=== PATIENT | female | born 1960 | race Two or more races ===

== ENCOUNTER 2020-05-01 11:14 | Outpatient (REF) | payer OTHER, SELFPAY ==
[2020-05-01 13:20] LABS: MANUAL DIFF FLAG NO
[2020-05-01 13:30] LABS: Basophils Percent Auto 0.3 % (0-2); Eosinophils Absolute Auto 0.2 X10*3/uL (0.0-0.4); Eosinophils Percent Auto 2.2 % (0-4); Hematocrit 40.2 % (37-47); Hemoglobin 12.7 g/dl (12.0-16.0); Imm Gran Abs Auto 0.02 X10*3/uL (0.00-0.03); Imm Gran Pct Auto 0.3 % (0.0-0.4); Lymphocytes Absolute Auto 1.5 X10*3/uL (1.2-4.9); Lymphocytes Percent Auto 20.5 % (20-40); Mean Corpuscular HGB Conc 31.6 g/dl (31.0-35.0); Mean Platelet Volume 10.7 fL (9.4-12.3); Monocytes Absolute Auto 0.8 X10*3/uL (0.1-1.2); Monocytes Percent Auto 11.4 % (2-11); Neutrophils Absolute Auto 4.8 X10*3/uL (2.0-8.3); Neutrophils Percent Auto 65.3 % (45-73); Platelet Count 320 X10*3/uL (160-400); Red Blood Count 4.23 X10*6/uL (4.20-5.50); Red Cell Distribution Width 12.1 % (11.0-16.0); White Blood Count 7.4 X10*3/uL (4.8-10.8)
== END 2020-05-01 11:15 | disposition home or self-care (01) ==
LOC: CF 11:14
PROVIDERS: PCP Pediatrics; Visit Provider Internal Medicine Pulmonary Disease
DX: J45.30 Mild persistent asthma, uncomplicated (principal); G47.33 Obstructive sleep apnea (adult) (pediatric); M32.9 Systemic lupus erythematosus, unspecified; Z91.09 Other allergy status, other than to drugs and biological substances; Z99.89 Dependence on other enabling machines and devices; Z79.899 Other long term (current) drug therapy
CPT/HCPCS: 36415; 82785; 85025; 86003; 99204

== ENCOUNTER → 2020-05-22 13:31 | Outpatient (BNVA) | payer OTHER, SELFPAY | PROVIDERS: PCP Pediatrics; Visit Provider Internal Medicine Pulmonary Disease | DX: Z76.89 Persons encountering health services in other specified circumstances (principal) ==

== ENCOUNTER → 2021-02-06 10:23 | Outpatient (BNVA) | payer OTHER, SELFPAY | PROVIDERS: PCP Pediatrics; Visit Provider Internal Medicine Pulmonary Disease | DX: J45.909 Unspecified asthma, uncomplicated (principal); G47.33 Obstructive sleep apnea (adult) (pediatric); Z99.89 Dependence on other enabling machines and devices | CPT/HCPCS: 99212 ==

== ENCOUNTER 2021-03-11 12:44 | Outpatient (REF) | payer OTHER, SELFPAY ==
--- NOTE | ~2021-03-11 | MM_ITS ---
EXAMINATION: MM DIAGNOSTIC DIGITAL BREAST TOMOSYNTHESIS, BILATERAL CLINICAL INFORMATION: Due for yearly. Also follow-up probable benign calcifications upper outer left breast and 12:00 right breast. Family history breast cancer, sister. The lifetime risk of breast cancer based on the Tyrer-Cuzick Model is 22%. COMPARISON: Mammography: 03/05/2020, 09/03/2019, 04/10/2019, 04/05/2019 (BI-RADS 0), 03/20/2018 TECHNIQUE: Digital breast tomosynthesis is performed in both the craniocaudal and mediolateral oblique views along with computer-aided detection (CAD). Synthesized 2D images are generated from the tomosynthesis. Additional magnification views are obtained: Left CC, left ML, right CC, right ML x2. FINDINGS: The breasts are heterogeneously dense, which may obscure small masses (ACR BI-RADS breast composition Category c). Parenchymal pattern is similar to prior studies. There is no interval mass or architectural abnormality or developing density. The axilla and skin contours are unremarkable. Left breast calcifications for follow-up mid upper outer quadrant are stable from prior diagnostic studies and now considered to be benign. The right breast calcifications for follow-up mid 12:00 position are stable to decreased from prior diagnostic studies and now considered to be benign. There are some other scattered round and coarse calcifications again noted anterior upper outer right breast as before. Results are provided to the patient at time of visit by the technologist. MM/MM tomosynthesis diagnostic BI IMPRESSION: 1. No significant changes from prior studies. 2. Bilateral calcifications for surveillance follow-up are stable and now considered to be benign. ASSESSMENT: BI-RADS 2: Benign RECOMMENDATION: 1. Routine annual mammography screening. 2. The lifetime risk of breast cancer based on the Tyrer-Cuzick Model is 22%. Additional annual adjunct screening with breast MRI may be of benefit in women with a risk score of 20% or greater. This patient's information was entered into a reminder system with a target due date for their next mammogram.
== END 2021-03-11 12:45 | disposition home or self-care (01) ==
LOC: HO.MAMMO 12:44
PROVIDERS: PCP Pediatrics; Visit Provider Pediatrics
DX: R92.1 Mammographic calcification found on diagnostic imaging of breast (principal)
CPT/HCPCS: 77062; 77066

== ENCOUNTER → 2021-03-24 14:49 | Outpatient (REF) | payer OTHER, SELFPAY | LOC: HO.SL 14:49 | PROVIDERS: PCP Pediatrics; Visit Provider Internal Medicine Pulmonary Disease | DX: G47.33 Obstructive sleep apnea (adult) (pediatric) (principal); Z99.89 Dependence on other enabling machines and devices | CPT/HCPCS: 95806 ==

== ENCOUNTER → 2021-05-08 13:47 | Outpatient (BNVA) | payer OTHER, SELFPAY | PROVIDERS: PCP Pediatrics; Visit Provider Internal Medicine Pulmonary Disease | DX: G47.33 Obstructive sleep apnea (adult) (pediatric) (principal); J45.909 Unspecified asthma, uncomplicated; R06.00 Dyspnea, unspecified; Z99.89 Dependence on other enabling machines and devices | CPT/HCPCS: 99212 ==

== ENCOUNTER 2021-05-14 05:15 | Outpatient (REF) | payer OTHER, SELFPAY ==
--- NOTE | ~2021-05-14 | XR_ITS ---
EXAMINATION: XR knee RT 2V, XR knee standing BI CLINICAL INFORMATION: Reason for Exam M25.569 - Pain in unspecified knee COMPARISON: None available at the time of this dictation. TECHNIQUE: Bilateral frontal standing, right lateral patella sunrise view. FINDINGS: BONES: No fracture or dislocation is present. JOINTS: Narrowing of joint spaces and developed osteophytes from the edges of articular surfaces suggest degenerative osteoarthritis. SOFT TISSUE: Normal XR/XR knee RT 2V IMPRESSION: Mild tricompartment DJD.
--- NOTE | ~2021-05-14 | XR_ITS ---
EXAMINATION: XR knee RT 2V, XR knee standing BI CLINICAL INFORMATION: Reason for Exam M25.569 - Pain in unspecified knee COMPARISON: None available at the time of this dictation. TECHNIQUE: Bilateral frontal standing, right lateral patella sunrise view. FINDINGS: BONES: No fracture or dislocation is present. JOINTS: Narrowing of joint spaces and developed osteophytes from the edges of articular surfaces suggest degenerative osteoarthritis. SOFT TISSUE: Normal XR/XR knee standing BI IMPRESSION: Mild tricompartment DJD.
== END 2021-05-14 05:16 | disposition home or self-care (01) ==
LOC: HO.HOSX 05:15
PROVIDERS: Visit Provider Physician Assistant
DX: M17.11 Unilateral primary osteoarthritis, right knee (principal)
CPT/HCPCS: 20610; 73560; 73565; 99202; J1020

== ENCOUNTER 2021-06-05 13:52 | Outpatient (REF) | payer OTHER, SELFPAY ==
--- NOTE | ~2021-06-05 | XR_ITS ---
EXAMINATION: XR CHEST CLINICAL INFORMATION: Dyspnea COMPARISON: Previous chest x-ray November 2015 TECHNIQUE: 2 views of the chest were obtained. FINDINGS: The cardiac and mediastinal contours are normal. The lungs are clear. There is no pleural effusion or pneumothorax. Bony structures are normal. XR/XR chest 2V IMPRESSION: Unremarkable examination.
== END 2021-06-05 13:53 | disposition home or self-care (01) ==
LOC: HO.XRAY 13:52
PROVIDERS: PCP Pediatrics; Visit Provider Internal Medicine Pulmonary Disease
DX: R06.00 Dyspnea, unspecified (principal); J45.909 Unspecified asthma, uncomplicated; G47.33 Obstructive sleep apnea (adult) (pediatric); Z91.09 Other allergy status, other than to drugs and biological substances; Z99.89 Dependence on other enabling machines and devices
CPT/HCPCS: 71046; 99212

== ENCOUNTER 2021-06-12 19:02 | Emergency (ER) | payer OTHER, SELFPAY ==
--- NOTE | ~2021-06-12 | XR_ITS ---
EXAMINATION: XR CHEST CLINICAL INFORMATION: Chest pain COMPARISON: None TECHNIQUE: PA view of the chest was obtained. FINDINGS: Normal appearance of the cardiomediastinal silhouette. Very mild interstitial prominence. No focal airspace opacities, pleural effusions or pneumothorax. No acute osseous findings. XR/XR chest 1V IMPRESSION: Very mild interstitial prominence of uncertain etiology. This could be seen in the setting of reactive airways disease, bronchitis or asthma. Correlate clinically. No focal airspace opacities.
[2021-06-12 19:11] VITALS: BP 142/85; PULSE 105; RESP 20; TEMP 36.8; O2SAT 96; BMI 33.6
--- NOTE | 2021-06-12 19:21 | ECG_ITS ---
Test Reason : CHEST PAIN Blood Pressure : / mmHG Vent. Rate : 104 BPM Atrial Rate : 104 BPM P-R Int : 140 ms QRS Dur : 086 ms QT Int : 364 ms P-R-T Axes : 038 041 039 degrees QTc Int : 478 ms Sinus tachycardia Otherwise normal ECG Heart rate has increased Referred By: Generic ED Physician Electronically Signed By:OTIS BARBOSA MD
[2021-06-12 19:42] LABS: Basophils Percent Auto 0.2 % (0-2); Hematocrit 41.9 % (37.0-47.0); Hemoglobin 13.4 g/dl (12.0-16.0); Imm Gran Abs Auto 0.11 X10*3/uL (0.00-0.03); Imm Gran Pct Auto 0.8 % (0.0-0.4); Lymphocytes Absolute Auto 0.5 X10*3/uL (1.2-4.9); Lymphocytes Percent Auto 3.8 % (20-40); MANUAL DIFF FLAG SCAN; Mean Corpuscular Volume 93.7 fL (80.0-98.0); Mean Platelet Volume 10.1 fL (9.4-12.3); Monocytes Absolute Auto 0.1 X10*3/uL (0.1-1.2); Neutrophils Absolute Auto 12.6 x10*3/uL (2.0-8.3); Neutrophils Percent Auto 94.2 % (45-73); Platelet Count 338 X10*3/uL (160-400); Red Blood Count 4.47 X10*6/uL (4.20-5.50); Red Cell Distribution Width 12.7 % (11.0-16.0); SCAN SMEAR FLAG 1; White Blood Count 13.3 X10*3/uL (4.8-10.8)
[2021-06-12 19:52] LABS: COVID-19 Test Negative (Negative); IDNOW Serial# 9DD0AD1C
[2021-06-12 20:12] LABS: SLIDE REVIEW VERIFIED
[2021-06-12 20:15] LABS: Anion Gap 18 (12-20); Blood Urea Nitrogen 16 mg/dL (9-16); Calcium 9.5 mg/dL (8.4-10.2); Carbon Dioxide 25 mmol/L (22-29); Chloride 99 mmol/L (96-108); Creatinine Clr Calc Pharmacy 74.9; Estimated Glomerular Filt Rate > 60; Glucose Random 283 mg/dL (60-115); Potassium 4.1 mmol/L (3.3-5.1); Sodium 138 mmol/L (135-145)
[2021-06-12 20:20] LABS: Troponin-I High Sensitivity < 3.5 ng/L (<3.5-17.0)
--- NOTE | 2021-06-12 22:09 | ED_ITS ---
HPI - Chest Pain General Chief Complaint: Chest Pain Stated Complaint: Anxiety Time Seen by Provider: 06/12/21 21:22 Source: patient Mode of arrival: ambulatory Limitations: no limitations History of Present Illness HPI narrative: 60 y/o female with history of fibromylagia, depression, MGUS, asthma, TREE on CPAP, seasonal allergies & anxiety who presents to the ER with intermittent left sided and central chest pain for the last 2-3 days. He reports initially started after she went up a case of stairs in her house and she was fatigued and short of breath at the top. She had some chest tightening at that time. She reports that has been coming and going since. She reports ongoing shortness of breath and fatigue with exertion that have been going on for the last 6 months. She follows with Dr. Deng for her asthma. She reports recently being started on prednisone for her asthma. She reports recent inability to tolerate her CPAP at night because the tubing is broken and insurance will not cover it. She also feels claustrophobic and anxious. She has been having increased panic attacks and has chest pain when she is having a panic attack. At that time she has pain and tingling that radiates down into her bilateral hands left worse than right. She also has intermittent headaches and generalized weakness. She feels over the last 6 months she has not been doing very well overall. She reports she may have clonazepam p.r.n. at home that was prescribed to her in 2019 but she has not taken it in a very long time. MD complaint: chest pain Pertinent past history: asthma Onset (ago): day(s) (2-3) Timing of current episode: episodic Prior episodes: Yes Onset: during rest and during exertion Pain location: left chest and parasternal Pain radiation: right arm and left arm Severity: moderate Quality: tightness Relieving factors: rest Exacerbating factors: exertion and stress Associated symptoms: dyspnea Treatment prior to arrival: none Risk Factors Coronary artery disease risk factors: hypertension Thoracic aortic dissection risk factors: none Related Data Home Medications Medication Instructions Recorded Confirmed atorvastatin 80 mg tablet 80 mg PO DAILY 05/01/20 05/08/21 betamethasone dipropionate 0.05 % applic TOPICAL BID 05/01/20 05/08/21 topical cream cetirizine 10 mg tablet 10 mg PO DAILY 05/01/20 05/08/21 cholecalciferol (vitamin D3) 50 0 mcg PO 05/01/20 05/08/21 mcg (2,000 unit) capsule clonazepam 0.5 mg tablet 0.5 mg PO DAILY 05/01/20 05/08/21 dexlansoprazole 60 mg 60 mg PO DAILY 05/01/20 05/08/21 capsule,biphase delayed release diclofenac sodium 1 % topical gel 2 g TOPICAL QID 05/01/20 05/08/21 (Voltaren) docusate sodium 100 mg capsule 100 mg PO BID 05/01/20 05/01/20 ketoconazole 2 % topical cream applic TOPICAL Q OTHER DAY PRN 05/01/20 05/08/21 linaclotide 145 mcg capsule 145 mcg PO DAILY 05/01/20 05/08/21 magnesium oxide 400 mg (241.3 mg 400 mg PO DAILY 05/01/20 05/08/21 magnesium) tablet meclizine 25 mg tablet mg PO 05/01/20 05/08/21 meloxicam 15 mg tablet 15 mg PO DAILY 05/01/20 05/01/20 metformin 500 mg tablet,extended 500 mg PO BID 05/01/20 05/08/21 release 24 hr methocarbamol 750 mg tablet 1,500 mg PO Q8H PRN 05/01/20 05/08/21 ehcneczgnsia-ledeasvm-khwybg tablet 1 tab PO DAILY 05/01/20 05/08/21 ondansetron 4 mg disintegrating 4 mg PO Q8H PRN 05/01/20 05/08/21 tablet paroxetine HCl 20 mg tablet 20 mg PO DAILY 05/01/20 05/08/21 peg [id number] 1 1 drp OPHTHALMIC (EYE) QID 05/01/20 05/08/21 %-0.2 %-0.2 % eye drops polyethylene glycol 3350 17 gram 17 g PO DAILY 05/01/20 05/08/21 oral powder packet pregabalin 150 mg capsule (Lyrica) 150 mg PO DAILY 05/01/20 05/08/21 sennosides 8.6 mg tablet 17.2 mg PO DAILY 05/01/20 05/08/21 sertraline 50 mg tablet 50 mg PO DAILY 05/01/20 05/01/20 tramadol 50 mg tablet 50 mg PO DAILY 05/01/20 05/01/20 verapamil 240 mg tablet,extended 240 mg PO DAILY 05/01/20 05/08/21 release diclofenac sodium 50 mg 50 mg PO BID 02/06/21 tablet,delayed release Previous Rx's Medication Instructions Recorded fluticasone furoate 200 1 inh INHALATION DAILY 30 Days #1 02/06/21 mcg-vilanterol 25 mcg/dose ea inhalation powder (Breo Ellipta) furosemide 40 mg tablet (Lasix) 40 mg PO DAILY 10 Days #10 tab 06/05/21 prednisone 10 mg tablet 40 mg PO DAILY 7 Days #28 tab 06/05/21 clonazepam 0.5 mg tablet 0.5 mg PO BID PRN #14 tab 06/12/21 Allergies Allergy/AdvReac Type Severity Reaction Status Date / Time aspirin [ASA] Allergy Intermediate Hives Verified 06/12/21 19:10 Penicillins [PENICILLINS] Allergy Intermediate RASH Verified 06/12/21 19:10 loratadine Allergy Unknown Unknown Verified 06/12/21 19:10 penicillin V Allergy Unknown rash Verified 06/12/21 19:10 trimethoprim Allergy Unknown Unknown Verified 06/12/21 19:10 venlafaxine Allergy Unknown Unknown Verified 06/05/21 13:59 Review of Systems Review of Systems: Constitutional: No Fever, No Chills ENT/Mouth: No sore throat, No Rhinorrhea, No Swallowing Difficulty Cardiovascular: + Chest Pain, + SOB, No Orthopnea, No Edema Respiratory: No Cough, No Sputum, + Wheezing, + dyspnea Gastrointestinal: No Nausea, No Vomiting, No Diarrhea, No abdominal Pain, No Hematochezia, No Melena Genitourinary: No Dysuria, No Urinary Frequency, No Hematuria Musculoskeletal: No joint pain, No Myalgias Skin: No Skin Lesions, No rash Neuro: + Weakness, No Numbness, No Dizziness, + Headache Psych: + Anxiety/Panic, + Depression Heme/Lymph: No Bruising, No Lymphadenopathy Endocrine: No Polyuria, No Polydipsia PMFSH Past Medical History Medical History (Updated 06/12/21 @ 23:44 by SUZAN Collins) Age related osteoporosis Anxiety Arthritis Carpal tunnel syndrome Chronic fatigue Constipation Depression Diabetes Fibromyalgia High cholesterol Hypertension Idiopathic hirsutism MGUS (monoclonal gammopathy of unknown significance) Mood disorder Myalgia Myositis Plantar fasciitis Positive MARCY (antinuclear antibody) Pulmonary nodule Restless legs SLE (systemic lupus erythematosus related syndrome) Spondylosis Xerosis of skin Family History Family History Father Diabetes Hypertension Mother Hypertension Diabetes Asthma Maternal Grandfather Throat cancer Maternal Grandmother Throat cancer Paternal Uncle Prostate cancer Maternal Uncle Throat cancer Stomach cancer Maternal Aunt Stomach cancer Diabetes Social History Social History (Updated 05/14/21 @ 16:00 by Jose D Angulo) Advance Directives: No Advance Directives Information Provided: No Patient : No Current occupational status: retired Current occupation: rt handed Physical Exam Vital Signs: Vital Signs: Last Vital Signs Temp 98.0 F 06/12/21 23:07 Pulse 76 06/12/21 23:07 Resp 19 06/12/21 23:07 BP 119/74 06/12/21 23:07 Pulse Ox 98 06/12/21 23:07 Body Mass Index 33.6 Appearance: Alert. Oriented X3. No acute distress. Eyes: Pupils equal, round and reactive to light. ENT: Pharynx normal. Neck: Normal inspection. Neck supple. CVS: Normal heart rate and rhythm. Pulses normal. Respiratory: No respiratory distress. Breath sounds normal. Abdomen: Soft and nontender. +BS x4 Skin: Skin warm and dry. Normal skin color. Normal skin turgor. No rashes. Extremities: No lower extremity edema. No calf tenderness. Neuro: Oriented X 3. No motor deficit. No sensory deficit. Course Course Course Narrative: 60-year-old female with history of TREE on CPAP asthma and anxiety presents to the ER with intermittent left-sided and substernal chest tightness for the last 2 or 3 days in addition to generalized fatigue, weakness, dyspnea on exertion that has been ongoing for the last 6 months. She currently has no chest pain. She admits to increased anxiety and panic attack frequency home. She has not been taking anything for anxiety. She also reports not using her CPAP machine because of increased anxiety and claustrophobia. Noncompliance with CPAP can lead to some of her symptoms. EKG without STEMI. Will plan on basic lab workup, rule out PE with a D-dimer and monitor closely in the ER. She appears well vital signs are stable. Reevaluation(s) Reevaluation #1: Troponin is negative. D-dimer is negative. Lab workup otherwise unremarkable. At this time it is thought that her shortness of breath, intermittent chest tightness are most likely anxiety related. We discussed need for follow-up and treatment. She will follow-up with her primary care doctor next week. She has leftover clonazepam from 2019 but is requesting a new short course until she can be seen by her doctor. Will give a 7 day supply. Treating her anxiety will hopefully help her tolerate her CPAP machine at home. She will follow-up with Dr. Ross unger for her ongoing shortness of breath. She is stable for discharge home with plan for outpatient follow-up. MDM - Chest Pain Medical Records Data Attestation: I reviewed the patient's medical records. Lab Data Attestation: I reviewed the patient's lab results. Result diagrams: 06/12/21 19:36 06/12/21 19:36 Labs: Lab Results 06/12/21 06/12/21 06/12/21 Range/Units 19:23 19:36 19:36 WBC 13.3 H (4.8-10.8) X10*3/uL RBC 4.47 (4.20-5.50) X10*6/uL Hgb 13.4 (12.0-16.0) g/dl Hct 41.9 (37.0-47.0) % MCV 93.7 (80.0-98.0) fL MCH 30.0 (27.0-33.0) pg MCHC 32.0 (31.0-35.0) g/dl RDW 12.7 (11.0-16.0) % Plt Count 338 (160-400) X10*3/uL MPV 10.1 (9.4-12.3) fL Immature Gran % (Auto) 0.8 H (0.0-0.4) % Neut % (Auto) 94.2 H (45-73) % Lymph % (Auto) 3.8 L (20-40) % [place] % (Auto) 1.0 L (2-11) % Eos % (Auto) 0.0 (0-4) % Baso % (Auto) 0.2 (0-2) % Lymph # (Auto) 0.5 L (1.2-4.9) X10*3/uL [place] # (Auto) 0.1 (0.1-1.2) X10*3/uL Eos # (Auto) 0.0 (0.0-0.4) X10*3/uL Baso # (Auto) 0.0 (0.0-0.2) X10*3/uL Abs Immat Gran (auto) 0.11 H (0.00-0.03) X10*3/uL Absolute Neuts (auto) 12.6 H (2.0-8.3) x10*3/uL Absolute Nucleated RBC 0.000 (0.0-0.012) X10*3/uL Nucleated RBC % (auto) 0.0 (0.0-0.2) /100WBC Smear Tech's Comments VERIFIED D-Dimer NG/ML Sodium 138 (135-145) mmol/L Potassium 4.1 (3.3-5.1) mmol/L Chloride 99 (96-108) mmol/L Carbon Dioxide 25 (22-29) mmol/L Anion Gap 18 (12-20) BUN 16 (9-16) mg/dL Creatinine 0.80 (0.5-1.4) mg/dL Estim Creat Clear Calc 74.9 Estimated GFR > 60 Random Glucose 283 H (60-115) mg/dL Calcium 9.5 (8.4-10.2) mg/dL Troponin I High Sens (<3.5-17.0) ng/L B-Natriuretic Peptide (<100) pg/mL COVID-19 (EDGAR) Negative (Negative) COVID-19 Clin Com See Note 06/12/21 06/12/21 Range/Units 19:36 22:56 WBC (4.8-10.8) X10*3/uL RBC (4.20-5.50) X10*6/uL Hgb (12.0-16.0) g/dl Hct (37.0-47.0) % MCV (80.0-98.0) fL MCH (27.0-33.0) pg MCHC (31.0-35.0) g/dl RDW (11.0-16.0) % Plt Count (160-400) X10*3/uL MPV (9.4-12.3) fL Immature Gran % (Auto) (0.0-0.4) % Neut % (Auto) (45-73) % Lymph % (Auto) (20-40) % [place] % (Auto) (2-11) % Eos % (Auto) (0-4) % Baso % (Auto) (0-2) % Lymph # (Auto) (1.2-4.9) X10*3/uL [place] # (Auto) (0.1-1.2) X10*3/uL Eos # (Auto) (0.0-0.4) X10*3/uL Baso # (Auto) (0.0-0.2) X10*3/uL Abs Immat Gran (auto) (0.00-0.03) X10*3/uL Absolute Neuts (auto) (2.0-8.3) x10*3/uL Absolute Nucleated RBC (0.0-0.012) X10*3/uL Nucleated RBC % (auto) (0.0-0.2) /100WBC Smear Tech's Comments D-Dimer < 200 NG/ML Sodium (135-145) mmol/L Potassium (3.3-5.1) mmol/L Chloride (96-108) mmol/L Carbon Dioxide (22-29) mmol/L Anion Gap (12-20) BUN (9-16) mg/dL Creatinine (0.5-1.4) mg/dL Estim Creat Clear Calc Estimated GFR Random Glucose (60-115) mg/dL Calcium (8.4-10.2) mg/dL Troponin I High Sens < 3.5 (<3.5-17.0) ng/L B-Natriuretic Peptide < 10 (<100) pg/mL COVID-19 (EDGAR) (Negative) COVID-19 Clin Com ECG Data ECG #1: Attestation: I personally reviewed and interpreted this ECG as follows: ECG interpretation date: 06/12/21 ECG interpretation time: 22:02 Interpretation: Sinus tachycardia, heart rate 104 beats per minute, HI interval normal. No ST segment elevations or depressions. Critical Care Time Critical Care Time Critical Care Time: No Discharge Plan Discharge Clinical Impression: Atypical chest pain, Anxiety Patient Disposition: Home, Self-Care Instructions: Chest Pain (ED), Panic Attack (ED) Additional Instructions: Your workup today was unremarkable. Life threatening causes of chest pains and shortness of breath have been ruled out. Your anxiety and panic attacks are likely contributing It is also very important that you use your CPAP at night. Follow up with your doctor next week. If you develop new or worsening symptoms call 911 or come back to the ER for further evaluation. Prescriptions: New clonazepam 0.5 mg tablet 0.5 mg PO BID PRN (Reason: anxiety) Qty: 14 RF: 0 No Action Cerovite Senior Tablet 1 tab PO DAILY RF: 0 pregabalin [Lyrica] 150 mg capsule 150 mg PO DAILY RF: 0 methocarbamol 750 mg tablet 1,500 mg PO Q8H PRNRF: 0 tramadol 50 mg tablet 50 mg PO DAILY RF: 0 diclofenac sodium [Voltaren] 1 % gel 2 g topical QID RF: 0 clonazepam 0.5 mg tablet 0.5 mg PO DAILY RF: 0 verapamil 240 mg tablet extended release 240 mg PO DAILY RF: 0 meclizine 25 mg tablet PO RF: 0 cetirizine 10 mg tablet 10 mg PO DAILY RF: 0 atorvastatin 80 mg tablet 80 mg PO DAILY RF: 0 cholecalciferol (vitamin D3) 50 mcg (2,000 unit) capsule 0 mcg PO RF: 0 ondansetron 4 mg tablet,disintegrating 4 mg PO Q8H PRNRF: 0 betamethasone dipropionate 0.05 % cream topical BID RF: 0 ketoconazole 2 % cream topical Q OTHER DAY PRNRF: 0 polyethylene glycol 3350 17 gram powder in packet 17 g PO DAILY RF: 0 sennosides 8.6 mg tablet 17.2 mg PO DAILY RF: 0 docusate sodium 100 mg capsule 100 mg PO BID RF: 0 Dexilant 60 mg capsule,biphase delayed releas 60 mg PO DAILY RF: 0 Linzess 145 mcg capsule 145 mcg PO DAILY RF: 0 sertraline 50 mg tablet 50 mg PO DAILY RF: 0 magnesium oxide 400 mg (241.3 mg magnesium) tablet 400 mg PO DAILY RF: 0 paroxetine HCl 20 mg tablet 20 mg PO DAILY RF: 0 metformin 500 mg tablet extended release 24 hr 500 mg PO BID RF: 0 meloxicam 15 mg tablet 15 mg PO DAILY RF: 0 Artificial Tears(ct-ucce-ocyx) 1-0.2-0.2 % drops 1 drp ophthalmic (eye) QID RF: 0 Breo Ellipta 200-25 mcg/dose blister with device 1 inh inhalation DAILY 30 Days Qty: 1 RF: 6 furosemide [Lasix] 40 mg tablet 40 mg PO DAILY 10 Days Qty: 10 RF: 0 prednisone 10 mg tablet 40 mg PO DAILY 7 Days Qty: 28 RF: 0 Referrals: Adrienne Villegas MD [Primary Care Provider] - 3 days Print Language: Cymro
[2021-06-12 22:38] LABS: B Type Natriuretic Peptide < 10 pg/mL (<100)
[2021-06-12 23:07] VITALS: BP 119/74; PULSE 76; RESP 19; TEMP 36.7; O2SAT 98
[2021-06-12 23:10] LABS: D Dimer < 200 NG/ML
[2021-06-13] VITALS: BP 125/67; PULSE 67; RESP 20; O2SAT 98
== END 2021-06-13 00:23 | disposition home or self-care (01) ==
PROVIDERS: Physician Assistant; Emergency Provider Internal Medicine; PCP Pediatrics
DX: R07.89 Other chest pain (principal); F41.9 Anxiety disorder, unspecified; E11.9 Type 2 diabetes mellitus without complications; I10 Essential (primary) hypertension; J45.909 Unspecified asthma, uncomplicated; G47.33 Obstructive sleep apnea (adult) (pediatric); Z91.19 Patient's noncompliance with other medical treatment and regimen; Z20.822 Contact with and (suspected) exposure to COVID-19
CPT/HCPCS: 36415; 71045; 80048; 83880; 84484; 85025; 85379; 87635; 93005; 99284

== ENCOUNTER 2021-07-02 14:00 | Outpatient (RCR) | payer OTHER, SELFPAY ==
--- NOTE | 2021-06-01 16:22 | MHC.PT.EP ---
[facility] [place] Office [place] Office [place] Office [address] [phone] F: [phone] F: [phone] F: [phone] F: [phone] Physical Therapy Plan of Care Date of Evaluation: Date of Surgery: Diagnosis: OA of R knee Assessment: Pt is a 60 y/o female referred to PT ror eval and treat of R knee OA who presents with R knee dysfunction resulting in decreased tolerance and ability to perform ambulatory, standing tasks for duration, as well as negotiating stairs, performing squatting activities and heavy HH chores secondary to decreased hip and knee strength, decreased knee ROM as well as gait abnormality and pain. Pt is deemed an appropriate candidate to receive skilled PT in order to address her physical limitations to improve her functional ability. Frequency and Duration: The patient will be seen 2x/wk x 4 wks. Short Term Goals: initiate HEP. improve baseline pain with walking activities to < 5/10, initial 7/10. [employer] Custodian Goals: In 4 weeks: Pt will be able to walk 2 blocks with at most a little bit of difficulty; initial: quite a bit of difficulty. In 4 week: I with HEP. In 4 weeks; improve B hip abd to > 4/5 MMT. initial 4-/5 B. Treatment Plan: Modalities to reduce pain, spasms and effusion. Manual therapy to restore motion and function. Therapeutic exercise to improve strength and flexibility. Neuromuscular re-education for posture and balance. Therapeutic activities to return to functional activities of daily living. Electronically signed by: Adalberto Tanner PT. Please sign and return to therapist. Thank you for your referral.
--- NOTE | 2021-07-02 15:06 | MHC.PT.DC ---
[facility] [place] Office [place] Office [place] Office [address] Richard Reyna [address] [phone] F: [phone] F: [phone] F: [phone] F: [phone] Physical Therapy Discharge Report Diagnosis: OA of R knee Date of Surgery: Date of Evaluation: 06/01/21 Date of Discharge: 07/02/21 Treatments to Date: 8 Cancellations to Date: No Shows to Date: Discharge Status: Improved Function Independent with HEP Discharge Summary: Jess has been an active participant in her therapy in the clinic with inconsistent home program performance who has mes some of her therapeutic goals and is I with a basic home program to continue strengthening her knee. Pt persists with pain ambulating and standing for duration though reports improvement through PT. Electronically signed by: Adalberto Tanner PT. Please sign and return to therapist. Thank you for your referral.
== END 2021-07-02 15:06 | disposition home or self-care (01) ==
LOC: HO.PTCHIC 14:00
PROVIDERS: PCP Pediatrics; Visit Provider Physician Assistant
DX: M17.11 Unilateral primary osteoarthritis, right knee (principal)
CPT/HCPCS: 97110; 97140; 97161

== ENCOUNTER → 2021-08-24 10:28 | Outpatient (REF) | payer OTHER, SELFPAY ==
--- NOTE | 2021-08-24 10:32 | CA_ITS ---
Transthoracic Echocardiogram Patient (Last, First, Middle): Jess Schmidt D Gender: Female Date of : 1960 Age: 60 Procedure Date: 08/24/2021 Procedure Type: Transthoracic Echocardiogram Location: OP Height: 165.1 cm Weight: 81.65 kg BSA: 1.89 m2 Heart Rate: bpm BP: 130 / 86 mmHg Software Specialist: SHERYL Referring MD: Adrienne Villegas MD Counselor At Law: Esau Savage MD Symptoms: E11.0 TYPE 2 DM, G47.33 TREE I10 HTN R06.02 SOB Study Quality: Fair ECG Rhythm: Sinus Conclusions: - Essentially normal study Findings Left Ventricle Normal left ventricular size, thickness, and systolic function. The visually estimated ejection fraction is between 60-65%. Spectral Doppler is indicative of a normal filling pattern. Right Ventricle Normal right ventricular cavity size and systolic function. Atria The left atrium is normal in size. Interatrial shunt cannot be excluded. The right atrium was not well visualized. Aortic Valve The aortic valve structure and function is likely normal. There is no aortic valve stenosis. There is no aortic valve regurgitation. Mitral Valve Normal mitral valve structure and function. There is trace mitral valve regurgitation. There is no mitral valve stenosis. Pulmonic Valve The pulmonic valve was not well visualized. Tricuspid Valve Likely normal tricuspid valve structure and function. The right ventricular systolic pressure is normal. The right ventricular systolic pressure is 22 mmHg. There is no evidence of pulmonary hypertension. Great Vessels All visible segments of the aorta are normal in size. The pulmonary artery was not well visualized. Venous The inferior vena cava is normal in size and collapses greater than 50% with inspiration. Pericardium/Pleural There is no evidence of pericardial effusion. Prior Study Comparison No prior study available for comparison. Measurements 2D Linear Measurements IVSd: 0.88 0.6-0.9/0.6-1.0 cm LVIDd: 4.82 3.9-5.3/4.2-5.9 cm LVIDd Index: 2.55 2.4-3.2/2.2-3.1 cm/m2 LVIDs: 2.94 2.0-3.6 cm LVPWd: 0.85 0.7-1.1 cm Ao Root: 3.20 2.1-3.5 cm LA Diam: 3.80 2.7-3.8/3.0-4.0 cm LAIDs Index: 2.01 1.5-2.3 cm/m2 LV Mass: 175.79 67-162/88-224 g LV Mass Index: 93.01 43-95/49-115 g/m2 LVOT Diam: 2.00 3.0+(-)1.3 cm 2D Systolic Function EF 4C: 55.80 >55% EF 2C: 70.50 >55% EF BiP: 62.50 >55% Mitral Valve MV Pk E: 0.75 MV PK A: 0.74 MV Decel Time: 197.00 E/A: 1.00 E'Lateral: 12.20 E'Medial: 8.92 E/E' Med: 8.40 E/E' Lat: 6.10 PHT: 58.00 MVA PHT: 3.79 Decel [place]: 3.79 Aortic Valve AoV Pk Venkat: 1.21 AoV Mn Venkat: 0.88 AoV VTI: 0.28 AoV Pk Grad: 6.00 Aov Mn Grad: 3.00 SIMON Cont.VTI: 2.62 LVOT LVOT Pk Venkat: 1.04 LVOT Mn Venkat: 0.70 LVOT VTI: 0.24 LVOT Pk Grad: 4.00 LVOT Mn Grad: 2.00 LVOT Diam: 2.00 LVOT Area: 3.14 Diastolic Function MV Pk E: 0.75 MV Pk A: 0.74 E/A: 1.00 E'Medial: 8.92 E/E' Med: 8.40 E' Laterial: 12.20 E/E' Lat: 6.10 Right Ventricle TAPSE (mm): 30.90 TVS' Venkat: 12.10 Tricuspid Valve TR Pk Venkat: 2.16 TR Pk Grad: 19.00 RA Press: 3.00 RVSP: 22.00 Great Vessels Aorta Ao Root-2D: 3.20 2.0-3.7 cm Ao Asc: 3.10 2.1-3.4 cm Ao Arch: 3.00 Updated in Other Vendor System with Status of Final Esau Savage MD electronically signed on 08/24/2021 5:21:14 PM with status of Final
--- NOTE | 2021-08-24 11:31 | ECG_ITS ---
Hook-up date: 2021-08-24 11:47:00 Duration: 27:07:00 Test Indications: PALPITATIONS Medications: [id number] QRS complexes * Ventricular ectopics which represent % of total QRS comp. 5 Supraventricular ectopics which represent <1 % of total QRS comp. * Paced QRS complexs which represent % of total QRS comp. VENTRICULAR ECTOPY * Isolated * Bigeminal Cycles * Couplets * Runs * Beats in Runs * Beats LONGEST at * BPM at :: -- * Beats FASTEST at * BPM at :: -- SUPRAVENTRICULAR ECTOPY 5 Isolated 0 Couplets 0 Runs 0 Beats in Runs * Beats LONGEST at * BPM at :: -- * Beats FASTEST at * BPM at :: -- HEART RATES 54 MIN at 04:18:21 2021-08-25 79 AVG 119 MAX at 15:46:18 2021-08-24 LONGEST RR 1.2160 secs at 05:55:47 2021-08-25 S-T LEVELS Channel 1 - 128 mm at 11:47:00 2021-08-24 - 128 mm at 11:47:00 2021-08-24 Channel 2 - 128 mm at 11:47:00 2021-08-24 - 128 mm at 11:47:00 2021-08-24 Channel 3 - 128 mm at 03:10:61 -- - 128 mm at 03:10:61 Basic rhythm Normal sinus rhythm No long pause or profound bradycardia No dangerous dysrhythm periods Patient did not report any symptoms in the diary Referred By: Adrienne Villegas Overread By: HAMZAH DILLON MD
== END ==
LOC: HO.CARD 10:28
PROVIDERS: Visit Provider Pediatrics
DX: R00.2 Palpitations (principal); I10 Essential (primary) hypertension; R06.02 Shortness of breath; G47.33 Obstructive sleep apnea (adult) (pediatric); E11.9 Type 2 diabetes mellitus without complications; M17.0 Bilateral primary osteoarthritis of knee
CPT/HCPCS: 20610; 93225; 93226; 93306; 99212; J1020

== ENCOUNTER 2021-09-27 12:21 | Emergency (ER) | payer OTHER, SELFPAY ==
--- NOTE | ~2021-09-27 | CT_ITS ---
EXAMINATION: CT ABDOMEN AND PELVIS WITHOUT CONTRAST CLINICAL INFORMATION: Left-sided flank pain, hematuria and vomiting COMPARISON: None TECHNIQUE: Multidetector volumetric imaging was performed from the superior aspect of the liver through the pubic symphysis. Sagittal and coronal reformatted images were obtained on the technologist's workstation. This CT examination was performed using dose optimization techniques as appropriate, variously including the following: *Automated exposure control *Adjustment of mA and/or kV according to patient size (this includes techniques or standardized protocols for targeted exams where dose is matched to indication/reason for exam; i.e. extremities or head) *Use of iterative reconstruction technique DLP: 708 mGy-cm FINDINGS: LUNG BASES: There is a 4 mL nodule left lung base axial image 13/7. No additional nodules seen. Heart size is normal. LIVER, GALLBLADDER, AND BILIARY TREE: The liver is normal in size, shape, and attenuation. No focal hepatic lesion or biliary ductal dilatation is present. The gallbladder is unremarkable with no evidence of radiopaque gallstones, gallbladder wall thickening, or obvious pericholecystic inflammatory changes. PANCREAS: Unremarkable. SPLEEN: Unremarkable. ADRENAL GLANDS: Unremarkable. KIDNEYS AND URETERS: The kidneys are normal in size, shape, and attenuation. There is no radiopaque renal calculi. However there is a 4 mm left UVJ radiopaque calculi with mild hydroureteronephrosis. There is mild periureteral fat stranding in the proximal and mid segment. BLADDER: Unremarkable. GASTROINTESTINAL TRACT: There is scattered stool in the colon without any significant distention. The small bowel loops are normal caliber. The appendix is unremarkable. ABDOMINAL WALL: No significant hernia is appreciated. LYMPH NODES: Normal. VASCULAR: Unremarkable. PELVIC VISCERA: The uterus is anteverted with multiple exophytic lesions likely fibroid disease. OSSEOUS STRUCTURES: No lytic or sclerotic process seen. CT/CT abdomen pelvis wo con IMPRESSION: 4 mm left obstructive UVJ radiopaque calculi without hydronephrosis. Enlarged uterus with lumpy bumpy appearance likely fibroid disease. Fleischner guidelines were followed.
[2021-09-27 12:38] VITALS: BP 148/82; PULSE 79; RESP 20; TEMP 36.9; O2SAT 99; BMI 31.6
[2021-09-27] MEDS: Ondansetron ODT 4 MG TAB.RAPDIS TRANSLINGU (12:45)
--- NOTE | 2021-09-27 13:21 | ED.NAVMDI ---
HPI - Nausea/Vomiting/Diarrhea General Chief complaint: Nausea/Vomiting/Diarrhea Stated complaint: Vomiting/Unable to urinate Time Seen by Provider: 09/27/21 13:06 Source: patient Mode of arrival: ambulatory Limitations: no limitations History of Present Illness HPI Narrative: 60-year-old female with history of asthma, TREE on CPAP, anxiety, fibromyalgia, depression, MGUS who presents to the ER with 5 hours of left-sided abdominal pain, nausea, & vomiting. She reports the pain came out of nowhere and is sharp and severe in nature. She also reports she has not been able to urinate since this morning. She also feels constipated, she had a normal bowel movement yesterday. She feels like her abdomen is distended. She has never had any surgeries on her abdomen. She is not eating or drinking anything this morning due to the pain and vomiting. No fever or chills. She had no pain with urination yesterday but reports dribbling small amounts. MD elicited complaint: nausea, vomiting and abdominal pain Onset (ago): hour(s) (5) Description of vomiting: food contents Associated nausea: Yes Associated abdominal pain: Yes Location of pain: L flank Radiation: LLQ Pain consistency: constant Severity: severe Pain scale (0-10): 10 Quality: stabbing Exacerbating factors: none Relieving factors: none Associated symptoms: loss of appetite, nausea/vomiting, weakness and decreased urine output Related Data Home Medications Medication Instructions Recorded Confirmed atorvastatin 80 mg tablet 80 mg PO DAILY 05/01/20 05/08/21 betamethasone dipropionate 0.05 % applic TOPICAL BID 05/01/20 05/08/21 topical cream cetirizine 10 mg tablet 10 mg PO DAILY 05/01/20 05/08/21 cholecalciferol (vitamin D3) 50 0 mcg PO 05/01/20 05/08/21 mcg (2,000 unit) capsule clonazepam 0.5 mg tablet 0.5 mg PO DAILY 05/01/20 05/08/21 dexlansoprazole 60 mg 60 mg PO DAILY 05/01/20 05/08/21 capsule,biphase delayed release diclofenac sodium 1 % topical gel 2 g TOPICAL QID 05/01/20 05/08/21 (Voltaren) docusate sodium 100 mg capsule 100 mg PO BID 05/01/20 05/01/20 ketoconazole 2 % topical cream applic TOPICAL Q OTHER DAY PRN 05/01/20 05/08/21 linaclotide 145 mcg capsule 145 mcg PO DAILY 05/01/20 05/08/21 magnesium oxide 400 mg (241.3 mg 400 mg PO DAILY 05/01/20 05/08/21 magnesium) tablet meclizine 25 mg tablet mg PO 05/01/20 05/08/21 meloxicam 15 mg tablet 15 mg PO DAILY 05/01/20 05/01/20 metformin 500 mg tablet,extended 500 mg PO BID 05/01/20 05/08/21 release 24 hr methocarbamol 750 mg tablet 1,500 mg PO Q8H PRN 05/01/20 05/08/21 [id number]-[id number] tablet 1 tab PO DAILY 05/01/20 05/08/21 ondansetron 4 mg disintegrating 4 mg PO Q8H PRN 05/01/20 05/08/21 tablet paroxetine HCl 20 mg tablet 20 mg PO DAILY 05/01/20 05/08/21 peg [id number] 1 1 drp OPHTHALMIC (EYE) QID 05/01/20 05/08/21 %-0.2 %-0.2 % eye drops polyethylene glycol 3350 17 gram 17 g PO DAILY 05/01/20 05/08/21 oral powder packet pregabalin 150 mg capsule (Lyrica) 150 mg PO DAILY 05/01/20 05/08/21 sennosides 8.6 mg tablet 17.2 mg PO DAILY 05/01/20 05/08/21 sertraline 50 mg tablet 50 mg PO DAILY 05/01/20 05/01/20 tramadol 50 mg tablet 50 mg PO DAILY 05/01/20 05/01/20 verapamil 240 mg tablet,extended 240 mg PO DAILY 05/01/20 05/08/21 release diclofenac sodium 50 mg 50 mg PO BID 02/06/21 tablet,delayed release Previous Rx's Medication Instructions Recorded fluticasone furoate 200 1 inh INHALATION DAILY 30 Days #1 02/06/21 mcg-vilanterol 25 mcg/dose ea inhalation powder (Breo Ellipta) furosemide 40 mg tablet (Lasix) 40 mg PO DAILY 10 Days #10 tab 06/05/21 prednisone 10 mg tablet 40 mg PO DAILY 7 Days #28 tab 06/05/21 clonazepam 0.5 mg tablet 0.5 mg PO BID PRN #14 tab 06/12/21 ibuprofen 600 mg tablet 600 mg PO Q8H PRN #10 tab 09/27/21 oxycodone 5 mg tablet 5 mg PO Q4H PRN #10 tab 09/27/21 polyethylene glycol 3350 17 17 g PO DAILY PRN #119 g 09/27/21 gram/dose oral powder (Miralax) prednisone 20 mg tablet 40 mg PO DAILY #10 tab 09/27/21 tamsulosin 0.4 mg capsule (Flomax) 0.4 mg PO DAILY #14 cap 09/27/21 Allergies Allergy/AdvReac Type Severity Reaction Status Date / Time aspirin [ASA] Allergy Intermediate Hives Verified 09/27/21 12:38 Penicillins [PENICILLINS] Allergy Intermediate RASH Verified 09/27/21 12:38 loratadine Allergy Unknown Unknown Verified 09/27/21 12:38 penicillin V Allergy Unknown rash Verified 09/27/21 12:38 trimethoprim Allergy Unknown Unknown Verified 09/27/21 12:38 venlafaxine Allergy Unknown Unknown Verified 09/27/21 12:38 Review of Systems Review of Systems: Constitutional: No Fever, + Chills ENT/Mouth: No sore throat, No Rhinorrhea, No Swallowing Difficulty Cardiovascular: No Chest Pain, No SOB, No Orthopnea, No Edema Respiratory: No Cough, No Sputum, No Wheezing, No dyspnea Gastrointestinal: +Nausea, + Vomiting, No Diarrhea, + abdominal Pain, No Hematochezia, No Melena, +constipation Genitourinary: No Dysuria, NOUrinary Frequency, No Hematuria, +Urinary retention Musculoskeletal: No joint pain, No Myalgias Skin: No Skin Lesions, No rash Neuro: No Weakness, No Numbness, No Dizziness, No Headache Psych:+ Anxiety/Panic, No Depression Heme/Lymph: No Bruising, No Lymphadenopathy Endocrine: No Polyuria, No Polydipsia Gastrointestinal: Gastrointestinal: Reports nausea PMFSH Past Medical History Medical History Age related osteoporosis Anxiety Arthritis Carpal tunnel syndrome Chronic fatigue Constipation Depression Diabetes Fibromyalgia High cholesterol Hypertension Idiopathic hirsutism MGUS (monoclonal gammopathy of unknown significance) Mood disorder Myalgia Myositis Plantar fasciitis Positive MARCY (antinuclear antibody) Pulmonary nodule Restless legs SLE (systemic lupus erythematosus related syndrome) Spondylosis Xerosis of skin Family History Family History Father Diabetes Hypertension Mother Hypertension Diabetes Asthma Maternal Grandfather Throat cancer Maternal Grandmother Throat cancer Paternal Uncle Prostate cancer Maternal Uncle Throat cancer Stomach cancer Maternal Aunt Stomach cancer Diabetes Social History Social History Advance Directives: No Advance Directives Information Provided: No Current occupational status: retired Current occupation: rt handed Physical Exam Vital Signs: Vital Signs: Last Vital Signs Temp 98.7 F 09/27/21 16:00 Pulse 98 09/27/21 16:00 Resp 16 09/27/21 16:00 BP 113/70 09/27/21 16:00 Pulse Ox 97 09/27/21 16:00 BMI result Body Mass Index 31.6 Appearance: Alert. Oriented X3. Appears to be in pain. Eyes: Pupils equal, round and reactive to light. ENT: Pharynx normal. Neck: Normal inspection. Neck supple. CVS: Normal heart rate and rhythm. Pulses normal. Respiratory: No respiratory distress. Breath sounds normal. Abdomen: Soft with left sided abdominal tenderness, no guarding or rebound, +left flank pain +CVA tenderness on the left, normal. +BS x4 Skin: Skin warm and dry. Normal skin color. Normal skin turgor. No rashes. Extremities: No lower extremity edema. Neuro: Oriented X 3. Grossly normal, nonfocal. Course Course Course Narrative: 60-year-old female presents to the ER with acute onset of left-sided flank pain that radiates into her abdomen as well as urinary retention and constipation. She is nauseous and vomiting. Bladder scan shows she has 500 cc urine in her bladder. Will straight cath NSAID urine sample. She may have a UTI. Will check basic lab workup and CT scan to evaluate her symptoms. IV morphine ordered, will reassess her pain. Reevaluation(s) Reevaluation #1: Urinalysis with blood, no signs of infection. CT scan is showing a 4 mm obstructing stone in the left UVJ. No hydronephrosis. Her pain is significantly improved. No vomiting here. She is tolerating p.o.. Discussed results with patient and her daughter at the bedside. Plan will be for discharge home with supportive care, pain control and follow-up with Urology. Patient agrees with plan. Advised to come back to the ER if she develops worsening symptoms. MDM - Nausea/Vomiting/Diarrhea Lab Data Result diagrams: 09/27/21 14:49 09/27/21 14:49 Labs: Lab Results 09/27/21 09/27/21 09/27/21 Range/Units 14:49 14:49 14:49 WBC 13.5 H (4.8-10.8) X10*3/uL RBC 4.10 L (4.20-5.50) X10*6/uL Hgb 12.3 (12.0-16.0) g/dl Hct 38.8 (37.0-47.0) % MCV 94.6 (80.0-98.0) fL MCH 30.0 (27.0-33.0) pg MCHC 31.7 (31.0-35.0) g/dl RDW 12.4 (11.0-16.0) % Plt Count 305 (160-400) X10*3/uL MPV 9.6 (9.4-12.3) fL Immature Gran % (Auto) 0.4 (0.0-0.4) % Neut % (Auto) 90.7 H (45-73) % Lymph % (Auto) 3.6 L (20-40) % [place] % (Auto) 5.0 (2-11) % Eos % (Auto) 0.1 (0-4) % Baso % (Auto) 0.2 (0-2) % Lymph # (Auto) 0.5 L (1.2-4.9) X10*3/uL [place] # (Auto) 0.7 (0.1-1.2) X10*3/uL Eos # (Auto) 0.0 (0.0-0.4) X10*3/uL Baso # (Auto) 0.0 (0.0-0.2) X10*3/uL Abs Immat Gran (auto) 0.05 H (0.00-0.03) X10*3/uL Absolute Neuts (auto) 12.3 H (2.0-8.3) x10*3/uL Absolute Nucleated RBC 0.000 (0.0-0.012) X10*3/uL Nucleated RBC % (auto) 0.0 (0.0-0.2) /100WBC Smear Tech's Comments VERIFIED Sodium 144 (135-145) mmol/L Potassium 4.4 (3.3-5.1) mmol/L Chloride 108 (96-108) mmol/L Carbon Dioxide 26 (22-29) mmol/L Anion Gap 14 (12-20) BUN 12 (9-16) mg/dL Creatinine 0.69 (0.5-1.4) mg/dL Estim Creat Clear Calc 87.4 Estimated GFR > 60 Random Glucose 98 (60-115) mg/dL Calcium 9.5 (8.4-10.2) mg/dL Magnesium 2.0 (1.6-2.6) mg/dL Total Bilirubin 0.4 (0.0-1.0) mg/dL Direct Bilirubin 0.2 (0.0-0.5) mg/dL AST 19 (5-31) U/L ALT 18 (0-31) U/L Alkaline Phosphatase 58 (39-117) U/L Total Protein 6.9 (6.5-8.0) g/dL Albumin 4.2 (3.5-5.0) g/dL Urine Color YELLOW Urine Appearance CLEAR Urine pH 7.5 (5.0-8.0) Ur Specific [place] <= 1.005 (1.005-1.025) Urine Protein NEG (NEG-TRACE) MG/DL Urine Glucose (UA) NEG (NEG) MG/DL Urine Ketones NEG (NEG) MG/DL Urine Blood 3+ H (NEG) Urine Nitrite NEG (NEG) Ur Leukocyte Esterase NEG (NEG) Urine RBC 15-29 H (0) /HPF Urine WBC 0-2 (0-4) /HPF Ur Squamous Epith Cells TRACE /LPF Urine Bacteria NONE /LPF Critical Care Time Critical Care Time Critical Care Time: No Discharge Plan Discharge Clinical Impression: Left ureteral stone Patient Disposition: Home, Self-Care Instructions: Ureteral Stones (ED) Additional Instructions: Your CT scan showed a 4 mm kidney stone. This is what is causing her pain. You most likely passed stone on your own. However there is a chance you may not pass the stone & may need a procedure to help it pass. Take prescribed medications as directed. If you develop worsening symptoms despite this call your doctor or come back to the ER for further evaluation. Recommend following up with Urology for further evaluation of the kidney stone. Prescriptions: New tamsulosin [Flomax] 0.4 mg capsule 0.4 mg PO DAILY Qty: 14 0RF ibuprofen 600 mg tablet 600 mg PO Q8H PRN (Reason: pain) Qty: 10 0RF oxycodone 5 mg tablet 5 mg PO Q4H PRN (Reason: pain) Qty: 10 0RF prednisone 20 mg tablet 40 mg PO DAILY Qty: 10 0RF polyethylene glycol 3350 [Miralax] 17 gram/dose powder 17 g PO DAILY PRN (Reason: constipation) Qty: 119 0RF No Action clonazepam 0.5 mg tablet 0.5 mg PO BID PRN (Reason: anxiety) Qty: 14 0RF Cerovite Senior Tablet 1 tab PO DAILY 0RF pregabalin [Lyrica] 150 mg capsule 150 mg PO DAILY 0RF methocarbamol 750 mg tablet 1,500 mg PO Q8H PRN0RF tramadol 50 mg tablet 50 mg PO DAILY 0RF diclofenac sodium [Voltaren] 1 % gel 2 g topical QID 0RF Rx Instructions: apply to single elbow, wrist or hand; for hand includes palm/fingers/back of hand clonazepam 0.5 mg tablet 0.5 mg PO DAILY 0RF verapamil 240 mg tablet extended release 240 mg PO DAILY 0RF meclizine 25 mg tablet PO 0RF cetirizine 10 mg tablet 10 mg PO DAILY 0RF atorvastatin 80 mg tablet 80 mg PO DAILY 0RF cholecalciferol (vitamin D3) 50 mcg (2,000 unit) capsule 0 mcg PO 0RF ondansetron 4 mg tablet,disintegrating 4 mg PO Q8H PRN0RF betamethasone dipropionate 0.05 % cream topical BID 0RF ketoconazole 2 % cream topical Q OTHER DAY PRN0RF polyethylene glycol 3350 17 gram powder in packet 17 g PO DAILY 0RF sennosides 8.6 mg tablet 17.2 mg PO DAILY 0RF docusate sodium 100 mg capsule 100 mg PO BID 0RF Dexilant 60 mg capsule,biphase delayed releas 60 mg PO DAILY 0RF Linzess 145 mcg capsule 145 mcg PO DAILY 0RF sertraline 50 mg tablet 50 mg PO DAILY 0RF magnesium oxide 400 mg (241.3 mg magnesium) tablet 400 mg PO DAILY 0RF paroxetine HCl 20 mg tablet 20 mg PO DAILY 0RF metformin 500 mg tablet extended release 24 hr 500 mg PO BID 0RF meloxicam 15 mg tablet 15 mg PO DAILY 0RF Artificial Tears([id number]-nptt) 1-0.2-0.2 % drops 1 drp ophthalmic (eye) QID 0RF diclofenac sodium 50 mg tablet,delayed release (DR/EC) 50 mg PO BID 0RF Breo Ellipta 200-25 mcg/dose blister with device 1 inh inhalation DAILY 30 Days Qty: 1 6RF furosemide [Lasix] 40 mg tablet 40 mg PO DAILY 10 Days Qty: 10 0RF prednisone 10 mg tablet 40 mg PO DAILY 7 Days Qty: 28 0RF Referrals: Milton Cardozo MD [Physician] - 5 days (obstructing UVJ stone, normal kidney fx)
[2021-09-27] MEDS: Morphine Sulfate 4 MG/ML CARTRIDGE IVPUSH (14:00)
[2021-09-27] MEDS: 0.9 % Sodium Chloride 1,000 ML 999 ML IVCONT (14:06)
[2021-09-27 14:54] LABS: Basophils Percent Auto 0.2 % (0-2); Eosinophils Percent Auto 0.1 % (0-4); Hematocrit 38.8 % (37.0-47.0); Hemoglobin 12.3 g/dl (12.0-16.0); Imm Gran Abs Auto 0.05 X10*3/uL (0.00-0.03); Imm Gran Pct Auto 0.4 % (0.0-0.4); Lymphocytes Absolute Auto 0.5 X10*3/uL (1.2-4.9); Lymphocytes Percent Auto 3.6 % (20-40); MANUAL DIFF FLAG SCAN; Mean Corpuscular HGB Conc 31.7 g/dl (31.0-35.0); Mean Corpuscular Volume 94.6 fL (80.0-98.0); Mean Platelet Volume 9.6 fL (9.4-12.3); Monocytes Absolute Auto 0.7 X10*3/uL (0.1-1.2); Neutrophils Absolute Auto 12.3 x10*3/uL (2.0-8.3); Neutrophils Percent Auto 90.7 % (45-73); Platelet Count 305 X10*3/uL (160-400); Red Cell Distribution Width 12.4 % (11.0-16.0); SCAN SMEAR FLAG 1; White Blood Count 13.5 X10*3/uL (4.8-10.8)
[2021-09-27 14:55] LABS: Appearance Urine CLEAR; Color Urine YELLOW; Glucose Urine UA NEG (NEG); Leukocyte Esterase Urine NEG (NEG); Nitrite Urine NEG (NEG); PH 7.5 (5.0-8.0); Specific Gravity - Urine <= 1.005 (1.005-1.025); UACC Culture Trigger NO; Urine Blood 3+ (NEG); Urine Ketones NEG (NEG); Urine Protein NEG (NEG-TRACE)
[2021-09-27 15:07] LABS: Squamous Epithelial Cell Urine TRACE /LPF; WBC Urine 0-2 /HPF (0-4)
[2021-09-27 15:13] LABS: SLIDE REVIEW VERIFIED
[2021-09-27 15:14] LABS: Alanine Aminotransferase 18 U/L (0-31); Albumin Level 4.2 g/dL (3.5-5.0); Alkaline Phosphatase 58 U/L (39-117); Anion Gap 14 (12-20); Aspartate Amino Transferase 19 U/L (5-31); Bilirubin Direct 0.2 mg/dL (0.0-0.5); Bilirubin Total 0.4 mg/dL (0.0-1.0); Blood Urea Nitrogen 12 mg/dL (9-16); Calcium 9.5 mg/dL (8.4-10.2); Carbon Dioxide 26 mmol/L (22-29); Chloride 108 mmol/L (96-108); Creatinine Clr Calc Pharmacy 87.4; Estimated Glomerular Filt Rate > 60; Glucose Random 98 mg/dL (60-115); Potassium 4.4 mmol/L (3.3-5.1); Sodium 144 mmol/L (135-145); Total Protein 6.9 g/dL (6.5-8.0)
[2021-09-27 16:00] VITALS: BP 113/70; PULSE 98; RESP 16; TEMP 37.1; O2SAT 97
== END 2021-09-27 16:38 | disposition home or self-care (01) ==
PROVIDERS: Physician Assistant; Emergency Provider Emergency Medicine Emergency Medical Services; PCP Pediatrics
DX: N20.1 Calculus of ureter (principal); R11.2 Nausea with vomiting, unspecified; R19.7 Diarrhea, unspecified; K59.00 Constipation, unspecified; Z79.899 Other long term (current) drug therapy
CPT/HCPCS: 36415; 51702; 74176; 80048; 80076; 81001; 83735; 85025; 96374; 96375; 99283; 99284; J2270

== ENCOUNTER 2021-10-03 15:19 | Emergency (ER) | payer OTHER, SELFPAY ==
--- NOTE | ~2021-10-03 | CT_ITS ---
EXAMINATION: CT ABDOMEN AND PELVIS WITHOUT CONTRAST CLINICAL INFORMATION: Left flank pain. COMPARISON: CT abdomen/pelvis dated 09/27/2021. TECHNIQUE: Multidetector volumetric imaging was performed from the superior aspect of the liver through the pubic symphysis. Sagittal and coronal reformatted images were obtained on the technologist's workstation. This CT examination was performed using dose optimization techniques as appropriate, variously including the following: *Automated exposure control *Adjustment of mA and/or kV according to patient size (this includes techniques or standardized protocols for targeted exams where dose is matched to indication/reason for exam; i.e. extremities or head) *Use of iterative reconstruction technique DLP: 632 mGy-cm FINDINGS: LUNG BASES: Pleural-based 0.3 cm nodule within the lateral left lower lobe, unchanged when compared to the prior examination. LIVER, GALLBLADDER, AND BILIARY TREE: The liver is normal in size, shape, and attenuation. No focal hepatic lesion or biliary ductal dilatation is present. The gallbladder is unremarkable with no evidence of radiopaque gallstones, gallbladder wall thickening, or obvious pericholecystic inflammatory changes. PANCREAS: Unremarkable. SPLEEN: Unremarkable. ADRENAL GLANDS: Unremarkable. KIDNEYS AND URETERS: Redemonstration of a left ureterovesicular junction stone measuring up to 0.7 cm, slightly more distal when compared to the prior CT. This now appears almost entirely within the bladder lumen. Moderate left-sided hydroureteronephrosis with mild perinephric and periureteral stranding, slightly more prominent when compared to the prior examination. No right-sided renal stone. No right-sided hydronephrosis or nephrolithiasis. BLADDER: Unremarkable. GASTROINTESTINAL TRACT: No bowel wall thickening or associated inflammatory change. No small or large bowel structure. Unremarkable appendix. PERITONEAL CAVITY: No intra-abdominal free air or free fluid. No intra-abdominal mass or organized fluid collection/abscess formation. ABDOMINAL WALL: No significant hernia is appreciated. LYMPH NODES: Normal. VASCULAR: Unremarkable. PELVIC VISCERA: Redemonstration of a large, lobulated uterus, likely indicating uterine fibroids. OSSEOUS STRUCTURES: Unremarkable. CT/CT abdomen pelvis wo con IMPRESSION: 1. Redemonstration of a left ureterovesicular junction stone measuring up to 0.7 cm, slightly more distal when compared to the prior examination. The stone now appears almost entirely within the bladder lumen. Moderate left-sided hydroureteronephrosis with mild perinephric and periureteral stranding, slightly more prominent when compared to the prior examination. 2. Redemonstration of a 0.3 cm left lower lobe subpleural nodule. According to the UPDATED 2017 Fleischner Society recommendations, the advised follow-up imaging for solid nodules < 6 mm is: LOW RISK PATIENT: No routine follow-up. HIGH RISK PATIENT: Optional CT at 12 months. 3. Additional chronic findings are unchanged. Fleischner guidelines were followed.
[2021-10-03 15:31] VITALS: BP 154/85; PULSE 95; RESP 14; TEMP 37; O2SAT 98; BMI 32.1
[2021-10-03] MEDS: Tamsulosin HCL 0.4 MG CAPSULE 0.8 MG PO (16:09)
[2021-10-03] MEDS: Morphine Sulfate 4 MG/ML CARTRIDGE IVPUSH ×2 (16:09→17:42)
[2021-10-03] MEDS: 0.9 % Sodium Chloride 1,000 ML 999 ML IV (16:10)
--- NOTE | 2021-10-03 16:39 | ED.FEMALEGU ---
HPI - Female Genitourinary General Chief complaint: Urogenital-Female Stated complaint: kidney stone Time Seen by Provider: 10/03/21 15:26 Source: patient and family Mode of arrival: ambulatory Limitations: no limitations History of Present Illness HPI Narrative: 60-year-old female with a history of fibromyalgia, asthma, osteoarthritis, known renal colic on the left side here with reports of left-sided flank pain with radiation to the left lower abdomen since this morning. Patient was seen here September 27 and diagnosed with a left 4 mm obstructive calculi at the UVJ with no hydronephrosis. Patient tells me discharge she felt improved. She has been taking Flomax, prednisone, p.r.n. oxycodone ibuprofen at home. She has a follow-up appointment on October [address] Cardozo. She was feeling well to this morning when she started to have some decreased urine output with dribbling and dysuria as well as worsening pain despite taking her home oxycodone. Denies fevers, chills, vomiting Related Data Home Medications Medication Instructions Recorded Confirmed atorvastatin 80 mg tablet 80 mg PO DAILY 05/01/20 05/08/21 betamethasone dipropionate 0.05 % applic TOPICAL BID 05/01/20 05/08/21 topical cream cetirizine 10 mg tablet 10 mg PO DAILY 05/01/20 05/08/21 cholecalciferol (vitamin D3) 50 0 mcg PO 05/01/20 05/08/21 mcg (2,000 unit) capsule clonazepam 0.5 mg tablet 0.5 mg PO DAILY 05/01/20 05/08/21 dexlansoprazole 60 mg 60 mg PO DAILY 05/01/20 05/08/21 capsule,biphase delayed release diclofenac sodium 1 % topical gel 2 g TOPICAL QID 05/01/20 05/08/21 (Voltaren) docusate sodium 100 mg capsule 100 mg PO BID 05/01/20 05/01/20 ketoconazole 2 % topical cream applic TOPICAL Q OTHER DAY PRN 05/01/20 05/08/21 linaclotide 145 mcg capsule 145 mcg PO DAILY 05/01/20 05/08/21 magnesium oxide 400 mg (241.3 mg 400 mg PO DAILY 05/01/20 05/08/21 magnesium) tablet meclizine 25 mg tablet mg PO 05/01/20 05/08/21 meloxicam 15 mg tablet 15 mg PO DAILY 05/01/20 05/01/20 metformin 500 mg tablet,extended 500 mg PO BID 05/01/20 05/08/21 release 24 hr methocarbamol 750 mg tablet 1,500 mg PO Q8H PRN 05/01/20 05/08/21 liraqeqtmiaa-njnbtcyi-gvnsjg tablet 1 tab PO DAILY 05/01/20 05/08/21 ondansetron 4 mg disintegrating 4 mg PO Q8H PRN 05/01/20 05/08/21 tablet paroxetine HCl 20 mg tablet 20 mg PO DAILY 05/01/20 05/08/21 peg 135-qfbgmckyojue-kchsnutx 1 1 drp OPHTHALMIC (EYE) QID 05/01/20 05/08/21 %-0.2 %-0.2 % eye drops polyethylene glycol 3350 17 gram 17 g PO DAILY 05/01/20 05/08/21 oral powder packet pregabalin 150 mg capsule (Lyrica) 150 mg PO DAILY 05/01/20 05/08/21 sennosides 8.6 mg tablet 17.2 mg PO DAILY 05/01/20 05/08/21 sertraline 50 mg tablet 50 mg PO DAILY 05/01/20 05/01/20 tramadol 50 mg tablet 50 mg PO DAILY 05/01/20 05/01/20 verapamil 240 mg tablet,extended 240 mg PO DAILY 05/01/20 05/08/21 release diclofenac sodium 50 mg 50 mg PO BID 02/06/21 tablet,delayed release Previous Rx's Medication Instructions Recorded fluticasone furoate 200 1 inh INHALATION DAILY 30 Days #1 02/06/21 mcg-vilanterol 25 mcg/dose ea inhalation powder (Breo Ellipta) furosemide 40 mg tablet (Lasix) 40 mg PO DAILY 10 Days #10 tab 06/05/21 prednisone 10 mg tablet 40 mg PO DAILY 7 Days #28 tab 06/05/21 clonazepam 0.5 mg tablet 0.5 mg PO BID PRN #14 tab 06/12/21 ibuprofen 600 mg tablet 600 mg PO Q8H PRN #10 tab 09/27/21 oxycodone 5 mg tablet 5 mg PO Q4H PRN #10 tab 09/27/21 polyethylene glycol 3350 17 17 g PO DAILY PRN #119 g 09/27/21 gram/dose oral powder (Miralax) prednisone 20 mg tablet 40 mg PO DAILY #10 tab 09/27/21 tamsulosin 0.4 mg capsule (Flomax) 0.4 mg PO DAILY #14 cap 09/27/21 oxycodone 5 mg tablet 5 mg PO Q8H PRN #5 tab 10/03/21 Allergies Allergy/AdvReac Type Severity Reaction Status Date / Time aspirin [ASA] Allergy Intermediate Hives Verified 09/27/21 12:38 Penicillins [PENICILLINS] Allergy Intermediate RASH Verified 09/27/21 12:38 loratadine Allergy Unknown Unknown Verified 09/27/21 12:38 penicillin V Allergy Unknown rash Verified 09/27/21 12:38 trimethoprim Allergy Unknown Unknown Verified 09/27/21 12:38 venlafaxine Allergy Unknown Unknown Verified 09/27/21 12:38 Review of Systems Review of Systems: Yes all other systems are reviewed and are negative Constitutional: Constitutional: Reports no additional constitutional complaints, Denies body ache(s), Denies chills, Denies fever(s), Denies headache(s) and Denies weakness Eyes: Eyes: Reports no additional eye complaints and Denies change in vision ENT: Reports system reviewed and no additional complaints, except as documented, Denies dizziness, Denies headache(s), Denies nasal congestion, Denies nasal discharge and Denies neck pain Cardiovascular: Cardiovascular: Reports no additional cardiovascular complaints, Denies chest pain, Denies leg edema and Denies dyspnea Respiratory: Respiratory: Reports no additional respiratory complaints, Denies cough and Denies dyspnea Gastrointestinal: Gastrointestinal: Reports no additional gastrointestinal complaints, Reports abdominal pain, Denies diarrhea, Denies nausea and Denies vomiting Genitourinary: Genitourinary: Reports no additional female genitourinary complaints, Reports difficulty voiding, Reports post void dribbling, Reports dysuria, Reports flank pain, Denies urinary incontinence, Reports urinary hesitancy and Reports urinary urgency Musculoskeletal: Musculoskeletal: Reports no additional musculoskeletal complaints, Reports back pain, Denies arthralgias, Denies joint swelling, Denies neck pain, Denies numbness and Denies tingling Integumentary/Breasts: Skin/Breast: Reports system reviewed and no additional complaints, except as docu and Denies rash Neurologic: Reports system reviewed and no additional complaints, except as documented, Denies Abnormal speech present, Denies dizziness, Denies headache(s), Denies numbness, Denies tingling and Denies weakness PMF Past Medical History Attestation statement: The following information was validated with the patient. Source: old records reviewed and nursing notes reviewed Medical History Age related osteoporosis Anxiety Arthritis Carpal tunnel syndrome Chronic fatigue Constipation Depression Diabetes Fibromyalgia High cholesterol Hypertension Idiopathic hirsutism MGUS (monoclonal gammopathy of unknown significance) Mood disorder Myalgia Myositis Plantar fasciitis Positive MARCY (antinuclear antibody) Pulmonary nodule Restless legs SLE (systemic lupus erythematosus related syndrome) Spondylosis Xerosis of skin Family History Family History Father Diabetes Hypertension Mother Hypertension Diabetes Asthma Maternal Grandfather Throat cancer Maternal Grandmother Throat cancer Paternal Uncle Prostate cancer Maternal Uncle Throat cancer Stomach cancer Maternal Aunt Stomach cancer Diabetes Social History Social History Alcohol intake: never Patient Tobacco Use Status: Never used Tobacco Use of substances other than those prescribed or required for medical reasons: No Advance Directives: No Advance Directives Information Provided: No Patient : No Current occupational status: retired Current occupation: rt handed Physical Exam Vital Signs: Vital Signs: Last Vital Signs Temp 98.4 F 10/03/21 18:36 Pulse 88 10/03/21 18:36 Resp 16 10/03/21 18:36 BP 130/87 10/03/21 18:36 Pulse Ox 96 10/03/21 18:36 BMI result Body Mass Index 32.1 Const: General: cooperative, healthy appearing, comfortable and no acute distress Orientation/consciousness: patient oriented x3 Limitations: no limitations HENMT: Head: Yes normal to inspection Ears: hearing grossly normal bilaterally General nose exam: Normal external nose present Face and sinus: Yes normal facial exam Mouth: Normal oral and palatal mucosa present Throat: Yes posterior oropharynx normal Eyes: General: appearance normal, both eyes and all related structures Pupils: Equal, round and reactive pupils present Neck: Neck: Yes normal visual inspection Chest: Chest palpation & inspection: normal inspection of the chest Resp: Effort & Inspection: normal respiratory effort Auscultation: clear to auscultation bilaterally Cardio: Rate: regular rate Rhythm: regular rhythm Peripheral pulses: Peripheral pulses 2+ throughout GI: Inspection: Yes normal to inspection Palpation (GI): Soft to palpation and Tenderness to palpation present (GI) (left side abdomen) Auscultation: normal bowel sounds : General: Yes CVA tenderness (left side) Back/Spine/Pelvis: Back: CVA tenderness (left side) Thoracic/Lumbar Spine: thoracic and lumbar spine normal to inspection Skin: General skin exam: no rashes or lesions noted Neuro: General: patient oriented x3, no focal motor deficits and normal sensation to monofilament Cranial nerves: Yes Equal, round and reactive pupils present Cognition (Neuro): normal cognition Speech: No Abnormal speech present Gait exam (Neuro): Normal gait present Motor exam (neuro): 5/5 motor strength present throughout Extrem: General: Yes normal to inspection Course Course Course Narrative: 60-year-old female with known left 4 mm obstructive calculi diagnosed here on September 27 here with worsening pain today with some urinary symptoms of dysuria, dribbling, frequency. On arrival the patient has left CVA tenderness with some mild left-sided abdominal pain. Her post void residual bladder scan is 156ml so less concern for retention. Will need labs, UA, CT A/P, analgesia. 1899- ?CT shows Redemonstration of a left ureterovesicular junction stone measuring up to 0.7 cm, slightly more distal when compared to the prior examination. The stone now appears almost entirely within the bladder lumen. Moderate left-sided hydroureteronephrosis with mild perinephric and periureteral stranding, slightly more prominent when compared to the prior examination. UA shows no signs of infection. Patient tells me her pain is improving but not resolved. Will monitor for brief time prior to discharge home 1999-patient tells me her pain is improving now a 5 of the 10 instead of a 10 of 10. She is tolerating p.o.. Patient has several tablets of oxycodone left at home. Will provide additional 5 tablets as needed. She is in a follow-up appointment with Urology on Tuesday. Recommended she keep the appointment. Reviewed worrisome signs and symptoms of when to return to the emergency department. Comfortable discharge home. MDM - Female Genitourinary MDM Narrative Medical decision making narrative: Renal colic, pyelonephritis Differential Diagnosis Differential diagnosis: Likely urinary tract infection Medical Records Attestation: I reviewed the patient's medical records. Lab Data Attestation: I reviewed the patient's lab results. Result diagrams: 10/03/21 16:21 10/03/21 16:21 Labs: Lab Results 10/03/21 10/03/21 10/03/21 Range/Units 16:21 16:21 17:42 WBC 17.3 H (4.8-10.8) X10*3/uL RBC 4.21 (4.20-5.50) X10*6/uL Hgb 12.6 (12.0-16.0) g/dl Hct 39.4 (37.0-47.0) % MCV 93.6 (80.0-98.0) fL MCH 29.9 (27.0-33.0) pg MCHC 32.0 (31.0-35.0) g/dl RDW 12.4 (11.0-16.0) % Plt Count 347 (160-400) X10*3/uL MPV 10.2 (9.4-12.3) fL Immature Gran % (Auto) 0.6 H (0.0-0.4) % Neut % (Auto) 90.9 H (45-73) % Lymph % (Auto) 4.8 L (20-40) % [place] % (Auto) 3.4 (2-11) % Eos % (Auto) 0.1 (0-4) % Baso % (Auto) 0.2 (0-2) % Lymph # (Auto) 0.8 L (1.2-4.9) X10*3/uL [place] # (Auto) 0.6 (0.1-1.2) X10*3/uL Eos # (Auto) 0.0 (0.0-0.4) X10*3/uL Baso # (Auto) 0.0 (0.0-0.2) X10*3/uL Abs Immat Gran (auto) 0.10 H (0.00-0.03) X10*3/uL Absolute Neuts (auto) 15.7 H (2.0-8.3) x10*3/uL Absolute Nucleated RBC 0.000 (0.0-0.012) X10*3/uL Nucleated RBC % (auto) 0.0 (0.0-0.2) /100WBC Smear Tech's Comments VERIFIED Sodium 139 (135-145) mmol/L Potassium 4.3 (3.3-5.1) mmol/L Chloride 103 (96-108) mmol/L Carbon Dioxide 27 (22-29) mmol/L Anion Gap 13 (12-20) BUN 15 (9-16) mg/dL Creatinine 0.78 (0.5-1.4) mg/dL Estim Creat Clear Calc 77.8 Estimated GFR > 60 Random Glucose 140 H (60-115) mg/dL Calcium 9.7 (8.4-10.2) mg/dL Total Bilirubin 0.3 (0.0-1.0) mg/dL Direct Bilirubin < 0.2 (0.0-0.5) mg/dL AST 21 (5-31) U/L ALT 18 (0-31) U/L Alkaline Phosphatase 67 (39-117) U/L Total Protein 7.2 (6.5-8.0) g/dL Albumin 4.3 (3.5-5.0) g/dL Urine Color YELLOW Urine Appearance CLOUDY Urine pH 6.5 (5.0-8.0) Ur Specific [place] 1.020 (1.005-1.025) Urine Protein NEG (NEG-TRACE) MG/DL Urine Glucose (UA) NEG (NEG) MG/DL Urine Ketones NEG (NEG) MG/DL Urine Blood TRACE (NEG) Urine Nitrite NEG (NEG) Ur Leukocyte Esterase NEG (NEG) Urine RBC 1-4 (0) /HPF Urine WBC 0 (0-4) /HPF Ur Squamous Epith Cells TRACE /LPF Amorphous Sediment 3+ /LPF Urine Bacteria NONE /LPF Imaging Data CT scan - abdomen: Attestation: I personally reviewed and interpreted this imaging study as follows: Radiologist's impression: IMPRESSION: 1. Redemonstration of a left ureterovesicular junction stone measuring up to 0.7 cm, slightly more distal when compared to the prior examination. The stone now appears almost entirely within the bladder lumen. Moderate left-sided hydroureteronephrosis with mild perinephric and periureteral stranding, slightly more prominent when compared to the prior examination. ? 2. Redemonstration of a 0.3 cm left lower lobe subpleural nodule. According to the UPDATED 2017 Fleischner Society recommendations, the advised follow-up imaging for solid nodules < 6 mm is: ?? LOW RISK PATIENT: No routine follow-up. ?? HIGH RISK PATIENT: Optional CT at 12 months. ? 3. Additional chronic findings are unchanged. ? Discharge Plan Discharge Clinical Impression: Renal colic on left side Patient Disposition: Home, Self-Care Additional Instructions: Keep your appointment with Urology Continue your other medication Increase fluid Prescriptions: New oxycodone 5 mg tablet 5 mg PO Q8H PRN (Reason: pain) Qty: 5 0RF No Action clonazepam 0.5 mg tablet 0.5 mg PO BID PRN (Reason: anxiety) Qty: 14 0RF tamsulosin [Flomax] 0.4 mg capsule 0.4 mg PO DAILY Qty: 14 0RF ibuprofen 600 mg tablet 600 mg PO Q8H PRN (Reason: pain) Qty: 10 0RF oxycodone 5 mg tablet 5 mg PO Q4H PRN (Reason: pain) Qty: 10 0RF prednisone 20 mg tablet 40 mg PO DAILY Qty: 10 0RF polyethylene glycol 3350 [Miralax] 17 gram/dose powder 17 g PO DAILY PRN (Reason: constipation) Qty: 119 0RF Cerovite Senior Tablet 1 tab PO DAILY 0RF pregabalin [Lyrica] 150 mg capsule 150 mg PO DAILY 0RF methocarbamol 750 mg tablet 1,500 mg PO Q8H PRN0RF tramadol 50 mg tablet 50 mg PO DAILY 0RF diclofenac sodium [Voltaren] 1 % gel 2 g topical QID 0RF Rx Instructions: apply to single elbow, wrist or hand; for hand includes palm/fingers/back of hand clonazepam 0.5 mg tablet 0.5 mg PO DAILY 0RF verapamil 240 mg tablet extended release 240 mg PO DAILY 0RF meclizine 25 mg tablet PO 0RF cetirizine 10 mg tablet 10 mg PO DAILY 0RF atorvastatin 80 mg tablet 80 mg PO DAILY 0RF cholecalciferol (vitamin D3) 50 mcg (2,000 unit) capsule 0 mcg PO 0RF ondansetron 4 mg tablet,disintegrating 4 mg PO Q8H PRN0RF betamethasone dipropionate 0.05 % cream topical BID 0RF ketoconazole 2 % cream topical Q OTHER DAY PRN0RF polyethylene glycol 3350 17 gram powder in packet 17 g PO DAILY 0RF sennosides 8.6 mg tablet 17.2 mg PO DAILY 0RF docusate sodium 100 mg capsule 100 mg PO BID 0RF Dexilant 60 mg capsule,biphase delayed releas 60 mg PO DAILY 0RF Linzess 145 mcg capsule 145 mcg PO DAILY 0RF sertraline 50 mg tablet 50 mg PO DAILY 0RF magnesium oxide 400 mg (241.3 mg magnesium) tablet 400 mg PO DAILY 0RF paroxetine HCl 20 mg tablet 20 mg PO DAILY 0RF metformin 500 mg tablet extended release 24 hr 500 mg PO BID 0RF meloxicam 15 mg tablet 15 mg PO DAILY 0RF Artificial Tears(by-urxo-anbf) 1-0.2-0.2 % drops 1 drp ophthalmic (eye) QID 0RF diclofenac sodium 50 mg tablet,delayed release (DR/EC) 50 mg PO BID 0RF Breo Ellipta 200-25 mcg/dose blister with device 1 inh inhalation DAILY 30 Days Qty: 1 6RF furosemide [Lasix] 40 mg tablet 40 mg PO DAILY 10 Days Qty: 10 0RF prednisone 10 mg tablet 40 mg PO DAILY 7 Days Qty: 28 0RF Referrals: Milton Cardozo MD [Physician] - 2 days (as scheduled)
[2021-10-03 16:41] LABS: Basophils Percent Auto 0.2 % (0-2); Eosinophils Percent Auto 0.1 % (0-4); Hematocrit 39.4 % (37.0-47.0); Hemoglobin 12.6 g/dl (12.0-16.0); Imm Gran Pct Auto 0.6 % (0.0-0.4); Lymphocytes Absolute Auto 0.8 X10*3/uL (1.2-4.9); Lymphocytes Percent Auto 4.8 % (20-40); MANUAL DIFF FLAG SCAN; Mean Corpuscular Hemoglobin 29.9 pg (27.0-33.0); Mean Corpuscular Volume 93.6 fL (80.0-98.0); Mean Platelet Volume 10.2 fL (9.4-12.3); Monocytes Absolute Auto 0.6 X10*3/uL (0.1-1.2); Monocytes Percent Auto 3.4 % (2-11); Neutrophils Absolute Auto 15.7 x10*3/uL (2.0-8.3); Neutrophils Percent Auto 90.9 % (45-73); Platelet Count 347 X10*3/uL (160-400); Red Blood Count 4.21 X10*6/uL (4.20-5.50); Red Cell Distribution Width 12.4 % (11.0-16.0); SCAN SMEAR FLAG 1; White Blood Count 17.3 X10*3/uL (4.8-10.8)
[2021-10-03 16:57] LABS: Alanine Aminotransferase 18 U/L (0-31); Albumin Level 4.3 g/dL (3.5-5.0); Alkaline Phosphatase 67 U/L (39-117); Anion Gap 13 (12-20); Aspartate Amino Transferase 21 U/L (5-31); Bilirubin Direct < 0.2 mg/dL (0.0-0.5); Bilirubin Total 0.3 mg/dL (0.0-1.0); Blood Urea Nitrogen 15 mg/dL (9-16); Calcium 9.7 mg/dL (8.4-10.2); Carbon Dioxide 27 mmol/L (22-29); Chloride 103 mmol/L (96-108); Creatinine Clr Calc Pharmacy 77.8; Estimated Glomerular Filt Rate > 60; Glucose Random 140 mg/dL (60-115); Potassium 4.3 mmol/L (3.3-5.1); Sodium 139 mmol/L (135-145); Total Protein 7.2 g/dL (6.5-8.0)
[2021-10-03 16:58] LABS: SLIDE REVIEW VERIFIED
[2021-10-03 17:49] LABS: Appearance Urine CLOUDY; Color Urine YELLOW; Glucose Urine UA NEG (NEG); Leukocyte Esterase Urine NEG (NEG); Nitrite Urine NEG (NEG); PH 6.5 (5.0-8.0); UACC Culture Trigger NO; Urine Blood TRACE (NEG); Urine Ketones NEG (NEG); Urine Protein NEG (NEG-TRACE)
[2021-10-03 17:56] LABS: Amorphous Sediment Urine 3+ /LPF; Squamous Epithelial Cell Urine TRACE /LPF; WBC Urine 0 /HPF (0-4)
[2021-10-03 18:36] VITALS: BP 130/87; PULSE 88; RESP 16; TEMP 36.9; O2SAT 96
== END 2021-10-03 20:17 | disposition home or self-care (01) ==
PROVIDERS: Nurse Practitioner Family; Emergency Provider Emergency Medicine Emergency Medical Services; PCP Pediatrics
DX: N13.2 Hydronephrosis with renal and ureteral calculous obstruction (principal); R10.9 Unspecified abdominal pain; E11.9 Type 2 diabetes mellitus without complications; E78.5 Hyperlipidemia, unspecified; I10 Essential (primary) hypertension; Z79.02 Long term (current) use of antithrombotics/antiplatelets
CPT/HCPCS: 36415; 74176; 80048; 80076; 81001; 85025; 96361; 96374; 96376; 99284; J2270

== ENCOUNTER → 2021-10-06 14:49 | Outpatient (BNVA) | payer OTHER, SELFPAY | PROVIDERS: PCP Pediatrics | DX: N20.0 Calculus of kidney (principal) | CPT/HCPCS: 99202 ==

== ENCOUNTER 2021-11-12 14:36 | Outpatient (REF) | payer OTHER, SELFPAY ==
--- NOTE | ~2021-11-12 | XR_ITS ---
EXAMINATION: XR CERVICAL SPINE CLINICAL INFORMATION: Pain. COMPARISON: Radiograph of the cervical spine dated from 11/11/2016. TECHNIQUE: Lateral, bilateral oblique, AP, and odontoid views of the cervical spine. FINDINGS: No acute compression deformities or malalignment. Similar degree of multilevel cervical spondylosis when compared to 2017, more apparent at C5, C6 and C7. No prevertebral soft tissue thickening. Visualized lung apices are clear. XR/XR cervical spine min 6V IMPRESSION: No acute compression deformities or malalignment. Varying degrees of multilevel cervical spondylosis for which correlation with a CT or MR of the cervical spine would be helpful to further assess for the degree of neural foraminal narrowing and central canal stenosis.
== END 2021-11-12 14:37 | disposition home or self-care (01) ==
LOC: HO.XRAY 14:36
PROVIDERS: PCP Pediatrics; Visit Provider Internal Medicine Rheumatology
DX: M54.2 Cervicalgia (principal)
CPT/HCPCS: 72052

== ENCOUNTER 2021-12-03 14:19 | Outpatient (REF) | payer OTHER, SELFPAY ==
--- NOTE | ~2021-12-03 | US_ITS ---
EXAMINATION: US RETROPERITONEAL LIMITED (RENAL ONLY) CLINICAL INFORMATION: Calculus of kidney. COMPARISON: CT abdomen and pelvis without contrast 10/03/2021. TECHNIQUE: Real-time imaging of the kidneys. FINDINGS: RIGHT KIDNEY: 9.6 x 4.9 x 5.2 cm (SAG x AP x TRV). The kidney is normal in size, contour, and echogenicity. Renal cortical thickness is normal. No calculi or focal parenchymal lesions. No hydronephrosis. LEFT KIDNEY: 11.3 x 5.4 x 4.7 cm (SAG x AP x TRV). The kidney is normal in size, contour, and echogenicity. Renal cortical thickness is normal. No calculi or focal parenchymal lesions. No hydronephrosis. US/US renal BI IMPRESSION: Normal renal ultrasound.
== END 2021-12-03 14:20 | disposition home or self-care (01) ==
LOC: HO.HMGCX 14:19
DX: N20.0 Calculus of kidney (principal)
CPT/HCPCS: 76775

== ENCOUNTER → 2021-12-07 14:52 | Outpatient (BNVA) | payer OTHER, SELFPAY | PROVIDERS: PCP Pediatrics; Visit Provider Nurse Practitioner Family | DX: M25.561 Pain in right knee (principal); M25.562 Pain in left knee; M54.12 Radiculopathy, cervical region; M47.812 Spondylosis without myelopathy or radiculopathy, cervical region; M17.11 Unilateral primary osteoarthritis, right knee | CPT/HCPCS: 99202 ==

== ENCOUNTER → 2021-12-08 13:48 | Outpatient (BNVA) | payer OTHER, SELFPAY | PROVIDERS: PCP Pediatrics | DX: N20.0 Calculus of kidney (principal) | CPT/HCPCS: 99212 ==

== ENCOUNTER → 2021-12-22 11:32 | Outpatient (BNVA) | payer OTHER, SELFPAY | PROVIDERS: PCP Pediatrics; Visit Provider Nurse Practitioner Family | DX: Z13.89 Encounter for screening for other disorder (principal) ==

== ENCOUNTER → 2022-01-18 12:17 | Outpatient (BNVA) | payer OTHER, SELFPAY | PROVIDERS: PCP Pediatrics; Visit Provider Physician Assistant | DX: M17.11 Unilateral primary osteoarthritis, right knee (principal) | CPT/HCPCS: 99212 ==

== ENCOUNTER 2022-02-03 06:08 | Outpatient (REF) | payer OTHER, SELFPAY | END 2022-02-03 06:09 | disposition home or self-care (01) | LOC: HO.RADIR 06:08 | PROVIDERS: Visit Provider Internal Medicine | DX: Z13.89 Encounter for screening for other disorder (principal) ==

== ENCOUNTER → 2022-02-05 11:19 | Outpatient (BNVA) | payer OTHER, SELFPAY | PROVIDERS: PCP Pediatrics; Visit Provider Nurse Practitioner Family | DX: M79.661 Pain in right lower leg (principal); M25.561 Pain in right knee; M25.562 Pain in left knee; M54.12 Radiculopathy, cervical region; M47.812 Spondylosis without myelopathy or radiculopathy, cervical region; M17.11 Unilateral primary osteoarthritis, right knee | CPT/HCPCS: Q3014 ==

== ENCOUNTER 2022-02-05 16:21 | Outpatient (REF) | payer OTHER, SELFPAY ==
--- NOTE | ~2022-02-05 | US_ITS ---
EXAMINATION: US VENOUS ULTRASOUND WITH DOPPLER LOWER EXTREMITY, RIGHT CLINICAL INFORMATION: Pain right lower leg COMPARISON: None TECHNIQUE: Ultrasound of the deep veins is performed from the hip to the calf with compression sonography and color and pulse Doppler assessment. Spectral analysis with color-flow imaging is performed. FINDINGS: There is normal venous compression and respiratory variation and augmented flow. The visualized common femoral vein, superficial femoral vein, profunda femoral vein, popliteal vein, and the trifurcation region shows no evidence of deep venous thrombosis. There is a small Rosario's cyst measuring 2.3 x 4.6 x 1.1 cm. If the patient's symptoms persist, followup ultrasound in 5 days 7 days might be of value to exclude proximal propagation from a non-visualized calf vein. US/US venous duplex LE RT IMPRESSION: No DVT demonstrated in the right lower extremity. Small Rosario's cyst measuring 4.6 cm
== END 2022-02-05 16:22 | disposition home or self-care (01) ==
LOC: HO.US 16:21
PROVIDERS: PCP Pediatrics; Visit Provider Nurse Practitioner Family
DX: M79.661 Pain in right lower leg (principal)
CPT/HCPCS: 93971

== ENCOUNTER 2022-02-16 08:18 | Outpatient (REF) | payer OTHER, SELFPAY ==
--- NOTE | ~2022-02-16 | FL_ITS ---
EXAMINATION: FL BARIUM SWALLOW CLINICAL INFORMATION: Dysphagia with choking spells. COMPARISON: None. TECHNIQUE: Barium swallow examination is performed using fluoroscopic evaluation in addition to multiple fluoroscopic spot views. The patient is imaged both upright and prone and using both thick and thin sulfate along with a barium half-inch diameter tablet. Rapid sequence imaging of swallowing in AP and lateral projections was performed. Fluoroscopy time: 2 minutes DAP: 8.901 Gycm2 Images: 63 FINDINGS: Patient swallowed thin and thick barium and a half-inch diameter barium tablet without difficulty. There is no evidence of nasopharyngeal reflux or tracheal aspiration. There is normal elevation of the soft palate while saying candy. There is normal apposition of the vocal cords while saying E. There was noted to be hypomotility of the esophagus with tertiary contractions being evident. No persistent stricture was identified. No hiatal hernia was seen. No gastroesophageal reflux was seen including with water siphon test. The half-inch diameter barium tablet passed rapidly. FL/FL barium swallow IMPRESSION: Hypomotility with tertiary contractions.
== END 2022-02-16 08:19 | disposition home or self-care (01) ==
LOC: HO.XRAY 08:18
PROVIDERS: Visit Provider Otolaryngology
DX: R13.10 Dysphagia, unspecified (principal)
CPT/HCPCS: 74220

== ENCOUNTER 2022-03-01 15:57 | Outpatient (REF) | payer OTHER, SELFPAY ==
--- NOTE | ~2022-03-01 | MR_ITS ---
EXAMINATION: MR KNEE WITHOUT CONTRAST, RIGHT CLINICAL INFORMATION: Pain COMPARISON: None TECHNIQUE: MRI of the knee without contrast was performed using routine sequences on a high-field scanner. FINDINGS: MENISCI: Medial Meniscus: Complex tear in the posterior horn. Irregular undersurface tearing. There is ill-defined tearing involving the articular surface and free edge in the posterior aspect of the body. There is ill-defined degenerative fraying/tearing in the posterior horn and posterior root. Lateral Meniscus: Intact LIGAMENTS: Cruciate: Intact Collateral: Intact EXTENSOR MECHANISM: Intact ARTICULAR CARTILAGE/BONE: Patellofemoral Compartment: Nonuniform cartilage thinning including broad area of high-grade/full-thickness cartilage loss and lateral patellar facet and lateral trochlea, with subchondral cysts and edema. Medial Compartment: Marginal osteophytes. Prominent cartilage thinning in the weightbearing compartment. Foci of subchondral edema. Lateral Compartment: Marginal osteophytes. Cartilage thinning in the anterior aspect of the femur, posterior aspect the tibia. JOINT FLUID AND BURSAE: Small effusion. Small Rosario's cyst. MR/MR knee RT wo con IMPRESSION: 1. Complex tear in the body of the medial meniscus. Ill-defined degenerative fraying/tearing of the posterior horn and posterior root. 2. Moderate to severe patellofemoral compartment, moderate medial compartment, mild lateral compartment arthritis. 3. Small effusion. Small Rosario's cyst.
== END 2022-03-01 15:58 | disposition home or self-care (01) ==
LOC: HO.MRI 15:57
PROVIDERS: Visit Provider Physician Assistant
DX: M17.11 Unilateral primary osteoarthritis, right knee (principal)
CPT/HCPCS: 73721

== ENCOUNTER 2022-03-26 12:02 | Outpatient (REF) | payer OTHER, SELFPAY ==
--- NOTE | ~2022-03-26 | MM_ITS ---
EXAMINATION: MM SCREENING DIGITAL BREAST TOMOSYNTHESIS, BILATERAL CLINICAL INFORMATION: Screening. Asymptomatic. The lifetime risk of breast cancer based on the Tyrer-Cuzick Model is 11%. COMPARISON: Mammography: 03/11/2021, 03/05/2020, 09/03/2019, 04/10/2019, 04/05/2019, 03/20/2018 TECHNIQUE: Digital breast tomosynthesis is performed in both the craniocaudal and mediolateral oblique views along with computer-aided detection (CAD). Synthesized 2D images are generated from the tomosynthesis. FINDINGS: The breasts are heterogeneously dense, which may obscure small masses (ACR BI-RADS breast composition Category c). There are no significant masses, abnormal calcifications, or other abnormalities. Parenchymal pattern is similar to prior studies and there is no developing density or interval architectural abnormality. Scattered punctate calcifications are again noted similar in number and distribution. The axilla and skin contours are unremarkable. No significant changes. MM/MM tomosynthesis screening BI IMPRESSION: No mammographic evidence of malignancy. ASSESSMENT: BI-RADS 2: Benign RECOMMENDATION: Routine annual mammography screening. This patient's information was entered into a reminder system with a target due date for their next mammogram.
== END 2022-03-26 12:03 | disposition home or self-care (01) ==
LOC: HO.MAMMO 12:02
PROVIDERS: Visit Provider Pediatrics
DX: Z12.31 Encounter for screening mammogram for malignant neoplasm of breast (principal)
CPT/HCPCS: 77063; 77067

== ENCOUNTER → 2022-04-02 13:10 | Outpatient (BNVA) | payer OTHER, SELFPAY | PROVIDERS: PCP Pediatrics; Visit Provider Physician Assistant | DX: M17.11 Unilateral primary osteoarthritis, right knee (principal) | CPT/HCPCS: 99212 ==

== ENCOUNTER → 2022-04-12 13:48 | Outpatient (BNVA) | payer OTHER, SELFPAY | PROVIDERS: PCP Pediatrics; Visit Provider Orthopaedic Surgery | DX: M23.91 Unspecified internal derangement of right knee (principal); M79.7 Fibromyalgia; E11.9 Type 2 diabetes mellitus without complications | CPT/HCPCS: 99212 ==

== ENCOUNTER → 2022-04-14 14:22 | Outpatient (BNVA) | payer OTHER, SELFPAY | PROVIDERS: PCP Pediatrics; Visit Provider Internal Medicine Pulmonary Disease | DX: G47.33 Obstructive sleep apnea (adult) (pediatric) (principal); J45.909 Unspecified asthma, uncomplicated; J84.9 Interstitial pulmonary disease, unspecified; R06.00 Dyspnea, unspecified; Z79.899 Other long term (current) drug therapy; Z99.89 Dependence on other enabling machines and devices | CPT/HCPCS: 99212 ==

== ENCOUNTER → 2022-04-15 12:42 | Outpatient (BNVA) | payer OTHER, SELFPAY | PROVIDERS: PCP Pediatrics; Referring Provider Pediatrics; Visit Provider Nurse Practitioner | DX: R13.10 Dysphagia, unspecified (principal); K22.89 Other specified disease of esophagus; D47.2 Monoclonal gammopathy; M32.9 Systemic lupus erythematosus, unspecified; J84.9 Interstitial pulmonary disease, unspecified | CPT/HCPCS: 99212 ==

== ENCOUNTER 2022-04-29 08:30 | Outpatient (REF) | payer OTHER, SELFPAY ==
--- NOTE | ~2022-04-29 | US_ITS ---
EXAMINATION: US RETROPERITONEAL LIMITED (RENAL ONLY) CLINICAL INFORMATION: Calculus of kidney. COMPARISON: Renal ultrasound 12/03/2021. CT abdomen and pelvis 10/03/2021. TECHNIQUE: Real-time imaging of the kidneys. FINDINGS: RIGHT KIDNEY: 10.3 x 5.8 x 5.9 cm (SAG x AP x TRV). The kidney is normal in size, contour, and echogenicity. Renal cortical thickness is normal. No calculi or focal parenchymal lesions. No hydronephrosis. LEFT KIDNEY: 11.1 x 5.2 x 5.4 cm (SAG x AP x TRV). The kidney is normal in size, contour, and echogenicity. Renal cortical thickness is normal. There is a 1.3 x 1.6 x 1.1 cm complex cyst in the midpole with wall calcification or milk of calcium cyst. No renal calculi or hydronephrosis. US/US renal BI IMPRESSION: No renal stone appreciated by ultrasound. Small complex left renal cyst.
== END 2022-04-29 08:31 | disposition home or self-care (01) ==
LOC: HO.US 08:30
DX: N20.0 Calculus of kidney (principal)
CPT/HCPCS: 76775

== ENCOUNTER → 2022-05-04 14:28 | Outpatient (BNVA) | payer OTHER, SELFPAY | PROVIDERS: PCP Pediatrics; Visit Provider Nurse Practitioner Family | DX: M54.12 Radiculopathy, cervical region (principal); M47.812 Spondylosis without myelopathy or radiculopathy, cervical region; M79.7 Fibromyalgia; M25.561 Pain in right knee; M25.562 Pain in left knee; G89.4 Chronic pain syndrome; M17.11 Unilateral primary osteoarthritis, right knee | CPT/HCPCS: 99212 ==

== ENCOUNTER 2022-05-05 13:08 | Outpatient (REF) | payer OTHER, SELFPAY ==
--- NOTE | ~2022-05-05 | CT_ITS ---
EXAMINATION: CT CHEST WITHOUT CONTRAST CLINICAL INFORMATION: Interstitial lung disease. COMPARISON: Previous chest CT October 2012 and previous chest x-ray June 2021 TECHNIQUE: Multidetector volumetric CT imaging of the chest was done. Axial MIP volume rendering provided. Sagittal and coronal reformatted images were obtained. This CT examination was performed using dose optimization techniques as appropriate, variously including the following: *Automated exposure control *Adjustment of mA and/or kV according to patient size (this includes techniques or standardized protocols for targeted exams where dose is matched to indication/reason for exam; i.e. extremities or head) *Use of iterative reconstruction technique DLP: 175 mGy-cm FINDINGS: LUNGS: There is no evidence of interstitial lung disease. There is no evidence of emphysema or bronchiectasis. There is no endobronchial or endotracheal lesion. There is a 5 mm peripheral or subpleural left lower lobe nodule axial image 119 series 6 that is stable. The larger 3 x 8 mm peripheral or subpleural nodule probably representing a subpleural lymph node on 2013 CT is no longer seen. There is a 3 mm left upper lobe nodule axial image 86 series 6. There are several tiny peripheral or subpleural 2 mm nodules adjacent to the left pleural fissure axial image 102 and 104 series 6. There are 2 small peripheral or subpleural right lower lobe nodules axial image 115 series 6. There is a 3 mm peripheral or subpleural left lower lobe nodule axial image 120 series 6. These are new. MEDIASTINUM: There are calcified right hilar lymph nodes. The mediastinum is otherwise normal. CORONARY ARTERY CALCIFICATION: None visualized on this study. PLEURA: There is no pleural effusion. No pleural mass or thickening. AXILLA: No lymphadenopathy. UPPER ABDOMEN: Tiny stone and small cyst in the upper pole the left kidney that are stable. There may be diverticulosis of the colon. OSSEOUS STRUCTURES: Mild degenerative changes of the spine. CT/CT chest wo IV con IMPRESSION: No evidence of interstitial lung disease. Stable 5 mm left lower lobe nodule from 2013. Several new small pulmonary nodules, largest measuring 3 mm. According to the UPDATED 2017 Fleischner Society recommendations, the advised follow-up imaging for less than 6 mm solid nodule: Low risk, no chest CT follow-up and high risk, optional chest CT follow-up in one year. Small calcified right hilar lymph nodes probably related to old granulomatous disease. Fleischner guidelines were followed.
== END 2022-05-05 13:09 | disposition home or self-care (01) ==
LOC: HO.CT 13:08
PROVIDERS: Visit Provider Internal Medicine Pulmonary Disease
DX: J84.9 Interstitial pulmonary disease, unspecified (principal)
CPT/HCPCS: 71250

== ENCOUNTER 2022-05-06 12:57 | Outpatient (REF) | payer OTHER, SELFPAY ==
--- NOTE | 2022-05-06 15:04 | PFT_ITS ---
Forced vital capacity 78%, FEV1 88%, FEV1/FVC ratio is 88, FEF25/75 143% and MVV is 62%. Post bronchodilator therapy, there is no change. Total lung capacity 77%. Residual volume 62%. Diffusion capacity is 100%. CONCLUSION: Mild restrictive pulmonary disorder. No obstructive airway disorder. No response to bronchodilator therapy. MD CIERA Norton/MARCIE / [id number]
== END 2022-05-06 12:58 | disposition home or self-care (01) ==
LOC: HO.RESP 12:57
PROVIDERS: PCP Pediatrics; Visit Provider Internal Medicine Pulmonary Disease
DX: J84.9 Interstitial pulmonary disease, unspecified (principal); L68.0 Hirsutism; L74.9 Eccrine sweat disorder, unspecified
CPT/HCPCS: 83036; 94060; 94727; 94729; 99202

== ENCOUNTER 2022-05-13 14:23 | Outpatient (REF) | payer OTHER, SELFPAY ==
[2022-05-13 14:47] LABS: MANUAL DIFF FLAG NO
[2022-05-13 14:51] LABS: Basophils Percent Auto 0.6 % (0-2); Eosinophils Absolute Auto 0.1 X10*3/uL (0.0-0.4); Eosinophils Percent Auto 0.9 % (0-4); Hematocrit 41.6 % (37.0-47.0); Hemoglobin 13.2 g/dl (12.0-16.0); Imm Gran Abs Auto 0.03 X10*3/uL (0.00-0.03); Imm Gran Pct Auto 0.4 % (0.0-0.4); Lymphocytes Absolute Auto 0.9 X10*3/uL (1.2-4.9); Lymphocytes Percent Auto 13.1 % (20-40); Mean Corpuscular HGB Conc 31.7 g/dl (31.0-35.0); Mean Corpuscular Hemoglobin 29.1 pg (27.0-33.0); Mean Corpuscular Volume 91.6 fL (80.0-98.0); Mean Platelet Volume 10.2 fL (9.4-12.3); Monocytes Absolute Auto 0.5 X10*3/uL (0.1-1.2); Monocytes Percent Auto 7.6 % (2-11); Neutrophils Absolute Auto 5.2 x10*3/uL (2.0-8.3); Neutrophils Percent Auto 77.4 % (45-73); Platelet Count 303 X10*3/uL (160-400); Red Blood Count 4.54 X10*6/uL (4.20-5.50); Red Cell Distribution Width 12.4 % (11.0-16.0); White Blood Count 6.7 X10*3/uL (4.8-10.8)
[2022-05-13 15:25] LABS: Thyroid Stimulating Hormone 1.12 uIU/mL (0.32-4.0)
[2022-05-15 12:26] LABS: DHEA Sulfate 29 mcg/dL (9-118)
[2022-05-17 12:12] LABS: Metanephrine, Free <25 pg/mL (<=57); Normetanephrines, Free 71 pg/mL (<=148); Total Metanephrine, Free 71 pg/mL (<=205)
[2022-05-21 12:06] LABS: Testosterone, Free 4.3 pg/mL (0.1-6.4); Testosterone, Total 27 ng/dL (2-45)
== END 2022-05-13 14:24 | disposition home or self-care (01) ==
LOC: HO.LAB 14:23
PROVIDERS: Internal Medicine Endocrinology, Diabetes & Metabolism; PCP Pediatrics; Visit Provider Internal Medicine Pulmonary Disease
DX: J45.909 Unspecified asthma, uncomplicated (principal); G47.33 Obstructive sleep apnea (adult) (pediatric); R06.00 Dyspnea, unspecified; L68.0 Hirsutism; L74.9 Eccrine sweat disorder, unspecified; Z91.09 Other allergy status, other than to drugs and biological substances; Z99.89 Dependence on other enabling machines and devices
CPT/HCPCS: 36415; 82627; 82785; 83835; 84402; 84403; 84439; 84443; 85025; 86003; 99212

== ENCOUNTER 2022-05-19 08:27 | Outpatient (REF) | payer OTHER, SELFPAY ==
[2022-05-19 11:28] LABS: Creatinine, mg/dL 67.77
[2022-05-19 14:20] LABS: Creatinine, 24Hr Urine 0.9 G/Day (1.0-2.0); Total Volume 24 Hour Urine 1400 mL
[2022-05-21 13:27] LABS: DHEA Sulfate 22 mcg/dL (9-118)
[2022-05-25 17:51] LABS: Cortisol Free, 24 Hr Urine 69.6 mcg/24 h (4.0-50.0); Creatinine, 24 Hr Urine 0.98 g/24 h (0.50-2.15); Total Volume, 24 Hr Urine 1400 mL
[2022-05-25 20:16] LABS: Testosterone, Free 4.7 pg/mL (0.1-6.4); Testosterone, Total 30 ng/dL (2-45)
== END 2022-05-19 08:28 | disposition home or self-care (01) ==
LOC: HO.LAB 08:27
PROVIDERS: PCP Pediatrics; Visit Provider Internal Medicine Endocrinology, Diabetes & Metabolism
DX: L68.0 Hirsutism (principal)
CPT/HCPCS: 36415; 82530; 82570; 82627; 84402; 84403

== ENCOUNTER 2022-05-25 16:20 | Outpatient (REF) | payer OTHER, SELFPAY ==
--- NOTE | ~2022-05-25 | MR_ITS ---
EXAMINATION: MR CERVICAL SPINE WITHOUT CONTRAST CLINICAL INFORMATION: Radiculopathy, cervical region. COMPARISON: Cervical spine MRI 12/07/2007. TECHNIQUE: MRI of the cervical spine was performed using routine sequences without contrast. FINDINGS: The cervical vertebral bodies maintain normal heights and alignment. There is severe disc height loss at C5-C6 and C6-C7 with prominent endplate osteophytes. There is significant marrow edema about the right-sided C3-C4 facets with periarticular edema/inflammation also noted. The cervical cord signal appears normal. The imaged intracranial contents appear normal. The extraspinal soft tissues appear normal. SPINAL LEVELS: C2-C3: No posterior disc abnormality. Severe right facet arthropathy. No spinal canal or neural foraminal stenosis. C3-C4: No posterior disc abnormality. Bilateral uncovertebral hypertrophy. Severe right more than left facet arthropathy. No significant spinal canal or neural foraminal stenosis. C4-C5: Mild disc osteophyte complex with severe right and moderate left facet arthropathy. No spinal canal or neural foraminal stenosis. C5-C6: Disc osteophyte complex, ligamentum flavum infolding, moderate facet arthropathy, and uncovertebral hypertrophy resulting in progressive mild to moderate spinal canal stenosis and moderate to severe bilateral neural foraminal stenosis. C6-C7: Disc osteophyte complex with uncovertebral hypertrophy and mild facet arthropathy resulting in mild spinal canal stenosis and moderate right and mild left neural foraminal stenosis. C7-T1: Disc bulging with uncovertebral hypertrophy without significant spinal canal stenosis. No significant neural foraminal stenosis. MR/MR cervical spine wo con IMPRESSION: 1. Multilevel degenerative spondylosis with severe disc height loss seen at C5-C6 and C6-C7. 2. At C5-C6 there is progressive mild to moderate spinal canal stenosis and moderate to severe bilateral neural foraminal stenosis. 3. At C6-C7 there is moderate right and mild left neural foraminal stenosis. 4. Significant marrow edema is seen about the right-sided C3-C4 facets with periarticular edema/inflammation also noted.
== END 2022-05-25 16:21 | disposition home or self-care (01) ==
LOC: HO.MRI 16:20
PROVIDERS: Visit Provider Nurse Practitioner Family
DX: M54.12 Radiculopathy, cervical region (principal); M47.812 Spondylosis without myelopathy or radiculopathy, cervical region
CPT/HCPCS: 72141

== ENCOUNTER 2022-05-28 14:50 | Outpatient (REF) | payer OTHER, SELFPAY | END 2022-05-28 14:51 | disposition home or self-care (01) | LOC: HO.LNP 14:50 | PROVIDERS: Visit Provider Internal Medicine Endocrinology, Diabetes & Metabolism | DX: L68.0 Hirsutism (principal) | CPT/HCPCS: 82530 ==

== ENCOUNTER 2022-05-31 14:29 | Outpatient (REF) | payer OTHER, SELFPAY ==
--- NOTE | ~2022-05-31 | FL_ITS ---
EXAMINATION: XR BARIUM SWALLOW CLINICAL INFORMATION: Dysphagia COMPARISON: None TECHNIQUE: Real-time fluoroscopy was provided to speech and language pathology to perform a swallowing evaluation. FINDINGS: No aspiration or penetration seen with any of the consistencies tested. FLUOROSCOPY TIME: 2.1 minutes DOSE AREA PRODUCT: 0.788 Gy-cm2 (montgomery-centimeter squared) FL/FL barium swallow modified IMPRESSION: No aspiration or penetration seen with any of the consistencies tested. Please see separately dictated speech and language pathology evaluation for further details.
--- NOTE | 2022-05-31 16:01 | MHC.SL.IMP ---
Date of Plan of Treatment: 05/31/22 Onset of Symptoms/Illness: 04/15/22 Date Treatment Started: 05/31/22 Primary Speech & Language Diagnosis: R13.10 Dysphagia Reason for Today's Visit: 98228 Modified Barium Swallow Study Pre-evaluation Dietary Consistencies: Regular Pre-evaluation Liquid Consistency: Thin Pre-evaluation Medication Administration: Whole with Liquid Medical History: Modified Barium Swallow Study Fluoroscopic Evaluation of Swallowing Function CPT Code 82863 Evaluation Year: 2021 Reason for Study: Patient reports globus sensation. Referring Physician: Ashanti Crisostomo NP Evaluating Clinician: Adrianna Odell MA, CCC-ENVIRONMENTAL COORDINATOR Study Number: 1 Patient Name: Jess Schmidt Status: Outpatient, Ambulatory Age: 61 Gender: Female MEDICAL HISTORY: Year of Onset or Diagnosis: 2021 [facility] Medical History (Updated 05/13/22 @ 14:23 by Quinton Hawkins MD) Age related osteoporosis Anxiety Arthritis Carpal tunnel syndrome Chronic fatigue Constipation Depression Diabetes Fibromyalgia High cholesterol Hirsutism Hypertension Idiopathic hirsutism MGUS (monoclonal gammopathy of unknown significance) Mood disorder Myalgia Myositis Plantar fasciitis Positive MARCY (antinuclear antibody) Pulmonary nodule Restless legs SLE (systemic lupus erythematosus related syndrome) Spondylosis Sweating abnormality Xerosis of skin Surgical History H/O colonoscopy H/O esophagogastroduodenoscopy H/O hemorrhoidectomy History of tubal ligation Current (pre-evaluation) Intake/Diet: Route: PO Diet Grade: Regular Liquid Consistencies: Thin Pain: None reported at time of study SUBJECTIVE: Pt is a 61 year old female referred for a modified barium swallow study by Ashanti Crisostomo NP of [facility]. Pt was seen by Eulalia on 04/15/22 and reported having trouble swallowing. At that time, pt reported she felt as though things get stuck in her throat, she felt like she suffocates with her saliva and when she wakes up her throat is dry. Furthermore, she reported it feels like she is drowning when she drinks liquids and because of that, she experiences shortness of breath. Pt says she sees an ENT for TMJ and has been told she has esophageal dysmotility. Pt thinks this is r/t a fall she had in July. Pt reported during her G.I. visit that she ?twisted her neck,? this affected her swallowing as she ?has to move her neck around in order to eat.? Per G.I. note, pt has been told she has severe arthritis of the cervical spine. Pt has a dry mouth. G.I. noted pt is on many medications which could cause dryness as a side effect, including Verapamil, a steroid inhaler, hydroxyzine. Today when interviewed by ENVIRONMENTAL COORDINATOR, pt reiterated that she is still experiencing these symptoms. Pt described feeling like her ?throat is locking up? at night and needing to dry swallow and clear her throat to make this sensation go away. Pt denied pain when swallowing. Pt confirmed she experiences globus sensation. She reported difficulty chewing hard solids and sticky foods sometimes. 05/05/[address]: ?No evidence of interstitial lung disease. Stable 5 mm left lower lobe nodule from 2013. Several new small pulmonary nodules, largest measuring 3 mm. According to the UPDATED 2017 Fleischner Society recommendations, the advised follow-up imaging for less than 6 mm solid nodule: Low risk, no chest CT follow-up and high risk, optional chest CT follow-up in one year. Small calcified right hilar lymph nodes probably related to old granulomatous disease. Fleischner guidelines were followed.? 02/16/22 Barium Swallow X-Ray: ?FINDINGS: Patient swallowed thin and thick barium and a half-inch diameter barium tablet without difficulty. There is no evidence of nasopharyngeal reflux or tracheal aspiration. There is normal elevation of the soft palate while saying candy. There is normal apposition of the vocal cords while saying E. There was noted to be hypomotility of the esophagus with tertiary contractions being evident. No persistent stricture was identified. No hiatal hernia was seen. No gastroesophageal reflux was seen including with water siphon test. The half-inch diameter barium tablet passed rapidly. FL/FL barium swallow IMPRESSION: Hypomotility with tertiary contractions.? Oral Motor Exam Facial Symmetry: Symmetrical Mouth Occlusion: Normal Oral-Facial Teeth Characteristics: Intact/Normal Oral-Facial Smile (Lips) Description: Normal Oral-Facial Puff Cheeks Description: Normal Tongue Size: Normal Tongue Excursion Description: Normal Tongue Range of Movement Description: Normal Tongue Speed of Movement Description: Normal Tongue Strength of Movement (against opposing pressure): Normal Tongue Movement Characteristics: Normal/Absent Is patient able to manage secretions?: Yes Food and Liquid Trials: Oral Impairment: Lip Closure: Did not test Oral Impairment: Tongue Control During Bolus Hold: 1=Escape to lateral buccal cavity/floor of mouth (FOM) Oral Impairment: Bolus Preparation/Mastication: 1=Slow prolonged chewing/mashing with complete re-collection Oral Impairment: Bolus Transport/Lingual Motion: 0=Brisk tongue motion Oral Impairment: Oral Residue: 1=Trace residue lining oral structures Oral Impairment:Initiation of Pharyngeal Swallow: 3=Bolus head in pyriforms Pharyngeal Impairment: Soft Palate Elevation: 0=No bolus between soft palate (SP)/pharyngeal wall (PW) Pharyngeal Impairment: Laryngeal Elevation: 0=Complete superior movement of thyroid cartilage (see description) Pharyngeal Impairment: Anterior Hyoid Excursion: 0=Complete anterior movement Pharyngeal Impairment: Epiglottic Movement: 0=Complete inversion Pharyngeal Impairment: Laryngeal Vestibular Closure:: 0=Complete: no air/contrast in laryngeal vestibule Pharyngeal Impairment: Pharyngeal Stripping Wave: 0=Present: complete Pharyngeal Impairment: Pharyngeal Contraction: Did not test Pharyngeal Impairment: Pharyngoesophageal Segment Openin=Complete distension and complete duration: no obstruction of flow Pharyngeal Impairment: Tongue Base (TB) Retraction: 2=Narrow column of contrast/air between TB and posterior PW Pharyngeal Impairment: Pharyngeal Residue: 1=Trace residue within or on pharyngeal structures Pharyngeal Impairment: Esophageal Clearance Upright Position: Did not test Impressions and Recommendations Clinical Observations: OBJECTIVE: Time-out: performed at 15:00 Evaluation Start: 14:50; Stop: 14:57 Patient Positioning: Standing Viewing Planes: LATERAL ONLY Contrast: MBSImP? Standardized Protocol using commercially prepared, standardized Barium viscosities, including: Varibar? THIN LIQUID (40% w/v, <15 cps) , 1/2 Shortbread Cookie (1 x1 x.25 ) MBSImP ID: [id number] MBSImP Results: Lip closure for intraoral bolus containment could not be assessed due to logistical reasons not related to physiologic impairment. Tongue control during bolus hold allowed bolus escape to the lateral buccal cavity/floor of mouth. Bolus preparation and mastication resulted in slow, prolonged chewing/mashing but with complete re-collection. Bolus transport/lingual motion was with brisk tongue motion. Oral residue was a trace, lining oral structures. Initiation of the pharyngeal swallow occurred when the bolus head was in the pyriform sinuses. Soft palate elevation resulted in no bolus between the soft palate and the pharyngeal wall. Laryngeal elevation demonstrated complete superior movement of the thyroid cartilage with complete approximation of the arytenoids to the epiglottic petiole. Anterior hyoid excursion demonstrated complete anterior movement. Epiglottic movement resulted in complete inversion. Laryngeal vestibular closure was complete, as indicated by no air or contrast within the laryngeal vestibule at the height of the swallow. Pharyngeal stripping wave was present and complete. Pharyngeal contraction could not be determined due to logistical reasons not related to physiologic impairment. Pharyngoesophageal segment opening was completely distended for complete duration with no obstruction of bolus flow. Tongue base retraction allowed a narrow column of contrast or air between the retracted tongue base and the posterior pharyngeal wall. Pharyngeal residue was a trace within or on pharyngeal structures. Esophageal clearance in the upright position could not be assessed due to logistical reasons not related to physiologic impairment. Oral Impairment Score: 5 (absence of score, component 1) Pharyngeal Impairment Score: 2 (absence of score, component 13) Esophageal Impairment Score: --- (absence of score, component 17) Laryngeal Penetration and Aspiration: Neither penetration nor aspiration was observed in today's study with Cookie, Thin. ASSESSMENT: Clinician Assessment: This exam was conducted by a multidisciplinary team, which included a speech pathologist, radiologist, and machines technician. Pt was standing for lateral view only. Pt trialed the following liquid and solid consistencies: 5 mL thin liquid barium by cup, individual cup sip thin liquid barium, sequential cup sips thin liquid barium, pureed solid (mixture applesauce with barium paste), ground solid (mixture chicken salad with barium paste), regular solid (Ashley Doone cookie coated with barium paste), barium pill tablet. Pt was able to feed herself without any difficulties during this exam. Pt presented with escape of bolus to the floor of mouth, but no premature posterior escape of bolus when pt was instructed to hold bolus in her mouth. Pt demonstrated brisk posterior lingual movement for the transport of bolus. Pt?s mastication was slow and prolonged, characterized by piece meal deglutition. Pt chewed bolus, swallowed partial bolus, chewed remaining bolus, and swallowed again to clear oral cavity. There was trace lingual residue which cleared with subsequent dry swallow. Pharyngeal swallow trigger was delayed, initiated as bolus head reached pyriform sinuses. There was no nasopharyngeal reflux. No evidence of aspiration or penetration with intake of solids and liquids during this exam. Laryngeal elevation was complete with complete anterior hyoid excursion and complete epiglottic inversion. There was trace residue on tongue base, which subsequently cleared with a dry swallow. There was otherwise complete clearing of the valleculae and pyriform sinuses. No obstruction of flow through the pharyngoesophageal segment opening. Liquid Intake Recommendation: Thin Dietary Recommendations: Regular Medication Administration: Whole with Liquid Please contact the pharmacy regarding appropriate crushable or liquid drug formulations that are available whenever modified delivery is recommended. Compensatory Strategies Recommended: Sitting Upright (90 deg), Small Bites and Sips, Alternate Liquids/Solids Supervision during eating and or drinking: None Needed Recommendation for Speech Therapy: NA:Typical Evaluation PLAN: Intake Recommendations: Route: PO Diet Grade: Regular Liquid Consistencies: Thin Post-Study Functional Oral Intake Scale (FOIS): 7- Total oral intake with no restrictions This exam revealed mildly slowed and prolonged chewing pattern, ultimately with good oral clearance. Delayed pharyngeal swallow trigger, but with complete laryngeal elevation, complete epiglottic inversion, and complete laryngeal vestibular closure. There was no evidence of aspiration or penetration during this exam. Pt demonstrated good clearance of oral and pharyngeal structures. Further ENVIRONMENTAL COORDINATOR intervention for dysphagia is not indicated at this time. Recommend pt continue with regular unmodified diet and thin liquids. Pt may consider avoiding foods she experiences difficulty chewing, as she had reported (i.e. ?tough foods? and ?sticky foods?). Recommend taking small bites, chewing food well, and alternating bites of food with sips of liquid. Recommend continue workup w/ G.I. specialist and ENT. Therapy Recommendations: Therapy will be discontinued Prognosis for Improvement: The prognosis for the patient to meet nutritional needs by mouth is excellent based on degree of impairment. Clinician - Supplemental, Miscellaneous Communication: It is important to note MBSS objective studies are snapshots in time and Patient function might vary with factors such as time of day or concomitant medical conditions. For this reason, the final treatment plan for this patient should rest with their medical care team. Additional recommendations should be considered with the totality of the Patient in mind. Thank for the opportunity to participate in the care of this patient. If you have any questions about the content of this report, please contact the [facility] at [facility]. Education: Education regarding findings from today's study and plans for therapy were provided to Patient only through Verbal Instruction. Understanding was expressed by the Patient only. Salvage Engineering Technician Clinician/Clinical Fellow: No Supervisory Statement: N/A Speech Language Pathologist: Adrianna Odell M.A., CCC-ENVIRONMENTAL COORDINATOR
== END 2022-05-31 14:30 | disposition home or self-care (01) ==
LOC: HO.XRAY 14:29
PROVIDERS: Visit Provider Nurse Practitioner
DX: R13.10 Dysphagia, unspecified (principal); K22.89 Other specified disease of esophagus
CPT/HCPCS: 74230; 92611

== ENCOUNTER → 2022-06-01 15:19 | Outpatient (BNVA) | payer OTHER, SELFPAY | PROVIDERS: PCP Pediatrics; Visit Provider Nurse Practitioner Family | DX: M48.02 Spinal stenosis, cervical region (principal); M46.92 Unspecified inflammatory spondylopathy, cervical region; R13.10 Dysphagia, unspecified; M54.12 Radiculopathy, cervical region; M47.812 Spondylosis without myelopathy or radiculopathy, cervical region; G89.4 Chronic pain syndrome | CPT/HCPCS: Q3014 ==

== ENCOUNTER → 2022-06-08 08:09 | Day surgery (SDC) | payer OTHER, SELFPAY | PROVIDERS: PCP Internal Medicine Gastroenterology; Visit Provider Internal Medicine Gastroenterology | DX: R13.10 Dysphagia, unspecified (principal); Z53.20 Procedure and treatment not carried out because of patient's decision for unspecified reasons ==

== ENCOUNTER → 2022-08-31 13:34 | Outpatient (BNVA) | payer OTHER, SELFPAY | PROVIDERS: PCP Pediatrics; Visit Provider Dietitian, Registered | DX: E11.9 Type 2 diabetes mellitus without complications (principal); Z79.84 Long term (current) use of oral hypoglycemic drugs | CPT/HCPCS: 97802 ==

== ENCOUNTER 2022-09-08 07:55 | Day surgery (SDC) | payer OTHER, SELFPAY ==
[2022-09-02 13:04] VITALS: BMI 32.5
--- NOTE | 2022-09-08 08:26 | HO.ANESPROP2 ---
[facility] Active Problems Active Problems: All Active Problems (Updated 09/02/22 @ 13:04 by Tessie Joshua RN) Asthma (Acute) Environmental allergies (Acute) Dyspnea on exertion (Acute) TREE on CPAP (Acute) Patellofemoral arthritis of right knee (Acute) Osteoarthritis of left knee (Acute) Nephrolithiasis (Acute) Cervical spondylosis (Acute) Cervical radiculopathy (Acute) Bilateral knee pain (Acute) Muscle spasm (Acute) Right calf pain (Acute) Internal derangement of right knee (Acute) Diabetes mellitus (Acute) Fibromyalgia (Acute) Esophageal dysmotility (Acute) GERD (gastroesophageal reflux disease) (Acute) Chronic idiopathic constipation (Acute) Dysphagia (Acute) Presbyesophagus (Acute) MGUS (monoclonal gammopathy of unknown significance) (Acute) Chronic pain syndrome (Acute) Inflammatory spondylopathy of cervical region (Acute) Cervical stenosis of spinal canal (Acute) Sweating abnormality (Acute) Hirsutism (Acute) SLE (systemic lupus erythematosus related syndrome) (Acute) Past Medical History Medical History (Updated 09/02/22 @ 13:04 by Tessie Joshua RN) Age related osteoporosis Anxiety Arthritis Carpal tunnel syndrome Chronic fatigue Constipation Depression Diabetes Fibromyalgia High cholesterol Hirsutism Hypertension Idiopathic hirsutism MGUS (monoclonal gammopathy of unknown significance) Mood disorder Myalgia Myositis Plantar fasciitis PONV (postoperative nausea and vomiting) Positive MARCY (antinuclear antibody) Pulmonary nodule Restless legs SLE (systemic lupus erythematosus related syndrome) Spondylosis Sweating abnormality Xerosis of skin Family History Family History Father Diabetes Hypertension Mother Hypertension Diabetes Asthma Maternal Grandfather Throat cancer Maternal Grandmother Throat cancer Paternal Uncle Prostate cancer Maternal Uncle Throat cancer Stomach cancer Maternal Aunt Stomach cancer Diabetes Family history of problems with anesthesia: No Surgical History Surgical History H/O colonoscopy H/O esophagogastroduodenoscopy H/O hemorrhoidectomy History of tubal ligation History of Problems with Anesthesia: No Social History Social History (Updated 09/02/22 @ 13:07 by Tessie Joshua RN) Are you a primary health care technician to a significant other at home: No Do you presently have visiting nurse or other home services: Yes (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) Alcohol intake: never Patient Tobacco Use Status: Never used Tobacco Use of substances other than those prescribed or required for medical reasons: No Are you DNR?: No Advance Directives: No Advance Directives Information Provided: Yes Advance Directives on File: No Recently lost weight without trying: No Nutrition Risks: No Nutritional Risk Poor oral hygiene: No Current occupational status: retired Current occupation: rt handed Meds Allergies Allergy/AdvReac Type Severity Reaction Status Date / Time aspirin [ASA] Allergy Intermediate Hives Verified 06/01/22 15:22 Penicillins [PENICILLINS] Allergy Intermediate RASH Verified 06/01/22 15:22 loratadine Allergy Unknown Unknown Verified 06/01/22 15:22 trimethoprim Allergy Unknown Unknown Verified 06/01/22 15:22 venlafaxine Allergy Unknown Unknown Verified 06/01/22 15:22 Active Medications: Current Medications Lactated Ringer's (Lr) 1,000 mls @ 50 mls/hr IVCONT .Q20H [facility] Home Medications Medication Instructions Recorded Confirmed Last Taken Type atorvastatin 80 mg tablet 80 mg PO DAILY 05/01/20 09/02/22 Unknown History betamethasone dipropionate 0.05 % applic topical BID 05/01/20 05/04/22 Unknown History topical cream cetirizine 10 mg tablet 10 mg PO DAILY 05/01/20 09/02/22 09/08/22 History cholecalciferol (vitamin D3) 50 0 mcg PO 05/01/20 05/04/22 Unknown History mcg (2,000 unit) capsule dexlansoprazole 60 mg 60 mg PO DAILY 05/01/20 09/02/22 Unknown History capsule,biphase delayed release diclofenac sodium 1 % topical gel 2 g topical QID 05/01/20 09/02/22 Unknown History (Voltaren) linaclotide 145 mcg capsule 145 mcg PO DAILY 05/01/20 09/02/22 Unknown History meclizine 25 mg tablet 25 mg PO DAILY PRN Vertigo 05/01/20 09/02/22 Unknown History ondansetron 4 mg disintegrating 4 mg PO Q8H PRN Nausea 05/01/20 09/02/22 Unknown History tablet paroxetine HCl 20 mg tablet 20 mg PO DAILY PRN Anxiety 05/01/20 09/02/22 Unknown History pregabalin 150 mg capsule (Lyrica) 150 mg PO DAILY 05/01/20 09/02/22 Unknown History sennosides 8.6 mg tablet 17.2 mg PO DAILY 05/01/20 09/02/22 Unknown History hydrocortisone 2.5 % topical cream appl topical 10/06/21 05/04/22 Unknown History hydroxychloroquine 200 mg tablet 200 mg PO BID 10/06/21 09/02/22 Unknown History ashkeaqv-cak-yuhsl acid 0.4 0 tab PO 12/08/21 05/04/22 Unknown History mg-lycopene 300 mcg-lutein 250 mcg tablet (Cerovite Senior) alclometasone 0.05 % topical topical 04/15/22 05/04/22 Unknown History ointment docusate sodium 100 mg capsule 100 mg PO BID 04/15/22 09/02/22 Unknown History polyethylene glycol 3350 17 17 g PO DAILY 04/15/22 05/04/22 Unknown History gram/dose oral powder (Miralax) tramadol 50 mg tablet 50 mg PO DAILY PRN Pain 04/15/22 09/02/22 Unknown History triamcinolone acetonide 0.1 % topical BID itch 04/15/22 05/04/22 Unknown History topical ointment verapamil 120 mg tablet,extended 240 mg PO DAILY 04/15/22 09/02/22 09/08/22 History release magnesium oxide 400 mg (241.3 mg 400 mg PO DAILY 05/06/22 09/02/22 Unknown History magnesium) tablet prednisone 20 mg tablet 20 mg PO DAILY 06/01/22 Unknown History Exam Exam Date and Time: September 08, 2022 0826 Height,Weight and Vital Signs: Height 5 ft 2 in Weight 80.739 kg Airway Mallampati Class: III (Missing coupke, denies anythingg loose) TM Dist: >3cm Neck ROM: Full Heart: rrr Lungs: cta Assessment and Plan Assessment Anesthesia Assessment: Anesthesia Plan Discussed and Chart Reviewed Final Anesthetic Review Family History of Problems with Anesthesia: No History of Problems with Anesthesia: No NPO: Yes ASA Class: III Final Preanesthetic Review: No Changes in Pt Med Stat, Meds/Allgs Chart Reviewed and Consent Obtained/Reviewed Patient Risk: Intermediate Procedure Risk: Intermediate Anesthetic Plan Anesthetic Plan: MAC: Disposition: Standard PACU
[2022-09-08 08:27] VITALS: BP 151/80; PULSE 80; RESP 18; TEMP 36.2; O2SAT 98
[2022-09-08 08:28] VITALS: BMI 32.5
[2022-09-08 08:36] LABS: Glucose, Whole Blood 133 mg/dL (60-115)
--- NOTE | 2022-09-08 08:38 | MHC.SHP ---
Pre-Procedural Eval Section A Date of Service: 09/08/22 Section B Chief Complaint: Other specified disease of esophagus,dysphagia Relevant Family History (Specify if Yes): No Relevant Social History: None Present Medications: see Short Stay Collaborative assessment Medical History: Significant History (Age related osteoporosis Anxiety Arthritis Carpal tunnel syndrome Chronic fatigue Constipation Depression Diabetes Fibromyalgia High cholesterol Hypertension Idiopathic hirsutism MGUS (monoclonal gammopathy of unknown significance) Mood disorder Myalgia Myositis Plantar fasciitis Positive MARCY (antin) History of Previous Operations: Relevant previous surgery/procedure and date(s) (H/O colonoscopy H/O esophagogastroduodenoscopy H/O hemorrhoidectomy History of tubal ligation) Allergies: Allergies Allergy/AdvReac Type Severity Reaction Status Date / Time aspirin [ASA] Allergy Intermediate Hives Verified 06/01/22 15:22 Penicillins [PENICILLINS] Allergy Intermediate RASH Verified 06/01/22 15:22 loratadine Allergy Unknown Unknown Verified 06/01/22 15:22 trimethoprim Allergy Unknown Unknown Verified 06/01/22 15:22 venlafaxine Allergy Unknown Unknown Verified 06/01/22 15:22 Review of Systems Sugical H&P ROS: Negative: Constitution, Cardiovascular, Respiratory, Neurological, Psychiatric, Hem-Onc, Allergic/Immunologic, Gastrointestinal, Genitourinary, Musculoskeletal, Integumentary, Endocrine and Eyes/Ears/Nose/Throat Exam Surgical H&P Exam: Normal: HEENT, Normal: Heart, Normal: Lungs, Normal: Extremities, Normal: Abdomen, Normal: Skin and Normal: Neurological Plan Diagnosis/Plan: Unchanged I have reviewed the history and physical and performed a pertinent physical examination on my patient. No changes have occurred unless specified. Time Spent With Patient Time: Total time managing care of this patient today ____ minutes.
[2022-09-08] MEDS: Lactated Ringers 1,000 ML 50 ML IVCONT (08:40)
--- NOTE | 2022-09-08 08:59 | HO.ANESPROP2 ---
HPI - Anesthesia Eval Consult details Narrative: EGD PMFSH Active Problems Active Problems: All Active Problems (Updated 09/02/22 @ 13:04 by Tessie Joshua, RN) Asthma (Acute) Environmental allergies (Acute) Dyspnea on exertion (Acute) TREE on CPAP (Acute) Patellofemoral arthritis of right knee (Acute) Osteoarthritis of left knee (Acute) Nephrolithiasis (Acute) Cervical spondylosis (Acute) Cervical radiculopathy (Acute) Bilateral knee pain (Acute) Muscle spasm (Acute) Right calf pain (Acute) Internal derangement of right knee (Acute) Diabetes mellitus (Acute) Fibromyalgia (Acute) Esophageal dysmotility (Acute) GERD (gastroesophageal reflux disease) (Acute) Chronic idiopathic constipation (Acute) Dysphagia (Acute) Presbyesophagus (Acute) MGUS (monoclonal gammopathy of unknown significance) (Acute) Chronic pain syndrome (Acute) Inflammatory spondylopathy of cervical region (Acute) Cervical stenosis of spinal canal (Acute) Sweating abnormality (Acute) Hirsutism (Acute) SLE (systemic lupus erythematosus related syndrome) (Acute) Past Medical History Medical History (Updated 09/02/22 @ 13:04 by Tessie Joshua RN) Age related osteoporosis Anxiety Arthritis Carpal tunnel syndrome Chronic fatigue Constipation Depression Diabetes Fibromyalgia High cholesterol Hirsutism Hypertension Idiopathic hirsutism MGUS (monoclonal gammopathy of unknown significance) Mood disorder Myalgia Myositis Plantar fasciitis PONV (postoperative nausea and vomiting) Positive MARCY (antinuclear antibody) Pulmonary nodule Restless legs SLE (systemic lupus erythematosus related syndrome) Spondylosis Sweating abnormality Xerosis of skin Family History Family History Father Diabetes Hypertension Mother Hypertension Diabetes Asthma Maternal Grandfather Throat cancer Maternal Grandmother Throat cancer Paternal Uncle Prostate cancer Maternal Uncle Throat cancer Stomach cancer Maternal Aunt Stomach cancer Diabetes Family history of problems with anesthesia: No Surgical History Surgical History H/O colonoscopy H/O esophagogastroduodenoscopy H/O hemorrhoidectomy History of tubal ligation History of Problems with Anesthesia: No Social History Social History (Updated 09/02/22 @ 13:07 by Tessie Joshua RN) Are you a primary adult daycare coordinator to a significant other at home: No Do you presently have visiting nurse or other home services: Yes (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 and supportive Daughter) Alcohol intake: never Patient Tobacco Use Status: Never used Tobacco Use of substances other than those prescribed or required for medical reasons: No Are you DNR?: No Advance Directives: No Advance Directives Information Provided: Yes Advance Directives on File: No Recently lost weight without trying: No Nutrition Risks: No Nutritional Risk Poor oral hygiene: No Current occupational status: retired Current occupation: rt handed Meds Allergies Allergy/AdvReac Type Severity Reaction Status Date / Time aspirin [ASA] Allergy Intermediate Hives Verified 06/01/22 15:22 Penicillins [PENICILLINS] Allergy Intermediate RASH Verified 06/01/22 15:22 loratadine Allergy Unknown Unknown Verified 06/01/22 15:22 trimethoprim Allergy Unknown Unknown Verified 06/01/22 15:22 venlafaxine Allergy Unknown Unknown Verified 06/01/22 15:22 Active Medications: Current Medications Lactated Ringer's (Lr) 1,000 mls @ 50 mls/hr IVCONT .Q20H [facility] Last Admin: 09/08/22 08:40 Dose: 50 mls/hr Home Medications Medication Instructions Recorded Confirmed Last Taken Type atorvastatin 80 mg tablet 80 mg PO DAILY 05/01/20 09/02/22 Unknown History betamethasone dipropionate 0.05 % applic topical BID 05/01/20 05/04/22 Unknown History topical cream cetirizine 10 mg tablet 10 mg PO DAILY 05/01/20 09/02/22 09/08/22 History cholecalciferol (vitamin D3) 50 0 mcg PO 05/01/20 05/04/22 Unknown History mcg (2,000 unit) capsule dexlansoprazole 60 mg 60 mg PO DAILY 05/01/20 09/02/22 Unknown History capsule,biphase delayed release diclofenac sodium 1 % topical gel 2 g topical QID 05/01/20 09/02/22 Unknown History (Voltaren) linaclotide 145 mcg capsule 145 mcg PO DAILY 05/01/20 09/02/22 Unknown History meclizine 25 mg tablet 25 mg PO DAILY PRN Vertigo 05/01/20 09/02/22 Unknown History ondansetron 4 mg disintegrating 4 mg PO Q8H PRN Nausea 05/01/20 09/02/22 Unknown History tablet paroxetine HCl 20 mg tablet 20 mg PO DAILY PRN Anxiety 05/01/20 09/02/22 Unknown History pregabalin 150 mg capsule (Lyrica) 150 mg PO DAILY 05/01/20 09/02/22 Unknown History sennosides 8.6 mg tablet 17.2 mg PO DAILY 05/01/20 09/02/22 Unknown History hydrocortisone 2.5 % topical cream appl topical 10/06/21 05/04/22 Unknown History hydroxychloroquine 200 mg tablet 200 mg PO BID 10/06/21 09/02/22 Unknown History lexqehpj-nmd-xabco acid 0.4 0 tab PO 12/08/21 05/04/22 Unknown History mg-lycopene 300 mcg-lutein 250 mcg tablet (Cerovite Senior) alclometasone 0.05 % topical topical 04/15/22 05/04/22 Unknown History ointment docusate sodium 100 mg capsule 100 mg PO BID 04/15/22 09/02/22 Unknown History polyethylene glycol 3350 17 17 g PO DAILY 04/15/22 05/04/22 Unknown History gram/dose oral powder (Miralax) tramadol 50 mg tablet 50 mg PO DAILY PRN Pain 04/15/22 09/02/22 Unknown History triamcinolone acetonide 0.1 % topical BID itch 04/15/22 05/04/22 Unknown History topical ointment verapamil 120 mg tablet,extended 240 mg PO DAILY 04/15/22 09/02/22 09/08/22 History release magnesium oxide 400 mg (241.3 mg 400 mg PO DAILY 05/06/22 09/02/22 Unknown History magnesium) tablet prednisone 20 mg tablet 20 mg PO DAILY 06/01/22 Unknown History Exam Exam Date and Time: September 08, 2022 0859 Height,Weight and Vital Signs: Height 5 ft 2 in Weight 80.739 kg Last Vital Signs Temp 97.2 F 09/08/22 08:27 Pulse 80 09/08/22 08:27 Resp 18 09/08/22 08:27 BP 151/80 H 09/08/22 08:27 Pulse Ox 98 09/08/22 08:27 O2 Del Method 09/08/22 08:27 Pertinent Lab Results Pertinent Lab Results: Laboratory Tests 09/08/22 08:32 POC Glucose 133 H Airway Mallampati Class: II TM Dist: >3cm Neck ROM: Limited Loose/Missing/Broken Teeth: No Heart: RRR Lungs: CTA Assessment and Plan Assessment Anesthesia Assessment: Anesthesia Plan Discussed Final Anesthetic Review Family History of Problems with Anesthesia: No History of Problems with Anesthesia: No NPO: Yes ASA Class: III Final Preanesthetic Review: No Changes in Pt Med Stat, Meds/Allgs Chart Reviewed, Consent Obtained/Reviewed and Anes Risks/Benef Reviewed Patient Risk: Intermediate Procedure Risk: Intermediate Anesthetic Plan Anesthetic Plan: MAC: Disposition: Standard PACU
--- NOTE | 2022-09-08 09:37 | W.PM.OPN ---
Operative Note Operative Note Date of Service: 09/08/22 Narrative: Procedure Description: EGD Indication: dysphagia Anesthesia: MAC FLEXIBLE TRANSORAL UPPER GASTROINTESTINAL ENDOSCOPY UPPER ENDOSCOPY Consent: Indications for the procedure and potential complications of bleeding, perforation, reaction to medications and missed diagnosis were discussed with the patient and informed consent was obtained. Instrument: Olympus GIF H 190 J mid size upper endoscope Monitoring: Vital signs and clinical assessment, continuous EKG monitoring, Pulse oximetry, Carbon Dioxide monitoring and blood pressure monitoring were done throughout the procedure. Procedure: The patient was placed in the left lateral decubitis position and pre-procedure medications were administered and a bite block was placed. The endoscope was inserted into the mouth and advanced under direct vision to the third part of duodenum. A careful inspection was made as the upper endoscope was withdrawn including a retroflexed examination of the proximal stomach; Findings and interventions are described below. Findings: Larynx:normal Esophagus: GE junction at 34 cm, diaphragm hiatus at 34 cm, mild esophagitis at GEJ with schatzki ring noted. dilated to 20 mm with balloon with heme noted indicating successful dilation of stricture. bx taken from GEJ, distal and proximal esophagus Stomach: Patchy gastric erythema. Biopsies were obtained. Grade 2 flap valve on retroflexed examination of the cardia. Duodenum: Normal bulb and descending duodenum Intervention: Biopsies as noted above Impression/Findings: schatzki ring esophagitis stricture of esophagus PLAN: consider changing PPI to alternative formulation reflux precautions regular diet today as tolerated, avoid excessively cold or hot foods
[2022-09-08 09:43] VITALS: BP 107/60; PULSE 85; RESP 16; TEMP 36.4; O2SAT 94
[2022-09-08 09:58] VITALS: BP 124/84; PULSE 85; RESP 16; TEMP 36.3; O2SAT 96
== END 2022-09-08 11:07 | disposition home or self-care (01) ==
PROVIDERS: Visit Provider Internal Medicine Gastroenterology
PROC: 0DJ08ZZ Inspection of Upper Intestinal Tract, Via Natural or Artificial Opening Endoscopic (ICD-10-PCS; CPT 43235; principal; 2022-09-08 09:20)
DX: R13.10 Dysphagia, unspecified (principal); K22.2 Esophageal obstruction; K20.80 Other esophagitis without bleeding; J04.0 Acute laryngitis; K44.9 Diaphragmatic hernia without obstruction or gangrene; K59.00 Constipation, unspecified; I10 Essential (primary) hypertension; E11.9 Type 2 diabetes mellitus without complications; E78.00 Pure hypercholesterolemia, unspecified; D47.2 Monoclonal gammopathy; G47.33 Obstructive sleep apnea (adult) (pediatric); M32.9 Systemic lupus erythematosus, unspecified; M79.7 Fibromyalgia; M81.0 Age-related osteoporosis without current pathological fracture; R76.0 Raised antibody titer; F41.1 Generalized anxiety disorder; F32.A Depression, unspecified; Z79.84 Long term (current) use of oral hypoglycemic drugs; Z79.899 Other long term (current) drug therapy; Z88.0 Allergy status to penicillin; Z88.8 Allergy status to other drugs, medicaments and biological substances
CPT/HCPCS: 43249; 43239; 82947; 88305; 88342; C1726

== ENCOUNTER 2022-09-09 13:26 | Outpatient (REF) | payer OTHER, SELFPAY ==
--- NOTE | ~2022-09-09 | MM_ITS ---
EXAMINATION: BONE DENSITOMETRY CLINICAL INDICATION: Postmenopausal. COMPARISON: Baseline BD dated 03/10/2017. TECHNIQUE: Using a [employer] DXA System (software version: 13.1) manufactured by [employer], dual-energy x-ray absorptiometry was performed of the lumbar spine and left hip. The images are of good technical quality. Summary results are attached. FINDINGS: AP SPINE L1-L4: Current: BMD 0.991 g/cm2, Z-score -0.8, T-score -1.6, osteopenia, 6.7% decrease from baseline (<5% change is not significant). Baseline: BMD 1.062 g/cm2. LEFT FEMUR, NECK: Current: BMD 0.898 g/cm2, Z-score 0.0, T-score -1.0, normal. Baseline: BMD 0.938 g/cm2. LEFT FEMUR, TOTAL: Current: BMD 0.929 g/cm2, Z-score 0.0, T-score -0.6, normal, 4.1% decrease from baseline (<5% change is not significant). Baseline: BMD 0.969 g/cm2. IDENTIFIED RISK FACTORS: Menopause, family history (parent hip fracture), recurrent falls. HISTORY OF FRACTURE: None listed. MEDICATIONS: Multivitamin, vitamin D. MM/XR DEXA axial skeleton IMPRESSION: 1. DIAGNOSIS: Osteopenia based on the lowest T-score value of -1.6 in the lumbar spine applying World Health Organization criteria. 2. 10-YEAR FRACTURE RISK PREDICTION, FRAX: Major osteoporotic fracture (clinical spine, forearm, hip or shoulder) 8.0%. Hip fracture 0.2%. 3. Treatment Recommendations: NOF guidelines recommend consideration for treatment in postmenopausal women and men age 50 and older presenting with the following: -A hip or vertebral (clinical or morphometric) fracture. -T-score less than or equal to -2.5 at the femoral neck or spine after appropriate evaluation to exclude secondary causes. -Low bone mass at the hip or spine and a 10-year fracture probability by FRAX of greater than or equal to 3% for hip fracture or greater than or equal to 20% for major osteoporotic fracture based on the [place] adapted WHO algorithm. 4. Other Recommendations: All treatment decisions require clinical judgment and consideration of individual patient factors, including patient preferences, comorbidities, previous drug use, risk factors not captured in the FRAX model (e.g. frailty, falls, vitamin D deficiency, increased bone turnover, interval significant decline in bone density) and possible under or overestimation of fracture risk by FRAX. Additional medical evaluation for secondary cause of low bone mineral density may be appropriate. FUTURE SCAN RECOMMENDATION: People with diagnosed cases of osteoporosis or at high risk for fracture should have regular bone mineral density tests. For patients eligible for Medicare, routine testing is allowed once every 2 years. The testing frequency can be increased to one year for patients who have rapidly progressing disease, those who are receiving or discontinuing medical therapy to restore bone mass, or have additional risk factors.
== END 2022-09-09 13:27 | disposition home or self-care (01) ==
LOC: HO.MAMMO 13:26
PROVIDERS: Absent Provider Internal Medicine Endocrinology, Diabetes & Metabolism; PCP Pediatrics; Visit Provider Pediatrics
DX: Z13.820 Encounter for screening for osteoporosis (principal); R79.89 Other specified abnormal findings of blood chemistry; Z78.0 Asymptomatic menopausal state
CPT/HCPCS: 77080; 82530

== ENCOUNTER → 2022-09-10 15:28 | Outpatient (BNVA) | payer OTHER, SELFPAY | PROVIDERS: PCP Pediatrics; Visit Provider Internal Medicine Endocrinology, Diabetes & Metabolism | DX: L68.0 Hirsutism (principal); L74.9 Eccrine sweat disorder, unspecified | CPT/HCPCS: 99212 ==

== ENCOUNTER 2022-09-27 15:51 | Outpatient (REF) | payer OTHER, SELFPAY ==
[2022-09-27 17:48] LABS: Anion Gap 14 (12-20); Blood Urea Nitrogen 17 mg/dL (9-16); Calcium 9.4 mg/dL (8.4-10.2); Carbon Dioxide 29 mmol/L (22-29); Chloride 104 mmol/L (96-108); Estimated Glomerular Filt Rate > 60; Glucose Random 76 mg/dL (60-115); Potassium 3.9 mmol/L (3.3-5.1); Sodium 143 mmol/L (135-145)
== END 2022-09-27 15:52 | disposition home or self-care (01) ==
LOC: HO.LAB 15:51
PROVIDERS: Internal Medicine Endocrinology, Diabetes & Metabolism; PCP Pediatrics; Visit Provider Internal Medicine Pulmonary Disease
DX: L68.0 Hirsutism (principal); J45.50 Severe persistent asthma, uncomplicated
CPT/HCPCS: 36415; 80048; 82785; 86003

== ENCOUNTER → 2022-09-30 15:18 | Outpatient (BNVA) | payer OTHER, SELFPAY | PROVIDERS: PCP Pediatrics; Visit Provider Internal Medicine Endocrinology, Diabetes & Metabolism | DX: L68.0 Hirsutism (principal); L74.9 Eccrine sweat disorder, unspecified | CPT/HCPCS: 99212 ==

== ENCOUNTER 2022-10-06 15:20 | Outpatient (REF) | payer OTHER, SELFPAY ==
[2022-10-12 19:43] LABS: Saliva Cortisol 2.71 mcg/dL
== END 2022-10-06 15:21 | disposition home or self-care (01) ==
LOC: HO.LNP 15:20
PROVIDERS: Visit Provider Internal Medicine Endocrinology, Diabetes & Metabolism
DX: L68.0 Hirsutism (principal)
CPT/HCPCS: 82530

== ENCOUNTER → 2022-10-07 14:00 | Outpatient (BNVA) | payer OTHER, SELFPAY | PROVIDERS: PCP Pediatrics; Visit Provider Internal Medicine Pulmonary Disease | DX: Z11.0 Encounter for screening for intestinal infectious diseases (principal); J45.909 Unspecified asthma, uncomplicated; G47.33 Obstructive sleep apnea (adult) (pediatric); Z99.89 Dependence on other enabling machines and devices | CPT/HCPCS: 99211; 99212 ==

== ENCOUNTER 2022-10-07 16:28 | Outpatient (REF) | payer OTHER, SELFPAY | END 2022-10-07 16:29 | disposition home or self-care (01) | LOC: HO.LNP 16:28 | PROVIDERS: Visit Provider Internal Medicine Gastroenterology | DX: Z13.89 Encounter for screening for other disorder (principal) ==

== ENCOUNTER 2022-10-15 08:40 | Outpatient (REF) | payer OTHER, SELFPAY ==
[2022-10-15 11:20] LABS: Cortisol Random < 1.0 ug/dL
[2022-10-26 20:09] LABS: Dexamethasone 858 ng/dL
== END 2022-10-15 08:41 | disposition home or self-care (01) ==
LOC: HO.LAB 08:40
PROVIDERS: PCP Pediatrics; Referring Provider Pediatrics; Visit Provider Internal Medicine Endocrinology, Diabetes & Metabolism
DX: L68.0 Hirsutism (principal)
CPT/HCPCS: 36415; 80299; 82533

== ENCOUNTER 2022-10-15 15:03 | Outpatient (REF) | payer OTHER, SELFPAY ==
[2022-10-16 12:19] LABS: H Pylori Breath Test Negative (Negative)
== END 2022-10-15 15:04 | disposition home or self-care (01) ==
LOC: HO.LNP 15:03
PROVIDERS: Visit Provider Internal Medicine Gastroenterology
DX: K21.9 Gastro-esophageal reflux disease without esophagitis (principal); K59.04 Chronic idiopathic constipation
CPT/HCPCS: 83013

== ENCOUNTER → 2022-11-11 16:21 | Outpatient (BNVA) | payer OTHER, SELFPAY | PROVIDERS: PCP Pediatrics; Visit Provider Internal Medicine Endocrinology, Diabetes & Metabolism | DX: L68.0 Hirsutism (principal); L74.9 Eccrine sweat disorder, unspecified; Z78.0 Asymptomatic menopausal state | CPT/HCPCS: 99212 ==

== ENCOUNTER 2023-01-27 09:29 | Emergency (ER) | payer OTHER, SELFPAY ==
--- NOTE | 2023-01-27 | ECG_ITS ---
Test Reason : dyspnea Blood Pressure : / mmHG Vent. Rate : 082 BPM Atrial Rate : 082 BPM P-R Int : 160 ms QRS Dur : 080 ms QT Int : 418 ms P-R-T Axes : 034 016 053 degrees QTc Int : 488 ms Normal sinus rhythm Low voltage QRS nonspecific T wave changes Abnormal ECG When compared to the previous EKG of nonspecific T wave changes present Referred By: Generic ED Physician Electronically Signed By:Rory Salmon
--- NOTE | ~2023-01-27 | XR_ITS ---
EXAMINATION: XR CHEST CLINICAL INFORMATION: Dyspnea. COMPARISON: 06/12/2021 chest radiograph. TECHNIQUE: Frontal view of the chest was obtained. FINDINGS: No significant abnormality is noted involving the heart, lungs, mediastinum, bony thorax or soft tissues. XR/XR chest 1V IMPRESSION: No acute cardiopulmonary process.
[2023-01-27 09:32] VITALS: BP 117/79; PULSE 81; RESP 18; TEMP 35.9; O2SAT 96; BMI 31.7
[2023-01-27 10:02] LABS: MANUAL DIFF FLAG NO
[2023-01-27 10:03] LABS: Basophils Percent Auto 0.4 % (0-2); Eosinophils Absolute Auto 0.1 X10*3/uL (0.0-0.4); Eosinophils Percent Auto 1.1 % (0-4); Hematocrit 39.3 % (37.0-47.0); Hemoglobin 12.9 g/dl (12.0-16.0); Imm Gran Abs Auto 0.03 X10*3/uL (0.00-0.03); Imm Gran Pct Auto 0.3 % (0.0-0.4); Lymphocytes Absolute Auto 0.9 X10*3/uL (1.2-4.9); Mean Corpuscular HGB Conc 32.8 g/dl (31.0-35.0); Mean Corpuscular Hemoglobin 30.6 pg (27.0-33.0); Mean Corpuscular Volume 93.1 fL (80.0-98.0); Mean Platelet Volume 10.4 fL (9.4-12.3); Monocytes Absolute Auto 0.9 X10*3/uL (0.1-1.2); Monocytes Percent Auto 8.7 % (2-11); Neutrophils Absolute Auto 8.6 x10*3/uL (2.0-8.3); Neutrophils Percent Auto 81.5 % (45-73); Platelet Count 292 X10*3/uL (160-400); Red Blood Count 4.22 X10*6/uL (4.20-5.50); Red Cell Distribution Width 11.9 % (11.0-16.0); White Blood Count 10.6 X10*3/uL (4.8-10.8)
[2023-01-27 10:24] LABS: Alanine Aminotransferase 22 U/L (0-31); Albumin Level 4.3 g/dL (3.5-5.0); Alkaline Phosphatase 92 U/L (39-117); Anion Gap 12 (12-20); Aspartate Amino Transferase 22 U/L (5-31); Bilirubin Total 0.5 mg/dL (0.0-1.0); Blood Urea Nitrogen 14 mg/dL (9-16); Calcium 9.6 mg/dL (8.4-10.2); Carbon Dioxide 27 mmol/L (22-29); Chloride 102 mmol/L (96-108); Creatinine Clr Calc Pharmacy 84.1; Estimated Glomerular Filt Rate > 60; Glucose Random 123 mg/dL (60-115); Potassium 4.4 mmol/L (3.3-5.1); Sodium 137 mmol/L (135-145); Total Protein 7.3 g/dL (6.5-8.0)
[2023-01-27 10:38] LABS: B Type Natriuretic Peptide < 10 pg/mL (<100)
[2023-01-27 11:20] VITALS: BP 129/69; PULSE 83; RESP 23; TEMP 37.1; O2SAT 100
[2023-01-27 12:32] VITALS: BP 113/74; PULSE 72; RESP 12; TEMP 37; O2SAT 100
[2023-01-27] MEDS: 0.9 % Sodium Chloride 1,000 ML 999 ML IV (12:43)
[2023-01-27] MEDS: Acetaminophen 325 MG TABLET 975 MG PO (12:49)
[2023-01-27] MEDS: methocarbamoL 750 MG TABLET PO (12:50)
[2023-01-27] MEDS: Ketorolac Tromethamine 15 MG/ML VIAL IVPUSH (12:52)
--- NOTE | 2023-01-27 13:02 | PC.NURSE ---
IV established, fluids running, Pain medication administered. Extra blankets given, Pt stated she was comfortable at this time.
--- NOTE | 2023-01-27 13:35 | ED_ITS ---
HPI - General Adult General Chief complaint: Dyspnea Stated complaint: diff swallowing l upper shoulder blade pain Time Seen by Provider: 01/27/23 11:46 Source: patient and family Mode of arrival: ambulatory Limitations: no limitations History of Present Illness HPI narrative: 62-year-old female presents with a number of complaints. Patient carries a history of fibromyalgia and anxiety. Patient complains of difficulty swallowing. This occurs at night when she is lying down. This has been going on for 2 years. She reports her symptoms as severe. It is also associated with anxiety. She has had a significant workup including by GI, imaging studies ultrasounds, x-rays, etc.. Her symptoms are unchanged over the last 2 years. Patient is also complaining of bilateral shoulder pain which has been going on for approximately 4 weeks. The pain has been progressively getting worse. It radiates to her arms and then around her scapula to her anterior chest. Is worse with movement and palpation. The pain is severe. There is no clear relieving features. It is not associated with shortness of breath, palpitations or lightheadedness. Today, however, was associated with bilateral upper and lower extremity numbness and tingling. This occurred after she heard a slight crack in her neck. She denies any focal weakness. Patient is also complaining of anxiety/panic attacks. Patient has been having increasing anxiety and panic related to her symptoms. They are exacerbated by her symptoms. They are not clearly relieved by anything. Patient did take her anxiety medications today. Related Data Home Medications Medication Instructions Recorded Confirmed atorvastatin 80 mg tablet 80 mg PO DAILY 05/01/20 11/11/22 betamethasone dipropionate 0.05 % applic topical BID 05/01/20 11/11/22 topical cream cetirizine 10 mg tablet 10 mg PO DAILY 05/01/20 11/11/22 diclofenac sodium 1 % topical gel 2 g topical QID 05/01/20 11/11/22 (Voltaren) linaclotide 145 mcg capsule 145 mcg PO DAILY 05/01/20 11/11/22 meclizine 25 mg tablet 25 mg PO DAILY PRN Vertigo 05/01/20 11/11/22 ondansetron 4 mg disintegrating 4 mg PO Q8H PRN Nausea 05/01/20 11/11/22 tablet paroxetine HCl 20 mg tablet 20 mg PO DAILY PRN Anxiety 05/01/20 11/11/22 pregabalin 150 mg capsule (Lyrica) 150 mg PO DAILY 05/01/20 11/11/22 sennosides 8.6 mg tablet 17.2 mg PO DAILY 05/01/20 11/11/22 hydrocortisone 2.5 % topical cream appl topical 10/06/21 11/11/22 hydroxychloroquine 200 mg tablet 200 mg PO BID 10/06/21 11/11/22 alclometasone 0.05 % topical topical 04/15/22 11/11/22 ointment docusate sodium 100 mg capsule 100 mg PO BID 04/15/22 11/11/22 polyethylene glycol 3350 17 17 g PO DAILY 04/15/22 11/11/22 gram/dose oral powder (Miralax) tramadol 50 mg tablet 50 mg PO DAILY PRN Pain 04/15/22 11/11/22 triamcinolone acetonide 0.1 % topical BID itch 04/15/22 11/11/22 topical ointment verapamil 120 mg tablet,extended 240 mg PO DAILY 04/15/22 11/11/22 release magnesium oxide 400 mg (241.3 mg 400 mg PO DAILY 05/06/22 11/11/22 magnesium) tablet cholecalciferol (vitamin D3) 50 50 mcg PO 09/10/22 11/11/22 mcg (2,000 unit) capsule [id number] acid 0.4 1 tab PO 09/30/22 11/11/22 mg-lycopene 300 mcg-lutein 250 mcg tablet (Cerovite Senior) lancets 33 gauge (TRUEplus Lancets) #100 ea 11/11/22 11/11/22 Previous Rx's Medication Instructions Recorded clonazepam 0.5 mg tablet 0.5 mg PO BID PRN anxiety #14 tabs 06/12/21 tamsulosin 0.4 mg capsule (Flomax) 0.4 mg PO DAILY #14 caps 10/06/21 methocarbamol 750 mg tablet 1,500 mg PO BID PRN muscle spasm 12/29/21 30 days #120 tabs albuterol sulfate 90 mcg/actuation 2 puff inhalation Q4-6H PRN 04/14/22 aerosol inhaler shortness of breath or wheezing 30 days #1 ea spironolactone 50 mg tablet 50 mg PO BID #60 tabs 09/10/22 (Aldactone) sucralfate 100 mg/mL oral 5 ml PO QID #1,000 mL 09/17/22 suspension (Carafate) trazodone 50 mg tablet 50 mg PO BEDTIME PRN sleep 30 days 10/12/22 #30 tabs dexamethasone 1 mg tablet 1 mg PO ONCE #1 tab 10/14/22 metformin 1,000 mg tablet 1,000 mg PO BID #60 tabs 12/10/22 Breo Ellipta 200 mcg-25 mcg/dose 1 ea inhalation DAILY #60 ea 01/04/23 powder for inhalation (fluticasone furoate-vilanterol) meloxicam 15 mg tablet 15 mg PO DAILY #10 tabs 01/27/23 Allergies Allergy/AdvReac Type Severity Reaction Status Date / Time aspirin [ASA] Allergy Intermediate Hives Verified 01/27/23 09:41 Penicillins [PENICILLINS] Allergy Intermediate RASH Verified 01/27/23 09:41 loratadine Allergy Unknown Unknown Verified 01/27/23 09:41 trimethoprim Allergy Unknown Unknown Verified 01/27/23 09:41 venlafaxine Allergy Unknown Unknown Verified 01/27/23 09:41 Review of Systems Review of Systems: CONSTITUTIONAL: Denies weight loss, fever and chills. HEENT: Denies changes in vision and hearing. RESPIRATORY: Denies SOB and cough. CV: Denies palpitations + CP. GI: Denies abdominal pain, nausea, vomiting and diarrhea. : Denies dysuria and urinary frequency. MSK: + myalgia and joint pain. SKIN: Denies rash and pruritus. NEUROLOGICAL: Denies headache and syncope. PSYCHIATRIC: Denies recent changes in mood. + anxiety - depression. All other ROS are negative unless in HPI PMFSH Past Medical History Medical History Age related osteoporosis Anxiety Arthritis Carpal tunnel syndrome Chronic fatigue Constipation Depression Diabetes Fibromyalgia High cholesterol Hirsutism Hypertension Idiopathic hirsutism MGUS (monoclonal gammopathy of unknown significance) Mood disorder Myalgia Myositis Plantar fasciitis PONV (postoperative nausea and vomiting) Positive MARCY (antinuclear antibody) Pulmonary nodule Restless legs SLE (systemic lupus erythematosus related syndrome) Spondylosis Sweating abnormality Xerosis of skin Surgical History H/O colonoscopy H/O esophagogastroduodenoscopy H/O hemorrhoidectomy History of tubal ligation Family History Family History Father Diabetes Hypertension Mother Hypertension Diabetes Asthma Maternal Grandfather Throat cancer Maternal Grandmother Throat cancer Paternal Uncle Prostate cancer Maternal Uncle Throat cancer Stomach cancer Maternal Aunt Stomach cancer Diabetes Social History Social History Household Members: Family Are you a primary transitions rn care coordinator to a significant other at home: No Do you presently have visiting nurse or other home services: Yes (RESIDENT SERVICES COORDINATOR and supportive Daughter) Alcohol intake: never Patient Tobacco Use Status: Never used Tobacco Smoked in Last 30 Days: No Use of substances other than those prescribed or required for medical reasons: No Advance Directives: No Advance Directives Information Provided: No Patient : No Current occupational status: retired Current occupation: rt handed Physical Exam ED Vital Signs: Vital Signs - 24 hr 01/27/23 09:32 01/27/23 11:20 01/27/23 12:32 Temperature 96.7 F L 98.8 F 98.6 F Pulse Rate 81 83 72 Respiratory Rate 18 23 H 12 Blood Pressure 117/79 129/69 113/74 Pulse Oximetry 96 100 100 Oxygen Delivery Method Room Air Room Air Room Air BMI result Body Mass Index 31.7 GEN: Well developed, no acute distress, alert, oriented HEENT: Normocephalic, atraumatic, normal external ears, nose appears normal, no oropharyngeal edema or exudates Eyes: Normal to appearance Neck: Supple, no lymphadenopathy Respiratory: Talks in complete sentences, no respiratory distress, clear to auscultation bilaterally Cardiovascular: Regular rate and rhythm, no murmurs rubs or gallops Abdomen: Soft, nontender, nondistended, no guarding, no rebound Back: No CVA tenderness Extremities: No clubbing cyanosis or edema Neurologic: No focal neurologic deficits, cranial nerves 2-12 intact, strength is 5/5 bilaterally Skin: No rash Psyc: anxious appearing Course Course Course Narrative: 62-year-old female presents for evaluation of multiple medical complaints. She has been observed for several hours. She is feeling about 30% better than she did when she came in. At this point I believe her symptoms are most consistent with fibromyalgia. I do not believe there is any life-threatening or or potentially limb threatening illness. She has been refer informed about all results. We discussed all discharge instructions and plan for her. She is agreeable to discharge at this time. She is aware that she may return at any ti me for any worsening or concerning symptoms. Family was present during this conversation. Medications Administered Discontinued Medications Generic Name Dose Route Start Last Admin Trade Name Linette PRN Reason Stop Dose Admin Acetaminophen 975 mg 01/27/23 12:18 01/27/23 12:49 Acetaminophen 325 Mg Tablet PO 01/27/23 12:19 975 mg ONCE ONE Administration Sodium Chloride 1,000 mls @ 999 mls/hr 01/27/23 12:30 01/27/23 12:43 Ns IV 01/27/23 13:30 999 mls/hr .Q1H1M CONSTANTINE Administration Ketorolac Tromethamine 15 mg 01/27/23 12:18 01/27/23 12:52 Ketorolac Tromethamine 15 Mg/Ml Vial IVPUSH 01/27/23 12:19 15 mg ONCE ONE Administration Methocarbamol 750 mg 01/27/23 12:18 01/27/23 12:50 Methocarbamol 750 Mg Tablet PO 01/27/23 12:19 750 mg ONCE ONE Administration Medical Decision Making Medical Decision Making MDM Narrative: Patient presents with a constellation of complaints. She her 1st complaint is difficulty swelling for 2 years when lying down. Reportedly she has had a full workup with no etiology elucidated. At this point, I suspect is more related to anxiety than any anatomical or pathological etiology. Since this is unchanged in chronic, patient follow-up with her primary care provider for further management. Patient is also complaining of 1 month of progressive shoulder pain now get radiating around her body associated with numbness, tingling of bila teral upper and lower extremities. I believe this is most likely a fibromyalgia flare. Doubt myositis, PMR. Other differentials could include spasm, strain, sprain, spinal stenosis. Will check routine lab testing given her paresthesias, will also check a CBC to make sure there is no evidence of macrocytosis. Will get a chest x-ray to rule out other possible anatomical issues such as pneumothorax, cardiomegaly, pleural effusion. Differential Diagnosis Differential Diagnoses: The differential diagnosis associated with the presentat ion includes (See above) Admission/Observation Consideration of admission/observation: Escalation of care including admission/observation considered Lab Data MDM Lab Attestation statement: I reviewed the patient's lab results. 01/27/23 09:58 01/27/23 09:58 Labs: Lab Results 01/27/23 01/27/23 01/27/23 Range/Units 09:57 09:58 09:58 WBC 10.6 (4.8-10.8) X10*3/uL RBC 4.22 (4.20-5.50) X10*6/uL Hgb 12.9 (12.0-16.0) g/dl Hct 39.3 (37.0-47.0) % MCV 93.1 (80.0-98.0) fL MCH 30.6 (27.0-33.0) pg MCHC 32.8 (31.0-35.0) g/dl RDW 11.9 (11.0-16.0) % Plt Count 292 (160-400) X10*3/uL MPV 10.4 (9.4-12.3) fL Immature Gran % (Auto) 0.3 (0.0-0.4) % Neut % (Auto) 81.5 H (45-73) % Lymph % (Auto) 8.0 L (20-40) % Clare % (Auto) 8.7 (2-11) % Eos % (Auto) 1.1 (0-4) % Baso % (Auto) 0.4 (0-2) % Lymph # (Auto) 0.9 L (1.2-4.9) X10*3/uL Clare # (Auto) 0.9 (0.1-1.2) X10*3/uL Eos # (Auto) 0.1 (0.0-0.4) X10*3/uL Baso # (Auto) 0.0 (0.0-0.2) X10*3/uL Abs Immat Gran (auto) 0.03 (0.00-0.03) X10*3/uL Absolute Neuts (auto) 8.6 H (2.0-8.3) x10*3/uL Absolute Nucleated RBC 0.000 (0.0-0.012) X10*3/uL Nucleated RBC % (auto) 0.0 (0.0-0.2) /100WBC Sodium 137 (135-145) mmol/L Potassium 4.4 (3.3-5.1) mmol/L Chloride 102 (96-108) mmol/L Carbon Dioxide 27 (22-29) mmol/L Anion Gap 12 (12-20) BUN 14 (9-16) mg/dL Creatinine 0.70 (0.5-1.4) mg/dL Estim Creat Clear Calc 84.1 Estimated GFR > 60 Random Glucose 123 H (60-115) mg/dL Calcium 9.6 (8.4-10.2) mg/dL Total Bilirubin 0.5 (0.0-1.0) mg/dL AST 22 (5-31) U/L ALT 22 (0-31) U/L Alkaline Phosphatase 92 (39-117) U/L B-Natriuretic Peptide < 10 (<100) pg/mL Total Protein 7.3 (6.5-8.0) g/dL Albumin 4.3 (3.5-5.0) g/dL Independent Interpretation I performed an independent interpretation of an: EKG (Normal sinus rhythm heart rate 82, low voltage QRS, no acute ST elevations depressions.) and Plain X-Ray (Chest: No acute cardiopulmonary disease) Independent Historian Clinical information obtained from an independent historian. History obtained from or confirmed by: Other (Family member) Prescription Management I considered prescription management with: Pain Medication Chronic Conditions Patient?s care impacted by: Other (Fibromyalgia, sleep apnea, anxiety) Discharge Plan Discharge Clinical Impression: Fibromyalgia, Esophageal dysmotility, Severe anxiety with panic Patient Disposition: Home, Self-Care Instructions: Fibromyalgia (ED), Panic Disorder (ED), Anxiety (ED) Additional Instructions: For your pain and making the following recommendations: Meloxicam 15 mg daily Acetaminophen 1000 mg every 6 hours as needed Methocarbamol 750 mg every 8 hours as needed for muscle spasm Continue your Lyrica Capsaicin cream topically every 6-8 hours as needed Prescriptions: New meloxicam 15 mg tablet 15 mg PO DAILY Qty: 10 0RF No Action methocarbamol 750 mg tablet 1,500 mg PO BID PRN (Reason: muscle spasm) 30 Days Qty: 120 0RF sucralfate [Carafate] 100 mg/mL suspension 5 ml PO QID Qty: 1000 0RF Rx Instructions: swish in mouth and swallow; use after food/drink trazodone 50 mg tablet 50 mg PO BEDTIME PRN (Reason: sleep) 30 Days Qty: 30 3RF dexamethasone 1 mg tablet 1 mg PO ONCE Qty: 1 0RF metformin 1,000 mg tablet 1,000 mg PO BID Qty: 60 5RF Breo Ellipta 200-25 mcg/dose blister with device 1 ea inhalation DAILY Qty: 60 6RF clonazepam 0.5 mg tablet 0.5 mg PO BID PRN (Reason: anxiety) Qty: 14 0RF pregabalin [Lyrica] 150 mg capsule 150 mg PO DAILY diclofenac sodium [Voltaren] 1 % gel 2 g topical QID Rx Instructions: apply to single elbow, wrist or hand; for hand includes palm/fingers/back of hand meclizine 25 mg tablet 25 mg PO DAILY PRN (Reason: Vertigo) cetirizine 10 mg tablet 10 mg PO DAILY atorvastatin 80 mg tablet 80 mg PO DAILY ondansetron 4 mg tablet,disintegrating 4 mg PO Q8H PRN (Reason: Nausea) betamethasone dipropionate 0.05 % cream topical BID sennosides 8.6 mg tablet 17.2 mg PO DAILY Linzess 145 mcg capsule 145 mcg PO DAILY paroxetine HCl 20 mg tablet 20 mg PO DAILY PRN (Reason: Anxiety) cholecalciferol (vitamin D3) 50 mcg (2,000 unit) capsule 50 mcg PO hydrocortisone 2.5 % cream topical hydroxychloroquine 200 mg tablet 200 mg PO BID tamsulosin [Flomax] 0.4 mg capsule 0.4 mg PO DAILY Qty: 14 0RF Cerovite Senior 0.4 mg-300 mcg- 250 mcg tablet 1 tab PO alclometasone 0.05 % ointment topical triamcinolone acetonide 0.1 % ointment topical BID tramadol 50 mg tablet 50 mg PO DAILY PRN (Reason: Pain) docusate sodium 100 mg capsule 100 mg PO BID polyethylene glycol 3350 [Miralax] 17 gram/dose powder 17 g PO DAILY verapamil 120 mg tablet extended release 240 mg PO DAILY albuterol sulfate 90 mcg/actuation HFA aerosol inhaler 2 puff inhalation Q4-6H PRN (Reason: shortness of breath or wheezing) 30 Days Qty: 1 6RF magnesium oxide 400 mg (241.3 mg magnesium) tablet 400 mg PO DAILY spironolactone [Aldactone] 50 mg tablet 50 mg PO BID Qty: 60 5RF (DME) lancets [TRUEplus Lancets] 33 gauge misc See Rx Instructions .ROUTE .MEDSUPPLY Qty: 100 Rx Instructions: As directed Referrals: Adrienne Villegas MD [Primary Care Provider] - 3 days
== END 2023-01-27 14:07 | disposition home or self-care (01) ==
PROVIDERS: Emergency Provider Emergency Medicine; PCP Pediatrics
DX: M79.7 Fibromyalgia (principal); K22.4 Dyskinesia of esophagus; F41.0 Panic disorder [episodic paroxysmal anxiety]; R13.10 Dysphagia, unspecified; M25.512 Pain in left shoulder; M25.511 Pain in right shoulder; R20.0 Anesthesia of skin; I10 Essential (primary) hypertension; E11.9 Type 2 diabetes mellitus without complications
CPT/HCPCS: 36415; 71045; 80053; 83880; 85025; 93005; 96361; 96374; 99285; J1885

== ENCOUNTER 2023-04-08 15:59 | Outpatient (REF) | payer OTHER, SELFPAY ==
[2023-04-08 17:31] LABS: MANUAL DIFF FLAG NO
[2023-04-08 17:39] LABS: Basophils Percent Auto 0.4 % (0-2); Eosinophils Absolute Auto 0.2 X10*3/uL (0.0-0.4); Eosinophils Percent Auto 1.9 % (0-4); Hematocrit 39.5 % (37.0-47.0); Hemoglobin 12.6 g/dl (12.0-16.0); Imm Gran Abs Auto 0.03 X10*3/uL (0.00-0.03); Imm Gran Pct Auto 0.4 % (0.0-0.4); Lymphocytes Absolute Auto 1.3 X10*3/uL (1.2-4.9); Lymphocytes Percent Auto 17.4 % (20-40); Mean Corpuscular HGB Conc 31.9 g/dl (31.0-35.0); Mean Corpuscular Hemoglobin 30.1 pg (27.0-33.0); Mean Corpuscular Volume 94.5 fL (80.0-98.0); Mean Platelet Volume 10.7 fL (9.4-12.3); Monocytes Percent Auto 12.6 % (2-11); Neutrophils Absolute Auto 5.2 x10*3/uL (2.0-8.3); Neutrophils Percent Auto 67.3 % (45-73); Platelet Count 331 X10*3/uL (160-400); Red Blood Count 4.18 X10*6/uL (4.20-5.50); Red Cell Distribution Width 11.9 % (11.0-16.0); White Blood Count 7.7 X10*3/uL (4.8-10.8)
[2023-04-08 18:10] LABS: Alanine Aminotransferase 15 U/L (0-31); Albumin Level 4.3 g/dL (3.5-5.0); Alkaline Phosphatase 89 U/L (39-117); Aspartate Amino Transferase 18 U/L (5-31); Bilirubin Direct 0.1 mg/dL (0.0-0.5); Bilirubin Total 0.3 mg/dL (0.0-1.0); C Reactive Protein 0.22 mg/dL (< or = 0.50); Total Protein 7.2 g/dL (6.5-8.0)
[2023-04-08 18:23] LABS: Erythrocyte Sedimentation Rate 12 MM/HR (0-20)
[2023-04-08 19:26] LABS: Monotest Negative (Negative)
[2023-04-11 13:18] LABS: EBV-NA IgG Index >600.00 U/mL; EBV-VCA IgG Ab >750.00 U/mL; EBV-VCA IgM Ab <36.00 U/mL
== END 2023-04-08 16:00 | disposition home or self-care (01) ==
LOC: HO.CHCLDS 15:59
PROVIDERS: Visit Provider Family Medicine
DX: R59.0 Localized enlarged lymph nodes (principal)
CPT/HCPCS: 36415; 80076; 85025; 85652; 86140; 86308; 86664; 86665

== ENCOUNTER 2023-04-13 14:43 | Outpatient (AMB) | payer OTHER, SELFPAY ==
[2023-04-13 14:44] VITALS: BP 117/67; PULSE 81; O2SAT 99; BMI 32.0
--- NOTE | 2023-04-13 14:44 | MHC.OFFVIS ---
Intake Vital Signs 04/13/23 14:44 Height 5 ft 3 in Weight 180 lb 12.465 oz BMI 32.0 BP 117/67 Blood Pressure Location Rt brachial Position Sitting Pulse 81 Pulse Source Doppler Pulse Oximetry (%) 99 Oxygen Delivery Method Room Air Intake Visit Reasons: Shortness of breath Allergies aspirin [ASA] Allergy (Intermediate, Verified 04/13/23 14:48) Hives Penicillins [PENICILLINS] Allergy (Intermediate, Verified 04/13/23 14:48) RASH loratadine Allergy (Unknown, Verified 04/13/23 14:48) Unknown trimethoprim Allergy (Unknown, Verified 04/13/23 14:48) Unknown venlafaxine Allergy (Unknown, Verified 04/13/23 14:48) Unknown HPI Shortness of breath HPI Details 62-year-old lady, lifetime nonsmoker, with ?SLE, also underlying obstructive sleep apnea on CPAP? and at least moderate persistent asthma.? She continues on Breo and albuterol MDI with reasonable control of his symptoms, except sometimes in the evening in she get sensation of chest tightness for which use albuterol base good effect. She also continues on CPAP with good control of her underlying obstructive sleep apnea symptoms. She denies any recent exacerbations. [facility] Medical History Age related osteoporosis Anxiety Arthritis Carpal tunnel syndrome Chronic fatigue Constipation Depression Diabetes Fibromyalgia High cholesterol Hirsutism Hypertension Idiopathic hirsutism MGUS (monoclonal gammopathy of unknown significance) Mood disorder Myalgia Myositis Plantar fasciitis PONV (postoperative nausea and vomiting) Positive MARCY (antinuclear antibody) Pulmonary nodule Restless legs SLE (systemic lupus erythematosus related syndrome) Spondylosis Sweating abnormality Xerosis of skin Surgical History H/O colonoscopy H/O esophagogastroduodenoscopy H/O hemorrhoidectomy History of tubal ligation Family History Father Diabetes Hypertension Mother Hypertension Diabetes Asthma Maternal Grandfather Throat cancer Maternal Grandmother Throat cancer Paternal Uncle Prostate cancer Maternal Uncle Throat cancer Stomach cancer Maternal Aunt Stomach cancer Diabetes Social History Household Members: Family Are you a primary medical care manager to a significant other at home: No Do you presently have visiting nurse or other home services: Yes (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 UI 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 and supportive Daughter) Alcohol intake: never Patient Tobacco Use Status: Never used Tobacco Current occupational status: retired Current occupation: rt handed Review of Systems Const Denies daytime sleepiness, Denies excessive sweating, Denies fatigue, Denies fever(s), Denies lethargy, Denies malaise, Denies night sweats, Denies snoring and Denies weight loss Eyes Denies blurry vision and Denies itchy eyes ENT Denies nasal congestion, Denies post nasal drip, Denies sinus pain, Denies sinus pressure and Denies other ( Thrush) Card Denies chest pain, Denies pedal edema, Denies dyspnea, Denies orthopnea and Denies paroxysmal nocturnal dyspnea Resp Denies cough, Denies hemoptysis, Denies excessive phlegm production, Denies dyspnea, Denies snoring and Denies wheezing GI Denies abdominal pain and Denies heartburn Musc Denies myalgias, Denies arthralgias and Denies joint swelling Skin/Breast Denies rash Neuro Denies memory loss and Denies seizure-like activity Psych Denies abnormal sleep pattern, Denies anxiety and Denies memory loss Endo Denies excessive sweating, Denies fatigue and Denies heat intolerance Chase/Lymph Denies easy bruising Aller/Immun Denies itchy eyes, Denies seasonal rhinorrhea and Denies wheezing Physical Exam Vital Signs: Last Vital Signs Pulse 81 04/13/23 14:44 BP 117/67 04/13/23 14:44 Pulse Ox 99 04/13/23 14:44 Oxygen Delivery Method Room Air 04/13/23 14:44 BMI result Body Mass Index 32.0 Const General: no acute distress and alert Nutritional Appearance: not obese Orientation/consciousness: Other orientation findings ( oriented) HEENT Head: Yes atraumatic Eyes General: appearance normal, both eyes and all related structures Sclerae: sclerae normal EOM: EOMs intact bilaterally Neck Neck: Yes supple Lymphatic: no lymphadenopathy noted Resp Effort & Inspection: normal respiratory effort and no use of accessory muscles Auscultation: clear to auscultation bilaterally Cardio Rate: regular rate Rhythm: regular rhythm Heart sounds: no gallops, no murmurs and no rubs Skin General skin exam: other ( warm) Extrem General: No clubbing, No cyanosis and No edema Assessment & Plan Assessment & Plan (1) Asthma: Code(s): J45.909 - Unspecified asthma, uncomplicated Plan: Well controlled on Breo and albuterol MDI. Continue current regimen. Will add duo nebs as needed. (2) TREE on CPAP: Code(s): G47.33 - Obstructive sleep apnea (adult) (pediatric); Z99.89 - Dependence on other enabling machines and devices Plan: Well controlled on current CPAP therapy. Continue current CPAP therapy. Medications: New ipratropium-albuterol 0.5 mg-3 mg(2.5 mg base)/3 mL 3 mL inhalation Q4-6H PRN 90 mL 6RF wheezing 30 days Coding Level of Care Code Est Pt Level 4 (68607) Diagnoses Asthma J45.909 TREE on CPAP G47.33; Z99.89
== END 2023-04-13 15:07 | disposition home or self-care (01) ==
PROVIDERS: PCP Pediatrics; Visit Provider Internal Medicine Pulmonary Disease
DX: J45.909 Unspecified asthma, uncomplicated (principal); G47.33 Obstructive sleep apnea (adult) (pediatric); Z99.89 Dependence on other enabling machines and devices
CPT/HCPCS: 99214

== ENCOUNTER → 2023-04-13 14:43 | Outpatient (BNVA) | payer OTHER, SELFPAY | PROVIDERS: Visit Provider Internal Medicine Pulmonary Disease | DX: L68.0 Hirsutism (principal); L74.9 Eccrine sweat disorder, unspecified; G47.33 Obstructive sleep apnea (adult) (pediatric); J45.909 Unspecified asthma, uncomplicated; Z99.89 Dependence on other enabling machines and devices | CPT/HCPCS: 99212 ==

== ENCOUNTER 2023-04-13 15:15 | Outpatient (AMB) | payer OTHER, SELFPAY ==
--- NOTE | 2023-04-13 15:18 | MHC.OFFVIS ---
Intake Vital Signs 04/13/23 15:19 Height 5 ft 3 in Weight 180 lb 12.465 oz BMI 32.0 BP 128/84 Blood Pressure Location Lt brachial Position Sitting Pulse 81 Pulse Source Pulse Oximeter Intake Visit Reasons: F/up hirsutism Intake Note: Patient present for Hirsutism follow up visit. Coater Associate Required: Yes Coater Associate Language: American Accompanied by: Self / Same As Patient Allergies aspirin [ASA] Allergy (Intermediate, Verified 04/13/23 15:25) Hives Penicillins [PENICILLINS] Allergy (Intermediate, Verified 04/13/23 15:25) RASH loratadine Allergy (Unknown, Verified 04/13/23 15:25) Unknown trimethoprim Allergy (Unknown, Verified 04/13/23 15:25) Unknown venlafaxine Allergy (Unknown, Verified 04/13/23 15:25) Unknown Medication List - Last Reconciled 04/13/23 by Pablo Mcnulty MD albuterol sulfate 90 mcg/actuation 2 puffs inhalation Q4-6H PRN 30 days alclometasone 0.05% topical atorvastatin 80 mg PO DAILY betamethasone dipropionate 0.05% appl topical BID Breo Ellipta 200-25 mcg/dose (fluticasone furoate-vilanterol) 1 ea inhalation DAILY NS cetirizine 10 mg PO DAILY cholecalciferol (vitamin D3) 50 mcg PO clonazepam 0.5 mg PO BID PRN dexamethasone 1 mg PO ONCE diclofenac sodium 1% (Voltaren) 2 grams topical QID docusate sodium 100 mg PO BID hydrocortisone 2.5% appl topical hydroxychloroquine 200 mg PO BID ipratropium-albuterol 0.5 mg-3 mg(2.5 mg base)/3 mL 3 mL inhalation Q4-6H PRN 30 days lancets (TRUEplus Lancets) As directed linaclotide 145 mcg PO DAILY magnesium oxide 400 mg PO DAILY meclizine 25 mg PO DAILY PRN meloxicam 15 mg PO DAILY metformin 1,000 mg PO BID methocarbamol 1,500 mg (2 x 750 mg) PO BID PRN 30 days aqatkwcu-gqz-CK-lycopen-lutein 0.4 mg-300 mcg- 250 mcg (Cerovite Senior) 1 tab PO ondansetron 4 mg PO Q8H PRN paroxetine HCl 20 mg PO DAILY PRN polyethylene glycol 3350 (Miralax) 17 grams PO DAILY pregabalin (Lyrica) 150 mg PO DAILY sennosides 17.2 mg PO DAILY spironolactone (Aldactone) 50 mg PO BID sucralfate (Carafate) 5 mL PO QID tamsulosin (Flomax) 0.4 mg PO DAILY tramadol 50 mg PO DAILY PRN trazodone 50 mg PO BEDTIME PRN triamcinolone acetonide 0.1% topical BID verapamil ER 240 mg PO DAILY HPI HPI Comments History of Present Illness Details 62 YO Female with PMHx DM who is seen in consultation at the request of her PCP for hirsuitism . Menarche was age 11 . Menoapause 4 yrs ago . Menses have been regular but heavy . OCP use: for 1 yr age 26 yrs Metformin use: for Type 2 DM Weight gain: 45 lbs in 1 yr Hirsutism/hyperandrogenism: long time > 5 yrs on face gotten worse also complains of muscular weakness. Complains of episodes of sweating associated with headache and palpitations she denies any symptoms of virilization such as change in voice quality or enlargement ofclitorus Ovarian U/S: [] T2DM or acanthosis: Yes Lipids: [] BP: [] Labs: Workup was consistent with polycystic ovarian syndrome except for very slightly elevated urinary free cortisol. salivary cortisol was elevated but was not performed midnight. Patient started spironolactone 50 mg BID has not seen any results as of yet. Workup for [facility] showed a normal 1 mg dexamethasone suppression test and workup pheochromocytoma showed normal plasma metanephrines Her biggest complaints are hair loss and continued sweating. The hair loss according to the patient is getting worse with the spironolactone [facility] Medical History Age related osteoporosis Anxiety Arthritis Carpal tunnel syndrome Chronic fatigue Constipation Depression Diabetes Fibromyalgia High cholesterol Hirsutism Hypertension Idiopathic hirsutism MGUS (monoclonal gammopathy of unknown significance) Mood disorder Myalgia Myositis Plantar fasciitis PONV (postoperative nausea and vomiting) Positive MARCY (antinuclear antibody) Pulmonary nodule Restless legs SLE (systemic lupus erythematosus related syndrome) Spondylosis Sweating abnormality Xerosis of skin Surgical History H/O colonoscopy H/O esophagogastroduodenoscopy H/O hemorrhoidectomy History of tubal ligation Family History Father Diabetes Hypertension Mother Hypertension Diabetes Asthma Maternal Grandfather Throat cancer Maternal Grandmother Throat cancer Paternal Uncle Prostate cancer Maternal Uncle Throat cancer Stomach cancer Maternal Aunt Stomach cancer Diabetes Social History Household Members: Family Are you a primary adult daycare coordinator to a significant other at home: No Do you presently have visiting nurse or other home services: Yes (WEIGHT LOSS PHYSICIAN and supportive Daughter) Alcohol intake: never Patient Tobacco Use Status: Never used Tobacco Current occupational status: retired Current occupation: rt handed Physical Exam Const Other: There appears to be the presence of seborrheic dermatitis in the scalp area. There is a scant amount of hair grow on the face Assessment & Plan Assessment & Plan (1) Hirsutism: Code(s): L68.0 - Hirsutism Plan: 61-year-old female with a history of type 2 diabetes and hirsutism. Most likely etiology includes polycystic ovarian syndrome . she had a very slightly elevated urinary free cortisol. pheochromocytoma has been ruled out with normal 24 hour urine for metanephrines, normetanephrines. salivary cortisol was elevated was not performed midnight and was done while taking both topical steroids and inhaled steroids. A 1 mg dexamethasone suppression test was normal. Hair loss and hair growth on the face do not appear to be hormonally mediated but may be multifactorial and related to steroid use as result of asthma Plan is to stop the spironolactone. I I refer her back to her primary care provider regarding this sweating and hair loss for possible referral to Dermatology. I also suggested she might try Rogaine for woman. There is no need for any to endocrinology follow-up this point (2) Sweating abnormality: Code(s): L74.9 - Eccrine sweat disorder, unspecified Plan: Pheochromocytoma has been ruled out by normal metanephrines Coding Level of Care Code Est Pt Level 3 (45112) Diagnoses Hirsutism L68.0 Sweating abnormality L74.9
[2023-04-13 15:19] VITALS: BP 128/84; PULSE 81; BMI 32.0
== END 2023-04-13 16:26 | disposition home or self-care (01) ==
PROVIDERS: PCP Pediatrics; Visit Provider Internal Medicine Endocrinology, Diabetes & Metabolism
DX: L68.0 Hirsutism (principal); L74.9 Eccrine sweat disorder, unspecified
CPT/HCPCS: 99213

== ENCOUNTER 2023-04-14 13:06 | Outpatient (REF) | payer OTHER, SELFPAY ==
--- NOTE | ~2023-04-14 | US_ITS ---
EXAMINATION: US SOFT TISSUE HEAD/NECK CLINICAL INFORMATION: Lymphadenopathy. Anterior right neck mobile lump. Patient indicates right submandibular area to technologist. COMPARISON: None available. TECHNIQUE: Linear transducer montgomery-scale and color Doppler examination of the area indicated by patient-right submandibular area. FINDINGS: Targeted ultrasound images were obtained by the power machine operator of the area of concern as indicated by the patient in the right submandibular region. Radiologist was not in attendance. Images were later provided for interpretation. There are 1.2 x 0.7 x 1.4 cm and 1.4 x 0.5 x 1.1 cm heterogeneous masses with central echogenicity and thin peripheral hypoechoic rim, characteristics of lymph nodes are identified in the area of concern indicated by the patient in the right submandibular region. Very limited images obtained by the power machine operator of the corresponding region in the left submandibular region demonstrate a similar appearing mass measuring 1.0 cm in AP dimension. US/US soft tiss head and/or neck IMPRESSION: Two (2) heterogeneous masses characteristic of lymph nodes identified in the area of concern indicated by the patient in the right submandibular region. Differential considerations include reactive lymphadenopathy related to an infectious/inflammatory process, however, underlying neoplastic/lymphoproliferative disorders should also be considered. Correlation with clinical exam recommended to determine further management. Recommend follow up ultrasound in 3 months.
== END 2023-04-14 13:07 | disposition home or self-care (01) ==
LOC: HO.US 13:06
PROVIDERS: PCP Pediatrics; Visit Provider Family Medicine
DX: R59.0 Localized enlarged lymph nodes (principal)
CPT/HCPCS: 76536

== ENCOUNTER 2023-05-20 14:45 | Outpatient (REF) | payer OTHER, SELFPAY ==
--- NOTE | ~2023-05-20 | US_ITS ---
EXAMINATION: US RETROPERITONEAL LIMITED (RENAL ONLY) CLINICAL INFORMATION: Calculus of kidney. COMPARISON: Renal ultrasound 04/29/2022 and 12/03/2021. CT abdomen and pelvis 10/03/2021. TECHNIQUE: Real-time imaging of the kidneys. Limited visualization due to bowel gas. FINDINGS: RIGHT KIDNEY: 10.2 x 4.9 x 5.2 cm (SAG x AP x TRV). No hydronephrosis. No renal calculi. Renal cortical thickness is normal. Limited visualization. Right lower pole 0.6 cm cyst difficult to fully characterize due to small size and limited visualization, but likely benign. LEFT KIDNEY: 11.8 x 4.6 x 4.4 cm (SAG x AP x TRV). Echogenic focus midpole left kidney, possibly a calcified vessel rather than renal calculus. No hydronephrosis. Renal cortical thickness is normal. Limited visualization. Lateral midpole 1.3 x 0.6 x 1.0 cm complex cyst with mural echogenicity suggestive of mural calcification or milk of calcium previously measured 1.3 x 1.6 x 1.1 cm on 04/30/2022 and not fully characterized on prior exams. US/US renal BI IMPRESSION: Left renal midpole likely calcified vessel rather than a nonobstructive calculus, approximately 5 mm. No hydronephrosis. Left renal 1.3 cm complex cyst is stable to decreased in size. Recommend attention on followup imaging.
== END 2023-05-20 14:46 | disposition home or self-care (01) ==
LOC: HO.US 14:45
PROVIDERS: PCP Pediatrics; Visit Provider Urology
DX: N20.0 Calculus of kidney (principal)
CPT/HCPCS: 76775

== ENCOUNTER 2023-06-03 09:38 | Outpatient (AMB) | payer OTHER, SELFPAY ==
--- NOTE | 2023-06-03 09:40 | A.OFFVIS_ITS ---
Intake Intake Visit Reasons: one yr nephrolithiasis follow up w renal US Intake Note: Patient presents today for a 1year follow-up on Nephrolithiasis: US completed on 05/20/2023 Meds- Tamsulosin Allergies to Antibiotic- No Known Allergies Blood Thinner- None Unable to voide Bicycle Racer Required: Yes Bicycle Racer Language: French Information Interpreted: non-clinical & clinical Accompanied by: Self / Same As Patient Allergies aspirin [ASA] Allergy (Intermediate, Verified 06/03/23 09:41) Hives Penicillins [PENICILLINS] Allergy (Intermediate, Verified 06/03/23 09:41) RASH loratadine Allergy (Unknown, Verified 06/03/23 09:41) Unknown trimethoprim Allergy (Unknown, Verified 06/03/23 09:41) Unknown venlafaxine Allergy (Unknown, Verified 06/03/23 09:41) Unknown HPI HPI Comments History of Present Illness Details Jess is a 62-year-old female who presents today to the office for a follow-up. 06/03/2023? She is followed today for renal US results. The patient has a past medical history significant for diabetes. Patient states she passed a left ureteral stone in 09/2021. She has seen [facility] B[facility] Sherry on 12/08/2021 for nephrolithiasis. The patient was encouraged to continue with adequate daily water intake, and continue Vitamin B6 during that time. I reviewed the renal US results from 05/20/2023 revealed no nephrolithiasis noted. Left renal 1.3 cm complex cyst. I have encouraged her to increase the fluid intake as well as adding lemon juice to water. Advised the patient on low sodium and low oxalate diet. 06/03/2023: Plan: Cont Vit B6 100 mg Follow-up in 1 year renal US prior. [facility] Medical History PONV (postoperative nausea and vomiting) Sweating abnormality Hirsutism MGUS (monoclonal gammopathy of unknown significance) Positive MARCY (antinuclear antibody) Idiopathic hirsutism Plantar fasciitis Mood disorder Xerosis of skin Chronic fatigue Myositis Myalgia Pulmonary nodule Depression Diabetes Age related osteoporosis Restless legs Spondylosis Arthritis Carpal tunnel syndrome Fibromyalgia Constipation High cholesterol Anxiety Hypertension SLE (systemic lupus erythematosus related syndrome) Surgical History H/O colonoscopy H/O esophagogastroduodenoscopy H/O hemorrhoidectomy History of tubal ligation Family History Father Diabetes Hypertension Mother Hypertension Diabetes Asthma Maternal Grandfather Throat cancer Maternal Grandmother Throat cancer Paternal Uncle Prostate cancer Maternal Uncle Throat cancer Stomach cancer Maternal Aunt Stomach cancer Diabetes Social History Household Members: Family Are you a primary wound care technician to a significant other at home: No Do you presently have visiting nurse or other home services: Yes (BRATTICE BUILDER and supportive Daughter) Alcohol intake: never Patient Tobacco Use Status: Never used Tobacco Current occupational status: retired Current occupation: rt handed Review of Systems Const All systems reviewed & are unremarkable except as noted in HPI and below Reports no additional complaints Eyes Reports no additional complaints ENT Reports no additional complaints Card Denies dyspnea Resp Denies cough and Denies dyspnea GI Reports no additional complaints Reports no additional complaints Musc Reports no additional complaints Skin/Breast Denies rash and Denies unusual bruising Neuro Reports no additional complaints Psych Reports no additional complaints Endo Reports no additional complaints Chase/Lymph Reports no additional complaints Aller/Immun Reports no additional complaints Results Reviewed Results Reviewed: Date of Service: 05/20/23 EXAMINATION: US RETROPERITONEAL LIMITED (RENAL ONLY) CLINICAL INFORMATION: Calculus of kidney. COMPARISON: Renal ultrasound 04/29/2022 and 12/03/2021. CT abdomen and pelvis 10/03/2021. FINDINGS: RIGHT KIDNEY: 10.2 x 4.9 x 5.2 cm (SAG x AP x TRV). No hydronephrosis. No renal calculi. Renal cortical thickness is normal. Limited visualization. Right lower pole 0.6 cm cyst difficult to fully characterize due to small size and limited visualization, but likely benign. LEFT KIDNEY: 11.8 x 4.6 x 4.4 cm (SAG x AP x TRV). Echogenic focus midpole left kidney, possibly a calcified vessel rather than renal calculus. No hydronephrosis. Renal cortical thickness is normal. Limited visualization. Lateral midpole 1.3 x 0.6 x 1.0 cm complex cyst with mural echogenicity suggestive of mural calcification or milk of calcium previously measured 1.3 x 1.6 x 1.1 cm on 04/30/2022 and not fully characterized on prior exams. IMPRESSION: Left renal midpole likely calcified vessel rather than a nonobstructive calculus, approximately 5 mm. No hydronephrosis. Left renal 1.3 cm complex cyst is stable to decreased in size. Recommend attention on followup imaging. Assessment & Plan Assessment & Plan (1) Acquired complex renal cyst: Code(s): N28.1 - Cyst of kidney, acquired (2) History of kidney stones: Code(s): Z87.442 - Personal history of urinary calculi Plan Cont Vit B6 100 mg. Follow-up in 1 year renal US prior. Orders: Orders AMB Urinalysis Automated 06/03/23 Z13.9 - Encounter for screening, unspecified US renal BI 10 Months N28.1 - Cyst of kidney, acquired, Z87.442 - Personal history of urinary calculi Patient Instructions: The patient had an opportunity to ask questions regarding treatment plan. All questions were answered. Imaging, Laboratory studies and physical exam results were discussed and reviewed in detail. No major barriers to understanding were identified. The patient expressed understanding and agreement with the above treatment plan. The patient is aware they should contact our office by phone for worsening of their current condition or the appearance of new symptoms. Compliance is encouraged with any medications and followup testing that is ordered. It is a privilege to be allowed the opportunity to participate in the urologic care of your patient. If you have any questions or concerns regarding treatment for the above conditions please do not hesitate to contact me. The office telephone contact is [phone]. This note is constructed in part using voice recognition software. While every effort has been made to ensure accuracy answering service operator errors may have been included. Yours sincerely, Usman Shrestha MD Coding Level of Care Code Est Pt Level 3 (79484) Diagnoses Acquired complex renal cyst N28.1 History of kidney stones Z87.442
== END 2023-06-03 10:16 | disposition home or self-care (01) ==
PROVIDERS: Visit Provider Urology
DX: N28.1 Cyst of kidney, acquired (principal); Z87.442 Personal history of urinary calculi
CPT/HCPCS: 99213

== ENCOUNTER → 2023-06-03 09:38 | Outpatient (BNVA) | payer OTHER, SELFPAY | PROVIDERS: Visit Provider Urology | DX: N28.1 Cyst of kidney, acquired (principal) | CPT/HCPCS: 99212 ==

== ENCOUNTER 2023-07-04 13:08 | Outpatient (REF) | payer OTHER, SELFPAY ==
--- NOTE | ~2023-07-04 | US_ITS ---
EXAMINATION: US SOFT TISSUE HEAD/NECK CLINICAL INFORMATION: Cervical lymphadenopathy. COMPARISON: Ultrasound soft tissue head/neck 04/14/2023. TECHNIQUE: Linear transducer montgomery-scale and color Doppler examination of the right submandibular region. FINDINGS: The cutaneous, subcutaneous, muscular and fascial planes are unremarkable. Two reniform heterogeneous masses characteristic of lymph nodes are redemonstrated in the right subareolar subcutaneous region, dimensions of 1.9 x 0.6 x 0.5 cm and 1.3 x 0.6 x 0.6 cm. These showed prior respective dimensions of 1.2 x 0.7 x 1.4 cm and 1.4 x 0.5 x 1.1 cm. Each shows corticomedullary differentiation and a vascular hilum. No solid mass or cyst is seen. There is no foreign body noted. US/US soft tiss head and/or neck IMPRESSION: Two reniform masses characteristic of lymph nodes are redemonstrated in the right submandibular region. The larger has increased mildly in the interim. Recommend management on a clinical basis and follow-up ultrasound imaging as clinically indicated.
== END 2023-07-04 13:09 | disposition home or self-care (01) ==
LOC: HO.US 13:08
PROVIDERS: PCP Pediatrics; Visit Provider Family Medicine
DX: R59.0 Localized enlarged lymph nodes (principal)
CPT/HCPCS: 76536

== ENCOUNTER 2023-08-19 11:09 | Outpatient (REF) | payer OTHER, SELFPAY ==
--- NOTE | ~2023-08-19 | MR_ITS ---
EXAMINATION: MR CERVICAL SPINE WITHOUT CONTRAST CLINICAL INFORMATION: Neck degenerative disc disease with radiculopathy. COMPARISON: MRI cervical spine dated 05/25/2022. TECHNIQUE: MRI of the cervical spine was obtained using routine sequences without contrast. FINDINGS: There is minimal anterolisthesis of C2 in relation to C3. There is minimal anterolisthesis of C4 in relation to C5. There is minimal retrolisthesis of C5 in relation to C6. Findings are similar to the prior examination. Vertebral body heights are maintained. There is moderate degenerative disc disease at C5-C6 and C6-C7, similar to the prior study. Marrow edema about the right sided C3-C4 facet seen on the prior examination is no longer visualized. The visualized spinal cord is normal in caliber and signal intensity. The paraspinal soft tissue is normal in appearance. Cervical flow voids are maintained. The cerebellar tonsils are normally positioned. Evaluation of the individual disc space levels is as follows: C2-C3: There is no disc herniation. There is significant right-sided facet arthropathy resulting in mild to moderate right foraminal narrowing. The spinal canal and left neural foramen are widely patent. C3-C4: There is no disc herniation. There is bilateral uncovertebral joint hypertrophy and severe facet arthropathy, greater on the right resulting in mild right foraminal narrowing. No spinal canal or left foraminal narrowing. C4-C5: There is a shallow posterior disc bulge which indents the ventral thecal sac. No spinal canal stenosis. There is significant right-sided facet arthropathy. There is mild left facet arthropathy. No foraminal narrowing. C5-C6: There is a moderate size disc osteophyte complex which flattens the ventral thecal sac. The spinal canal remains mildly narrowed. There is bilateral uncovertebral joint hypertrophy resulting in mild bilateral foraminal narrowing. C6-C7: There is a stable shallow circumferential disc osteophyte complex which flattens the ventral thecal sac. There is mild uncovertebral joint hypertrophy. There is mild spinal canal stenosis and mild foraminal narrowing. C7-T1: There is a shallow disc bulge. There is mild uncovertebral joint hypertrophy. No spinal canal or foraminal narrowing. MR/MR cervical spine wo con IMPRESSION: Stable, moderate degenerative disc disease at C5-C6 and C6-C7. At C5-C6 there is a moderate size disc osteophyte complex which flattens the ventral thecal sac. The spinal canal remains mildly narrowed. There is bilateral uncovertebral joint hypertrophy resulting in mild bilateral foraminal narrowing. At C6-C7 there is a stable shallow circumferential disc osteophyte complex which flattens the ventral thecal sac. There is mild uncovertebral joint hypertrophy. There is mild spinal canal stenosis and mild foraminal narrowing.
== END 2023-08-19 11:10 | disposition home or self-care (01) ==
LOC: HO.MRI 11:09
PROVIDERS: PCP Pediatrics; Visit Provider Pediatrics
DX: M99.51 Intervertebral disc stenosis of neural canal of cervical region (principal)
CPT/HCPCS: 72141

== ENCOUNTER 2023-08-26 14:18 | Outpatient (AMB) | payer OTHER, SELFPAY ==
--- NOTE | 2023-08-26 14:21 | MHC.OFFVIS ---
Intake Vital Signs 08/26/23 14:22 Height 5 ft 3 in Weight 185 lb 3.013 oz BMI 32.8 Intake Visit Reasons: Follow up dysphagia Allergies aspirin [ASA] Allergy (Intermediate, Verified 06/03/23 09:41) Hives Penicillins [PENICILLINS] Allergy (Intermediate, Verified 06/03/23 09:41) RASH loratadine Allergy (Unknown, Verified 06/03/23 09:41) Unknown trimethoprim Allergy (Unknown, Verified 06/03/23 09:41) Unknown venlafaxine Allergy (Unknown, Verified 06/03/23 09:41) Unknown HPI Follow up dysphagia HPI Details Assessment & Plan (1) Dysphagia: ?Code(s): R13.10 - Dysphagia, unspecified ?Plan: [place] #[id number], Emily She tells me that she sees an ENT for TMJ and has been told she has esophageal dysmotility. She thinks this is r/t a fall she had in July, and that it twisted my neck and effected her swallowing. She has to move her neck around in order to eat. She feels like I'm suffocating, and I can't open my mouth too much to eat. 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 She feels she needs studies to look at her swallowing. I will get an EGD, but I think that a barium swallow would be more productive since the dysphagia is all happening in the oral phase. I try to explain that this is usually a neuromusclar problem and not very identifiable via GI investigations. SHe also has a very dry mouth. I explain that this is usually an effect of medications and age, she will need to keep water nearby with eating. IT SOUNDS LIKE she has a constellation of symptoms better not really under the purview of GI management.? However, I think we need to get speech therapy involved to do some swallowing teaching giving her near lack of esophageal motility, and I think it EGD is prudent to make sure that there is no esophageal Mica or other complicating infection of the esophagus affecting her swallowing. It appears that her GI medications of all been taken over by her primary care provider.? Of note she is on many medications that could cause dryness is a side effect including verapamil, a steroid inhaler, hydroxyzine etcetera.? Is uncertain what affect her MGUS has under epithelium as well.? Given her diagnosis of severe arthritis of the neck it is possible she has some osteophytes impinging on the esophagus as well.? Again, this is not something that GI can fix and would follow more under the purview of neuro surgery. NEW DX: MGUS and arthritis At this point I will see her back after the EGD.? (2) Presbyesophagus: ?Code(s): K22.89 - Other specified disease of esophagus (3) MGUS (monoclonal gammopathy of unknown significance): ?Comment: Being treated by Hematology in [place] ?Code(s): D47.2 - Monoclonal gammopathy (4) SLE (systemic lupus erythematosus related syndrome): ?Code(s): M32.9 - Systemic lupus erythematosus, unspecified (5) ILD (interstitial lung disease): ?Code(s): J84.9 - Interstitial pulmonary disease, unspecified ? ? ? Orders: Orders [place] barium swallow modified Today K22.89 - Other spe cified disease of esophagus, R13.10 - Dysphagia, unspe cified ? FOR MODIFIED BARIUM SWALLOW 05/31/22 IMPRESSION: No aspiration or penetration seen with any of the consistencies tested. ? ? SPEECH THERAPY REPORT Pt presented with escape of bolus to the floor of mouth, but no premature posterior escape of bolus when pt was instructed to hold bolus in her mouth. Pt demonstrated brisk posterior lingual movement for the transport of bolus. Pt?s mastication was slow and prolonged, characterized by piece meal deglutition. Pt chewed bolus, swallowed partial bolus, chewed remaining bolus, and swallowed again to clear oral cavity. There was trace lingual residue which cleared with subsequent dry swallow. Pharyngeal swallow trigger was delayed, initiated as bolus head reached pyriform sinuses. There was no nasopharyngeal reflux. No evidence of aspiration or penetration with intake of solids and liquids during this exam. Laryngeal elevation was complete with complete anterior hyoid excursion and complete epiglottic inversion. There was trace residue on tongue base, which subsequently cleared with a dry swallow. There was otherwise complete clearing of the valleculae and pyriform sinuses. No obstruction of flow through the pharyngoesophageal segment opening. Liquid Intake Recommendation: Thin Dietary Recommendations:?Regular Medication Administration:?Whole with Liquid?Please contact the pharmacy regarding appropriate crushable or liquid drug formulations that are available whenever modified delivery is recommended. Compensatory Strategies Recommended:?Sitting Upright (90 deg), Small Bites and Sips, Alternate Liquids/Solids Supervision during eating and or drinking:?None Needed Recommendation for Speech Therapy:?NA:Typical Evaluation PLAN: Intake Recommendations: Route: PO Diet Grade: Regular Liquid Consistencies: Thin Post-Study Functional Oral Intake Scale (FOIS): 7- Total oral intake with no restrictions EGD 09/08/22 Findings: Larynx:normal Esophagus: GE junction at 34? cm, diaphragm hiatus at 34 cm, mild esophagitis at GEJ with schatzki ring noted. dilated to 20 mm with balloon with heme noted indicating successful dilation of stricture. bx taken from GEJ, distal and proximal esophagus Stomach: Patchy gastric erythema. Biopsies were obtained. Grade 2 flap valve on retroflexed examination of the cardia. Duodenum: Normal bulb and descending duodenum Intervention: Biopsies as noted above Impression/Findings: schatzki ring esophagitis stricture of esophagus PLAN: consider changing PPI to alternative formulation reflux precautions regular diet today as tolerated, avoid excessively cold or hot foods * BIOPSY Received: 09/08/22 Diagnosis A.? Stomach, biopsy:? Antral-type and oxyntic mucosa with moderate chronic, focally active, inflammation; no Helicobacter organisms seen. B.? GE junction, biopsy: - Cardiofundic-type mucosa with moderate chronic inactive inflammation; no intestinal metaplasia seen; prominent lymphoid aggregate. - No squamous epithelium identified. C.? Esophagus, distal, biopsy:? Active esophagitis (maximum eosinophil count 1 per high powered field). D.? Esophagus, proximal, biopsy:? Squamous mucosa within normal limits; no inflammation seen. CORRESPONDENCE On 12/17/22 @ 11:39 Matt Mac Wrote To Crisostomo Patient advised per message below. She states she feels like her throat is closing up and sometimes wakes up chocking. She said she called her PCP and was advised to contact GI. Pt advised that next available appt is for the beginning of December and that she could go to the ER. She states she wanted to be seen before 12/27 because she is traveling to [place]. Reiterated to PT that she could try to call PCP again or go to ER as she was last seen in office last April and next office visit is for 12/31. On 12/16/22 @ 13:55 Crisostomo Wrote To Matt Mac I haven't even seen her in close to a year; they should call the PCP or go to the ER. On 12/16/22 @ 13:27 Alisia Humphrey Wrote To Crisostomo (2) Pt is having an allergic reaction to something and its causing her throat to bother her she is asking if there is something you can prescribe her and shes asking for a call back but to call the daughter which is the second number listed on the chart. The. TODAY'S VISIT [place] # The last time I saw her her GI regimen consisted of Linzess 145 micro g, Colace 100 mg twice a day, Carafate 5 mg 4 times a day given by Dr. New son, MiraLax, and senna are available to her, it appears her last PPI with Dexilant. (It appears that her GI medications of all been taken over by her primary care provider.? Of note she is on many medications that could cause dryness is a side effect including verapamil, a steroid inhaler, hydroxyzine etcetera.? Is uncertain what affect her MGUS has under epithelium as well.? Given her diagnosis of severe arthritis of the neck it is possible she has some osteophytes impinging on the esophagus as well.? Again, this is not something that GI can fix and would follow more under the purview of neuro surgery) [facility] Medical History PONV (postoperative nausea and vomiting) Sweating abnormality Hirsutism MGUS (monoclonal gammopathy of unknown significance) Positive MARCY (antinuclear antibody) Idiopathic hirsutism Plantar fasciitis Mood disorder Xerosis of skin Chronic fatigue Myositis Myalgia Pulmonary nodule Depression Diabetes Age related osteoporosis Restless legs Spondylosis Arthritis Carpal tunnel syndrome Fibromyalgia Constipation High cholesterol Anxiety Hypertension SLE (systemic lupus erythematosus related syndrome) Surgical History H/O colonoscopy H/O esophagogastroduodenoscopy H/O hemorrhoidectomy History of tubal ligation Family History Father Diabetes Hypertension Mother Hypertension Diabetes Asthma Maternal Grandfather Throat cancer Maternal Grandmother Throat cancer Paternal Uncle Prostate cancer Maternal Uncle Throat cancer Stomach cancer Maternal Aunt Stomach cancer Diabetes Social History Household Members: Family Are you a primary animal care supervisor to a significant other at home: No Do you presently have visiting nurse or other home services: Yes ([employer]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 and supportive Daughter) Alcohol intake: never Patient Tobacco Use Status: Never used Tobacco Current occupational status: retired Current occupation: rt handed Review of Systems Const Denies fatigue, Denies fever(s), Denies night sweats, Denies poor appetite and Denies weight loss Eyes Reports requires corrective lenses ENT Reports Normal hearing present, Denies dental pain, Denies dysphagia, Denies hearing loss, Denies mouth pain, Denies odynophagia, Denies throat swelling, Denies tongue swelling and Reports other (Dentition adequate) GI Details: Denies abdominal pain, Denies melena, Denies bloating, Denies hematochezia, Denies constipation, Denies GI cramping, Denies dysphagia, Denies excessive flatus, Denies early satiety, Denies heartburn, Denies diarrhea, Denies nausea, Denies odynophagia, Denies vomiting and Denies hematemesis Skin/Breast Denies pruritus, Denies lesions, Denies rash and Denies jaundice Neuro Reports Normal hearing present and Denies Abnormal speech present Endo Denies fatigue Aller/Immun Denies throat swelling and Denies tongue swelling Physical Exam Vital Signs: BMI result Body Mass Index 32.8 Const General: cooperative, no acute distress, well developed and well groomed Nutritional Appearance: well nourished, obese and overweight Orientation/consciousness: oriented to person, oriented to place and oriented to time Limitations: No language barrier, ambulation with cane, ambulation with walker and wheelchair HEENT Head: Yes normocephalic and Yes atraumatic Eyes General: appearance normal, both eyes and all related structures Pupils: Equal, round and reactive pupils present Neck Neck: Yes normal visual inspection and Yes no lymphadenopathy Thyroid: Thyroid normal Resp Effort & Inspection: normal respiratory effort and able to speak in complete sentences Auscultation: clear to auscultation bilaterally Cardio Rate: regular rate Rhythm: regular rhythm Heart sounds: Normal, physiologic split S2 sound present Peripheral pulses: radial pulses present and posterior tibial pulses present GI Inspection: No distended and No Abdominal panniculus present Palpation (GI): Soft to palpation, nontender, no guarding, not rigid, No hepatosplenomegaly present and Hepatosplenomegaly present Percussion: Yes normal to percussion Auscultation: normal bowel sounds Rectal Exam - Female: deferred Skin General skin exam: no rashes or lesions noted, turgor normal, skin not dry, no jaundice, No spider nevi and no striae Rashes: no rashes Nails: normal Neuro General: oriented to person, oriented to place and oriented to time Cranial nerves: Yes Equal, round and reactive pupils present and Yes Normal hearing present Speech: No Abnormal speech present Extrem General: Yes normal to inspection, No clubbing, No cyanosis and No edema Psych Thought process: Normal thought process present and not confabulating Thought content: Normal thought content present Insight: Good insight present (Psych) Judgement: Good judgement present (Psych) Assessment & Plan Assessment & Plan (1) GERD (gastroesophageal reflux disease): Code(s): K21.9 - Gastro-esophageal reflux disease without esophagitis (2) Esophageal dysmotility: Comment: Causing dysphagia and had been treatment in the past with verapamil Code(s): K22.4 - Dyskinesia of esophagus (3) Chronic idiopathic constipation: Code(s): K59.04 - Chronic idiopathic constipation (4) Dysphagia: Code(s): R13.10 - Dysphagia, unspecified (5) Presbyesophagus: Code(s): K22.89 - Other specified disease of esophagus (6) TREE on CPAP: Code(s): G47.33 - Obstructive sleep apnea (adult) (pediatric); Z99.89 - Dependence on other enabling machines and devices (7) SLE (systemic lupus erythematosus related syndrome): Code(s): M32.9 - Systemic lupus erythematosus, unspecified (8) MGUS (monoclonal gammopathy of unknown significance): Comment: Being treated by Hematology in [place] Code(s): D47.2 - Monoclonal gammopathy Coding Diagnoses GERD (gastroesophageal reflux disease) K21.9 Esophageal dysmotility K22.4 Chronic idiopathic constipation K59.04 Dysphagia R13.10 Presbyesophagus K22.89 TREE on CPAP G47.33; Z99.89 SLE (systemic lupus erythematosus related syndrome) M32.9 MGUS (monoclonal gammopathy of unknown significance) D47.2
--- NOTE | 2023-08-26 14:21 | MHC.OFFVIS ---
Intake Vital Signs 08/26/23 14:22 Height 5 ft 3 in Intake Visit Reasons: Follow up dysphagia Allergies aspirin [ASA] Allergy (Intermediate, Verified 06/03/23 09:41) Hives Penicillins [PENICILLINS] Allergy (Intermediate, Verified 06/03/23 09:41) RASH loratadine Allergy (Unknown, Verified 06/03/23 09:41) Unknown trimethoprim Allergy (Unknown, Verified 06/03/23 09:41) Unknown venlafaxine Allergy (Unknown, Verified 06/03/23 09:41) Unknown PFSH Medical History PONV (postoperative nausea and vomiting) Sweating abnormality Hirsutism MGUS (monoclonal gammopathy of unknown significance) Positive MARCY (antinuclear antibody) Idiopathic hirsutism Plantar fasciitis Mood disorder Xerosis of skin Chronic fatigue Myositis Myalgia Pulmonary nodule Depression Diabetes Age related osteoporosis Restless legs Spondylosis Arthritis Carpal tunnel syndrome Fibromyalgia Constipation High cholesterol Anxiety Hypertension SLE (systemic lupus erythematosus related syndrome) Surgical History H/O colonoscopy H/O esophagogastroduodenoscopy H/O hemorrhoidectomy History of tubal ligation Family History Father Diabetes Hypertension Mother Hypertension Diabetes Asthma Maternal Grandfather Throat cancer Maternal Grandmother Throat cancer Paternal Uncle Prostate cancer Maternal Uncle Throat cancer Stomach cancer Maternal Aunt Stomach cancer Diabetes Social History Household Members: Family Are you a primary career technical supervisor to a significant other at home: No Do you presently have visiting nurse or other home services: Yes (ROAD SUPERVISOR and supportive Daughter) Alcohol intake: never Patient Tobacco Use Status: Never used Tobacco Current occupational status: retired 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
[2023-08-26 14:22] VITALS: BP 126/52; PULSE 85; BMI 32.8
--- NOTE | 2023-08-26 14:30 | MHC.OFFVIS ---
Intake Vital Signs 08/26/23 14:22 08/26/23 14:36 Height 5 ft 3 in Weight 185 lb 3.013 oz BMI 32.8 32.8 BP 126/52 L Blood Pressure Location Lt brachial Position Sitting Pulse 85 Intake Visit Reasons: Follow up dysphagia Intake Note: Patient returns to in office visit today in follow up of dysphagia. CC: She c/o trouble swallowing and chocking, constipation, acid reflux, and nausea. She states that she feels something moving in her neck sometimes and like her throat is closing up. Per patient she feels like her abdomen also is bloated. She underwent EGD with Dr Mann on 09/2022. Denies other GI symptoms today. Bark Scaler Required: Yes Accompanied by: Self / Same As Patient Allergies aspirin [ASA] Allergy (Intermediate, Verified 08/26/23 14:31) Hives Penicillins [PENICILLINS] Allergy (Intermediate, Verified 08/26/23 14:31) RASH loratadine Allergy (Unknown, Verified 08/26/23 14:31) Unknown trimethoprim Allergy (Unknown, Verified 08/26/23 14:31) Unknown venlafaxine Allergy (Unknown, Verified 08/26/23 14:31) Unknown HPI Follow up dysphagia HPI Details Assessment & Plan (1) Dysphagia: ?Code(s): R13.10 - Dysphagia, unspecified ?Plan: [place] #[id number], Emily She tells me that she sees an ENT for TMJ and has been told she has esophageal dysmotility. She thinks this is r/t a fall she had in July, and that it twisted my neck and effected her swallowing. She has to move her neck around in order to eat. She feels like I'm suffocating, and I can't open my mouth too much to eat. 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 She feels she needs studies to look at her swallowing. I will get an EGD, but I think that a barium swallow would be more productive since the dysphagia is all happening in the oral phase. I try to explain that this is usually a neuromusclar problem and not very identifiable via GI investigations. SHe also has a very dry mouth. I explain that this is usually an effect of medications and age, she will need to keep water nearby with eating. IT SOUNDS LIKE she has a constellation of symptoms better not really under the purview of GI management.? However, I think we need to get speech therapy involved to do some swallowing teaching giving her near lack of esophageal motility, and I think it EGD is prudent to make sure that there is no esophageal Mica or other complicating infection of the esophagus affecting her swallowing. It appears that her GI medications of all been taken over by her primary care provider.? Of note she is on many medications that could cause dryness is a side effect including verapamil, a steroid inhaler, hydroxyzine etcetera.? Is uncertain what affect her MGUS has under epithelium as well.? Given her diagnosis of severe arthritis of the neck it is possible she has some osteophytes impinging on the esophagus as well.? Again, this is not something that GI can fix and would follow more under the purview of neuro surgery. NEW DX: MGUS and arthritis At this point I will see her back after the EGD.? (2) Presbyesophagus: ?Code(s): K22.89 - Other specified disease of esophagus (3) MGUS (monoclonal gammopathy of unknown significance): ?Comment: Being treated by Hematology in [place] ?Code(s): D47.2 - Monoclonal gammopathy (4) SLE (systemic lupus erythematosus related syndrome): ?Code(s): M32.9 - Systemic lupus erythematosus, unspecified (5) ILD (interstitial lung disease): ?Code(s): J84.9 - Interstitial pulmonary disease, unspecified ? ? ? Orders: Orders [place] barium swallow modified Today K22.89 - Other spe cified disease of esophagus, R13.10 - Dysphagia, unspe cified ? FOR MODIFIED BARIUM SWALLOW 05/31/22 IMPRESSION: No aspiration or penetration seen with any of the consistencies tested. ? ? SPEECH THERAPY REPORT Pt presented with escape of bolus to the floor of mouth, but no premature posterior escape of bolus when pt was instructed to hold bolus in her mouth. Pt demonstrated brisk posterior lingual movement for the transport of bolus. Pt?s mastication was slow and prolonged, characterized by piece meal deglutition. Pt chewed bolus, swallowed partial bolus, chewed remaining bolus, and swallowed again to clear oral cavity. There was trace lingual residue which cleared with subsequent dry swallow. Pharyngeal swallow trigger was delayed, initiated as bolus head reached pyriform sinuses. There was no nasopharyngeal reflux. No evidence of aspiration or penetration with intake of solids and liquids during this exam. Laryngeal elevation was complete with complete anterior hyoid excursion and complete epiglottic inversion. There was trace residue on tongue base, which subsequently cleared with a dry swallow. There was otherwise complete clearing of the valleculae and pyriform sinuses. No obstruction of flow through the pharyngoesophageal segment opening. Liquid Intake Recommendation: Thin Dietary Recommendations:?Regular Medication Administration:?Whole with Liquid?Please contact the pharmacy regarding appropriate crushable or liquid drug formulations that are available whenever modified delivery is recommended. Compensatory Strategies Recommended:?Sitting Upright (90 deg), Small Bites and Sips, Alternate Liquids/Solids Supervision during eating and or drinking:?None Needed Recommendation for Speech Therapy:?NA:Typical Evaluation PLAN: Intake Recommendations: Route: PO Diet Grade: Regular Liquid Consistencies: Thin Post-Study Functional Oral Intake Scale (FOIS): 7- Total oral intake with no restrictions EGD 09/08/22 Findings: Larynx:normal Esophagus: GE junction at 34? cm, diaphragm hiatus at 34 cm, mild esophagitis at GEJ with schatzki ring noted. dilated to 20 mm with balloon with heme noted indicating successful dilation of stricture. bx taken from GEJ, distal and proximal esophagus Stomach: Patchy gastric erythema. Biopsies were obtained. Grade 2 flap valve on retroflexed examination of the cardia. Duodenum: Normal bulb and descending duodenum Intervention: Biopsies as noted above Impression/Findings: schatzki ring esophagitis stricture of esophagus PLAN: consider changing PPI to alternative formulation reflux precautions regular diet today as tolerated, avoid excessively cold or hot foods * BIOPSY Received: 09/08/22 Diagnosis A.? Stomach, biopsy:? Antral-type and oxyntic mucosa with moderate chronic, focally active, inflammation; no Helicobacter organisms seen. B.? GE junction, biopsy: - Cardiofundic-type mucosa with moderate chronic inactive inflammation; no intestinal metaplasia seen; prominent lymphoid aggregate. - No squamous epithelium identified. C.? Esophagus, distal, biopsy:? Active esophagitis (maximum eosinophil count 1 per high powered field). D.? Esophagus, proximal, biopsy:? Squamous mucosa within normal limits; no inflammation seen. MRI OF THE CERVICAL SPINE 08/21/23 FINDINGS: There is minimal anterolisthesis of C2 in relation to C3. There is minimal anterolisthesis of C4 in relation to C5. There is minimal retrolisthesis of C5 in relation to C6. Findings are similar to the prior examination. Vertebral body heights are maintained. There is moderate degenerative disc disease at C5-C6 and C6-C7, similar to the prior study. Marrow edema about the right sided C3-C4 facet seen on the prior examination is no longer visualized. The visualized spinal cord is normal in caliber and signal intensity. The paraspinal soft tissue is normal in appearance. Cervical flow voids are maintained. The cerebellar tonsils are normally positioned. Evaluation of the individual disc space levels is as follows: C2-C3: There is no disc herniation. There is significant right-sided facet arthropathy resulting in mild to moderate right foraminal narrowing. The spinal canal and left neural foramen are widely patent. C3-C4: There is no disc herniation. There is bilateral uncovertebral joint hypertrophy and severe facet arthropathy, greater on the right resulting in mild right foraminal narrowing. No spinal canal or left foraminal narrowing. C4-C5: There is a shallow posterior disc bulge which indents the ventral thecal sac. No spinal canal stenosis. There is significant right-sided facet arthropathy. There is mild left facet arthropathy. No foraminal narrowing. C5-C6: There is a moderate size disc osteophyte complex which flattens the ventral thecal sac. The spinal canal remains mildly narrowed. There is bilateral uncovertebral joint hypertrophy resulting in mild bilateral foraminal narrowing. C6-C7: There is a stable shallow circumferential disc osteophyte complex which flattens the ventral thecal sac. There is mild uncovertebral joint hypertrophy. There is mild spinal canal stenosis and mild foraminal narrowing. C7-T1: There is a shallow disc bulge. There is mild uncovertebral joint hypertrophy. No spinal canal or foraminal narrowing. MR/MR cervical spine wo con IMPRESSION: Stable, moderate degenerative disc disease at C5-C6 and C6-C7. At C5-C6 there is a moderate size disc osteophyte complex which flattens the ventral thecal sac. The spinal canal remains mildly narrowed. There is bilateral uncovertebral joint hypertrophy resulting in mild bilateral foraminal narrowing. At C6-C7 there is a stable shallow circumferential disc osteophyte complex which flattens the ventral thecal sac. There is mild uncovertebral joint hypertrophy. There is mild spinal canal stenosis and mild foraminal narrowing. CORRESPONDENCE On 12/17/22 @ 11:39 Matt Mac Wrote To Ashanti Crisostomo Patient advised per message below. She states she feels like her throat is closing up and sometimes wakes up chocking. She said she called her PCP and was advised to contact GI. Pt advised that next available appt is for the beginning of December and that she could go to the ER. She states she wanted to be seen before 12/27 because she is traveling to [place]. Reiterated to PT that she could try to call PCP again or go to ER as she was last seen in office last April and next office visit is for 12/31. On 12/16/22 @ 13:55 Ashanti Crisostomo Wrote To Matt Mac I haven't even seen her in close to a year; they should call the PCP or go to the ER. On 12/16/22 @ 13:27 Alisia Humphrey Wrote To Ashanti Crisostomo (2) Pt is having an allergic reaction to something and its causing her throat to bother her she is asking if there is something you c TODAY'S VISIT [place] #Carol lIVE She had called for an emergency visit r/t a feeling of choking. She says she fell and injured her neck and since then she has felt like my neck is moving and it clinches my esophagus when I move my neck. and i feel it a lot when I am sleeping. She feels like her espohagus closes off when seh is trying to sleep and her mouth is very dry and she has trouble sleeping. MUCH bowel dysfunction diarrhea with metformin and severe hard CIC if not taking it. BS all over the place - can get low BS down to 50 if takes a whole metformin, but can be up tyo 200. Not taking any acid reducing therapy currently. She was on Dexilant in the past. Apparently she has not been getting this medication probably because she has not been seeing me regularly. I am going to try to get her on her Dexilant again but in the meantime I am going to start her on famotidine at bedtime. I looked at the MRI of her cervical spine does not seem to be any instability. It might just be the severe dry mouth is causing her swallowing her panic at night. Exam does not seem to indicate a fungal infection. I leave the rest of this to her orthopedic provider but I did suggest to her that this could be the normal clicking we here as we developed bone spurs and arthritis. She also has quite a lot of bloating and gas. I am not sure if this is secondary to poor digestion with the diarrhea phase or severe constipation. I am going to give her a trial of simethicone in the meantime but 1st I need to get her diabetes regimen nailed down, as this is very much impacting both her esophageal motility and her bowel motility. We could either increase her metformin and treat her for diarrhea, or get her to a different diabetes agent and treat her constipation. I am referring her to [facility] endocrinology since she has had trouble in communicating with Dr. Mcnulty due to a lack of mechanical laboratory technician services. I am going to have her take half of a metformin in the morning and half at night and not take any extra which she was doing, if her blood sugars run high for now. I want to see what her bowels are doing on a stable regimen before I make a decision. She is also going to write down her blood sugar so I can see whether this is controlling her diabetes or not. She complaint she has been gaining a lot of weight. She is never discussed any other modalities of managing her diabetes including Trulicity insulin etc.. Her dysphagia likely is multifactorial since she does have established esophageal dysmotility in the past and she could even have an element of gastroparesis going on but is really hard to tell given all of her very complex presentation including her autoimmune disorders her diabetes cetera. Return office visit in 2 weeks and she is to bring all her medications to the next visit. [facility] Medical History PONV (postoperative nausea and vomiting) Sweating abnormality Hirsutism MGUS (monoclonal gammopathy of unknown significance) Positive MARCY (antinuclear antibody) Idiopathic hirsutism Plantar fasciitis Mood disorder Xerosis of skin Chronic fatigue Myositis Myalgia Pulmonary nodule Depression Diabetes Age related osteoporosis Restless legs Spondylosis Arthritis Carpal tunnel syndrome Fibromyalgia Constipation High cholesterol Anxiety Hypertension SLE (systemic lupus erythematosus related syndrome) Surgical History H/O colonoscopy H/O esophagogastroduodenoscopy H/O hemorrhoidectomy History of tubal ligation Family History Father Diabetes Hypertension Mother Hypertension Diabetes Asthma Maternal Grandfather Throat cancer Maternal Grandmother Throat cancer Paternal Uncle Prostate cancer Maternal Uncle Throat cancer Stomach cancer Maternal Aunt Stomach cancer Diabetes Social History Household Members: Family Are you a primary care team coordinator scheduler to a significant other at home: No Do you presently have visiting nurse or other home services: Yes (HOTEL CONTROLLER and supportive Daughter) Alcohol intake: never Patient Tobacco Use Status: Never used Tobacco Current occupational status: retired Current occupation: rt handed Review of Systems Const Denies fatigue, Denies fever(s), Denies night sweats, Denies poor appetite and Denies weight loss Eyes Details: glasses Reports requires corrective lenses ENT Reports Normal hearing present, Denies dental pain, Reports dysphagia, Denies hearing loss, Denies mouth pain, Reports neck pain, Denies odynophagia, Denies throat swelling, Denies tongue swelling and Reports other (Dentition adequate) Card Reports no additional complaints Resp Reports no additional complaints GI Details: Denies abdominal pain, Denies melena, Reports bloating, Denies hematochezia, Reports constipation, Denies GI cramping, Reports dysphagia, Denies excessive flatus, Denies early satiety, Reports heartburn, Reports diarrhea, Denies nausea, Denies odynophagia, Denies vomiting and Denies hematemesis Musc Reports neck pain Skin/Breast Denies pruritus, Denies lesions, Denies rash and Denies jaundice Neuro Reports Normal hearing present and Denies Abnormal speech present Psych Reports abnormal sleep pattern and Reports anxiety Endo Denies fatigue Aller/Immun Denies throat swelling and Denies tongue swelling Physical Exam Vital Signs: Last Vital Signs Pulse 85 08/26/23 14:22 BP 126/52 L 08/26/23 14:22 BMI result Body Mass Index 32.8 Const General: cooperative, no acute distress, well developed and well groomed Nutritional Appearance: well nourished and obese Orientation/consciousness: oriented to person, oriented to place and oriented to time Limitations: language barrier HEENT Head: Yes normocephalic and Yes atraumatic Eyes General: appearance normal, both eyes and all related structures Pupils: Equal, round and reactive pupils present Neck Neck: Yes normal visual inspection and Yes no lymphadenopathy Thyroid: Thyroid normal Resp Effort & Inspection: normal respiratory effort and able to speak in complete sentences Auscultation: clear to auscultation bilaterally Cardio Rate: regular rate Rhythm: regular rhythm Heart sounds: Normal, physiologic split S2 sound present Peripheral pulses: radial pulses present and posterior tibial pulses present GI Inspection: No distended, No Abdominal panniculus present and Yes obesity Palpation (GI): Soft to palpation, nontender, no guarding, not rigid and No hepatosplenomegaly present Percussion: Yes normal to percussion Auscultation: normal bowel sounds Rectal Exam - Female: deferred Skin General skin exam: no rashes or lesions noted, turgor normal, skin not dry, no jaundice, No spider nevi and no striae Rashes: no rashes Nails: normal Neuro General: oriented to person, oriented to place and oriented to time Cranial nerves: Yes Equal, round and reactive pupils present and Yes Normal hearing present Speech: No Abnormal speech present Extrem General: Yes normal to inspection, No clubbing, No cyanosis and No edema Psych Appearance: grossly normal and well kempt Mental Status: mental status grossly normal Speech and movement: Normal speech and movement present Affect: normal affect Attitude: cooperative Thought process: Normal thought process present and not confabulating Thought content: Normal thought content present Insight: Limited insight present (Psych) Judgement: Limited judgement present (Psych) Results Reviewed Results Reviewed: FOR MODIFIED BARIUM SWALLOW 05/31/22 IMPRESSION: No aspiration or penetration seen with any of the consistencies tested. ? ? SPEECH THERAPY REPORT Pt presented with escape of bolus to the floor of mouth, but no premature posterior escape of bolus when pt was instructed to hold bolus in her mouth. Pt demonstrated brisk posterior lingual movement for the transport of bolus. Pt?s mastication was slow and prolonged, characterized by piece meal deglutition. Pt chewed bolus, swallowed partial bolus, chewed remaining bolus, and swallowed again to clear oral cavity. There was trace lingual residue which cleared with subsequent dry swallow. Pharyngeal swallow trigger was delayed, initiated as bolus head reached pyriform sinuses. There was no nasopharyngeal reflux. No evidence of aspiration or penetration with intake of solids and liquids during this exam. Laryngeal elevation was complete with complete anterior hyoid excursion and complete epiglottic inversion. There was trace residue on tongue base, which subsequently cleared with a dry swallow. There was otherwise complete clearing of the valleculae and pyriform sinuses. No obstruction of flow through the pharyngoesophageal segment opening. Liquid Intake Recommendation: Thin Dietary Recommendations:?Regular Medication Administration:?Whole with Liquid?Please contact the pharmacy regarding appropriate crushable or liquid drug formulations that are available whenever modified delivery is recommended. Compensatory Strategies Recommended:?Sitting Upright (90 deg), Small Bites and Sips, Alternate Liquids/Solids Supervision during eating and or drinking:?None Needed Recommendation for Speech Therapy:?NA:Typical Evaluation PLAN: Intake Recommendations: Route: PO Diet Grade: Regular Liquid Consistencies: Thin Post-Study Functional Oral Intake Scale (FOIS): 7- Total oral intake with no restrictions EGD 09/08/22 Findings: Larynx:normal Esophagus: GE junction at 34? cm, diaphragm hiatus at 34 cm, mild esophagitis at GEJ with schatzki ring noted. dilated to 20 mm with balloon with heme noted indicating successful dilation of stricture. bx taken from GEJ, distal and proximal esophagus Stomach: Patchy gastric erythema. Biopsies were obtained. Grade 2 flap valve on retroflexed examination of the cardia. Duodenum: Normal bulb and descending duodenum Intervention: Biopsies as noted above Impression/Findings: schatzki ring esophagitis stricture of esophagus PLAN: consider changing PPI to alternative formulation reflux precautions regular diet today as tolerated, avoid excessively cold or hot foods * BIOPSY Received: 09/08/22 Diagnosis A.? Stomach, biopsy:? Antral-type and oxyntic mucosa with moderate chronic, focally active, inflammation; no Helicobacter organisms seen. B.? GE junction, biopsy: - Cardiofundic-type mucosa with moderate chronic inactive inflammation; no intestinal metaplasia seen; prominent lymphoid aggregate. - No squamous epithelium identified. C.? Esophagus, distal, biopsy:? Active esophagitis (maximum eosinophil count 1 per high powered field). D.? Esophagus, proximal, biopsy:? Squamous mucosa within normal limits; no inflammation seen. MRI OF THE CERVICAL SPINE 08/21/23 FINDINGS: There is minimal anterolisthesis of C2 in relation to C3. There is minimal anterolisthesis of C4 in relation to C5. There is minimal retrolisthesis of C5 in relation to C6. Findings are similar to the prior examination. Vertebral body heights are maintained. There is moderate degenerative disc disease at C5-C6 and C6-C7, similar to the prior study. Marrow edema about the right sided C3-C4 facet seen on the prior examination is no longer visualized. The visualized spinal cord is normal in caliber and signal intensity. The paraspinal soft tissue is normal in appearance. Cervical flow voids are maintained. The cerebellar tonsils are normally positioned. Evaluation of the individual disc space levels is as follows: C2-C3: There is no disc herniation. There is significant right-sided facet arthropathy resulting in mild to moderate right foraminal narrowing. The spinal canal and left neural foramen are widely patent. C3-C4: There is no disc herniation. There is bilateral uncovertebral joint hypertrophy and severe facet arthropathy, greater on the right resulting in mild right foraminal narrowing. No spinal canal or left foraminal narrowing. C4-C5: There is a shallow posterior disc bulge which indents the ventral thecal sac. No spinal canal stenosis. There is significant right-sided facet arthropathy. There is mild left facet arthropathy. No foraminal narrowing. C5-C6: There is a moderate size disc osteophyte complex which flattens the ventral thecal sac. The spinal canal remains mildly narrowed. There is bilateral uncovertebral joint hypertrophy resulting in mild bilateral foraminal narrowing. C6-C7: There is a stable shallow circumferential disc osteophyte complex which flattens the ventral thecal sac. There is mild uncovertebral joint hypertrophy. There is mild spinal canal stenosis and mild foraminal narrowing. C7-T1: There is a shallow disc bulge. There is mild uncovertebral joint hypertrophy. No spinal canal or foraminal narrowing. MR/MR cervical spine wo con IMPRESSION: Stable, moderate degenerative disc disease at C5-C6 and C6-C7. At C5-C6 there is a moderate size disc osteophyte complex which flattens the ventral thecal sac. The spinal canal remains mildly narrowed. There is bilateral uncovertebral joint hypertrophy resulting in mild bilateral foraminal narrowing. At C6-C7 there is a stable shallow circumferential disc osteophyte complex which flattens the ventral thecal sac. There is mild uncovertebral joint hypertrophy. There is mild spinal canal stenosis and mild foraminal narrowing. Assessment & Plan Assessment & Plan (1) GERD (gastroesophageal reflux disease): Code(s): K21.9 - Gastro-esophageal reflux disease without esophagitis (2) Esophageal dysmotility: Comment: Causing dysphagia and had been treatment in the past with verapamil Code(s): K22.4 - Dyskinesia of esophagus (3) Chronic idiopathic constipation: Code(s): K59.04 - Chronic idiopathic constipation (4) Dysphagia: Code(s): R13.10 - Dysphagia, unspecified (5) Presbyesophagus: Code(s): K22.89 - Other specified disease of esophagus (6) TREE on CPAP: Code(s): G47.33 - Obstructive sleep apnea (adult) (pediatric); Z99.89 - Dependence on other enabling machines and devices (7) SLE (systemic lupus erythematosus related syndrome): Code(s): M32.9 - Systemic lupus erythematosus, unspecified (8) MGUS (monoclonal gammopathy of unknown significance): Comment: Being treated by Hematology in [place] Code(s): D47.2 - Monoclonal gammopathy (9) Diabetes mellitus: Code(s): E11.9 - Type 2 diabetes mellitus without complications Plan [place] #Carol lIVE She had called for an emergency visit r/t a feeling of choking. She says she fell and injured her neck and since then she has felt like my neck is moving and it clinches my esophagus when I move my neck. and i feel it a lot when I am sleeping. She feels like her espohagus closes off when seh is trying to sleep and her mouth is very dry and she has trouble sleeping. MUCH bowel dysfunction diarrhea with metformin and severe hard CIC if not taking it. BS all over the place - can get low BS down to 50 if takes a whole metformin, but can be up tyo 200. Not taking any acid reducing therapy currently. She was on Dexilant in the past. Apparently she has not been getting this medication probably because she has not been seeing me regularly. I am going to try to get her on her Dexilant again but in the meantime I am going to start her on famotidine at bedtime. I looked at the MRI of her cervical spine does not seem to be any instability. It might just be the severe dry mouth is causing her swallowing her panic at night. Exam does not seem to indicate a fungal infection. I leave the rest of this to her orthopedic provider but I did suggest to her that this could be the normal clicking we here as we developed bone spurs and arthritis. She also has quite a lot of bloating and gas. I am not sure if this is secondary to poor digestion with the diarrhea phase or severe constipation. I am going to give her a trial of simethicone in the meantime but 1st I need to get her diabetes regimen nailed down, as this is very much impacting both her esophageal motility and her bowel motility. We could either increase her metformin and treat her for diarrhea, or get her to a different diabetes agent and treat her constipation. I am referring her to [facility] endocrinology since she has had trouble in communicating with Dr. Mcnulty due to a lack of mechanical laboratory technician services. I am going to have her take half of a metformin in the morning and half at night and not take any extra which she was doing, if her blood sugars run high for now. I want to see what her bowels are doing on a stable regimen before I make a decision. She is also going to write down her blood sugar so I can see whether this is controlling her diabetes or not. She complaint she has been gaining a lot of weight. She is never discussed any other modalities of managing her diabetes including Trulicity insulin etc.. Her dysphagia likely is multifactorial since she does have established esophageal dysmotility in the past and she could even have an element of gastroparesis going on but is really hard to tell given all of her very complex presentation including her autoimmune disorders her diabetes cetera. Return office visit in 2 weeks and she is to bring all her medications to the next visit. Orders: Referrals Endocrinology Referral E11.9 - Type 2 diabetes mellitus without complications Medications: New metformin 250 mg (1/2 x 500 mg) PO DAILY 30 tabs 6RF E11.9 - Type 2 diabetes mellitus without complications famotidine (Pepcid) 40 mg PO BEDTIME 30 tabs 3RF K21.9 - Gastro-esophageal reflux disease without esophagitis dexlansoprazole (Dexilant) 60 mg PO DAILY 30 caps 6RF 30 days Discontinued sucralfate swish in mouth and swallow; use after food/drink Discontinued Reason: Doctor's Order 5 mL PO QID 1,000 mL 0RF metformin Discontinued Reason: Doctor's Order 1,000 mg PO BID 60 tabs 5RF Patient Instructions: Jess Gray 1. [place] la mitad de fernandez metformina dos veces al d?a. No cambie la cantidad que jennifer incluso si fernandez nivel de az?car es alto. 2. Anote jaylin niveles de az?car en la nitin todos los d?as y traiga la lista a nuestra pr?xima visita. 3. Le env?o famotidina para que la tome antes de acostarse, hasta que pueda volver a claudia fernandez Dexilant. 4. Le env?o un medicamento para los gases llamado simeticona, t?damon 3 veces al d?a. 5. Deje de claudia todo lo siguiente: docusate, Linzess, senna y Miralax. Por favor, traiga todos jaylin medicamentos a fernandez pr?xima visita para que los pueda pallavi; Incluso los que no prescribo. Quiero verte en 2 semanas. Coding Level of Care Code Est Pt Level 4 (22312) Diagnoses GERD (gastroesophageal reflux disease) K21.9 Esophageal dysmotility K22.4 Chronic idiopathic constipation K59.04 Dysphagia R13.10 Presbyesophagus K22.89 TREE on CPAP G47.33; Z99.89 SLE (systemic lupus erythematosus related syndrome) M32.9 MGUS (monoclonal gammopathy of unknown significance) D47.2 Diabetes mellitus E11.9 Time Spent (min) 52
[2023-08-26 14:36] VITALS: BMI 32.8
== END 2023-08-26 15:50 | disposition home or self-care (01) ==
PROVIDERS: PCP Pediatrics; Visit Provider Nurse Practitioner
DX: K21.9 Gastro-esophageal reflux disease without esophagitis (principal); K22.4 Dyskinesia of esophagus; K59.04 Chronic idiopathic constipation; R13.10 Dysphagia, unspecified; K22.89 Other specified disease of esophagus; G47.33 Obstructive sleep apnea (adult) (pediatric); Z99.89 Dependence on other enabling machines and devices; M32.9 Systemic lupus erythematosus, unspecified; D47.2 Monoclonal gammopathy; E11.9 Type 2 diabetes mellitus without complications
CPT/HCPCS: 99214

== ENCOUNTER → 2023-08-26 14:18 | Outpatient (BNVA) | payer OTHER, SELFPAY | PROVIDERS: PCP Pediatrics; Visit Provider Nurse Practitioner | DX: R13.10 Dysphagia, unspecified (principal); K21.9 Gastro-esophageal reflux disease without esophagitis; K22.4 Dyskinesia of esophagus; K59.04 Chronic idiopathic constipation; K22.89 Other specified disease of esophagus; G47.33 Obstructive sleep apnea (adult) (pediatric); M32.9 Systemic lupus erythematosus, unspecified; D47.2 Monoclonal gammopathy; E11.9 Type 2 diabetes mellitus without complications; Z99.89 Dependence on other enabling machines and devices | CPT/HCPCS: 99212 ==

== ENCOUNTER 2023-09-07 14:48 | Outpatient (AMB) | payer OTHER, SELFPAY ==
[2023-09-07 14:49] VITALS: BP 132/82; BMI 32.8
--- NOTE | 2023-09-07 14:49 | MHC.OFFVIS ---
Intake Vital Signs 09/07/23 14:49 Height 5 ft 3 in Weight 185 lb 3.013 oz BMI 32.8 BP 132/82 Blood Pressure Location Rt brachial Position Sitting Intake Visit Reasons: 2 week follow up dysphagi, IBS, NIDDM Intake Note: Patient returns to in office visit today in follow up of dysphagia. CC: Patient with trouble swallowing and chocking, constipation, acid reflux, and nausea. She states that she feels something moving in her neck sometimes and like her throat is closing up. Denies other GI symptoms today. Senior Financial Analyst Required: Yes Accompanied by: Self / Same As Patient Allergies aspirin [ASA] Allergy (Intermediate, Verified 09/07/23 14:55) Hives Penicillins [PENICILLINS] Allergy (Intermediate, Verified 09/07/23 14:55) RASH loratadine Allergy (Unknown, Verified 09/07/23 14:55) Unknown trimethoprim Allergy (Unknown, Verified 09/07/23 14:55) Unknown venlafaxine Allergy (Unknown, Verified 09/07/23 14:55) Unknown HPI 2 week follow up dysphagi, IBS, NIDDM HPI Details Assessment & Plan (1) GERD (gastroesophageal reflux disease): Code(s): K21.9 - Gastro-esophageal reflux disease without esophagitis (2) Esophageal dysmotility: Comment: Causing dysphagia and had been treatment in the past with verapamil Code(s): K22.4 - Dyskinesia of esophagus (3) Chronic idiopathic constipation: Code(s): K59.04 - Chronic idiopathic constipation (4) Dysphagia: Code(s): R13.10 - Dysphagia, unspecified (5) Presbyesophagus: Code(s): K22.89 - Other specified disease of esophagus (6) TREE on CPAP: Code(s): G47.33 - Obstructive sleep apnea (adult) (pediatric); Z99.89 - Dependence on other enabling machines and devices (7) SLE (systemic lupus erythematosus related syndrome): Code(s): M32.9 - Systemic lupus erythematosus, unspecified (8) MGUS (monoclonal gammopathy of unknown significance): Comment: Being treated by Hematology in [place] Code(s): D47.2 - Monoclonal gammopathy (9) Diabetes mellitus: Code(s): E11.9 - Type 2 diabetes mellitus without complications Plan [place] #Carol lIVE She had called for an emergency visit r/t a feeling of choking. She says she fell and injured her neck and since then she has felt like my neck is moving and it clinches my esophagus when I move my neck. and i feel it a lot when I am sleeping. She feels like her espohagus closes off when seh is trying to sleep and her mouth is very dry and she has trouble sleeping. MUCH bowel dysfunction diarrhea with metformin and severe hard CIC if not taking it. BS all over the place - can get low BS down to 50 if takes a whole metformin, but can be up tyo 200. Not taking any acid reducing therapy currently. She was on Dexilant in the past. Apparently she has not been getting this medication probably because she has not been seeing me regularly. I am going to try to get her on her Dexilant again but in the meantime I am going to start her on famotidine at bedtime. I looked at the MRI of her cervical spine does not seem to be any instability. It might just be the severe dry mouth is causing her swallowing her panic at night. Exam does not seem to indicate a fungal infection. I leave the rest of this to her orthopedic provider but I did suggest to her that this could be the normal clicking we here as we developed bone spurs and arthritis. She also has quite a lot of bloating and gas. I am not sure if this is secondary to poor digestion with the diarrhea phase or severe constipation. I am going to give her a trial of simethicone in the meantime but 1st I need to get her diabetes regimen nailed down, as this is very much impacting both her esophageal motility and her bowel motility. We could either increase her metformin and treat her for diarrhea, or get her to a different diabetes agent and treat her constipation. I am referring her to [facility] endocrinology since she has had trouble in communicating with Dr. Mcnulty due to a lack of financial analyst services. I am going to have her take half of a metformin in the morning and half at night and not take any extra which she was doing, if her blood sugars run high for now. I want to see what her bowels are doing on a stable regimen before I make a decision. She is also going to write down her blood sugar so I can see whether this is controlling her diabetes or not. She complaint she has been gaining a lot of weight. She is never discussed any other modalities of managing her diabetes including Trulicity insulin etc.. Her dysphagia likely is multifactorial since she does have established esophageal dysmotility in the past and she could even have an element of gastroparesis going on but is really hard to tell given all of her very complex presentation including her autoimmune disorders her diabetes cetera. Return office visit in 2 weeks and she is to bring all her medications to the next visit. Orders: Referrals Endocrinology Refe rral E11.9 - Type 2 xavier betes mellitus wit hout complications Medications: New metformin 250 mg (1/2 x 500 mg) PO DAILY 30 ta bs 6RF E11.9 - Type 2 xavier betes mellitus wit hout complications famotidine (Pepcid ) 40 mg PO BEDTIME 3 0 tabs 3RF K21.9 - Gastro-eso phageal reflux dis ease without esoph agitis dexlansoprazole (D exilant) 60 mg PO DAILY 30 caps 6RF 30 days Discontinued sucralfate swis h in mouth and swa llow; use after fo od/drink Discon tinued Reason: Do ctor's Order 5 mL PO QID 1,000 mL 0RF metformin Disco ntinued Reason: D octor's Order 1,000 mg PO BID 6 0 tabs 5RF Patient Instructions: Jess Gray 1. [place] la mitad de fernandez metformina dos veces al d?a. No cambie la cantidad que jennifer incluso si fernandez nivel de az?car es alto. 2. Anote jaylin niveles de az?car en la nitin todos los d?as y traiga la lista a nuestra pr?xima visita. 3. Le env?o famotidina para que la tome antes de acostarse, hasta que pueda volver a claudia fernandez Dexilant. 4. Le env?o un medicamento para los gases llamado simeticona, t?damon 3 veces al d?a. 5. Deje de claudia todo lo siguiente: docusate, Linzess, senna y Miralax. Por favor, traiga todos jaylin medicamentos a fernandez pr?xima visita para que los pueda pallavi; Incluso los que no prescribo. Quiero verte en 2 semanas._ TODAY'S VISIT [place] #Ebenezer Peres She has been taking 1/2 of her metformin bid, but complains that if she does not eat after taking a dose, her BS will drop. I instruct her that diabetics CAN NOT skip meals, she absolutely has to eat scheduled 3 times a day and I ask her what factors may prevent her from eating, and she says its when my mother does not want to eat and I try to wait. We discuss the importance of nutritious snacks. The drop will tend to happen about 4 hours after a dose. I reviewed the blood sugars that she wrote down and the running a little on the high side but there is no severe lows. I offer to refer her to brooch and bracelet maker, but she says she has seen them before and declines for now. She did receive the Dexilant and is taking it, but still has trouble mobilizing her burping. She is taking simethicone, but it is not covered by her insurance so she has been taking her mothers. I give/write the OTC Gas X and generic so that she can get this inexpensive. She complains that her metformin is hard to cut when the pharmacy dispenses the round pills instead of the longer pills. I recommend a pill cutter and describe how this works. Right now she is having mild CIC, she has stopped the LInzess, senna, colace etc. BUT SHE DOES HAVE A PRESCRIBED MAGNESIUM SUPPLEMENT FOR SLEEP, which could have caused/c/t past diarrhea. She has continued to take this and right now with the mild constipation we will change it. I did educate her about this though in case they increase the dose in the future we can look for any potential diarrhea. At this point we are going to take half a pill 3 times a day the metformin and see what this does with her bowel movements. I think mobilizing the bowels better (in the past she has had diarrhea from metformin) and getting her meals planned a little better, will promote motility in the entire GI system and help her to mobilize the gas that is getting stuck in her esophagus. She also has esophageal dysmotility at baseline contributing to this. Return office visit in 2 weeks, I want her to continue to write down her BS to eval her control with the metformin dosing. [facility] Medical History PONV (postoperative nausea and vomiting) Sweating abnormality Hirsutism MGUS (monoclonal gammopathy of unknown significance) Positive MARCY (antinuclear antibody) Idiopathic hirsutism Plantar fasciitis Mood disorder Xerosis of skin Chronic fatigue Myositis Myalgia Pulmonary nodule Depression Diabetes Age related osteoporosis Restless legs Spondylosis Arthritis Carpal tunnel syndrome Fibromyalgia Constipation High cholesterol Anxiety Hypertension SLE (systemic lupus erythematosus related syndrome) Surgical History H/O colonoscopy H/O esophagogastroduodenoscopy H/O hemorrhoidectomy History of tubal ligation Family History Father Diabetes Hypertension Mother Hypertension Diabetes Asthma Maternal Grandfather Throat cancer Maternal Grandmother Throat cancer Paternal Uncle Prostate cancer Maternal Uncle Throat cancer Stomach cancer Maternal Aunt Stomach cancer Diabetes Social History Household Members: Family Are you a primary daytime caregiver to a significant other at home: No Do you presently have visiting nurse or other home services: Yes (MOTOR SCOOTER REPAIRER and supportive Daughter) Alcohol intake: never Patient Tobacco Use Status: Never used Tobacco Current occupational status: retired Current occupation: rt handed Review of Systems Const Denies fatigue, Denies fever(s), Denies night sweats, Denies poor appetite and Denies weight loss Eyes Details: glasses Reports requires corrective lenses ENT Reports Normal hearing present, Denies dental pain, Denies dysphagia, Denies hearing loss, Denies mouth pain, Denies odynophagia, Denies throat swelling, Denies tongue swelling and Reports other (Dentition adequate) Card Reports no additional complaints Resp Reports no additional complaints GI Details: Denies abdominal pain, Reports belching, Denies melena, Reports bloating, Denies hematochezia, Reports constipation, Denies GI cramping, Denies dysphagia, Denies excessive flatus, Denies early satiety, Reports heartburn, Denies diarrhea, Denies nausea, Denies odynophagia, Denies vomiting and Denies hematemesis Skin/Breast Denies pruritus, Denies lesions, Denies rash and Denies jaundice Neuro Reports Normal hearing present and Denies Abnormal speech present Endo Denies fatigue Aller/Immun Denies throat swelling and Denies tongue swelling Physical Exam Vital Signs: Last Vital Signs BP 132/82 09/07/23 14:49 BMI result Body Mass Index 32.8 Const General: cooperative, no acute distress, well developed and well groomed Nutritional Appearance: well nourished and obese Orientation/consciousness: oriented to person, oriented to place and oriented to time Limitations: language barrier HEENT Head: Yes normocephalic and Yes atraumatic Eyes General: appearance normal, both eyes and all related structures Pupils: Equal, round and reactive pupils present Neck Neck: Yes normal visual inspection and Yes no lymphadenopathy Thyroid: Thyroid normal Resp Effort & Inspection: normal respiratory effort and able to speak in complete sentences Auscultation: clear to auscultation bilaterally Cardio Rate: regular rate Rhythm: regular rhythm Heart sounds: Normal, physiologic split S2 sound present Peripheral pulses: radial pulses present and posterior tibial pulses present GI Inspection: No distended, Yes Abdominal panniculus present and Yes obesity Palpation (GI): Soft to palpation, nontender, no guarding, not rigid and No hepatosplenomegaly present Percussion: Yes normal to percussion Auscultation: normal bowel sounds Rectal Exam - Female: deferred Skin General skin exam: no rashes or lesions noted, turgor normal, skin not dry, no jaundice, No spider nevi and no striae Rashes: no rashes Nails: normal Neuro General: oriented to person, oriented to place and oriented to time Cranial nerves: Yes Equal, round and reactive pupils present and Yes Normal hearing present Speech: No Abnormal speech present Extrem General: Yes normal to inspection, No clubbing, No cyanosis and No edema Psych Appearance: grossly normal and well kempt Mental Status: mental status grossly normal Speech and movement: Normal speech and movement present Affect: normal affect Attitude: cooperative Thought process: Normal thought process present and not confabulating Thought content: Normal thought content present Insight: Limited insight present (Psych) and Poor insight present (Psych) Judgement: Limited judgement present (Psych) and Poor judgement present (Psych) Assessment & Plan Assessment & Plan (1) Esophageal dysmotility: Comment: Causing dysphagia and had been treatment in the past with verapamil Code(s): K22.4 - Dyskinesia of esophagus (2) GERD (gastroesophageal reflux disease): Code(s): K21.9 - Gastro-esophageal reflux disease without esophagitis (3) Chronic idiopathic constipation: Code(s): K59.04 - Chronic idiopathic constipation (4) SLE (systemic lupus erythematosus related syndrome): Code(s): M32.9 - Systemic lupus erythematosus, unspecified (5) Diabetes mellitus: Code(s): E11.9 - Type 2 diabetes mellitus without complications Plan [place] #Ebenezer Live She has been taking 1/2 of her metformin bid, but complains that if she does not eat after taking a dose, her BS will drop. I instruct her that diabetics CAN NOT skip meals, she absolutely has to eat scheduled 3 times a day and I ask her what factors may prevent her from eating, and she says its when my mother does not want to eat and I try to wait. We discuss the importance of nutritious snacks. The drop will tend to happen about 4 hours after a dose. I reviewed the blood sugars that she wrote down and the running a little on the high side but there is no severe lows. I offer to refer her to brooch and bracelet maker, but she says she has seen them before and declines for now. She did receive the Dexilant and is taking it, but still has trouble mobilizing her burping. She is taking simethicone, but it is not covered by her insurance so she has been taking her mothers. I give/write the OTC Gas X and generic so that she can get this inexpensive. She complains that her metformin is hard to cut when the pharmacy dispenses the round pills instead of the longer pills. I recommend a pill cutter and describe how this works. Right now she is having mild CIC, she has stopped the LInzess, senna, colace etc. BUT SHE DOES HAVE A PRESCRIBED MAGNESIUM SUPPLEMENT FOR SLEEP, which could have caused/c/t past diarrhea. She has continued to take this and right now with the mild constipation we will change it. I did educate her about this though in case they increase the dose in the future we can look for any potential diarrhea. At this point we are going to take half a pill 3 times a day the metformin and see what this does with her bowel movements. I think mobilizing the bowels better (in the past she has had diarrhea from metformin) and getting her meals planned a little better, will promote motility in the entire GI system and help her to mobilize the gas that is getting stuck in her esophagus. She also has esophageal dysmotility at baseline contributing to this. Return office visit in 2 weeks, I want her to continue to write down her BS to eval her control with the metformin dosing. Coding Level of Care Code Est Pt Level 3 (74048) Diagnoses Esophageal dysmotility K22.4 GERD (gastroesophageal reflux disease) K21.9 Chronic idiopathic constipation K59.04 SLE (systemic lupus erythematosus related syndrome) M32.9 Diabetes mellitus E11.9
== END 2023-09-07 15:44 | disposition home or self-care (01) ==
PROVIDERS: PCP Pediatrics; Visit Provider Nurse Practitioner
DX: K22.4 Dyskinesia of esophagus (principal); K21.9 Gastro-esophageal reflux disease without esophagitis; K59.04 Chronic idiopathic constipation; M32.9 Systemic lupus erythematosus, unspecified; E11.9 Type 2 diabetes mellitus without complications
CPT/HCPCS: 99213

== ENCOUNTER → 2023-09-07 14:48 | Outpatient (BNVA) | payer OTHER, SELFPAY | PROVIDERS: PCP Pediatrics; Visit Provider Nurse Practitioner | DX: K22.4 Dyskinesia of esophagus (principal); K21.9 Gastro-esophageal reflux disease without esophagitis; K59.04 Chronic idiopathic constipation; M32.9 Systemic lupus erythematosus, unspecified; E11.9 Type 2 diabetes mellitus without complications | CPT/HCPCS: 99212 ==

== ENCOUNTER 2023-09-09 15:39 | Outpatient (REF) | payer OTHER, SELFPAY ==
--- NOTE | ~2023-09-09 | XR_ITS ---
EXAMINATION: XR SHOULDER, RIGHT CLINICAL INFORMATION: Chronic right shoulder pain. COMPARISON: Chest radiograph of 01/27/2023. TECHNIQUE: 3 views of the right shoulder. FINDINGS: Mild degenerative changes in the acromioclavicular joint with joint space narrowing and hypertrophic change. Glenohumeral alignment is preserved. No abnormal soft tissue calcifications seen adjacent to the humeral head. Degenerative changes in the imaged upper thoracic spine. Possible heterogeneous opacities in the imaged right lung should be evaluated with dedicated PA and lateral views of the chest. XR/XR shoulder RT min 2V IMPRESSION: 1. Mild degenerative changes in the acromioclavicular joint. 2. Possible heterogeneous opacities in the imaged right lung should be evaluated with dedicated PA and lateral views of the chest.
== END 2023-09-09 15:40 | disposition home or self-care (01) ==
LOC: HO.XRAY 15:39
PROVIDERS: PCP Pediatrics; Visit Provider Pediatrics
DX: M12.9 Arthropathy, unspecified (principal); M25.511 Pain in right shoulder
CPT/HCPCS: 73030

== ENCOUNTER 2023-09-21 14:45 | Outpatient (AMB) | payer OTHER, SELFPAY ==
[2023-09-21 14:50] VITALS: BP 129/61; PULSE 86; BMI 32.8
--- NOTE | 2023-09-21 14:50 | A.OFFVIS_ITS ---
Intake Vital Signs 09/21/23 14:50 Height 5 ft 3 in Weight 185 lb 3.013 oz BMI 32.8 BP 129/61 Blood Pressure Location Lt brachial Position Sitting Pulse 86 Intake Visit Reasons: 2 week follow up Intake Note: Patient presents to in office visit today in 2 weeks follow up. CC: Patient brought BS readings log. She continues to c/o a lot of gas, constipation, and feeling her tongue to dry and turning white. 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 Accompanied by: Self / Same As Patient Allergies aspirin [ASA] Allergy (Intermediate, Verified 09/21/23 14:58) Hives Penicillins [PENICILLINS] Allergy (Intermediate, Verified 09/21/23 14:58) RASH loratadine Allergy (Unknown, Verified 09/21/23 14:58) Unknown trimethoprim Allergy (Unknown, Verified 09/21/23 14:58) Unknown venlafaxine Allergy (Unknown, Verified 09/21/23 14:58) Unknown HPI 2 week follow up HPI Details Assessment & Plan (1) Esophageal dysmotility: Comment: Causing dysphagia and had been treatment in the past with verapamil Code(s): K22.4 - Dyskinesia of esophagus (2) GERD (gastroesophageal reflux diseas e): Code(s): K21.9 - Gastro-esophageal reflux disease without esophagitis (3) Chronic idiopathic constipation: Code(s): K59.04 - Chronic idiopathic constipation (4) SLE (systemic lupus erythematosus re lated syndrome): Code(s): M32.9 - Systemic lupus erythematosus, unspecified (5) Diabetes mellitus: Code(s): E11.9 - Type 2 diabetes mellitus without complications Plan [place] #Ebenezer Live She has been taking 1/2 of her metformin bid, but complains that if she does not eat after taking a dose, her BS will drop. I instruct her that diabetics CAN NOT skip meals, she absolutely has to eat scheduled 3 times a day and I ask her what factors may prevent her from eating, and she says its when my mother does not want to eat and I try to wait. We discuss the importance of nutritious snacks. The drop will tend to happen about 4 hours after a dose. I reviewed the blood sugars that she wrote down and the running a little on the high side but there is no severe lows. I offer to refer her to radiation officer, but she says she has seen them before and declines for now. She did receive the Dexilant and is taking it, but still has trouble mobilizing her burping. She is taking simethicone, but it is not covered by her insurance so she has been taking her mothers. I give/write the OTC Gas X and generic so that she can get this inexpensive. She complains that her metformin is hard to cut when the pharmacy dispenses the round pills instead of the longer pills. I recommend a pill cutter and describe how this works. Right now she is having mild CIC, she has stopped the LInzess, senna, colace etc. BUT SHE DOES HAVE A PRESCRIBED MAGNESIUM SUPPLEMENT FOR SLEEP, which could have caused/c/t past diarrhea. She has continued to take this and right now with the mild constipation we will change it. I did educate her about this though in case they increase the dose in the future we can look for any potential diarrhea. At this point we are going to take half a pill 3 times a day the metformin and see what this does with her bowel movements. I think mobilizing the bowels better (in the past she has had diarrhea from metformin) and getting her meals planned a little better, will promote motility in the entire GI system and help her to mobilize the gas that is getting stuck in her esophagus. She also has esophageal dysmotility at baseline contributing to this. Return office visit in 2 weeks, I want her to continue to write down her BS to eval her control with the metformin dosing. TODAY'S VISIT [place] #Alton Peres She has been taking 1/2 of a metformin 3 times a day and I review her blood sugar log I have also running a little on the high side she does not seem to be having any significant low blood sugar problems. I think will continue with this dosing schedule for now. She says she still having constipation with an insufficient urge to move her bowels. Now will treat her for constipation. We are going to add senna in 1-2 tablets at bedtime and she can titrate to affect her side effect. She continues on taking 1 Colace twice a day. She has been having some increased GERD with a feeling like air is getting trapped in the esophagus. This is likely due to insufficient bowel motility along with esophageal dysmotility that is already known. I am going to give her some simethicone to try to mobilize gas better in the short term but I think this will improve once the bowel motility is improved. She is also bothered by severe dry mouth which is likely a side effect of multiple medications and difficult for me to address. She says she drinks a lot of fluids. I encouraged her to try to find a sugar free gummy type candy to s k on to see if she can keep her mouth from being so dry. A sugar free gum would be another option. Return office visit in 3 weeks. [facility] Medical History PONV (postoperative nausea and vomiting) Sweating abnormality Hirsutism MGUS (monoclonal gammopathy of unknown significance) Positive MARCY (antinuclear antibody) Idiopathic hirsutism Plantar fasciitis Mood disorder Xerosis of skin Chronic fatigue Myositis Myalgia Pulmonary nodule Depression Diabetes Age related osteoporosis Restless legs Spondylosis Arthritis Carpal tunnel syndrome Fibromyalgia Constipation High cholesterol Anxiety Hypertension SLE (systemic lupus erythematosus related syndrome) Surgical History H/O colonoscopy H/O esophagogastroduodenoscopy H/O hemorrhoidectomy History of tubal ligation Family History Father Diabetes Hypertension Mother Hypertension Diabetes Asthma Maternal Grandfather Throat cancer Maternal Grandmother Throat cancer Paternal Uncle Prostate cancer Maternal Uncle Throat cancer Stomach cancer Maternal Aunt Stomach cancer Diabetes Social History Household Members: Family Are you a primary medicare sales representative to a significant other at home: No Do you presently have visiting nurse or other home services: Yes (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 and supportive Daughter) Alcohol intake: never Patient Tobacco Use Status: Never used Tobacco Current occupational status: retired Current occupation: rt handed Review of Systems Const Denies fatigue, Denies fever(s), Denies night sweats, Denies poor appetite and Denies weight loss Eyes Details: glasses Reports requires corrective lenses ENT Reports Normal hearing present, Denies dental pain, Denies dysphagia, Denies hearing loss, Denies mouth pain, Denies odynophagia, Denies throat swelling, Denies tongue swelling and Reports other (Dentition adequate) Card Reports no additional complaints Resp Reports no additional complaints GI Details: Denies abdominal pain, Reports belching, Denies melena, Reports bloating, Denies hematochezia, Reports constipation, Denies GI cramping, Denies dysphagia, Denies excessive flatus, Denies early satiety, Reports heartburn, Denies diarrhea, Denies nausea, Denies odynophagia, Denies vomiting and Denies hematemesis Skin/Breast Denies pruritus, Denies lesions, Denies rash and Denies jaundice Neuro Reports Normal hearing present and Denies Abnormal speech present Endo Denies fatigue Aller/Immun Denies throat swelling and Denies tongue swelling Physical Exam Vital Signs: Last Vital Signs Pulse 86 09/21/23 14:50 BP 129/61 09/21/23 14:50 BMI result Body Mass Index 32.8 Const General: cooperative, no acute distress, well developed and well groomed Nutritional Appearance: well nourished and obese Orientation/consciousness: oriented to person, oriented to place and oriented to time Limitations: No language barrier HEENT Head: Yes normocephalic and Yes atraumatic Eyes General: appearance normal, both eyes and all related structures Pupils: Equal, round and reactive pupils present Neck Neck: Yes normal visual inspection and Yes no lymphadenopathy Thyroid: Thyroid normal Resp Effort & Inspection: normal respiratory effort and able to speak in complete sentences Auscultation: clear to auscultation bilaterally Cardio Rate: regular rate Rhythm: regular rhythm Heart sounds: Normal, physiologic split S2 sound present Peripheral pulses: radial pulses present and posterior tibial pulses present GI Inspection: No distended, No Abdominal panniculus present and Yes obesity Palpation (GI): Soft to palpation, nontender, no guarding, not rigid and No hepatosplenomegaly present Percussion: Yes normal to percussion Auscultation: normal bowel sounds Rectal Exam - Female: deferred Skin General skin exam: no rashes or lesions noted, turgor normal, skin not dry, no jaundice, No spider nevi and no striae Rashes: no rashes Nails: normal Neuro General: oriented to person, oriented to place and oriented to time Cranial nerves: Yes Equal, round and reactive pupils present and Yes Normal hearing present Speech: No Abnormal speech present Extrem General: Yes normal to inspection, No clubbing, No cyanosis and No edema Psych Appearance: grossly normal and well kempt Mental Status: mental status grossly normal Speech and movement: Normal speech and movement present Affect: normal affect Attitude: cooperative Thought process: Normal thought process present and not confabulating Thought content: Normal thought content present Insight: Limited insight present (Psych) Judgement: Limited judgement present (Psych) Results Reviewed Results Reviewed: See scanned sheet of her home blood sugar log Assessment & Plan Assessment & Plan (1) Chronic idiopathic constipation: Code(s): K59.04 - Chronic idiopathic constipation (2) Abdominal bloating: Code(s): R14.0 - Abdominal distension (gaseous) (3) Diabetes mellitus: Code(s): E11.9 - Type 2 diabetes mellitus without complications (4) GERD (gastroesophageal reflux disease): Code(s): K21.9 - Gastro-esophageal reflux disease without esophagitis (5) Presbyesophagus: Code(s): K22.89 - Other specified disease of esophagus Plan [place] #Alton Live She has been taking 1/2 of a metformin 3 times a day and I review her blood sugar log I have also running a little on the high side she does not seem to be having any significant low blood sugar problems. I think will continue with this dosing schedule for now. She says she still having constipation with an insufficient urge to move her bowels. Now will treat her for constipation. We are going to add senna in 1-2 tablets at bedtime and she can titrate to affect her side effect. She continues on taking 1 Colace twice a day. She has been having some increased GERD with a feeling like air is getting trapped in the esophagus. This is likely due to insufficient bowel motility along with esophageal dysmotility that is already known. I am going to give her some simethicone to try to mobilize gas better in the short term but I think this will improve once the bowel motility is improved. She is also bothered by severe dry mouth which is likely a side effect of multiple medications and difficult for me to address. She says she drinks a lot of fluids. I encouraged her to try to find a sugar free gummy type candy to suck on to see if she can keep her mouth from being so dry. A sugar free gum would be another option. Return office visit in 3 weeks. Medications: New sennosides 17.2 mg (2 x 8.6 mg) PO DAILY 60 tabs 6RF simethicone (Gas Relief (simethicone)) 125 mg PO QID PRN 120 tabs 6RF abdominal distention R14.0 - Abdominal distension (gaseous) Coding Level of Care Code Est Pt Level 4 (49375) Diagnoses Chronic idiopathic constipation K59.04 Abdominal bloating R14.0 Diabetes mellitus E11.9 GERD (gastroesophageal reflux disease) K21.9 Presbyesophagus K22.89 Time Spent (min) 38
== END 2023-09-21 15:16 | disposition home or self-care (01) ==
PROVIDERS: PCP Pediatrics; Visit Provider Nurse Practitioner
DX: K59.04 Chronic idiopathic constipation (principal); R14.0 Abdominal distension (gaseous); E11.9 Type 2 diabetes mellitus without complications; K21.9 Gastro-esophageal reflux disease without esophagitis; K22.89 Other specified disease of esophagus
CPT/HCPCS: 99214

== ENCOUNTER → 2023-09-21 14:45 | Outpatient (BNVA) | payer OTHER, SELFPAY | PROVIDERS: PCP Pediatrics; Visit Provider Nurse Practitioner | DX: K59.04 Chronic idiopathic constipation (principal); K21.9 Gastro-esophageal reflux disease without esophagitis; K22.89 Other specified disease of esophagus; R14.0 Abdominal distension (gaseous); E11.9 Type 2 diabetes mellitus without complications | CPT/HCPCS: 99212 ==

== ENCOUNTER 2023-10-13 14:35 | Outpatient (AMB) | payer OTHER, SELFPAY ==
--- NOTE | 2023-10-13 14:39 | A.OFFVIS_ITS ---
Intake Vital Signs 10/13/23 14:40 Height 5 ft 3 in Weight 181 lb 3.52 oz BMI 32.1 BP 136/77 Blood Pressure Location Lt brachial Position Sitting Intake Visit Reasons: 3 weeks follow up CIC/IBS, NIDDM Intake Note: Patient returns in follow up of CIC CC: Patient reports feeling better from constipation but states she still has some and does not feel desire to have a BM. 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 Accompanied by: Self / Same As Patient Allergies aspirin [ASA] Allergy (Intermediate, Verified 10/13/23 14:47) Hives Penicillins [PENICILLINS] Allergy (Intermediate, Verified 10/13/23 14:47) RASH loratadine Allergy (Unknown, Verified 10/13/23 14:47) Unknown trimethoprim Allergy (Unknown, Verified 10/13/23 14:47) Unknown venlafaxine Allergy (Unknown, Verified 10/13/23 14:47) Unknown HPI 3 weeks follow up CIC/IBS, NIDDM HPI Details Assessment & Plan (1) Esophageal dysmotility: Comment: Causing dysphagia and had been treatment in the past with verapamil Code(s): K22.4 - Dyskinesia of esophagus (2) GERD (gastroesophageal reflux diseas e): Code(s): K21.9 - Gastro-esophageal reflux disease without esophagitis (3) Chronic idiopathic constipation: Code(s): K59.04 - Chronic idiopathic constipation (4) SLE (systemic lupus erythematosus re lated syndrome): Code(s): M32.9 - Systemic lupus erythematosus, unspecified (5) Diabetes mellitus: Code(s): E11.9 - Type 2 diabetes mellitus without complications Plan [place] #Ebenezer Peres She has been taking 1/2 of her metformin bid, but complains that if she does not eat after taking a dose, her BS will drop. I instruct her that diabetics CAN NOT skip meals, she absolutely has to eat scheduled 3 times a day and I ask her what factors may prevent her from eating, and she says its when my mother does not want to eat and I try to wait. We discuss the importance of nutritious snacks. The drop will tend to happen about 4 hours after a dose. I reviewed the blood sugars that she wrote down and the running a little on the high side but there is no severe lows. I offer to refer her to acquisition lead, but she says she has seen them before and declines for now. She did receive the Dexilant and is taking it, but still has trouble mobilizing her burping. She is taking simethicone, but it is not covered by her insurance so she has been taking her mothers. I give/write the OTC Gas X and generic so that she can get this inexpensive. She complains that her metformin is hard to cut when the pharmacy dispenses the round pills instead of the longer pills. I recommend a pill cutter and describe how this works. Right now she is having mild CIC, she has stopped the LInzess, senna, colace etc. BUT SHE DOES HAVE A PRESCRIBED MAGNESIUM SUPPLEMENT FOR SLEEP, which could have caused/c/t past diarrhea. She has continued to take this and right now with the mild constipation we will change it. I did educate her about this though in case they increase the dose in the future we can look for any potential diarrhea. At this point we are going to take half a pill 3 times a day the metformin and see what this does with her bowel movements. I think mobilizing the bowels better (in the past she has had diarrhea from metformin) and getting her meals planned a little better, will promote motility in the entire GI system and help her to mobilize the gas that is getting stuck in her esophagus. She also has esophageal dysmotility at baseline contributing to this. Return office visit in 2 weeks, I want her to continue to write down her BS to eval her control with the metformin dosing. TODAY'S VISIT [place] #Nancy Live She is taking 3 half tablets of metformin a day and with this her blood sugar is not dropping unduly. I again stressed that she needs to eat it scheduled times and not skip meals. I again offered to refer her to a dietitian but she declined saying she already has all this information at home. I think now we will keep the metformin dosing stable (before she was taking it in very uneven amounts 1 or 2 tablets intermittently and then it would give her diarrhea) and work on the constipation situation. She is taking the senna 2 tablets at night but this still is not moving her bowels consistently and at time she is also using milk of magnesia. At this time I think we will stop the senna and try bisacodyl instead. If this does not work we can then progress to something like Linzess. She is really uncertain of her med so I write down all the medication she should have from 8, she asks if I can refill her magnesium and I have no problem with this since it is therapeutic for her constipation so I will take this on as well. She is uncertain if she actually has the Dexilant at home despite me prescribing it August. Return office visit in 4 weeks. COUNT INCLUDES THE [facility] Medical History PONV (postoperative nausea and vomiting) Sweating abnormality Hirsutism MGUS (monoclonal gammopathy of unknown significance) Positive MARCY (antinuclear antibody) Idiopathic hirsutism Plantar fasciitis Mood disorder Xerosis of skin Chronic fatigue Myositis Myalgia Pulmonary nodule Depression Diabetes Age related osteoporosis Restless legs Spondylosis Arthritis Carpal tunnel syndrome Fibromyalgia Constipation High cholesterol Anxiety Hypertension SLE (systemic lupus erythematosus related syndrome) Surgical History H/O colonoscopy H/O esophagogastroduodenoscopy H/O hemorrhoidectomy History of tubal ligation Family History Father Diabetes Hypertension Mother Hypertension Diabetes Asthma Maternal Grandfather Throat cancer Maternal Grandmother Throat cancer Paternal Uncle Prostate cancer Maternal Uncle Throat cancer Stomach cancer Maternal Aunt Stomach cancer Diabetes Social History Household Members: Family Are you a primary residential child care counselor to a significant other at home: No Do you presently have visiting nurse or other home services: Yes (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 MOTORMAN and supportive Daughter) Alcohol intake: never Patient Tobacco Use Status: Never used Tobacco Current occupational status: retired Current occupation: rt handed Review of Systems Const Denies fatigue, Denies fever(s), Denies night sweats, Denies poor appetite and Denies weight loss ENT Reports Normal hearing present, Denies dental pain, Denies dysphagia, Denies hearing loss, Denies mouth pain, Denies odynophagia, Denies throat swelling, Denies tongue swelling and Reports other (Dentition adequate) Card Reports no additional complaints Resp Reports no additional complaints GI Details: Denies abdominal pain, Denies melena, Reports bloating, Denies hematochezia, Reports constipation, Denies GI cramping, Denies dysphagia, Denies excessive flatus, Denies early satiety, Reports heartburn, Denies diarrhea, Denies nausea, Denies odynophagia, Denies vomiting and Denies hematemesis Skin/Breast Denies pruritus, Denies lesions, Denies rash and Denies jaundice Neuro Reports Normal hearing present and Denies Abnormal speech present Endo Denies fatigue Aller/Immun Denies throat swelling and Denies tongue swelling Physical Exam Vital Signs: Last Vital Signs BP 136/77 10/13/23 14:40 BMI result Body Mass Index 32.1 Const General: cooperative, no acute distress, well developed and well groomed Nutritional Appearance: well nourished and obese Orientation/consciousness: oriented to person, oriented to place and oriented to time Limitations: language barrier HEENT Head: Yes normocephalic and Yes atraumatic Eyes General: appearance normal, both eyes and all related structures Pupils: Equal, round and reactive pupils present Neck Neck: Yes normal visual inspection and Yes no lymphadenopathy Thyroid: Thyroid normal Resp Effort & Inspection: normal respiratory effort and able to speak in complete sentences Auscultation: clear to auscultation bilaterally Cardio Rate: regular rate Rhythm: regular rhythm Heart sounds: Normal, physiologic split S2 sound present Peripheral pulses: radial pulses present and posterior tibial pulses present GI Inspection: No distended, Yes Abdominal panniculus present and Yes obesity Palpation (GI): Soft to palpation, nontender, no guarding, not rigid and No hepatosplenomegaly present Percussion: Yes normal to percussion Auscultation: normal bowel sounds Rectal Exam - Female: deferred Skin General skin exam: no rashes or lesions noted, turgor normal, skin not dry, no jaundice, No spider nevi and no striae Rashes: no rashes Nails: normal Neuro General: oriented to person, oriented to place and oriented to time Cranial nerves: Yes Equal, round and reactive pupils present and Yes Normal hearing present Speech: No Abnormal speech present Extrem General: Yes normal to inspection, No clubbing, No cyanosis and No edema Psych Appearance: grossly normal and well kempt Mental Status: mental status grossly normal Speech and movement: Normal speech and movement present Affect: normal affect Attitude: cooperative Thought process: Normal thought process present and not confabulating Thought content: Normal thought content present Insight: Limited insight present (Psych) Judgement: Limited judgement present (Psych) Assessment & Plan Assessment & Plan (1) Dysphagia: Code(s): R13.10 - Dysphagia, unspecified (2) Chronic idiopathic constipation: Code(s): K59.04 - Chronic idiopathic constipation (3) GERD (gastroesophageal reflux disease): Code(s): K21.9 - Gastro-esophageal reflux disease without esophagitis (4) Esophageal dysmotility: Comment: Causing dysphagia and had been treatment in the past with verapamil Code(s): K22.4 - Dyskinesia of esophagus (5) Abdominal bloating: Code(s): R14.0 - Abdominal distension (gaseous) (6) Diabetes mellitus: Code(s): E11.9 - Type 2 diabetes mellitus without complications Plan [place] #Nancy Live She is taking 3 half tablets of metformin a day and with this her blood sugar is not dropping unduly. I again stressed that she needs to eat it scheduled times and not skip meals. I again offered to refer her to a dietitian but she declined saying she already has all this information at home. I think now we will keep the metformin dosing stable (before she was taking it in very uneven amounts 1 or 2 tablets intermittently and then it would give her diarrhea) and work on the constipation situation. She is taking the senna 2 tablets at night but this still is not moving her bowels consistently and at time she is also using milk of magnesia. At this time I think we will stop the senna and try bisacodyl instead. If this does not work we can then progress to something like Linzess. She is really uncertain of her med so I write down all the medication she should have from 8, she asks if I can refill her magnesium and I have no problem with this since it is therapeutic for her constipation so I will take this on as well. She is uncertain if she actually has the Dexilant at home despite me prescribing it August. Return office visit in 4 weeks. Medications: New bisacodyl (Dulcolax (bisacodyl)) 10 mg (2 x 5 mg) PO BEDTIME 30 days 60 tabs 3RF K59.04 - Chronic idiopathic constipation magnesium oxide 400 mg PO DAILY 30 tabs 6RF On Hold sennosides Hold Comment: Doctor's Order 17.2 mg (2 x 8.6 mg) PO DAILY 60 tabs 6RF Coding Level of Care Code Est Pt Level 3 (36762) Diagnoses Dysphagia R13.10 Chronic idiopathic constipation K59.04 GERD (gastroesophageal reflux disease) K21.9 Esophageal dysmotility K22.4 Abdominal bloating R14.0 Diabetes mellitus E11.9
[2023-10-13 14:40] VITALS: BP 136/77; BMI 32.1
== END 2023-10-13 14:58 | disposition home or self-care (01) ==
PROVIDERS: PCP Pediatrics; Visit Provider Nurse Practitioner
DX: R13.10 Dysphagia, unspecified (principal); K59.04 Chronic idiopathic constipation; K21.9 Gastro-esophageal reflux disease without esophagitis; K22.4 Dyskinesia of esophagus; R14.0 Abdominal distension (gaseous); E11.9 Type 2 diabetes mellitus without complications
CPT/HCPCS: 99213

== ENCOUNTER → 2023-10-13 14:35 | Outpatient (BNVA) | payer OTHER, SELFPAY | PROVIDERS: PCP Pediatrics; Visit Provider Nurse Practitioner | DX: R13.10 Dysphagia, unspecified (principal); K59.04 Chronic idiopathic constipation; K21.9 Gastro-esophageal reflux disease without esophagitis; K22.4 Dyskinesia of esophagus; R14.0 Abdominal distension (gaseous); E11.9 Type 2 diabetes mellitus without complications; Z79.84 Long term (current) use of oral hypoglycemic drugs | CPT/HCPCS: 99212 ==

== ENCOUNTER 2023-10-28 16:01 | Outpatient (REF) | payer OTHER, SELFPAY ==
[2023-10-28 17:21] LABS: MANUAL DIFF FLAG NO
[2023-10-28 17:26] LABS: Basophils Percent Auto 0.3 % (0-2); Eosinophils Absolute Auto 0.2 X10*3/uL (0.0-0.4); Eosinophils Percent Auto 1.8 % (0-4); Hematocrit 37.6 % (37.0-47.0); Imm Gran Abs Auto 0.03 X10*3/uL (0.00-0.03); Imm Gran Pct Auto 0.3 % (0.0-0.4); Lymphocytes Absolute Auto 2.1 X10*3/uL (1.2-4.9); Lymphocytes Percent Auto 23.3 % (20-40); Mean Corpuscular HGB Conc 31.9 g/dl (31.0-35.0); Mean Corpuscular Hemoglobin 30.2 pg (27.0-33.0); Mean Corpuscular Volume 94.5 fL (80.0-98.0); Mean Platelet Volume 10.2 fL (9.4-12.3); Monocytes Absolute Auto 0.8 X10*3/uL (0.1-1.2); Monocytes Percent Auto 9.3 % (2-11); Neutrophils Absolute Auto 5.8 x10*3/uL (2.0-8.3); Platelet Count 314 X10*3/uL (160-400); Red Blood Count 3.98 X10*6/uL (4.20-5.50); Red Cell Distribution Width 12.5 % (11.0-16.0); White Blood Count 8.9 X10*3/uL (4.8-10.8)
[2023-10-28 18:37] LABS: C Reactive Protein 0.27 mg/dL (< or = 0.50)
[2023-10-28 18:52] LABS: Erythrocyte Sedimentation Rate 14 MM/HR (0-20)
[2023-10-28 18:53] LABS: TSH reflex Free T4 1.26 uIU/mL (0.32-4.0)
[2023-10-28 19:02] LABS: Vitamin B12 796 pg/mL (200-900)
[2023-10-31 08:58] LABS: Anti Nuclear Antibody Screen NEGATIVE (NEGATIVE)
[2023-11-10 12:23] LABS: Centromere Protein A Ab <11 SI (<11); Centromere Protein B Ab <11 SI (<11); Fibrillarin Ab <11 SI (<11); PM SCL 100 Ab <11 SI (<11); PM SCL 75 Ab <11 SI (<11); RNA Polymerase III RP11 Ab <11 SI (<11); RNA Polymerase III RP155 Ab <11 SI (<11); SCL-70 Extractable Nuclear Ab <11 SI (<11); Th-To Ab <11 SI (<11); U1 SNRNP RNP 70KD <11 SI (<11); U1 SNRNP RNP A <11 SI (<11); U1 SNRNP RNP C <11 SI (<11)
== END 2023-10-28 16:02 | disposition home or self-care (01) ==
LOC: HO.CHCLDS 16:01
PROVIDERS: Visit Provider Family Medicine
DX: R20.0 Anesthesia of skin (principal); R20.2 Paresthesia of skin
CPT/HCPCS: 36415; 82607; 82746; 84182; 84443; 85025; 85652; 86038; 86140; 86235

== ENCOUNTER 2023-11-09 11:59 | Outpatient (REF) | payer OTHER, SELFPAY ==
[2023-11-09 15:12] LABS: Cholesterol 241 mg/dL (<200); HDL Cholesterol 51 mg/dL (>40); LDL Cholesterol Calculated 159 mg/dL (<100); Triglycerides 156 mg/dL (<150)
== END 2023-11-09 12:00 | disposition home or self-care (01) ==
LOC: HO.CHCLDS 11:59
PROVIDERS: Visit Provider Pediatrics
DX: E11.9 Type 2 diabetes mellitus without complications (principal); R20.0 Anesthesia of skin; R20.2 Paresthesia of skin; M79.7 Fibromyalgia; M62.9 Disorder of muscle, unspecified; I10 Essential (primary) hypertension
CPT/HCPCS: 36415; 80061; 83735

== ENCOUNTER 2023-11-15 10:44 | Outpatient (AMB) | payer OTHER, SELFPAY ==
[2023-11-15 10:50] VITALS: BP 119/70; PULSE 90; O2SAT 98; BMI 33.0
--- NOTE | 2023-11-15 10:50 | MHC.OFFVIS ---
Intake Vital Signs 11/15/23 10:50 Height 5 ft 3 in Weight 186 lb 4.65 oz BMI 33.0 BP 119/70 Blood Pressure Location Rt brachial Position Sitting Pulse 90 Pulse Source Doppler Pulse Oximetry (%) 98 Oxygen Delivery Method Room Air Intake Visit Reasons: shortness of breath Notched Blade Loader Required: Yes Notched Blade Loader Name: Cathie Mccray Carissa Allergies aspirin [ASA] Allergy (Intermediate, Verified 11/15/23 10:54) Hives Penicillins [PENICILLINS] Allergy (Intermediate, Verified 11/15/23 10:54) RASH loratadine Allergy (Unknown, Verified 11/15/23 10:54) Unknown trimethoprim Allergy (Unknown, Verified 11/15/23 10:54) Unknown venlafaxine Allergy (Unknown, Verified 11/15/23 10:54) Unknown HPI shortness of breath HPI Details 63-year-old lady, lifetime nonsmoker, with ?SLE, also underlying obstructive sleep apnea on CPAP? and at least moderate persistent asthma.? She continues on Breo and albuterol MDI with slowly worsening control of her symptoms. Patient does not fully compliant with her CPAP and does complain of intermittent daytime sleepiness. She is also complaining of orthopnea and lower extremity edema. [facility]LY [facility] Medical History PONV (postoperative nausea and vomiting) Sweating abnormality Hirsutism MGUS (monoclonal gammopathy of unknown significance) Positive MARCY (antinuclear antibody) Idiopathic hirsutism Plantar fasciitis Mood disorder Xerosis of skin Chronic fatigue Myositis Myalgia Pulmonary nodule Depression Diabetes Age related osteoporosis Restless legs Spondylosis Arthritis Carpal tunnel syndrome Fibromyalgia Constipation High cholesterol Anxiety Hypertension SLE (systemic lupus erythematosus related syndrome) Surgical History H/O colonoscopy H/O esophagogastroduodenoscopy H/O hemorrhoidectomy History of tubal ligation Family History Father Diabetes Hypertension Mother Hypertension Diabetes Asthma Maternal Grandfather Throat cancer Maternal Grandmother Throat cancer Paternal Uncle Prostate cancer Maternal Uncle Throat cancer Stomach cancer Maternal Aunt Stomach cancer Diabetes Social History Household Members: Family Are you a primary pet care assistant to a significant other at home: No Do you presently have visiting nurse or other home services: Yes (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) Alcohol intake: never Patient Tobacco Use Status: Never used Tobacco Current occupational status: retired Current occupation: rt handed Review of Systems Const Reports daytime sleepiness, Denies excessive sweating, Denies fatigue, Denies fever(s), Reports lethargy, Denies malaise, Denies night sweats, Denies snoring and Denies weight loss Eyes Denies blurry vision and Denies itchy eyes ENT Denies nasal congestion, Denies post nasal drip, Denies sinus pain, Denies sinus pressure and Denies other ( Thrush) Card Denies chest pain, Reports pedal edema, Denies dyspnea, Reports dyspnea on exertion, Reports orthopnea and Reports paroxysmal nocturnal dyspnea Resp Denies cough, Denies hemoptysis, Denies excessive phlegm production, Denies dyspnea, Reports dyspnea on exertion, Denies snoring and Denies wheezing GI Denies abdominal pain and Denies heartburn Musc Denies myalgias, Denies arthralgias and Denies joint swelling Skin/Breast Denies rash Neuro Denies memory loss and Denies seizure-like activity Psych Denies abnormal sleep pattern, Denies anxiety and Denies memory loss Endo Denies excessive sweating, Denies fatigue and Denies heat intolerance Chase/Lymph Denies easy bruising Aller/Immun Denies itchy eyes, Denies seasonal rhinorrhea and Denies wheezing Physical Exam Vital Signs: Last Vital Signs Pulse 90 11/15/23 10:50 BP 119/70 11/15/23 10:50 Pulse Ox 98 11/15/23 10:50 Oxygen Delivery Method Room Air 11/15/23 10:50 BMI result Body Mass Index 33.0 Const General: no acute distress and alert Nutritional Appearance: obese Orientation/consciousness: Other orientation findings ( oriented) HEENT Head: Yes atraumatic Eyes General: appearance normal, both eyes and all related structures Sclerae: sclerae normal EOM: EOMs intact bilaterally Neck Neck: Yes supple Lymphatic: no lymphadenopathy noted Resp Effort & Inspection: normal respiratory effort and no use of accessory muscles Auscultation: clear to auscultation bilaterally Cardio Rate: regular rate Rhythm: regular rhythm Heart sounds: no gallops, no murmurs and no rubs Skin General skin exam: other ( warm) Extrem General: No clubbing, No cyanosis and Yes edema (1+ bilateral) Assessment & Plan Assessment & Plan (1) Asthma: Code(s): J45.909 - Unspecified asthma, uncomplicated Plan: Slowly worsening control on Breo, will switch to Trelegy. Continue albuterol MDI and duo nebs. (2) Dyspnea on exertion: Code(s): R06.00 - Dyspnea, unspecified Plan: Appears to have significant orthopnea/paroxysmal nocturnal dyspnea/lower extremity edema component. Will start on Lasix 20 mg daily. (3) TREE on CPAP: Code(s): G47.33 - Obstructive sleep apnea (adult) (pediatric); Z99.89 - Dependence on other enabling machines and devices Plan: Suboptimal compliant. Patient has been encouraged to be more compliant with her CPAP. Medications: New furosemide 20 mg PO QAM 30 tabs 6RF 30 days [id number] 200-62.5-25 mcg (Trelegy Ellipta) 1 inh inhalation DAILY 1 ea 6RF 30 days Discontinued fluticasone furoate-vilanterol 200-25 mcg/dose (Breo Ellipta) Discontinued Reason: Doctor's Order 1 ea inhalation DAILY 60 ea 6RF J45.909 - Unspecified asthma, uncomplicated Coding Level of Care Code Est Pt Level 4 (86917) Diagnoses Asthma J45.909 Dyspnea on exertion R06.00 TREE on CPAP G47.33; Z99.89
== END 2023-11-15 11:12 | disposition home or self-care (01) ==
PROVIDERS: PCP Pediatrics; Visit Provider Internal Medicine Pulmonary Disease
DX: J45.909 Unspecified asthma, uncomplicated (principal); R06.00 Dyspnea, unspecified; G47.33 Obstructive sleep apnea (adult) (pediatric); Z99.89 Dependence on other enabling machines and devices
CPT/HCPCS: 99214

== ENCOUNTER → 2023-11-15 10:44 | Outpatient (BNVA) | payer OTHER, SELFPAY | PROVIDERS: PCP Pediatrics; Visit Provider Internal Medicine Pulmonary Disease | DX: K21.9 Gastro-esophageal reflux disease without esophagitis (principal); K59.04 Chronic idiopathic constipation; K58.9 Irritable bowel syndrome, unspecified; R14.0 Abdominal distension (gaseous); R13.10 Dysphagia, unspecified; J45.909 Unspecified asthma, uncomplicated; G47.33 Obstructive sleep apnea (adult) (pediatric); R06.00 Dyspnea, unspecified; Z99.89 Dependence on other enabling machines and devices | CPT/HCPCS: 99212 ==

== ENCOUNTER 2023-11-15 14:18 | Outpatient (AMB) | payer OTHER, SELFPAY ==
--- NOTE | 2023-11-15 14:20 | MHC.OFFVIS ---
Intake Vital Signs 11/15/23 14:27 BP 122/66 Blood Pressure Location Lt brachial Position Sitting Pulse 80 Intake Visit Reasons: 4 week follow up CIC, NIDDM, bloating Intake Note: Patient follow up for CIC, NIDDM, and bloating Patient cc: diarrhea on and off, swallowing problems, acid reflex with burning sensation and med is not working for her GERD. An Employee Sponsor Or Advocate And Required: Yes An Employee Sponsor Or Advocate And Name: Clovis [id number] Accompanied by: Self / Same As Patient Allergies aspirin [ASA] Allergy (Intermediate, Verified 11/15/23 14:20) Hives Penicillins [PENICILLINS] Allergy (Intermediate, Verified 11/15/23 14:20) RASH loratadine Allergy (Unknown, Verified 11/15/23 14:20) Unknown trimethoprim Allergy (Unknown, Verified 11/15/23 14:20) Unknown venlafaxine Allergy (Unknown, Verified 11/15/23 14:20) Unknown HPI 4 week follow up CIC, NIDDM, bloating HPI Details Assessment & Plan (1) Dysphagia: Code(s): R13.10 - Dysphagia, unspecified (2) Chronic idiopathic constipation: Code(s): K59.04 - Chronic idiopathic constipation (3) GERD (gastroesophageal reflux disease): Code(s): K21.9 - Gastro-esophageal reflux disease without esophagitis (4) Esophageal dysmotility: Comment: Causing dysphagia and had been treatment in the past with verapamil Code(s): K22.4 - Dyskinesia of esophagus (5) Abdominal bloating: Code(s): R14.0 - Abdominal distension (gaseous) (6) Diabetes mellitus: Code(s): E11.9 - Type 2 diabetes mellitus without complications Plan Romanian #Nancy Live She is taking 3 half tablets of metformin a day and with this her blood sugar is not dropping unduly. I again stressed that she needs to eat it scheduled times and not skip meals. I again offered to refer her to a dietitian but she declined saying she already has all this information at home. I think now we will keep the metformin dosing stable (before she was taking it in very uneven amounts 1 or 2 tablets intermittently and then it would give her diarrhea) and work on the constipation situation. She is taking the senna 2 tablets at night but this still is not moving her bowels consistently and at time she is also using milk of magnesia. At this time I think we will stop the senna and try bisacodyl instead. If this does not work we can then progress to something like Linzess. She is really uncertain of her med so I write down all the medication she should have from , she asks if I can refill her magnesium and I have no problem with this since it is therapeutic for her constipation so I will take this on as well. She is uncertain if she actually has the Dexilant at home despite me prescribing it August. Return office visit in 4 weeks. Medications: New bisacodyl (Dulcola x (bisacodyl)) 10 mg (2 x 5 mg) P O BEDTIME 30 days 60 tabs 3RF K59.04 - Chronic i diopathic constipa tion magnesium oxide 400 mg PO DAILY 3 0 tabs 6RF On Hold sennosides Hold Comment: Doctor' s Order 17.2 mg (2 x 8.6 m g) PO DAILY 60 tab s 6RF TODAY'S VISIT Romanian #[id number] She says that the Dexilant is now working well for her GERD and she is having a lot of bloating. She is also having a lot of burping and gas trapping in her esophagus. She has presbyesophagus. She feels the bisacodyl is working well for her CIC. She also feels that taking 2 simethicone at a time works better for her gas trapping, This is ok. I will also get a trial of Creon and change the Dexilant to Aciphex to see if we can get better control. Return office visit in 4 weeks [facility] Medical History PONV (postoperative nausea and vomiting) Sweating abnormality Hirsutism MGUS (monoclonal gammopathy of unknown significance) Positive MARCY (antinuclear antibody) Idiopathic hirsutism Plantar fasciitis Mood disorder Xerosis of skin Chronic fatigue Myositis Myalgia Pulmonary nodule Depression Diabetes Age related osteoporosis Restless legs Spondylosis Arthritis Carpal tunnel syndrome Fibromyalgia Constipation High cholesterol Anxiety Hypertension SLE (systemic lupus erythematosus related syndrome) Surgical History H/O colonoscopy H/O esophagogastroduodenoscopy H/O hemorrhoidectomy History of tubal ligation Family History Father Diabetes Hypertension Mother Hypertension Diabetes Asthma Maternal Grandfather Throat cancer Maternal Grandmother Throat cancer Paternal Uncle Prostate cancer Maternal Uncle Throat cancer Stomach cancer Maternal Aunt Stomach cancer Diabetes Social History Household Members: Family Are you a primary career development counselor to a significant other at home: No Do you presently have visiting nurse or other home services: Yes (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) Alcohol intake: never Patient Tobacco Use Status: Never used Tobacco Current occupational status: retired Current occupation: rt handed Review of Systems Const Denies fatigue, Denies fever(s), Denies night sweats, Denies poor appetite and Denies weight loss ENT Reports Normal hearing present, Denies dental pain, Denies dysphagia, Denies hearing loss, Denies mouth pain, Denies odynophagia, Denies throat swelling, Denies tongue swelling and Reports other (Dentition adequate) Card Reports no additional complaints Resp Reports no additional complaints GI Details: Denies abdominal pain, Denies melena, Reports bloating, Denies hematochezia, Reports constipation, Denies GI cramping, Denies dysphagia, Denies excessive flatus, Denies early satiety, Reports heartburn, Denies diarrhea, Denies nausea, Denies odynophagia, Denies vomiting and Denies hematemesis Skin/Breast Denies pruritus, Denies lesions, Denies rash and Denies jaundice Neuro Reports Normal hearing present and Denies Abnormal speech present Endo Denies fatigue Aller/Immun Denies throat swelling and Denies tongue swelling Physical Exam Vital Signs: Last Vital Signs Pulse 80 11/15/23 14:27 BP 122/66 11/15/23 14:27 Const General: cooperative, no acute distress, well developed and well groomed Nutritional Appearance: well nourished and obese Orientation/consciousness: oriented to person, oriented to place and oriented to time Limitations: language barrier HEENT Head: Yes normocephalic and Yes atraumatic Eyes General: appearance normal, both eyes and all related structures Pupils: Equal, round and reactive pupils present Neck Neck: Yes normal visual inspection and Yes no lymphadenopathy Thyroid: Thyroid normal Resp Effort & Inspection: normal respiratory effort and able to speak in complete sentences Auscultation: clear to auscultation bilaterally Cardio Rate: regular rate Rhythm: regular rhythm Heart sounds: Normal, physiologic split S2 sound present Peripheral pulses: radial pulses present and posterior tibial pulses present GI Inspection: No distended, No Abdominal panniculus present and Yes obesity Palpation (GI): Soft to palpation, nontender, no guarding, not rigid and No hepatosplenomegaly present Percussion: Yes normal to percussion Auscultation: normal bowel sounds Rectal Exam - Female: deferred Skin General skin exam: no rashes or lesions noted, turgor normal, skin not dry, no jaundice, No spider nevi and no striae Rashes: no rashes Nails: normal Neuro General: oriented to person, oriented to place and oriented to time Cranial nerves: Yes Equal, round and reactive pupils present and Yes Normal hearing present Speech: No Abnormal speech present Extrem General: Yes normal to inspection, No clubbing, No cyanosis and No edema Psych Appearance: grossly normal and well kempt Mental Status: mental status grossly normal Speech and movement: Normal speech and movement present Affect: normal affect Attitude: cooperative Thought process: Normal thought process present and not confabulating Thought content: Normal thought content present Insight: Limited insight present (Psych) Judgement: Limited judgement present (Psych) Assessment & Plan Assessment & Plan (1) Abdominal bloating: Code(s): R14.0 - Abdominal distension (gaseous) (2) GERD (gastroesophageal reflux disease): Code(s): K21.9 - Gastro-esophageal reflux disease without esophagitis (3) Chronic idiopathic constipation: Code(s): K59.04 - Chronic idiopathic constipation (4) Dysphagia: Code(s): R13.10 - Dysphagia, unspecified (5) IBS (irritable bowel syndrome): Code(s): K58.9 - Irritable bowel syndrome without diarrhea Plan Romanian #[id number] She says that the Dexilant is now working well for her GERD and she is having a lot of bloating. She is also having a lot of burping and gas trapping in her esophagus. She has presbyesophagus. She feels the bisacodyl is working well for her CIC. She also feels that taking 2 simethicone at a time works better for her gas trapping, This is ok. I will also get a trial of Creon and change the Dexilant to Aciphex to see if we can get better control. Return office visit in 4 weeks Medications: New [id number] 36,000-114,000- 180,000 unit (Creon) administer with meals and/or snacks 2 caps PO BID 120 caps 6RF K58.9 - Irritable bowel syndrome without diarrhea rabeprazole (AcipHex) 20 mg PO BID 60 tabs 6RF K21.9 - Gastro-esophageal reflux disease without esophagitis, R13.10 - Dysphagia, unspecified Changed From simethicone after meals 180 mg PO QID 30 days 120 caps 3RF To simethicone after meals 360 mg (2 x 180 mg) PO BID 120 caps 3RF 30 days Discontinued dexlansoprazole (Dexilant) Discontinued Reason: Doctor's Order 60 mg PO DAILY 30 days 30 caps 6RF sennosides Discontinued Reason: Doctor's Order 17.2 mg (2 x 8.6 mg) PO DAILY 60 tabs 6RF Patient Instructions: Jess Gray Estoy cambiando los siguientes medicamentos: 1. Deje de claudia Dexilant y comience a rabeprazol cuando lo reciba (es posible que tenga que luchar con el seguro). 2. Estamos iniciando priscilla prueba de creon, claudia 2 c?psulas dos veces al d?a. 3. Est? nitin claudia 2 simeticona a la vez dos veces al d?a. He escrito la receta para reflejar esto. ROV 4 semanas. Coding Level of Care Code Est Pt Level 3 (35843) Diagnoses Abdominal bloating R14.0 GERD (gastroesophageal reflux disease) K21.9 Chronic idiopathic constipation K59.04 Dysphagia R13.10 IBS (irritable bowel syndrome) K58.9
[2023-11-15 14:27] VITALS: BP 122/66; PULSE 80
== END 2023-11-15 14:57 | disposition home or self-care (01) ==
PROVIDERS: PCP Pediatrics; Visit Provider Nurse Practitioner
DX: R14.0 Abdominal distension (gaseous) (principal); K21.9 Gastro-esophageal reflux disease without esophagitis; K59.04 Chronic idiopathic constipation; R13.10 Dysphagia, unspecified; K58.9 Irritable bowel syndrome, unspecified
CPT/HCPCS: 99213

== ENCOUNTER 2023-11-22 13:56 | Outpatient (REF) | payer OTHER, SELFPAY ==
--- NOTE | ~2023-11-22 | US_ITS ---
EXAMINATION: US NAE complete CLINICAL INFORMATION: COLD AND PURPLE TOES COMPARISON: None available. TECHNIQUE: The ankle/brachial indices of the distal posterior tibial and the dorsalis pedis arteries were obtained of the lower extremity arterial system bilaterally; along with pressures and pulse volume recordings at the ankle level. The study was performed at rest. FINDINGS: 1. ANKLE-BRACHIAL INDICES: RIGHT: 1.02 LEFT: 1.02 2. ANKLE PVR WAVEFORMS: RIGHT: Abnormal LEFT: Abnormal US/US NAE complete IMPRESSION: No significant peripheral arterial disease bilaterally by NAE. However, abnormal PVR waveforms are noted bilaterally.
== END 2023-11-22 13:57 | disposition home or self-care (01) ==
LOC: HO.US 13:56
PROVIDERS: Visit Provider Pediatrics
DX: E11.9 Type 2 diabetes mellitus without complications (principal); I10 Essential (primary) hypertension; R23.0 Cyanosis
CPT/HCPCS: 93923

== ENCOUNTER 2023-12-14 14:59 | Outpatient (REF) | payer OTHER, SELFPAY ==
[2023-12-14 17:52] LABS: Appearance Urine Clear; Color Urine Dark Yellow; Glucose Urine UA Negative (Negative); Leukocyte Esterase Urine Trace (Negative); Nitrite Urine Negative (Negative); PH 6.5 (5.0-9.0); Specific Gravity - Urine >= 1.030 (1.005-1.025); UMIC TRIGGER UACC YES; Urine Blood Negative (Negative); Urine Ketones Trace mg/dL (Negative); Urine Protein 30 (1+) mg/dL (Neg-Trace)
[2023-12-14 17:57] LABS: Bacteria Urine None Seen (None Seen); RBC Urine 0-2 /HPF (0-2); Squamous Epithelial Cell Urine 0-2 /HPF (0-2); WBC Urine 0-5 /HPF (0-5)
== END 2023-12-14 15:00 | disposition home or self-care (01) ==
LOC: HO.LAB 14:59
PROVIDERS: PCP Pediatrics; Visit Provider Nurse Practitioner
DX: K59.04 Chronic idiopathic constipation (principal); K21.9 Gastro-esophageal reflux disease without esophagitis; R14.0 Abdominal distension (gaseous); R13.10 Dysphagia, unspecified; K58.9 Irritable bowel syndrome, unspecified; R10.9 Unspecified abdominal pain; Z87.442 Personal history of urinary calculi
CPT/HCPCS: 81001; 99212

== ENCOUNTER 2023-12-14 14:59 | Outpatient (AMB) | payer OTHER, SELFPAY ==
[2023-12-14 15:13] VITALS: BP 127/79; PULSE 85; BMI 33.0
--- NOTE | 2023-12-14 15:13 | A.OFFVIS_ITS ---
Vital Signs 12/14/23 15:13 Height 5 ft 3 in Weight 186 lb 8.177 oz BMI 33.0 BP 127/79 Blood Pressure Location Lt brachial Position Sitting Pulse 85 Intake Visit Reasons: 4 wk follow up abd bloating, CIC, GERD Intake Note: Iris presents to in office follow up of CIC and GERD. CC: Patient c/o LUQ abdominal pain with radiation to her back for about a week. She also c/o a lot of gas and acid reflux. Patient Sitter Required: Yes Accompanied by: Self / Same As Patient Allergies aspirin [ASA] Allergy (Intermediate, Verified 12/14/23 15:31) Hives Penicillins [PENICILLINS] Allergy (Intermediate, Verified 12/14/23 15:31) RASH loratadine Allergy (Unknown, Verified 12/14/23 15:31) Unknown trimethoprim Allergy (Unknown, Verified 12/14/23 15:31) Unknown venlafaxine Allergy (Unknown, Verified 12/14/23 15:31) Unknown HPI HPI 4 wk follow up abd bloating, CIC, GERD: Details: Assessment & Plan (1) Abdominal bloating: Code(s): R14.0 - Abdominal distension (gaseous) (2) GERD (gastroesophageal reflux disease): Code(s): K21.9 - Gastro-esophageal reflux disease without esophagitis (3) Chronic idiopathic constipation: Code(s): K59.04 - Chronic idiopathic constipation (4) Dysphagia: Code(s): R13.10 - Dysphagia, unspecified (5) IBS (irritable bowel syndrome): Code(s): K58.9 - Irritable bowel syndrome without diarrhea Plan [place] #[id number] She says that the Dexilant is not working well for her GERD and she is having a lot of bloating. She is also having a lot of burping and gas trapping in her esophagus. She has presbyesophagus. She feels the bisacodyl is working well for her CIC. She also feels that taking 2 simethicone at a time works better for her gas trapping, This is ok. I will also get a trial of Creon and change the Dexilant to Aciphex to see if we can get better control. Return office visit in 4 weeks Medications: New ggnmys-ddjnktec-hsjohsy 36,000-114,000- 180,000 unit (Creon) administer with meals and/or snacks 2 caps PO BID 120 caps 6RF K58.9 - Irritable bowel syndrome without diarrhea rabeprazole (AcipHex) 20 mg PO BID 60 tabs 6RF K21.9 - Gastro-esophageal reflux disease without esophagitis, R13.10 - Dysphagia, unspecified Changed From simethicone after meals 180 mg PO QID 30 days 120 caps 3RF To simethicone after meals 360 mg (2 x 180 mg) PO BID 120 caps 3RF 30 days Discontinued dexlansoprazole (Dexilant) Discontinued Reason: Doctor's Order 60 mg PO DAILY 30 days 30 caps 6RF sennosides Discontinued Reason: Doctor's Order 17.2 mg (2 x 8.6 mg) PO DAILY 60 tabs 6RF Patient Instructions: Jess Gray Estoy cambiando los siguientes medicamentos: 1. Deje de claudia Dexilant y comience a rabeprazol cuando lo reciba (es posible que tenga que luchar con el seguro). 2. Estamos iniciando priscilla prueba de creon, claudia 2 c?psulas dos veces al d?a. 3. Est? nitin claudia 2 simeticona a la vez dos veces al d?a. He escrito la receta para reflejar esto. ROV 4 semanas. TODAYS VISIT Niuean #[id number], Britt She is not moving her bowels well despite the bisacodyl. She did receive the aciphex and she feels it is helping better than the dexilant. She is having left flank pain that radiates to the back - this could be CIC but also could be nephrolithiasis. This pain has been for 2 weeks. I think will get a urinalysis to see if there is any reason to suspect nephrolithiasis but in the meantime we will progress her to Linzess and start her at the 290 micro g dose. Return office visit in 4 weeks to titrate the Linzess and go over her results. [facility] Medical History PONV (postoperative nausea and vomiting) Sweating abnormality Hirsutism MGUS (monoclonal gammopathy of unknown significance) Positive MARCY (antinuclear antibody) Idiopathic hirsutism Plantar fasciitis Mood disorder Xerosis of skin Chronic fatigue Myositis Myalgia Pulmonary nodule Depression Diabetes Age related osteoporosis Restless legs Spondylosis Arthritis Carpal tunnel syndrome Fibromyalgia Constipation High cholesterol Anxiety Hypertension SLE (systemic lupus erythematosus related syndrome) Surgical History H/O colonoscopy H/O esophagogastroduodenoscopy H/O hemorrhoidectomy History of tubal ligation Family History Father Diabetes Hypertension Mother Hypertension Diabetes Asthma Maternal Grandfather Throat cancer Maternal Grandmother Throat cancer Paternal Uncle Prostate cancer Maternal Uncle Throat cancer Stomach cancer Maternal Aunt Stomach cancer Diabetes Social History Household Members: Family Are you a primary congregational care pastor to a significant other at home: No Do you presently have visiting nurse or other home services: Yes (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) Alcohol intake: never Patient Tobacco Use Status: Never used Tobacco Current occupational status: retired Current occupation: rt handed Review of Systems Const Denies fatigue, Denies fever(s), Denies night sweats, Denies poor appetite and Denies weight loss ENT Reports Normal hearing present, Denies dental pain, Denies dysphagia, Denies hearing loss, Denies mouth pain, Denies odynophagia, Denies throat swelling, Denies tongue swelling and Reports other (Dentition adequate) Card Reports no additional complaints Resp Reports no additional complaints GI Details: Reports abdominal pain, Denies melena, Reports bloating, Denies hematochezia, Reports constipation, Denies GI cramping, Denies dysphagia, Denies excessive flatus, Denies early satiety, Reports heartburn, Denies diarrhea, Denies nausea, Denies odynophagia, Denies vomiting and Denies hematemesis Skin/Breast Denies pruritus, Denies lesions, Denies rash and Denies jaundice Neuro Reports Normal hearing present and Denies Abnormal speech present Endo Denies fatigue Aller/Immun Denies throat swelling and Denies tongue swelling Physical Exam Vital Signs: Last Vital Signs Pulse 85 12/14/23 15:13 BP 127/79 12/14/23 15:13 BMI result Body Mass Index 33.0 Const General: cooperative, no acute distress, well developed and well groomed Nutritional Appearance: well nourished and obese Orientation/consciousness: oriented to person, oriented to place and oriented to time Limitations: language barrier HEENT Head: Yes normocephalic and Yes atraumatic Eyes General: appearance normal, both eyes and all related structures Pupils: Equal, round and reactive pupils present Neck Neck: Yes normal visual inspection and Yes no lymphadenopathy Thyroid: Thyroid normal Resp Effort & Inspection: normal respiratory effort and able to speak in complete sentences Auscultation: clear to auscultation bilaterally Cardio Rate: regular rate Rhythm: regular rhythm Heart sounds: Normal, physiologic split S2 sound present Peripheral pulses: radial pulses present and posterior tibial pulses present GI Inspection: No distended, No Abdominal panniculus present and Yes obesity Palpation (GI): Soft to palpation, nontender, no guarding, not rigid and No hepatosplenomegaly present Percussion: Yes normal to percussion Auscultation: normal bowel sounds Rectal Exam - Female: deferred Skin General skin exam: no rashes or lesions noted, turgor normal, skin not dry, no jaundice, No spider nevi and no striae Rashes: no rashes Nails: normal Neuro General: oriented to person, oriented to place and oriented to time Cranial nerves: Yes Equal, round and reactive pupils present and Yes Normal hearing present Speech: No Abnormal speech present Extrem General: Yes normal to inspection, No clubbing, No cyanosis and No edema Psych Appearance: grossly normal and well kempt Mental Status: mental status grossly normal Speech and movement: Normal speech and movement present Affect: normal affect Attitude: cooperative Thought process: Normal thought process present and not confabulating Thought content: Normal thought content present Insight: Limited insight present (Psych) Judgement: Limited judgement present (Psych) Assessment & Plan Assessment & Plan (1) Chronic idiopathic constipation: Code(s): K59.04 - Chronic idiopathic constipation Category: Medical (2) Abdominal bloating: Code(s): R14.0 - Abdominal distension (gaseous) Category: Medical (3) History of kidney stones: Code(s): Z87.442 - Personal history of urinary calculi Category: Medical (4) Left flank pain: Code(s): R10.9 - Unspecified abdominal pain Category: Medical Plan Ni[place] #[id number], Britt She is not moving her bowels well despite the bisacodyl. She did receive the aciphex and she feels it is helping better than the dexilant. She is having left flank pain that radiates to the back - this could be CIC but also could be nephrolithiasis. This pain has been for 2 weeks. I think will get a urinalysis to see if there is any reason to suspect nephrolithiasis but in the meantime we will progress her to Linzess and start her at the 290 micro g dose. Return office visit in 4 weeks to titrate the Linzess and go over her results. Orders: Orders UA CC w/rflx Micro + Cult 12/14/23 R10.9 - Unspecified abdominal pain, Z87.442 - Personal history of urinary calculi, R14.0 - Abdominal distension (gaseous) Medications: New linaclotide (Linzess) 290 mcg PO QAM 30 caps 6RF 30 days K59.04 - Chronic idiopathic constipation, R14.0 - Abdominal distension (gaseous) On Hold tamsulosin (Flomax) Hold Comment: Doctor's Order 0.4 mg PO DAILY 14 caps 0RF Coding Level of Care Code Est Pt Level 3 (10692) Diagnoses Chronic idiopathic constipation K59.04 Abdominal bloating R14.0 History of kidney stones Z87.442 Left flank pain R10.9
== END 2023-12-14 16:02 | disposition home or self-care (01) ==
PROVIDERS: PCP Pediatrics; Visit Provider Nurse Practitioner
DX: K59.04 Chronic idiopathic constipation (principal); R14.0 Abdominal distension (gaseous); Z87.442 Personal history of urinary calculi; R10.9 Unspecified abdominal pain
CPT/HCPCS: 99213

== ENCOUNTER 2024-01-11 15:03 | Outpatient (AMB) | payer OTHER, SELFPAY ==
[2024-01-11 15:15] VITALS: BP 121/69; PULSE 85; BMI 33.2
--- NOTE | 2024-01-11 15:15 | MHC.OFFVIS ---
Vital Signs 01/11/24 15:15 Height 5 ft 3 in Weight 187 lb 6.287 oz BMI 33.2 BP 121/69 Blood Pressure Location Lt brachial Position Sitting Pulse 85 Intake Visit Reasons: 1 month follow up CIC eval LInzess Intake Note: Jess presents to in office visit today in follow up of CIC and dysphagia. CC: Patient c/o dysphagia and feeling that she chokes with reflux and feels like her throat closes up. Eye Technician Required: Yes Accompanied by: Self / Same As Patient Allergies aspirin [ASA] Allergy (Intermediate, Verified 01/11/24 15:27) Hives Penicillins [PENICILLINS] Allergy (Intermediate, Verified 01/11/24 15:27) RASH loratadine Allergy (Unknown, Verified 01/11/24 15:27) Unknown trimethoprim Allergy (Unknown, Verified 01/11/24 15:27) Unknown venlafaxine Allergy (Unknown, Verified 01/11/24 15:27) Unknown HPI HPI 1 month follow up CIC eval LInzess: Details: Assessment & Plan (1) Chronic idiopathic constipation: Code(s): K59.04 - Chronic idiopathic constipation Category: Medical (2) Abdominal bloating: Code(s): R14.0 - Abdominal distension (gaseous) Category: Medical (3) History of kidney stones: Code(s): Z87.442 - Personal history of urinary calculi Category: Medical (4) Left flank pain: Code(s): R10.9 - Unspecified abdominal pain Category: Medical Orders: Orders UA CC w/rflx Micro + Cult Today R10.9 - Unspecified abdominal pain, R14.0 - Abdominal distension (gaseous), Z87.442 - Personal history of urinary calculi Medications: New linaclotide (Linzess) 290 mcg PO QAM 30 days 30 caps 6RF K59.04 - Chronic idiopathic constipation, R14.0 - Abdominal distension (gaseous) On Hold tamsulosin (Flomax) Hold Comment: Doctor's Order 0.4 mg PO DAILY 14 caps 0RF [place] #[id number], Britt She is not moving her bowels well despite the bisacodyl. She did receive the aciphex and she feels it is helping better than the dexilant. She is having left flank pain that radiates to the back - this could be CIC but also could be nephrolithiasis. This pain has been for 2 weeks. I think will get a urinalysis to see if there is any reason to suspect nephrolithiasis but in the meantime we will progress her to Linzess and start her at the 290 micro g dose. Return office visit in 4 weeks to titrate the Linzess and go over her results. LABS: 12/14/23-[address]: Adrienne Villegas MD [facility] QUERIES: Collection Date: 12/14/23 Collection Time: 1612 Source: Urine, Clean Catch Test Result Flag Reference Ur Color Dark Yellow Ur Appear Clear PH 6.5 5.0-9.0 Ur Glu Negative Negative mg/dL Urine Blood Negative Negative Spec Jackson Ur >= 1.030 H 1.005-1.025 Urine Protein 30 (1+) H Neg-Trace mg/dL Urine Ketones Trace Negative mg/dL Ur Nitrite Negative Negative Ur Mauricio Esterase Trace H Negative Ur RBC 0-2 0-2 /HPF Ur WBC 0-5 0-5 /HPF Ur Squam Epi 0-2 0-2 /HPF Ur Bact None Seen None 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 she thinks that this is causing her choking and concern. She also feels that Has son told her she had a ?grade 3 something. ? And wants to know if that will get better. (This is the same complaint she had 08/2023) There is absolutely no mention in the notes of anything grade 3 in the past she had an EGD with dilation. She also has presbyesophagus and a movement disorder which clearly contributes to her general dysphagia and choking. In the past she was treated with verapamil for this. She is still on verapamil. I will get a full barium swallow and a repeat EGD. Return office visit in 8 weeks so we have a check in. [facility] Medical History PONV (postoperative nausea and vomiting) Sweating abnormality Hirsutism MGUS (monoclonal gammopathy of unknown significance) Positive MARCY (antinuclear antibody) Idiopathic hirsutism Plantar fasciitis Mood disorder Xerosis of skin Chronic fatigue Myositis Myalgia Pulmonary nodule Depression Diabetes Age related osteoporosis Restless legs Spondylosis Arthritis Carpal tunnel syndrome Fibromyalgia Constipation High cholesterol Anxiety Hypertension SLE (systemic lupus erythematosus related syndrome) Surgical History H/O colonoscopy H/O esophagogastroduodenoscopy H/O hemorrhoidectomy History of tubal ligation Family History Father Diabetes Hypertension Mother Hypertension Diabetes Asthma Maternal Grandfather Throat cancer Maternal Grandmother Throat cancer Paternal Uncle Prostate cancer Maternal Uncle Throat cancer Stomach cancer Maternal Aunt Stomach cancer Diabetes Social History Household Members: Family Are you a primary patient care technician instructor to a significant other at home: No Do you presently have visiting nurse or other home services: Yes (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) Alcohol intake: never Patient Tobacco Use Status: Never used Tobacco Current occupational status: retired Current occupation: rt handed Review of Systems Const Denies fatigue, Denies fever(s), Denies night sweats, Denies poor appetite and Denies weight loss Eyes Details: glasses Reports itchy eyes and Reports requires corrective lenses ENT Reports Normal hearing present, Denies dental pain, Reports dysphagia, Denies hearing loss, Reports hoarseness, Denies mouth pain, Reports nasal congestion, Denies odynophagia, Reports post nasal drip, Denies throat swelling, Denies tongue swelling and Reports other (Dentition adequate) Card Reports no additional complaints Resp Reports no additional complaints GI Details: Denies abdominal pain, Denies melena, Reports bloating, Denies hematochezia, Reports constipation, Denies GI cramping, Reports dysphagia, Denies excessive flatus, Denies early satiety, Reports heartburn, Denies diarrhea, Denies nausea, Denies odynophagia, Denies vomiting and Denies hematemesis Skin/Breast Denies pruritus, Denies lesions, Denies rash and Denies jaundice Neuro Reports Normal hearing present and Denies Abnormal speech present Endo Denies fatigue Aller/Immun Reports itchy eyes, Reports seasonal rhinorrhea, Denies throat swelling and Denies tongue swelling Physical Exam Vital Signs: Last Vital Signs Pulse 85 01/11/24 15:15 BP 121/69 01/11/24 15:15 BMI result Body Mass Index 33.2 Const General: cooperative, no acute distress, well developed and well groomed Nutritional Appearance: well nourished and obese Orientation/consciousness: oriented to person, oriented to place and oriented to time Limitations: language barrier HEENT Head: Yes normocephalic and Yes atraumatic Eyes General: appearance normal, both eyes and all related structures Pupils: Equal, round and reactive pupils present Neck Neck: Yes normal visual inspection and Yes no lymphadenopathy Thyroid: Thyroid normal Resp Effort & Inspection: normal respiratory effort and able to speak in complete sentences Auscultation: clear to auscultation bilaterally Cardio Rate: regular rate Rhythm: regular rhythm Heart sounds: Normal, physiologic split S2 sound present Peripheral pulses: radial pulses present and posterior tibial pulses present GI Inspection: No distended, Yes Abdominal panniculus present and Yes obesity Palpation (GI): Soft to palpation, nontender, no guarding, not rigid and No hepatosplenomegaly present Percussion: Yes normal to percussion Auscultation: normal bowel sounds Rectal Exam - Female: deferred Skin General skin exam: no rashes or lesions noted, turgor normal, skin not dry, no jaundice, No spider nevi and no striae Rashes: no rashes Nails: normal Neuro General: oriented to person, oriented to place and oriented to time Cranial nerves: Yes Equal, round and reactive pupils present and Yes Normal hearing present Speech: No Abnormal speech present Extrem General: Yes normal to inspection, No clubbing, No cyanosis and No edema Psych Appearance: grossly normal and well kempt Mental Status: mental status grossly normal Speech and movement: Normal speech and movement present Affect: Anxious affect present Attitude: cooperative Thought process: not confabulating and Impoverished thought process present Thought content: Normal thought content present Insight: Limited insight present (Psych) Judgement: Limited judgement present (Psych) Assessment & Plan Assessment & Plan (1) Chronic idiopathic constipation: Code(s): K59.04 - Chronic idiopathic constipation Category: Medical (2) GERD (gastroesophageal reflux disease): Code(s): K21.9 - Gastro-esophageal reflux disease without esophagitis Category: Medical (3) Esophageal dysmotility: Comment: Causing dysphagia and had been treatment in the past with verapamil Code(s): K22.4 - Dyskinesia of esophagus Category: Medical (4) Left flank pain: Code(s): R10.9 - Unspecified abdominal pain Category: Medical (5) Dysphagia: Code(s): R13.10 - Dysphagia, unspecified Category: Medical (6) Presbyesophagus: Code(s): K22.89 - Other specified disease of esophagus Category: Medical (7) Pre-op examination: Code(s): Z01.818 - Encounter for other preprocedural examination Category: Medical Plan [place] #Nancy Live Apparently she is fearful because she had an accident and she feels like her larynx is moving and she asked to ?put it back into place.? she thinks that this is causing her choking and concern. She also feels that Has son told her she had a ?grade 3 something. ? And wants to know if that will get better. (This is the same complaint she had 08/2023) There is absolutely no mention in the notes of anything grade 3 in the past she had an EGD with dilation. She also has presbyesophagus and a movement disorder which clearly contributes to her general dysphagia and choking. In the past she was treated with verapamil for this. She is still on verapamil. I will get a full barium swallow and a repeat EGD. She has TREE and no other respiratory or cardiac problems. There are no prior problems with anesthesia or sedation. There are no infectious disease problems. Return office visit in 8 weeks so we have a check in. Orders: Orders EGD with Constantino - GI Use Only Today K22.89 - Other specified disease of esophagus, R13.10 - Dysphagia, unspecified FL barium swallow Today K22.89 - Other specified disease of esophagus, R13.10 - Dysphagia, unspecified Medications: New metoclopramide HCl (Reglan) 5 mg PO QIDACHS 120 tabs 3RF K21.9 - Gastro-esophageal reflux disease without esophagitis Coding Level of Care Code Est Pt Level 4 (27996) Diagnoses Chronic idiopathic constipation K59.04 GERD (gastroesophageal reflux disease) K21.9 Esophageal dysmotility K22.4 Left flank pain R10.9 Dysphagia R13.10 Presbyesophagus K22.89 Pre-op examination Z01.818
== END 2024-01-11 15:45 | disposition home or self-care (01) ==
PROVIDERS: PCP Pediatrics; Visit Provider Nurse Practitioner
DX: K59.04 Chronic idiopathic constipation (principal); K21.9 Gastro-esophageal reflux disease without esophagitis; K22.4 Dyskinesia of esophagus; R10.9 Unspecified abdominal pain; R13.10 Dysphagia, unspecified; K22.89 Other specified disease of esophagus; Z01.818 Encounter for other preprocedural examination
CPT/HCPCS: 99214

== ENCOUNTER → 2024-01-11 15:03 | Outpatient (BNVA) | payer OTHER, SELFPAY | PROVIDERS: PCP Pediatrics; Visit Provider Nurse Practitioner | DX: Z01.818 Encounter for other preprocedural examination (principal); K59.04 Chronic idiopathic constipation; K21.9 Gastro-esophageal reflux disease without esophagitis; K22.4 Dyskinesia of esophagus; R10.9 Unspecified abdominal pain; R13.10 Dysphagia, unspecified; K22.89 Other specified disease of esophagus | CPT/HCPCS: 99212 ==

== ENCOUNTER → 2024-01-12 15:45 | Outpatient (BNV) | payer OTHER, SELFPAY | PROVIDERS: PCP Pediatrics; Visit Provider Radiology Diagnostic Radiology | DX: Z12.31 Encounter for screening mammogram for malignant neoplasm of breast (principal) | CPT/HCPCS: 77063; 77067 ==

== ENCOUNTER 2024-01-12 15:46 | Outpatient (REF) | payer OTHER, SELFPAY ==
--- NOTE | ~2024-01-12 | MM_ITS ---
EXAMINATION: MM SCREENING DIGITAL BREAST TOMOSYNTHESIS, BILATERAL CLINICAL INFORMATION: Screening. Asymptomatic. COMPARISON: Mammography: This study is compared with prior exams dating back to 2019. TECHNIQUE: Digital breast tomosynthesis is performed in both the craniocaudal and mediolateral oblique views along with computer-aided detection (CAD). Synthesized 2D images are generated from the tomosynthesis. FINDINGS: The breasts are heterogeneously dense, which may obscure small masses (ACR BI-RADS breast composition Category c). There are no significant masses, abnormal calcifications, or other abnormalities. Few, bilateral, benign calcifications are present. MM/MM tomosynthesis screening BI IMPRESSION: No mammographic evidence of malignancy. ASSESSMENT: BI-RADS BI-RADS 2 - Benign Findings RECOMMENDATION: Routine annual mammography screening. 1 year F/U This examination should not preclude the clinical evaluation of a suspicious palpable abnormality. This patient's information was entered into a reminder system with a target due date for their next mammogram.
== END 2024-01-12 15:47 | disposition home or self-care (01) ==
LOC: HO.MAMMO 15:46
PROVIDERS: PCP Pediatrics; Visit Provider Pediatrics
DX: Z12.31 Encounter for screening mammogram for malignant neoplasm of breast (principal)
CPT/HCPCS: 77063; 77067

== ENCOUNTER 2024-03-14 15:47 | Outpatient (REF) | payer OTHER, SELFPAY ==
[2024-03-14 15:57] LABS: Appearance Urine Clear; Color Urine Yellow; Glucose Urine UA Negative (Negative); Leukocyte Esterase Urine Negative (Negative); Nitrite Urine Negative (Negative); PH 5.5 (5.0-9.0); Urine Blood Negative (Negative); Urine Ketones Negative (Negative); Urine Protein Negative (Neg-Trace)
[2024-03-14 15:59] LABS: Bacteria Urine None Seen (None Seen); Hyaline Casts Urine 0-2 /LPF (0-2); RBC Urine 0-2 /HPF (0-2); Squamous Epithelial Cell Urine 0-2 /HPF (0-2); WBC Urine 0-5 /HPF (0-5)
== END 2024-03-14 15:48 | disposition home or self-care (01) ==
LOC: HO.LNP 15:47
PROVIDERS: Visit Provider Pediatrics
DX: R10.9 Unspecified abdominal pain (principal); N28.1 Cyst of kidney, acquired
CPT/HCPCS: 81001

== ENCOUNTER 2024-03-16 07:45 | Outpatient (REF) | payer OTHER, SELFPAY ==
--- NOTE | ~2024-03-16 | FL_ITS ---
EXAMINATION: XR FLUOROSCOPY UPPER GI WITH AIR CLINICAL INFORMATION: Dysphagia COMPARISON: Barium swallow January 2022 TECHNIQUE: Fluoroscopic air contrast upper GI examination was performed utilizing standard techniques with thin and thick barium and effervescent granules. Numerous spot images were obtained. FINDINGS: Lateral cine images of the oropharynx and hypopharynx demonstrate normal swallow mechanism with normal epiglottic inversion and soft palate elevation. No tracheal penetration, glottic or subglottic aspiration identified. No nasopharyngeal reflux present. Hypopharyngeal structures appear normal without evidence of mass or diverticulum. There was no significant cricopharyngeal achalasia. Dual and single contrast images of the esophagus demonstrate normal caliber, contour, and mucosal pattern. No evidence of mass, or ulcerations are identified. There is to and fro motion of the barium column with nonpropulsive tertiary contractions noted throughout the entire esophagus. There is mild narrowing of the GE junction. A small type I hiatal hernia is present. No significant gastroesophageal reflux was seen during the course of the examination and on reflux views. Dual contrast and single contrast images of the stomach demonstrated a normal contour. The gastric rugal folds are mildly thickened appearance. There are a few tiny foci of contrast pooling in the fundus and body the stomach that may present small superficial aphthous ulcers. No masses are present. Contrast freely passed into the gastric antrum and duodenal bulb without delay. Single and air-contrast images of the duodenal bulb demonstrate no abnormality. The duodenal sweep has a normal appearance, course, and mucosal fold appearance. The imaged proximal jejunum has a normal fold pattern and caliber. FLUOROSCOPY TIME: 4 minutes 47 seconds Number of Spot Images: 6 Number of Cine: 13 DOSE AREA PRODUCT: [id number] uGy-m2 (microgray-meter squared) FL/FL barium swallow with air IMPRESSION: 1. Esophageal dysmotility. 2. Mild narrowing of the GE junction that may represent a benign stricture or achalasia. Recommend correlation with EGD. 3. Small type I hiatal hernia. 4. Mildly thickened gastric rugal folds. In addition there are multiple tiny foci of contrast pooling in the fundus and body the stomach. These findings are suggestive of erosive gastritis. Recommend correlation with EGD. This procedure was performed by Vaibhav Verdugo PA-C, and supervised by Dr. Drummond
== END 2024-03-16 07:46 | disposition home or self-care (01) ==
LOC: HO.XRAY 07:45
PROVIDERS: PCP Pediatrics; Visit Provider Nurse Practitioner
DX: R13.10 Dysphagia, unspecified (principal); K22.89 Other specified disease of esophagus
CPT/HCPCS: 74221

== ENCOUNTER → 2024-03-16 07:46 | Outpatient (BNV) | payer OTHER, SELFPAY | PROVIDERS: PCP Pediatrics; Visit Provider Physician Assistant Surgical | DX: R13.10 Dysphagia, unspecified (principal) | CPT/HCPCS: 74246 ==

== ENCOUNTER 2024-04-04 12:50 | Outpatient (REF) | payer OTHER, SELFPAY ==
--- NOTE | ~2024-04-04 | US_ITS ---
EXAMINATION: US RETROPERITONEAL COMPLETE (RENAL ONLY) CLINICAL INFORMATION: Personal history of urinary calculi. COMPARISON: Ultrasound renal 05/20/2023 and 04/29/2022. CT abdomen and pelvis 10/03/2021. X-ray KUB 04/22/2009. TECHNIQUE: Real-time imaging of the kidneys and bladder. FINDINGS: RIGHT KIDNEY: 10.2 x 4.9 x 4.9 cm (SAG x AP x TRV). The kidney is normal in size, contour, and echogenicity. Renal cortical thickness is normal. No renal calculi or hydronephrosis. Subcentimeter benign-appearing renal cyst, no follow-up imaging recommended. LEFT KIDNEY: 11.4 x 4.9 x 4.7 cm (SAG x AP x TRV). The kidney is normal in size, contour, and echogenicity. Renal cortical thickness is normal. No hydronephrosis. Likely benign renal cyst measuring 1.2 cm with mural calcification, previously 1.3 cm. No follow up imaging is recommended. Nonobstructing renal stone measuring 0.4 cm , new from prior. Another previously seen mid pole echogenic focus was not identified US/US renal BI IMPRESSION: 1. A 0.4 cm nonobstructing left renal stone, new from prior. Another previously seen mid pole echogenic focus was not identified. Electronically signed by: Perri Wolff MD 04/12/2024 09:51 PM EDT
== END 2024-04-04 12:51 | disposition home or self-care (01) ==
LOC: HO.US 12:50
PROVIDERS: PCP Pediatrics; Visit Provider Urology
DX: N28.1 Cyst of kidney, acquired (principal); Z87.442 Personal history of urinary calculi
CPT/HCPCS: 76775

== ENCOUNTER 2024-05-04 16:48 | Outpatient (REF) | payer OTHER, SELFPAY ==
--- NOTE | ~2024-05-04 | CT_ITS ---
EXAMINATION: CT ABDOMEN AND PELVIS WITHOUT CONTRAST CLINICAL INFORMATION: Flank pain. COMPARISON: Renal ultrasound 04/04/2024: A 0.4 cm nonobstructing left renal stone, new from prior. Another previously seen mid pole echogenic focus was not identified. CT abdomen/pelvis 10/03/2021. TECHNIQUE: Multidetector volumetric imaging was performed from the superior aspect of the liver through the pubic symphysis. Sagittal and coronal reformatted images were obtained on the technologist's workstation. This CT examination was performed using dose optimization techniques as appropriate, variously including the following: *Automated exposure control *Adjustment of mA and/or kV according to patient size (this includes techniques or standardized protocols for targeted exams where dose is matched to indication/reason for exam; i.e. extremities or head) *Use of iterative reconstruction technique DLP: 644 mGy-cm. FINDINGS: LUNG BASES: The visualized lung bases are unremarkable. 4 mm pleural-based left lower lobe pulmonary nodule, unchanged (4:83 compare prior 4:71). LIVER, GALLBLADDER, AND BILIARY TREE: The liver is normal in size, shape, and attenuation. No focal hepatic lesion or biliary ductal dilatation is present. The gallbladder is unremarkable with no evidence of radiopaque gallstones, gallbladder wall thickening, or obvious pericholecystic inflammatory changes. PANCREAS: Unremarkable. SPLEEN: Unremarkable. ADRENAL GLANDS: Unremarkable. KIDNEYS AND URETERS: The kidneys are normal in size, shape, and attenuation. Two punctate calculi are seen in the left kidney (see saved vega images), the largest measuring 2 mm. No hydronephrosis, hydroureter, or right-sided/ureteral calculi seen. No perinephric stranding. A benign posterior left upper pole 0.8 cm Bosniak class I renal cyst is noted which requires no additional imaging or follow up. No solid renal masses are seen. BLADDER: Unremarkable. GASTROINTESTINAL TRACT: The small and large bowel are unremarkable. The appendix is not identified, but there is no evidence of appendicitis. ABDOMINAL WALL: No significant hernia is appreciated. LYMPH NODES: No retroperitoneal lymphadenopathy. VASCULAR: Unremarkable. PELVIC VISCERA: There is a large 4 cm fundal broad-based pedunculated fibroid again noted. Other smaller fibroids are seen. An abnormal adnexal mass or free fluid is not detected. OSSEOUS STRUCTURES: Unremarkable. CT/CT abdomen pelvis wo IV con IMPRESSION: 1. A cause for the patient's flank pain has not been found. 2. Incidental note made of 2 punctate nonobstructing left renal calculi, unchanged 4 mm left lower lobe pulmonary nodule, and uterine fibroids. Fleischner guidelines were followed. Electronically signed by: Diego Kirk MD 07/05/2024 09:38 AM S[facility]INA
== END 2024-05-04 16:49 | disposition home or self-care (01) ==
LOC: HO.CT 16:48
PROVIDERS: PCP Pediatrics; Visit Provider Pediatrics
DX: N28.1 Cyst of kidney, acquired (principal); R10.9 Unspecified abdominal pain; G89.29 Other chronic pain
CPT/HCPCS: 74176

== ENCOUNTER 2024-05-24 11:07 | Day surgery (SDC) | payer OTHER, SELFPAY ==
[2024-05-23 06:40] VITALS: BMI 33.1
--- NOTE | 2024-05-23 09:10 | P.CONAN_ITS ---
HPI - Anesthesia Eval Consult details Narrative: 63yo F for Upper Endoscopy PMFSH Active Problems Active Problems: All Active Problems Pre-op examination (Acute) Left flank pain (Acute) IBS (irritable bowel syndrome) (Acute) Abdominal bloating (Acute) Acquired complex renal cyst (Acute) History of kidney stones (Acute) Asthma (Acute) Environmental allergies (Acute) Dyspnea on exertion (Acute) TREE on CPAP (Acute) Patellofemoral arthritis of right knee (Acute) Osteoarthritis of left knee (Acute) Nephrolithiasis (Acute) Cervical spondylosis (Acute) Cervical radiculopathy (Acute) Bilateral knee pain (Acute) Muscle spasm (Acute) Right calf pain (Acute) Internal derangement of right knee (Acute) Diabetes mellitus (Acute) Fibromyalgia (Acute) Esophageal dysmotility (Acute) GERD (gastroesophageal reflux disease) (Acute) Chronic idiopathic constipation (Acute) Dysphagia (Acute) Presbyesophagus (Acute) MGUS (monoclonal gammopathy of unknown significance) (Acute) Chronic pain syndrome (Acute) Inflammatory spondylopathy of cervical region (Acute) Cervical stenosis of spinal canal (Acute) Sweating abnormality (Acute) Hirsutism (Acute) SLE (systemic lupus erythematosus related syndrome) (Acute) Past Medical History Medical History Sleep apnea Asthma Hx of renal calculi PONV (postoperative nausea and vomiting) Sweating abnormality Hirsutism MGUS (monoclonal gammopathy of unknown significance) Positive MARCY (antinuclear antibody) Idiopathic hirsutism Plantar fasciitis Mood disorder Xerosis of skin Chronic fatigue Myositis Myalgia Pulmonary nodule Depression Diabetes Age related osteoporosis Restless legs Spondylosis Arthritis Carpal tunnel syndrome Fibromyalgia Constipation High cholesterol Anxiety Hypertension SLE (systemic lupus erythematosus related syndrome) Family History Family History Father Diabetes Hypertension Mother Hypertension Diabetes Asthma Maternal Grandfather Throat cancer Maternal Grandmother Throat cancer Paternal Uncle Prostate cancer Maternal Uncle Throat cancer Stomach cancer Maternal Aunt Stomach cancer Diabetes Family history of problems with anesthesia: No Surgical History Surgical History Hx of bilateral cataract extraction History of surgery of head H/O colonoscopy H/O esophagogastroduodenoscopy H/O hemorrhoidectomy History of tubal ligation History of Problems with Anesthesia: No Social History Social History Household Members: Family Are you a primary hospice home care coordinator to a significant other at home: No Do you presently have visiting nurse or other home services: Yes (BUYER INTERN and supportive Daughter) Alcohol intake: never Patient Tobacco Use Status: Never used Tobacco Current occupational status: retired Current occupation: rt handed Meds Allergies Allergy/AdvReac Type Severity Reaction Status Date / Time aspirin [ASA] Allergy Intermediate Hives Verified 05/24/24 13:04 Penicillins [PENICILLINS] Allergy Intermediate RASH Verified 05/24/24 13:04 loratadine Allergy Unknown Unknown Verified 05/24/24 13:04 trimethoprim Allergy Unknown Unknown Verified 05/24/24 13:04 venlafaxine Allergy Unknown Unknown Verified 05/24/24 13:04 Home Medications ?Medication ?Instructions ?Recorded ?Confirmed ?Last Taken ?Type atorvastatin 80 mg tablet 80 mg PO DAILY 05/01/20 06/04/23 Unknown History betamethasone dipropionate 0.05 % applic topical BID 05/01/20 06/04/23 Unknown History topical cream cetirizine 10 mg tablet 10 mg PO DAILY 05/01/20 06/04/23 09/08/22 History diclofenac sodium 1 % topical gel 2 g topical QID 05/01/20 06/04/23 Unknown History (Voltaren) meclizine 25 mg tablet 25 mg PO DAILY PRN Vertigo 05/01/20 06/04/23 Unknown History ondansetron 4 mg disintegrating 4 mg PO Q8H PRN Nausea 05/01/20 06/04/23 Unknown History tablet paroxetine HCl 20 mg tablet 20 mg PO DAILY PRN Anxiety 05/01/20 06/04/23 Unknown History pregabalin 150 mg capsule (Lyrica) 150 mg PO DAILY 05/01/20 06/04/23 05/24/24 History hydrocortisone 2.5 % topical cream appl topical 10/06/21 06/04/23 Unknown History hydroxychloroquine 200 mg tablet 200 mg PO BID 10/06/21 06/04/23 Unknown History alclometasone 0.05 % topical topical 04/15/22 06/04/23 Unknown History ointment polyethylene glycol 3350 17 17 g PO DAILY 04/15/22 06/04/23 Unknown History gram/dose oral powder (Miralax) triamcinolone acetonide 0.1 % topical BID itch 04/15/22 06/04/23 Unknown History topical ointment verapamil 120 mg tablet,extended 240 mg PO DAILY 04/15/22 06/04/23 09/08/22 History release cholecalciferol (vitamin D3) 50 50 mcg PO 09/10/22 06/04/23 Unknown History mcg (2,000 unit) capsule [id number] acid 0.4 1 tab PO 09/30/22 06/04/23 Unknown History mg-lycopene 300 mcg-lutein 250 mcg tablet (Cerovite Senior) lancets 33 gauge (TRUEplus Lancets) #100 ea 11/11/22 06/04/23 Unknown History ketoconazole 2 % shampoo topical 08/26/23 Unknown History econazole 1 % topical cream appl topical 09/07/23 Unknown History metformin 500 mg tablet 250 mg PO BID 09/07/23 Unknown History acetaminophen 300 mg-codeine 30 mg 1 tab PO Q6H PRN severe pain 05/24/24 05/24/24 Unknown History tablet Exam Height,Weight and Vital Signs: Height 5 ft 3 in Weight 84.822 kg Assessment and Plan Assessment Anesthesia Assessment: Chart Reviewed Final Anesthetic Review Family History of Problems with Anesthesia: No History of Problems with Anesthesia: No
[2024-05-24 13:12] VITALS: BMI 32.1
[2024-05-24 13:15] VITALS: BP 125/71; PULSE 72; RESP 16; TEMP 36.4; O2SAT 98
--- NOTE | 2024-05-24 13:26 | P.CONAN_ITS ---
[facility] Active Problems Active Problems: All Active Problems Pre-op examination (Acute) Left flank pain (Acute) IBS (irritable bowel syndrome) (Acute) Abdominal bloating (Acute) Acquired complex renal cyst (Acute) History of kidney stones (Acute) Cervical stenosis of spinal canal (Acute) Inflammatory spondylopathy of cervical region (Acute) Chronic pain syndrome (Acute) MGUS (monoclonal gammopathy of unknown significance) (Acute) Presbyesophagus (Acute) Dysphagia (Acute) Chronic idiopathic constipation (Acute) GERD (gastroesophageal reflux disease) (Acute) Esophageal dysmotility (Acute) Fibromyalgia (Acute) Diabetes mellitus (Acute) Internal derangement of right knee (Acute) Right calf pain (Acute) Muscle spasm (Acute) Bilateral knee pain (Acute) Cervical radiculopathy (Acute) Cervical spondylosis (Acute) Nephrolithiasis (Acute) Osteoarthritis of left knee (Acute) Patellofemoral arthritis of right knee (Acute) RTEE on CPAP (Acute) Dyspnea on exertion (Acute) Environmental allergies (Acute) Asthma (Acute) Sweating abnormality (Acute) Hirsutism (Acute) SLE (systemic lupus erythematosus related syndrome) (Acute) Past Medical History Medical History Sleep apnea Asthma Hx of renal calculi PONV (postoperative nausea and vomiting) Sweating abnormality Hirsutism MGUS (monoclonal gammopathy of unknown significance) Positive MARCY (antinuclear antibody) Idiopathic hirsutism Plantar fasciitis Mood disorder Xerosis of skin Chronic fatigue Myositis Myalgia Pulmonary nodule Depression Diabetes Age related osteoporosis Restless legs Spondylosis Arthritis Carpal tunnel syndrome Fibromyalgia Constipation High cholesterol Anxiety Hypertension SLE (systemic lupus erythematosus related syndrome) Functional capacity: independent ambulation Patient : No Family History Family History Father Diabetes Hypertension Mother Hypertension Diabetes Asthma Maternal Grandfather Throat cancer Maternal Grandmother Throat cancer Paternal Uncle Prostate cancer Maternal Uncle Throat cancer Stomach cancer Maternal Aunt Stomach cancer Diabetes Family history of problems with anesthesia: No Surgical History Surgical History Hx of bilateral cataract extraction History of surgery of head H/O colonoscopy H/O esophagogastroduodenoscopy H/O hemorrhoidectomy History of tubal ligation History of Problems with Anesthesia: No Social History Social History Household Members: Family Are you a primary clinical care manager to a significant other at home: No Do you presently have visiting nurse or other home services: Yes (GEOSPATIAL IMAGE ANALYST and supportive Daughter) Alcohol intake: never Patient Tobacco Use Status: Never used Tobacco Use of substances other than those prescribed or required for medical reasons: No Are you DNR?: No Advance Directives: No Advance Directives Information Provided: Yes Recently lost weight without trying: No Current occupational status: retired Current occupation: rt handed Meds Allergies Allergy/AdvReac Type Severity Reaction Status Date / Time aspirin [ASA] Allergy Intermediate Hives Verified 05/24/24 13:04 Penicillins [PENICILLINS] Allergy Intermediate RASH Verified 05/24/24 13:04 loratadine Allergy Unknown Unknown Verified 05/24/24 13:04 trimethoprim Allergy Unknown Unknown Verified 05/24/24 13:04 venlafaxine Allergy Unknown Unknown Verified 05/24/24 13:04 Active Medications: Current Medications Albuterol Sulfate (Albuterol Sulfate (0.083%) 2.5 Mg/3 Ml Vial.Neb) 2.5 mg INHALE ONCE PRN PRN Reason: Shortness of Breath/Wheezing Lactated Ringer's (Lr) 1,000 mls @ 100 mls/hr IVCONT .Q10H CONSTANTINE Home Medications ?Medication ?Instructions ?Recorded ?Confirmed ?Last Taken ?Type atorvastatin 80 mg tablet 80 mg PO DAILY 05/01/20 06/04/23 Unknown History betamethasone dipropionate 0.05 % applic topical BID 05/01/20 06/04/23 Unknown History topical cream cetirizine 10 mg tablet 10 mg PO DAILY 05/01/20 06/04/23 09/08/22 History diclofenac sodium 1 % topical gel 2 g topical QID 05/01/20 06/04/23 Unknown History (Voltaren) meclizine 25 mg tablet 25 mg PO DAILY PRN Vertigo 05/01/20 06/04/23 Unknown History ondansetron 4 mg disintegrating 4 mg PO Q8H PRN Nausea 05/01/20 06/04/23 Unknown History tablet paroxetine HCl 20 mg tablet 20 mg PO DAILY PRN Anxiety 05/01/20 06/04/23 Unknown History pregabalin 150 mg capsule (Lyrica) 150 mg PO DAILY 05/01/20 06/04/23 Unknown History hydrocortisone 2.5 % topical cream appl topical 10/06/21 06/04/23 Unknown History hydroxychloroquine 200 mg tablet 200 mg PO BID 10/06/21 06/04/23 Unknown History alclometasone 0.05 % topical topical 04/15/22 06/04/23 Unknown History ointment polyethylene glycol 3350 17 17 g PO DAILY 04/15/22 06/04/23 Unknown History gram/dose oral powder (Miralax) triamcinolone acetonide 0.1 % topical BID itch 04/15/22 06/04/23 Unknown History topical ointment verapamil 120 mg tablet,extended 240 mg PO DAILY 04/15/22 06/04/23 09/08/22 History release cholecalciferol (vitamin D3) 50 50 mcg PO 09/10/22 06/04/23 Unknown History mcg (2,000 unit) capsule dvbqcnxs-efz-zmfht acid 0.4 1 tab PO 09/30/22 06/04/23 Unknown History mg-lycopene 300 mcg-lutein 250 mcg tablet (Cerovite Senior) lancets 33 gauge (TRUEplus Lancets) #100 ea 11/11/22 06/04/23 Unknown History ketoconazole 2 % shampoo topical 08/26/23 Unknown History econazole 1 % topical cream appl topical 09/07/23 Unknown History metformin 500 mg tablet 250 mg PO BID 09/07/23 Unknown History acetaminophen 300 mg-codeine 30 mg 1 tab PO Q6H PRN severe pain 05/24/24 05/24/24 Unknown History tablet Exam Height,Weight and Vital Signs: Height 5 ft 3 in Weight 82.1 kg Airway Mallampati Class: III TM Dist: >3cm Neck ROM: Full Heart: RRR Lungs: CTA Assessment and Plan Assessment Anesthesia Assessment: Anesthesia Plan Discussed and Chart Reviewed Final Anesthetic Review Family History of Problems with Anesthesia: No History of Problems with Anesthesia: No NPO: Yes ASA Class: III Final Preanesthetic Review: Meds/Allgs Chart Reviewed, Consent Obtained/Reviewed and Anes Risks/Benef Reviewed Patient Risk: Intermediate Procedure Risk: Low Anesthetic Plan Anesthetic Plan: MAC: Disposition: Standard PACU
[2024-05-24] MEDS: Lactated Ringers 1,000 ML 100 ML IVCONT (13:32)
[2024-05-24 13:47] LABS: Glucose, Whole Blood 97 mg/dL (60-115)
--- NOTE | 2024-05-24 13:53 | P.HPSUR_ITS ---
Pre-Procedural Eval Section A - 24 Hr Update-Section A only Date of Service: 05/24/24 Section B - Complete if H&P > 30 days Chief Complaint: Dysphagia, unspecified Relevant Family History (Specify if Yes): No Relevant Social History: None Present Medications: see Short Stay Collaborative assessment Medical History: Significant History (PONV (postoperative nausea and vomiting) Sweating abnormality Hirsutism MGUS (monoclonal gammopathy of unknown significance) Positive MARCY (antinuclear antibody) Idiopathic hirsutism Plantar fasciitis Mood disorder Xerosis of skin Chronic fatigue Myositis Myalgia Pulm onary nodule Depression Diabetes ) History of Previous Operations: Relevant previous surgery/procedure and date(s) (H/O colonoscopy H/O esophagogastroduodenoscopy H/O hemorrhoidectomy History of tubal ligation) Allergies: Allergies Allergy/AdvReac Type Severity Reaction Status Date / Time aspirin [ASA] Allergy Intermediate Hives Verified 05/24/24 13:04 Penicillins [PENICILLINS] Allergy Intermediate RASH Verified 05/24/24 13:04 loratadine Allergy Unknown Unknown Verified 05/24/24 13:04 trimethoprim Allergy Unknown Unknown Verified 05/24/24 13:04 venlafaxine Allergy Unknown Unknown Verified 05/24/24 13:04 Review of Systems Sugical H&P ROS: Negative: Constitution, Cardiovascular, Respiratory, Neurological, Psychiatric, Hem-Onc, Allergic/Immunologic, Gastrointestinal, Genitourinary, Musculoskeletal, Integumentary, Endocrine and Eyes/Ears/ Nose/Throat Exam Surgical H&P Exam: Normal: HEENT, Normal: Heart, Normal: Lungs, Normal: Extremities, Normal: Abdomen, Normal: Skin and Normal: Neurological Plan Diagnosis/Plan: Unchanged I have reviewed the history and physical and performed a pertinent physical examination on my patient. No changes have occurred unless specified. Time Spent With Patient Time: Total time managing care of this patient today ____ minutes.
--- NOTE | 2024-05-24 14:25 | W.PM.OPN ---
Operative Note Operative Note Date of Service: 05/24/24 Narrative: Procedure Description: EGD Indication: dysphagia Anesthesia: MAC FLEXIBLE TRANSORAL UPPER GASTROINTESTINAL ENDOSCOPY UPPER ENDOSCOPY Consent: Indications for the procedure and potential complications of bleeding, perforation, reaction to medications and missed diagnosis were discussed with the patient and informed consent was obtained. Instrument: Olympus GIF H 190 J mid size upper endoscope Monitoring: Vital signs and clinical assessment, continuous EKG monitoring, Pulse oximetry, Carbon Dioxide monitoring and blood pressure monitoring were done throughout the procedure. Procedure: The patient was placed in the left lateral decubitis position and pre-procedure medications were administered and a bite block was placed. The endoscope was inserted into the mouth and advanced under direct vision to the third part of duodenum. A careful inspection was made as the upper endoscope was withdrawn including a retroflexed examination of the proximal stomach; Findings and interventions are described below. Findings: Larynx:normal Esophagus: GE junction at 31 cm, diaphragm hiatus at 33 cm, consistent with 2 cm sliding hiatal hernia, balloon dilation at LES and UES, at UES superficial tear noted. bx taken from distal esophagus, tertiary contractions noted Stomach: streaky erythema in antrum . Biopsies were obtained. Grade 2 flap valve on retroflexed examination of the cardia. Duodenum: Normal bulb and descending duodenum, Intervention: Biopsies as noted above, balloon dilation Impression/Findings: gastritis hiatal hernia esophageal stricture tertiary contractions PLAN: magic mouthwash for 1 week GERD precautions cont with PPI if ongoing sx then manometry
[2024-05-24 14:32] VITALS: BP 109/62; PULSE 91; RESP 16; TEMP 36.2; O2SAT 92
[2024-05-24 14:47] VITALS: BP 134/88; PULSE 102; RESP 16; TEMP 36.4; O2SAT 96
[2024-05-24] MEDS: Acetaminophen 325 MG TABLET 650 MG PO (15:22)
[2024-05-24] MEDS: Mag&Al/Sim/Diphenhyd/Lidocaine 10 ML ORAL.SUSP PO (15:24)
== END 2024-05-24 15:34 | disposition home or self-care (01) ==
PROVIDERS: PCP Pediatrics; Visit Provider Internal Medicine Gastroenterology
PROC: 0DJ08ZZ Inspection of Upper Intestinal Tract, Via Natural or Artificial Opening Endoscopic (ICD-10-PCS; CPT 43235; principal; 2024-05-24 14:10)
DX: R13.10 Dysphagia, unspecified (principal); K22.2 Esophageal obstruction; K22.4 Dyskinesia of esophagus; K29.50 Unspecified chronic gastritis without bleeding; K22.89 Other specified disease of esophagus; R14.0 Abdominal distension (gaseous); K44.9 Diaphragmatic hernia without obstruction or gangrene; G47.33 Obstructive sleep apnea (adult) (pediatric); D47.2 Monoclonal gammopathy; R91.1 Solitary pulmonary nodule; M32.9 Systemic lupus erythematosus, unspecified; M79.7 Fibromyalgia; M81.0 Age-related osteoporosis without current pathological fracture; E78.00 Pure hypercholesterolemia, unspecified; L68.0 Hirsutism; E11.9 Type 2 diabetes mellitus without complications; Z79.84 Long term (current) use of oral hypoglycemic drugs; Z79.899 Other long term (current) drug therapy; Z88.0 Allergy status to penicillin; Z88.6 Allergy status to analgesic agent; Z88.8 Allergy status to other drugs, medicaments and biological substances; Z87.442 Personal history of urinary calculi; Z98.890 Other specified postprocedural states
CPT/HCPCS: 43249; 43239; 82947; 88305; 88313; 88342; C1726; J2003; J2704

== ENCOUNTER → 2024-05-24 11:07 | Outpatient (BNV) | payer OTHER, SELFPAY | PROVIDERS: PCP Pediatrics; Visit Provider Internal Medicine Gastroenterology | DX: K29.70 Gastritis, unspecified, without bleeding (principal); K22.2 Esophageal obstruction | CPT/HCPCS: 43239; 43249 ==

== ENCOUNTER 2024-05-31 13:38 | Outpatient (AMB) | payer OTHER, SELFPAY ==
[2024-05-31 13:44] VITALS: BP 108/60; PULSE 104; O2SAT 97; BMI 32.6
--- NOTE | 2024-05-31 13:44 | MHC.OFFVIS ---
Vital Signs 05/31/24 13:44 Height 5 ft 3 in Weight 184 lb 1.376 oz BMI 32.6 BP 108/60 Blood Pressure Location Rt brachial Position Sitting Pulse 104 H Pulse Source Doppler Pulse Oximetry (%) 97 Oxygen Delivery Method Room Air Intake Visit Reasons: Shortness of breath Controller Instructor Required: Yes Controller Instructor Name: Cathie Mccray SarahImtiaz Allergies aspirin [ASA] Allergy (Intermediate, Verified 05/24/24 13:04) Hives Penicillins [PENICILLINS] Allergy (Intermediate, Verified 05/24/24 13:04) RASH loratadine Allergy (Unknown, Verified 05/24/24 13:04) Unknown trimethoprim Allergy (Unknown, Verified 05/24/24 13:04) Unknown venlafaxine Allergy (Unknown, Verified 05/24/24 13:04) Unknown HPI HPI Shortness of breath: Details: 63-year-old lady, lifetime nonsmoker, with ?SLE, also underlying obstructive sleep apnea on CPAP? and at least moderate persistent asthma.? Patient continues on CPAP with reasonable control of her underlying sleep apnea symptoms. At the last office visit she was switched to Trelegy with improved control of her underlying asthma symptoms. Her lower extremity edema is also reasonably well controlled on current regimen of furosemide 20 mg every day. [facility] Medical History Sleep apnea Asthma Hx of renal calculi PONV (postoperative nausea and vomiting) Sweating abnormality Hirsutism MGUS (monoclonal gammopathy of unknown significance) Positive MARCY (antinuclear antibody) Idiopathic hirsutism Plantar fasciitis Mood disorder Xerosis of skin Chronic fatigue Myositis Myalgia Pulmonary nodule Depression Diabetes Age related osteoporosis Restless legs Spondylosis Arthritis Carpal tunnel syndrome Fibromyalgia Constipation High cholesterol Anxiety Hypertension SLE (systemic lupus erythematosus related syndrome) Surgical History Hx of bilateral cataract extraction History of surgery of head H/O colonoscopy H/O esophagogastroduodenoscopy H/O hemorrhoidectomy History of tubal ligation Family History Father Diabetes Hypertension Mother Hypertension Diabetes Asthma Maternal Grandfather Throat cancer Maternal Grandmother Throat cancer Paternal Uncle Prostate cancer Maternal Uncle Throat cancer Stomach cancer Maternal Aunt Stomach cancer Diabetes Social History Household Members: Family Are you a primary direct care specialist to a significant other at home: No Do you presently have visiting nurse or other home services: Yes (PAVING INSPECTOR and supportive Daughter) Alcohol intake: never Patient Tobacco Use Status: Never used Tobacco Current occupational status: retired Current occupation: rt handed Review of Systems Const Denies daytime sleepiness, Denies excessive sweating, Denies fatigue, Denies fever(s), Denies lethargy, Denies malaise, Denies night sweats, Denies snoring and Denies weight loss Eyes Denies blurry vision and Denies itchy eyes ENT Denies nasal congestion, Denies post nasal drip, Denies sinus pain, Denies sinus pressure and Denies other ( Thrush) Card Denies chest pain, Denies pedal edema, Denies dyspnea, Denies orthopnea and Denies paroxysmal nocturnal dyspnea Resp Denies cough, Denies hemoptysis, Denies excessive phlegm production, Denies dyspnea, Denies snoring and Denies wheezing GI Denies abdominal pain and Denies heartburn Musc Denies myalgias, Denies arthralgias and Denies joint swelling Skin/Breast Denies rash Neuro Denies memory loss and Denies seizure-like activity Psych Denies abnormal sleep pattern, Denies anxiety and Denies memory loss Endo Denies excessive sweating, Denies fatigue and Denies heat intolerance Chase/Lymph Denies easy bruising Aller/Immun Denies itchy eyes, Denies seasonal rhinorrhea and Denies wheezing Physical Exam Vital Signs: Last Vital Signs Pulse 104 H 05/31/24 13:44 BP 108/60 05/31/24 13:44 Pulse Ox 97 05/31/24 13:44 Oxygen Delivery Method Room Air 05/31/24 13:44 BMI result Body Mass Index 32.6 Const General: no acute distress and alert Nutritional Appearance: obese Orientation/consciousness: Other orientation findings ( oriented) HEENT Head: Yes atraumatic Eyes General: appearance normal, both eyes and all related structures Sclerae: sclerae normal EOM: EOMs intact bilaterally Neck Neck: Yes supple Lymphatic: no lymphadenopathy noted Resp Effort & Inspection: normal respiratory effort and no use of accessory muscles Auscultation: clear to auscultation bilaterally Cardio Rate: regular rate Rhythm: regular rhythm Heart sounds: no gallops, no murmurs and no rubs Skin General skin exam: other ( warm) Extrem General: No clubbing, No cyanosis and No edema Assessment & Plan Assessment & Plan (1) TREE on CPAP: Code(s): G47.33 - Obstructive sleep apnea (adult) (pediatric); Z99.89 - Dependence on other enabling machines and devices Category: Medical Plan: Well controlled on current CPAP therapy. Continue CPAP therapy. (2) Asthma: Code(s): J45.909 - Unspecified asthma, uncomplicated Category: Medical Plan: Well controlled on current regimen of Trelegy, duo nebs, and albuterol MDI. Continue current regimen. (3) Dyspnea on exertion: Code(s): R06.00 - Dyspnea, unspecified Category: Medical Plan: Orthopnea component is well controlled on current diuretic dose. Continue Lasix 20 mg daily. Medications: Refilled pqnindhithf-eofpvhyed-lpchygxh 200-62.5-25 mcg (Trelegy Ellipta) 1 inh inhalation DAILY 1 ea 6RF 30 days ipratropium-albuterol 0.5 mg-3 mg(2.5 mg base)/3 mL 3 mL inhalation Q4-6H PRN 90 mL 6RF wheezing 30 days furosemide 20 mg PO QAM 30 tabs 6RF 30 days albuterol sulfate 90 mcg/actuation 2 puffs inhalation Q4-6H PRN 1 ea 6RF shortness of breath or wheezing 30 days J84.9 - Interstitial pulmonary disease, unspecified Coding Level of Care Code Est Pt Level 4 (55158) Complex EM visit Add On G2211 Diagnoses TREE on CPAP G47.33; Z99.89 Asthma J45.909 Dyspnea on exertion R06.00
== END 2024-05-31 14:29 | disposition home or self-care (01) ==
LOC: HO.HPS 13:39
PROVIDERS: PCP Pediatrics; Visit Provider Internal Medicine Pulmonary Disease
DX: G47.33 Obstructive sleep apnea (adult) (pediatric) (principal); Z99.89 Dependence on other enabling machines and devices; J45.909 Unspecified asthma, uncomplicated; R06.00 Dyspnea, unspecified
CPT/HCPCS: 99214; G2211

== ENCOUNTER → 2024-05-31 13:38 | Outpatient (BNVA) | payer OTHER, SELFPAY | PROVIDERS: PCP Pediatrics; Visit Provider Internal Medicine Pulmonary Disease | DX: R06.00 Dyspnea, unspecified (principal); J45.40 Moderate persistent asthma, uncomplicated; G47.33 Obstructive sleep apnea (adult) (pediatric); Z99.89 Dependence on other enabling machines and devices | CPT/HCPCS: 99212 ==

== ENCOUNTER 2024-06-15 14:22 | Outpatient (AMB) | payer OTHER, SELFPAY ==
--- NOTE | 2024-06-15 14:30 | A.OFFVIS_ITS ---
Intake Visit Reasons: 1y/US Intake Note: Patient presents today for a 1year follow-up/US Meds-NONE Allergies to Antibiotic- No Known Allergies Blood Thinner- None Patch Sander Required: Yes Patch Sander Language: Tub Rider Name: [id number] Information Interpreted: non-clinical & clinical Accompanied by: Self / Same As Patient Allergies aspirin [ASA] Allergy (Intermediate, Verified 06/15/24 14:32) Hives Penicillins [PENICILLINS] Allergy (Intermediate, Verified 06/15/24 14:32) RASH loratadine Allergy (Unknown, Verified 06/15/24 14:32) Unknown trimethoprim Allergy (Unknown, Verified 06/15/24 14:32) Unknown venlafaxine Allergy (Unknown, Verified 06/15/24 14:32) Unknown HPI Comments Details: Jess is a 62-year-old female who presents today to the office for a follow-up kidney stones. She has had intermittent flank pain in May, CT imaging noted punctate stones left kidney. Cont Vit B6 100 mg, Follow-up in 1 year renal US prior.Will continue to monitor. 30 minutes spent in review of records pertaining to this visit and including [id number]-zefe discussion with the patient and documentation of this visit. 05/04/24--CTAP-kidneys are normal in size, shape, and attenuation. Two punctate calculi are seen in the left kidney , the largest measuring 2 mm. Review of chart: ? She is followed today for renal US results. The patient has a past medical history significant for diabetes. Patient states she passed a left ureteral stone in 09/2021. She has seen Perez COVARRUBIAS Sherry on 12/08/2021 for nephrolithiasis. The patient was encouraged to continue with adequate daily water intake, and continue Vitamin B6 during that time. I reviewed the renal US results from 05/20/2023 revealed no nephrolithiasis noted. Left renal 1.3 cm complex cyst. I have encouraged her to increase the fluid intake as well as adding lemon juice to water. Advised the patient on low sodium and low oxalate diet. [facility] Medical History Sleep apnea Asthma Hx of renal calculi PONV (postoperative nausea and vomiting) Sweating abnormality Hirsutism MGUS (monoclonal gammopathy of unknown significance) Positive MARCY (antinuclear antibody) Idiopathic hirsutism Plantar fasciitis Mood disorder Xerosis of skin Chronic fatigue Myositis Myalgia Pulmonary nodule Depression Diabetes Age related osteoporosis Restless legs Spondylosis Arthritis Carpal tunnel syndrome Fibromyalgia Constipation High cholesterol Anxiety Hypertension SLE (systemic lupus erythematosus related syndrome) Surgical History Hx of bilateral cataract extraction History of surgery of head H/O colonoscopy H/O esophagogastroduodenoscopy H/O hemorrhoidectomy History of tubal ligation Family History Father Diabetes Hypertension Mother Hypertension Diabetes Asthma Maternal Grandfather Throat cancer Maternal Grandmother Throat cancer Paternal Uncle Prostate cancer Maternal Uncle Throat cancer Stomach cancer Maternal Aunt Stomach cancer Diabetes Social History Household Members: Family Are you a primary care process manager to a significant other at home: No Do you presently have visiting nurse or other home services: Yes (ENROLLMENT COORDINATOR and supportive Daughter) Alcohol intake: never Patient Tobacco Use Status: Never used Tobacco Current occupational status: retired Current occupation: rt handed Review of Systems Const All systems reviewed & are unremarkable except as noted in HPI and below Reports no additional complaints Eyes Reports no additional complaints ENT Reports no additional complaints Card Reports no additional complaints Resp Reports no additional complaints GI Reports no additional complaints Reports as per HPI Musc Reports no additional complaints Skin/Breast Reports system reviewed and no additional complaints, except as documented Neuro Reports no additional complaints Psych Reports no additional complaints Endo Reports no additional complaints Chase/Lymph Reports no additional complaints Aller/Immun Reports no additional complaints Results AMB Urinalysis, Automated UA Leukoctes 0 Mauricio/uL Last Edit by CARLI Boone on 06/15/24 15:14 UA Nitrite Negative Last Edit by CARLI Boone on 06/15/24 15:14 UA Urobilinogen 35 mg/dL Last Edit by Jovi Shah, [facility] on 06/15/24 15:14 UA Protein 15 mg/dL Last Edit by Jovi Shah, [facility] on 06/15/24 15:14 UA pH 5.5 Last Edit by Jovi Shah, [facility] on 06/15/24 15:14 UA Blood 0 Adonis/uL Last Edit by Jovi Shah, [facility] on 06/15/24 15:14 UA Specific Fortuna 1.030 Last Edit by Jovi Shah, [facility] on 06/15/24 15: 14 UA Ketone Positive Last Edit by Jovi Shah [facility] on 06/15/24 15:14 UA Bilirubin 0 mg/dL Last Edit by Jovi Shah, [facility] on 06/15/24 15:14 UA Glucose 0 mg/dL Last Edit by Jovi Shah [facility] on 06/15/24 15:14 Results Reviewed Results Reviewed: Laboratory Last Values Urine pH (Auto) 5.5 06/15/24 15:09 Specific Fortuna (Auto) 1.030 06/15/24 15:09 Urine Protein (Auto) 15 mg/dL 06/15/24 15:09 Glucose (UA)(Auto) 0 mg/dL 06/15/24 15:09 Urine Ketones (Auto) Positive 06/15/24 15:09 Urine Blood (Auto) 0 Adonis/uL 06/15/24 15:09 Urine Nitrite (Auto) Negative 06/15/24 15:09 Urine Bilirubin (Auto) 0 mg/dL 06/15/24 15:09 Urine Urobilinogen (Auto) 35 mg/dL 06/15/24 15:09 Leukocyte Esterase (Auto) 0 Mauricio/uL 06/15/24 15:09 Date of Service: 05/04/24 CT ABDOMEN AND PELVIS WITHOUT CONTRAST CLINICAL INFORMATION: Flank pain. COMPARISON: Renal ultrasound 04/04/2024: A 0.4 cm nonobstructing left renal stone, new from prior. Another previously seen mid pole echogenic focus was not identified. CT abdomen/pelvis 10/03/2021. TECHNIQUE: Multidetector volumetric imaging was performed from the superior aspect of the liver through the pubic symphysis. Sagittal and coronal reformatted images were obtained on the technologist's workstation. This CT examination was performed using dose optimization techniques as appropriate, variously including the following: *Automated exposure control *Adjustment of mA and/or kV according to patient size (this includes techniques or standardized protocols for targeted exams where dose is matched to indication/reason for exam; i.e. extremities or head) *Use of iterative reconstruction technique DLP: 644 mGy-cm. FINDINGS: LUNG BASES: The visualized lung bases are unremarkable. 4 mm pleural-based left lower lobe pulmonary nodule, unchanged (4:83 compare prior 4:71). LIVER, GALLBLADDER, AND BILIARY TREE: The liver is normal in size, shape, and attenuation. No focal hepatic lesion or biliary ductal dilatation is present. The gallbladder is unremarkable with no evidence of radiopaque gallstones, gallbladder wall thickening, or obvious pericholecystic inflammatory changes. PANCREAS: Unremarkable. SPLEEN: Unremarkable. ADRENAL GLANDS: Unremarkable. KIDNEYS AND URETERS: The kidneys are normal in size, shape, and attenuation. Two punctate calculi are seen in the left kidney (see saved vega images), the largest measuring 2 mm. No hydronephrosis, hydroureter, or right-sided/ureteral calculi seen. No perinephric stranding. A benign posterior left upper pole 0.8 cm Bosniak class I renal cyst is noted which requires no additional imaging or follow up. No solid renal masses are seen. BLADDER: Unremarkable. GASTROINTESTINAL TRACT: The small and large bowel are unremarkable. The appendix is not identified, but there is no evidence of appendicitis. ABDOMINAL WALL: No significant hernia is appreciated. LYMPH NODES: No retroperitoneal lymphadenopathy. VASCULAR: Unremarkable. PELVIC VISCERA: There is a large 4 cm fundal broad-based pedunculated fibroid again noted. Other smaller fibroids are seen. An abnormal adnexal mass or free fluid is not detected. OSSEOUS STRUCTURES: Unremarkable. n IMPRESSION: 1. A cause for the patient's flank pain has not been found. 2. Incidental note made of 2 punctate nonobstructing left renal calculi, unchanged 4 mm left lower lobe pulmonary nodule, and uterine fibroids. Date of Service: 05/20/23 EXAMINATION: US RETROPERITONEAL LIMITED (RENAL ONLY) CLINICAL INFORMATION: Calculus of kidney. COMPARISON: Renal ultrasound 04/29/2022 and 12/03/2021. CT abdomen and pelvis 10/03/2021. FINDINGS: RIGHT KIDNEY: 10.2 x 4.9 x 5.2 cm (SAG x AP x TRV). No hydronephrosis. No renal calculi. Renal cortical thickness is normal. Limited visualization. Right lower pole 0.6 cm cyst difficult to fully characterize due to small size and limited visualization, but likely benign. LEFT KIDNEY: 11.8 x 4.6 x 4.4 cm (SAG x AP x TRV). Echogenic focus midpole left kidney, possibly a calcified vessel rather than renal calculus. No hydronephrosis. Renal cortical thickness is normal. Limited visualization. Lateral midpole 1.3 x 0.6 x 1.0 cm complex cyst with mural echogenicity suggestive of mural calcification or milk of calcium previously measured 1.3 x 1.6 x 1.1 cm on 04/30/2022 and not fully characterized on prior exams. IMPRESSION: Left renal midpole likely calcified vessel rather than a nonobstructive calculus, approximately 5 mm. No hydronephrosis. Left renal 1.3 cm complex cyst is stable to decreased in size. Recommend attention on followup imaging. Assessment & Plan Assessment & Plan (1) Acquired complex renal cyst: Code(s): N28.1 - Cyst of kidney, acquired Category: Medical (2) History of kidney stones: Code(s): Z87.442 - Personal history of urinary calculi Category: Medical Plan Cont Vit B6 100 mg. Follow-up in 1 year renal US prior. Orders: Orders AMB Urinalysis Automated 06/15/24 Z13.9 - Encounter for screening, unspecified US renal BI 10 Months Z87.442 - Personal history of urinary calculi, N28.1 - Cyst of kidney, acquired Coding Level of Care Code Est Pt Level 4 (28551) Diagnoses Acquired complex renal cyst N28.1 History of kidney stones Z87.442
== END 2024-06-15 15:15 | disposition home or self-care (01) ==
PROVIDERS: PCP Pediatrics; Visit Provider Urology
DX: N28.1 Cyst of kidney, acquired (principal); Z87.442 Personal history of urinary calculi
CPT/HCPCS: 99214

== ENCOUNTER → 2024-06-15 14:22 | Outpatient (BNVA) | payer OTHER, SELFPAY | PROVIDERS: PCP Pediatrics; Visit Provider Urology | DX: N28.1 Cyst of kidney, acquired (principal); Z87.442 Personal history of urinary calculi | CPT/HCPCS: 81003; 99212 ==

== ENCOUNTER → 2024-07-18 15:17 | Outpatient (BNVA) | payer OTHER, SELFPAY | PROVIDERS: PCP Pediatrics; Visit Provider Nurse Practitioner | DX: K22.4 Dyskinesia of esophagus (principal); K22.89 Other specified disease of esophagus; K21.9 Gastro-esophageal reflux disease without esophagitis; K59.04 Chronic idiopathic constipation; R13.10 Dysphagia, unspecified | CPT/HCPCS: 99212 ==

== ENCOUNTER 2025-01-17 15:36 | Outpatient (REF) | payer OTHER, SELFPAY ==
--- OUTSIDE RECORDS SUMMARY | 2025-01-17 16:44 | XMS_ITS | Encounter Summary ---
Author Organization [employer] Address [address] [facility] 7 [place] [address] Care Team Providers Care Window Caser Name Role Phone Adrienne Villegas MD Primary Care Provider [phone] Reason for Visit * Reason Comments Med Refill Encounter Details Date Type Department Care Team (Late st Contact Info) Description 08/30/[address] [facility] MEDICINE [address] [place] [address] Adrienne Villegas MD [address] [place], [place] [phone] Social History Tobacco Use Types Packs/Day Years Used Date Smoking Tobacco: Never Assessed Comments Unknown Sex and Gender Information Value Date Recorded Sex Assigned at Female 05/31/2022 10:16 AM EDT Legal Sex Female 10:16 AM EDT Gender Identity Female 05/31/2022 10:16 AM EDT Sexual Orientation Straight 05/31/2022 10 :16 AM EDT COVID-19 Exposure Response Date Recorded In the last 10 days, have yo u been in contact with someone who was confirmed or suspected to have Coronavirus/COVID-19? No / Unsure 08/26/2022 1:05 PM EST documented as of this encounter Miscellaneous Notes * Telephone Encounter - Dianne Perla - 09/01/2022 2:27 PM EST Pt return call regarding message below documented in this encounter Plan of Treatment Upcoming Encounters Date Type Department Care Team (Late st Contact Info) Description 03/12/2025 10:30 AM EDT Office Visit [facility] MED & PEDS [address] [place] [address] Adrienne Villegas MD [address] [place] [address] documented as of this encounter Visit Diagnoses Not on filedocumented in this encounter Care Teams Window Caser Relationship Specialty Start Date End Date Adrienne Villegas MD [address] [place] [address] PCP - General Family Medicine 08/01/18 documented as of this encounter
== END 2025-01-17 15:37 | disposition home or self-care (01) ==
LOC: HO.MAMMO 15:36
PROVIDERS: PCP Pediatrics; Visit Provider Pediatrics
DX: Z13.89 Encounter for screening for other disorder (principal)

== ENCOUNTER 2025-03-12 11:05 | Outpatient (REF) | payer OTHER, SELFPAY ==
--- OUTSIDE RECORDS SUMMARY | 2025-03-12 12:14 | XMS_ITS | Encounter Summary ---
Author Organization [employer] Address [address] [facility] [address] [place] [address] Care Team Providers Care Retort Load Expediter Name Role Phone Adrienne Villegas MD Primary Care Provider [phone] Reason for Visit * Reason Comments Med Refill Encounter Details Date Type Department Care Team ([facility] st Contact Info) Description 08/30/2022 Refill [facility] MEDICINE [address] [place] [address] Adrienne Villegas MD [address] [place], [place] [phone] Social History Tobacco Use Types Packs/Day Years [...] documented in this encounter Plan of Treatment Not on file documented as of this encounter Visit Diagnoses Not on filedocumented in this encounter Care Teams Retort Load Expediter Relationship Specialty Start Date End Date Adrienne Villegas MD [address] [place] [id number] PCP - General Family Medicine 08/01/18 documented as of this encounter
--- OUTSIDE RECORDS SUMMARY | 2025-03-12 12:14 | XMS_ITS | Encounter Summary ---
Author Organization [facility] Address [address] [place] [address] Care Team Providers Care Electric Power Line Examiner Name Role Phone Adrienne Villegas Primary Care Provider [phone] Reason for Visit * Reason Onset Date Comments Telehealth video call 09/09/2021 Encounter Details Date Type Department Care Team (Late st Contact Info) Description 09/09/2021 Telephone [facility] Central Scheduling Department [address] [place] [id number] Telephone Intake, Staff Telehealth video call Social History Tobacco Use Types Packs/Day Years Used Date Smoking Tobacco: Never Smokeless Tobacco: Never Alcohol Use Standard Drinks/Week Comments Not Currently 0 (1 standard drink = 0.6 oz pur e alcohol) Comments Unknown Sex and Gender Information Value Date Recorded Sex Assigned at Female 05/13/2021 11:29 AM EDT Legal Sex Female 11:33 AM EST Gender Identity Female 05/13/2021 11:29 AM EDT Sexual Orientation Straight 05/13/2021 11 :29 AM EDT documented as of this encounter Miscellaneous Notes * Telephone Encounter - Haritha Gomez - 09/09/2021 3:02 PM EST Derm pt's daughter inquiring re telehealth video appt that should have already started with Dr. Sil Chandler 15 minutes prior I did explain to daughter that sometimes the provider runs a bit late While I was speaking with daughter, the provider, Dr. Chandler, did join the meeting documented in this encounter Plan of Treatment Not on file documented as of this encounter Visit Diagnoses Not on filedocumented in this encounter Care Teams Electric Power Line Examiner Relationship Specialty Start Date End Date Adrienne Villegas [address] [place] [address] PCP - General Internal Medicine 09/12/19 documented as of this encounter
--- OUTSIDE RECORDS SUMMARY | 2025-03-12 12:14 | XMS_ITS | Encounter Summary ---
Author Organization [facility] Address [address] [facility] [address] [place] [address] Phone Care Team Providers Care Veneer Joiner Name Role Phone Adrienne Villegas MD Primary Care Provider [phone] Reason for Referral * Physical Therapy (Within 1 month) - Closed Specialty Diagnoses / Procedures Referred By Kayla rodriguez Referred To Contact Physical Therapy Diagnoses Physical therapy evaluation, initial Diego Perez DDS Phone: tel: [facility] [address] [place] [address] Phone: tel: Referral ID Status Reason Start Date Expiration Date Visits Re quested Visits Authorized [id number] Closed 10/25/2017 07/31/2018 99 [phone] Encounter Details Date Type Department Care Team (Latest Contact Info) Description 10/25/2017 Transcribe Orders [facility] Physical [facility] Occupational [facility] Services [address] [facility], 1st Floor, [address] [place] [address] Diego Perez DDS [address] [facility] [address] [place] [address] Physical therapy evaluation, initial (Primary Dx) Social History Tobacco Use Types Packs/Day Years Used Date Smoking Tobacco: Never Smokeless Tobacco: Never Alcohol Use Standard Drinks/Week Comments No 0 (1 standard drink = 0.6 oz pur e alcohol) Comments No Sex and Gender Information Value Date Recorded Sex Assigned at Not on file Legal Sex Female 1:43 PM EST Gender Identity Not on file Sexual Orientation Not on file documented as of this encounter Plan of Treatment Scheduled Referrals Name Type Priority Associated Diagnoses Order Schedule Ambulatory referral to [facility] Physical Therapy Outpatient Referral Routine Physical therapy evaluation, initial Ordered: 10/25/2017 documented as of this encounter Visit Diagnoses Diagnosis Physical therapy evaluation, initial- Primary Other specified examination documented in this encounter Care Teams Veneer Joiner Relationship Specialty Start Date End Date Adrienne Villegas MD [address] [place] [id number] PCP - General Pediatrics 08/30/17 documented as of this encounter Additional Source Comments The information contained in this document represents components of the legal health record. It is not the complete legal health record.[facility]
[2025-03-12 14:04] LABS: MANUAL DIFF FLAG NO
[2025-03-12 14:21] LABS: Hematocrit 41.0 % (37.0-47.0); Hemoglobin 12.8 g/dl (12.0-16.0); Imm Gran Abs Auto 0.01 X10*3/uL (0.00-0.03); Imm Gran Pct Auto 0.1 % (0.0-0.4); Lymphocytes Absolute Auto 1.2 X10*3/uL (1.2-4.9); Mean Corpuscular HGB Conc 31.2 g/dl (31.0-35.0); Mean Corpuscular Hemoglobin 29.8 pg (27.0-33.0); Mean Corpuscular Volume 95.3 fL (80.0-98.0); NRBC Abs Auto 0.000 X10*3/uL (0.0-0.012); NRBC Pct Auto 0.0 /100WBC (0.0-0.2); Platelet Count 317 X10*3/uL (160-400); Red Blood Count 4.30 X10*6/uL (4.20-5.50); White Blood Count 6.9 X10*3/uL (4.8-10.8)
[2025-03-12 14:46] LABS: Microalbum/Creatinine Ratio Ur 6.5 ug/mg cr (<30)
[2025-03-12 14:46] LABS: Alanine Aminotransferase 25 U/L (0-31); Albumin Level 4.4 g/dL (3.5-5.0); Alkaline Phosphatase 72 U/L (39-117); Anion Gap 11 (12-20); Aspartate Amino Transferase 29 U/L (5-31); Blood Urea Nitrogen 15 mg/dL (9-16); Calcium 8.9 mg/dL (8.4-10.2); Carbon Dioxide 29 mmol/L (22-29); Chloride 107 mmol/L (96-108); Cholesterol 182 mg/dL (<200); Estimated Glomerular Filt Rate > 60; HDL Cholesterol 49 mg/dL (>40); Magnesium 2.3 mg/dL (1.6-2.6); Potassium 4.3 mmol/L (3.3-5.1); Sodium 143 mmol/L (135-145); Total Protein 7.0 g/dL (6.5-8.0); Triglycerides 117 mg/dL (<150)
== END 2025-03-12 11:06 | disposition home or self-care (01) ==
LOC: HO.CHCLDS 11:05
PROVIDERS: Visit Provider Pediatrics
DX: I10 Essential (primary) hypertension (principal); E11.9 Type 2 diabetes mellitus without complications; M85.859 Other specified disorders of bone density and structure, unspecified thigh; M62.9 Disorder of muscle, unspecified
CPT/HCPCS: 36415; 80053; 80061; 82043; 82306; 82570; 83735; 84443; 85025

== ENCOUNTER 2025-04-16 13:32 | Outpatient (REF) | payer OTHER, SELFPAY ==
--- NOTE | ~2025-04-16 | US_ITS ---
EXAMINATION: US KIDNEY BILATERAL HISTORY: Z87.442 - Personal history of urinary calculi TECHNIQUE: Real-time grayscale ultrasound imaging of the kidneys was performed and images were reviewed. COMPARISON: Comparison is made with the prior examination dated 04/04/2024. FINDINGS: Right kidney: The right kidney measures 10.4 x 4.5 x 5.4 cm. Renal parenchymal echotexture and thickness are normal. There is an upper pole cyst measuring 8 x 5 x 7 mm. There is no hydronephrosis or renal calculi. Left Kidney: The left kidney measures 11.6 x 5.2 x 5.2 cm. Renal parenchymal echotexture and thickness are normal. There is a cyst in the interpolar region measuring 1.3 x 0.8 x 1.3 cm which demonstrates calcified fisher. There is a nonobstructing calculus at the lower pole measuring 3 mm. No hydronephrosis. US/US renal BI IMPRESSION: 1. 3 mm nonobstructing calculus at the lower pole of the left kidney. 2. 1.3 cm left renal cyst demonstrating calcified fisher. Follow-up is recommended. Electronically signed by: Pablo Campos MD 04/16/2025 02:07 PM EDT
--- OUTSIDE RECORDS SUMMARY | 2025-04-16 17:26 | XMS_ITS | Encounter Summary ---
Author Organization [employer] Address [address] [facility] 7t [place] [address] Care Team Providers Care Rental Sales Agent Name Role Phone Adrienne Villegas MD Primary Care Provider [phone] Reason for Visit * Reason Comments Med Refill Encounter Details Date Type Department Care Team ([facility] st Contact Info) Description 08/30/2022 Refill [facility] MEDICINE [address] [place] [address] Adrienne Villegas MD [address] [place], [place] [phone] Social History Tobacco Use Types Packs/Day Years [...] on filedocumented in this encounter Care Teams Rental Sales Agent Relationship Specialty Start Date End Date Adrienne Villegas MD [address] [place] [address] PCP - General Family Medicine 08/01/18 documented as of this encounter
--- OUTSIDE RECORDS SUMMARY | 2025-04-16 17:26 | XMS_ITS | Encounter Summary ---
Author Organization [facility] Address [address] [place] [address] Care Team Providers Care Railroad Design Consultant Name Role Phone Adrienne Villegas Primary Care Provider [phone] Reason for Visit * Reason Onset Date Comments Telehealth video call 09/09/2021 Encounter Details Date Type Department Care Team (Late st Contact Info) Description 09/09/2021 Telephone [facility] Central Scheduling Department [address] [place] [address] Telephone Intake, Staff Telehealth video call Social [...] on filedocumented in this encounter Care Teams Railroad Design Consultant Relationship Specialty Start Date End Date Adrienne Villegas [address] [place] [address] PCP - General Internal Medicine 09/12/19 documented as of this encounter
--- OUTSIDE RECORDS SUMMARY | 2025-04-16 17:26 | XMS_ITS | Clinical Summary ---
Author Organization [facility] Address [address] [place] [address] Phone Care Team Providers Care Frozen Foods Manager Name Role Phone Adrienne Villegas MD Primary Care Provider [phone] Medications pregabalin (LYRICA) 150 MG capsule Take 150 mg by mouth 2 (two) times a day. Active methocarbamol (ROBAXIN) 750 MG tablet Take 750 mg by mouth 4 (four) times a day. Active nabumetone (RELAFEN) 750 MG tablet Take 750 mg by mouth 2 (two) times a day. Active ibuprofen (ADVIL,MOTRIN) 800 MG tablet Take 800 mg by mouth every 6 (six) hours as needed for pain (specific location in comments). Active diclofenac sodium (VOLTAREN) 1 % Gel Apply 2 g topically 4 (four) times a day. Active lidocaine 5 % ointment Apply topically as needed. Active gabapentin (NEURONTIN) 300 MG capsule Take 300 mg by mouth 3 (three) times a day. Active clonazePAM (KLONOPIN) 0.5 MG tablet Take 0.5 mg by mouth 2 (two) times a day as needed for anxiety. Active meclizine (ANTIVERT) 25 MG tablet Take 25 mg by mouth 3 (three) times a day as needed. Active venlafaxine (EFFEXOR) 75 MG tablet Take 75 mg by mouth 2 (two) times a day. Active atorvastatin (LIPITOR) 40 MG tablet Take 40 mg by mouth daily. Active desonide (DESOWEN) 0.05 % cream Apply topically 2 (two) times a day. Active raNITIdine (ZANTAC) 150 MG tablet Take 150 mg by mouth 2 (two) times a day. Active polyethylene glycol (MIRALAX) 17 gram packet Take 17 g by mouth daily. Active senna (SENOKOT) 8.6 mg tablet Take 1 tablet by mouth daily. Active dexlansoprazole (DEXILANT) 60 mg capsule Take 60 mg by mouth daily. Active cloNIDine HCl (CATAPRES) 0.1 MG tablet Take 0.1 mg by mouth 2 (two) times a day. Active ondansetron (ZOFRAN-ODT) 4 MG disintegrating tablet Take 4 mg by mouth every 8 (eight) hours as needed for nausea. Active Social History Tobacco Use Types Packs/Day Years Used Date Smoking Tobacco: Never Smokeless Tobacco: Never Alcohol Use Standard Drinks/Week Comments No 0 (1 standard drink = 0.6 oz pur e alcohol) Education Answer Date Recorded Are you interested in more education? Not on sravanthi e 11/26/2022 Are you concerned about learning? Not on file 11/26/2022 No 11/26/2022 No 11/26/2022 Digital Access Answer Date Recorded No 12/25/2022 No 12/25/2022 No 12/25/2022 Reliable internet access at home? Not on file 12/25/2022 Device with a working camera? Not on file Comments No Sex and Gender Information Value Date Recorded Sex Assigned at Not on file Legal Sex Female 1:43 PM EST Gender Identity Not on file Sexual Orientation Not on file Last Filed Vital Signs Vital Sign Reading Time Taken Comments Blood Pressure 159/87 10/25/2017 1:18 PM EDT Pulse 80 10/25/2017 1:18 PM EDT Temperature - - Respiratory Rate - - Oxygen Saturation 99% 10/25/2017 1:18 PM EDT Inhaled Oxygen Concentration - - Weight 67.1 kg (148 lb) 10/25/2017 1:18 PM EDT Height 154.9 cm (5' 1 ) 10/25/2017 1:18 PM EDT Body Mass Index 27.96 10/25/2017 1:18 PM EDT Plan of Treatment Health Maintenance Due Date Last Done Comments LIPID PANEL 1960 DEPRESSION SCREENING 1972 HEPATITIS C SCREENING 1978 HIV ONE-TIME SCREENING (18-6 5 YEARS) 1978 PAP SMEAR 1981 MAMMOGRAM 2000 COLOGUARD 2005 COLONOSCOPY 2005 COLORECTAL CANCER SCREENING 2005 FIT TEST 2005 FOBT 2005 SIGMOIDOSCOPY 2005 VIRTUAL COLONOSCOPY 2005 PNEUMOCOCCAL VACCINES (50+ years) (1 of 1 - PCV) 2010 ZOSTER VACCINES (1 of 2) 2010 INFLUENZA VACCINE (#1) 2025 COVID-19 VACCINE (3 - 2024-2 6 season) 2025 12/18/2020, 11/20/2020 Adult Td,Tdap Booster 07/16/2026 07/16/2016 RSV VACCINE (1 - 1-dose 75+ series) 11/05/2035 SMOKING STATUS SCREENING (On ce After 26 Yrs) Completed 10/25/2017 HEPATITIS A VACCINES Aged Out No long er eligible based on patient's age to complete this topic HIB VACCINES Aged Out No longer eligi ble based on patient's age to complete this topic MENINGOCOCCAL VACCINES (ACWY) Aged Out No longer eligible based on patient's age to complete this topic MENINGOCOCCAL VACCINES (B) Aged Out N o longer eligible based on patient's age to complete this topic Medical Devices Not on file Insurance [facility] ONE CARE MEDICARE REPLACEMENT [facility] MEDICARE REPLACEMENT [facility] MEDICARE REPLACEMENT SUZ[employer] [id number] [facility] MEDICARE REPLACEMENT SUZ[employer] [place] [id number] [facility] MEDICARE REPLACEMENT [facility] MEDICARE REPLACEMENT [facility] MEDICARE REPLACEMENT [facility] MEDICARE [facility]PLACEMENT [facility] MEDICARE REPLACEMENT [place] [id number] [place] [address] [facility] DENTAL Care Teams Frozen Foods Manager Relationship Specialty Start Date End Date Adrienne Villegas MD [address] [place] [address] TJ Meehan [address] PCP - General Pediatrics 08/30/17 Additional Source Comments The information contained in this document represents components of the legal health record. It is not the complete legal health record.[facility]
--- OUTSIDE RECORDS SUMMARY | 2025-04-16 17:26 | XMS_ITS | Encounter Summary ---
Author Organization [facility] Address [address] [facility] 7t [place] [address] Care Team Providers Care Assistant Wrestling Coach Name Role Phone Adrienne Villegas MD Primary Care Provider [phone] Encounter Details Date Type Department Care Team (Late st Contact Info) Description 04/16/2025 Orders Only [facility] External Provider, [facility] Social History Tobacco Use Types Packs/Day Years Used Date Smoking Tobacco: Never Passive Smoke Exposure: Never Smokeless Tobacco: Never Depression Answer Date Recorded Patient Health Questionnaire-9 Score 8 03/12/2025 Patient Health Questionnaire-9 Score 8 03/12/2025 Last PHQ-9: Questionnaire Data Not on file 0 03/12/2025 Housing Stability Answer Date Recorded What is your housing situation today? I have linda rhodes 03/12/[address] you li ve. Do you have problems with any of the following? None of the above 03/12/2025 Food Insecurity Answer Date Recorded Within the past 12 months, y ou worried that your food would run out before you got money to buy more: Often true 2024 Within the past 12 months,th e food you bought just didn't last and you didn't have enough money to get more: Sometimes True 03/12/2025 Transportation Answer Date Recorded In the past 12 months, has l ack of transportation kept you from medical appts, meetings, work or from getting things needed for daily living? No 03/12/2025 Utilities Answer Date Recorded In the past 12 months, has t he electric, gas, oil or water company threatened to shut off services in your home? No 03/12/2025 Depression Answer Date Recorded Patient Health Questionnaire-2 Score 2 03/12/2025 Internet Access Answer Date Recorded Internet Access Q1 Yes 03/12/2025 Internet Access Q2 Not on file 03/12/2025 Comments Unknown Sex and Gender Information Value Date Recorded Sex Assigned at Female 05/31/2022 10:16 AM EDT Legal Sex Female 10:16 AM EDT Gender Identity Female 05/31/2022 10:16 AM EDT Sexual Orientation Straight 05/31/2022 10 :16 AM EDT documented as of this encounter Plan of Treatment Not on file documented as of this encounter Procedures Procedure Name Priority Date/Time Associated Diagnosis Comments US RENAL COMPLETE Routine 04/16/2025 1:4 8 PM EDT documented in this encounter Results * US Renal Complete (04/16/2025 1:48 PM EDT) Anatomical Region Laterality Modality Kidney Ultrasound 04/16/2025 1:48 PM EDT Narrative 04/16/2025 2:13 PM EDT [place] [address] Ultrasound Report Signed Patient: Jess Gray MR#: [id number] : 1960 Acct:[id number] Age/Sex: 64 / F ADM Date: 04/16/25 Loc: .US Attending Dr: Usman Shrestha MD Ordering Physician: Usman Shrestha MD Date of Service: 04/16/25 Procedure(s): US renal BI Accession Number(s): [id number] cc: Usman Shrestha MD; Adrienne Villegas MD Reason for Exam: Z87.442 - Personal history of urinary calculi EXAMINATION: US KIDNEY BILATERAL HISTORY: Z87.442 - Personal history of urinary calculi TECHNIQUE: Real-time grayscale ultrasound imaging of the kidneys was performed and images were reviewed. COMPARISON: Comparison is made with the prior examination dated 04/04/2024. FINDINGS: Right kidney: The right kidney measures 10.4 x 4.5 x 5.4 cm. Renal parenchymal echotexture and thickness are normal. There is an upper pole cyst measuring 8 x 5 x 7 mm. There is no hydronephrosis or renal calculi. Left Kidney: The left kidney measures 11.6 x 5.2 x 5.2 cm. Renal parenchymal echotexture and thickness are normal. There is a cyst in the interpolar region measuring 1.3 x 0.8 x 1.3 cm which demonstrates calcified fisher. There is a nonobstructing calculus at the lower pole measuring 3 mm. No hydronephrosis. US/US renal BI IMPRESSION: 1. 3 mm nonobstructing calculus at the lower pole of the left kidney. 2. 1.3 cm left renal cyst demonstrating calcified fisher. Follow-up is recommended. Electronically signed by: Pablo Campos MD 04/16/2025 02:07 PM EDT RP Dictated By: Pablo Campos MD Signed By: <Electronically signed by Pablo Campos MD in [place]> 04/16/25 1407 DD/ 1348 TD/TT: 04/16/25 1356 Office Professionals: Procedure Note Donotuseinterpreter, Image - 04/16/2025 [place] [address] Ultrasound Report Signed Patient: Jess Gray DMR#: [id number] : 1960cct:[id number] Age/Sex: 64 / FADM Date: 04/16/25 Loc: HO.US Attending Dr: Usman Shrestha MD Ordering Physician: Usman Shrestha MD Date of Service: 04/16/25 Procedure(s): US renal BI Accession Number(s): [id number] cc: Usman Shrestha MD; Adrienne Villegas MD Reason for Exam: Z87.442 - Personal history of urinary calculi EXAMINATION: US KIDNEY BILATERAL HISTORY: Z87.442 - Personal history of urinary calculi TECHNIQUE: Real-time grayscale ultrasound imaging of the kidneys was performed and images were reviewed. COMPARISON: Comparison is made with the prior examination dated 04/04/2024. FINDINGS: Right kidney: The right kidney measures 10.4 x 4.5 x 5.4 cm. Renal parenchymal echotexture and thickness are normal. There is an upper pole cyst measuring 8 x 5 x 7 mm. There is no hydronephrosis or renal calculi. Left Kidney: The left kidney measures 11.6 x 5.2 x 5.2 cm. Renal parenchymal echotexture and thickness are normal. There is a cyst in the interpolar region measuring 1.3 x 0.8 x 1.3 cm which demonstrates calcified fisher. There is a nonobstructing calculus at the lower pole measuring 3 mm. No hydronephrosis. US/US renal BI IMPRESSION: 1. 3 mm nonobstructing calculus at the lower pole of the left kidney. 2. 1.3 cm left renal cyst demonstrating calcified fisher. Follow-up is recommended. Electronically signed by: Pablo Camops MD 04/16/2025 02:07 PM EDT RP Dictated By: Pablo Campos MD Signed By: <Electronically signed by Pablo Campos MD in OV> 04/16/25 1407 DD/ 1348 TD/TT: 04/16/25 1356 Office Professionals: [facility] External Provider IMG US PROCEDURES Edited Result - Final documented in this encounter Visit Diagnoses Not on filedocumented in this encounter Additional Health Concerns Assessment Noted Time PHQ-9 Depression Total Score: 8 03/12/20 25 10:43 AM EDT documented as of this encounter Care Teams Assistant Wrestling Coach Relationship Specialty Start Date End Date Adrienne Villegas MD [address] [place] [address] PCP - General Family Medicine 08/01/18 documented as of this encounter
--- OUTSIDE RECORDS SUMMARY | 2025-04-16 17:26 | XMS_ITS | Encounter Summary ---
Author Organization [facility] Address [address] [facility] [address] [place] [address] Phone Care Team Providers Care Mortgage Loan Interviewer Name Role Phone Adrienne Villegas MD Primary Care Provider [phone] Reason for Referral * Physical Therapy (Within 1 month) - Closed Specialty Diagnoses / Procedures Referred By Kayla rodriguez Referred To Contact Physical Therapy Diagnoses Physical therapy evaluation, initial Diego Perez DDS Phone: tel: [facility] [address] [place] [address] Phone: tel: Referral ID Status Reason Start Date Expiration Date Visits Re quested Visits Authorized [id number] Closed 10/25/2017 07/31/2018 99 [phone] Encounter Details Date Type Department Care Team (Latest Contact Info) Description 10/25/2017 Transcribe Orders [facility] [address] [facility], 1st [address], [address] [place] [address] Diego Perez DDS [address] [facility] [address] [place] [address] Physical therapy evaluation, initial (Primary Dx) Social [...] Associated Diagnoses Order Schedule Ambulatory referral to [facility] [place] Therapy Outpatient Referral Routine Physical therapy evaluation, initial Ordered: 10/25/2017 documented as of this encounter Visit Diagnoses Diagnosis Physical therapy evaluation, initial- Primary Other specified examination documented in this encounter Care Teams Mortgage Loan Interviewer Relationship Specialty Start Date End Date Adrienne Villegas MD [address] [place] [address] PCP - General Pediatrics 08/30/17 documented as of this encounter Additional Source Comments The information contained in this document represents components of the legal health record. It is not the complete legal health record.[facility]
--- OUTSIDE RECORDS SUMMARY | 2025-04-16 17:26 | XMS_ITS | Encounter Summary ---
Author Organization [employer] Address [address] [facility] 7 [place] [address] Care Team Providers Care Horse Rider Name Role Phone Adrienne Villegas MD Primary Care Provider [phone] Reason for Visit * Reason Onset Date Comments Medication Question 03/25/2025 Encounter Details Date Type Department Care Team ([facility] st Contact Info) Description 03/25/2025 Telephone [facility] MEDICINE [address] [place] [address] Adrienne Villegas MD [address] [place], [place] [phone] Medication Question Social History Tobacco Use Types Packs/Day Years [...] encounter Miscellaneous Notes * Telephone Encounter - Funmilayo Sky RN - 03/25/2025 1:21 PM EDT This medication is not on patient med list. Unsure what this medication is. TC to patient via dinkey locomotive engineer. No answer. Message left to return call to office. * Telephone Encounter - Marko Bates - 03/25/2025 9:28 AM EDT Tc from pt requesting refill for medication Creo 80 MG, stating she las received it back on 02/04/25 but public relations writer does not see script in pt's chart. Please contact pt at [phone]. documented in this encounter Plan of Treatment Not on file documented as of this encounter Visit Diagnoses Not on filedocumented in this encounter Additional Health Concerns Assessment Noted Time PHQ-9 Depression Total Score: 8 03/12/20 10:43 AM EDT documented as of this encounter Care Teams Horse Rider Relationship Specialty Start Date End Date Adrienne Villegas MD [address] [place] [address] PCP - General Family Medicine 08/01/18 documented as of this encounter
--- OUTSIDE RECORDS SUMMARY | 2025-04-16 17:27 | XMS_ITS | Encounter Summary ---
Author Organization [employer] Address [address] [place] [address] 7 [place] [address] Care Team Providers Care Candy Maker Name Role Phone Adrienne Villegas MD Primary Care Provider [phone] Reason for Visit * Reason Comments Med Refill Encounter Details Date Type Department Care Team (Late st Contact Info) Description 04/10/2023 Refill [facility] MEDICINE [address] [place], [place] [phone] Adrienne Villegas MD [address] [place], [place] [phone] Disorder of skeletal muscle Social History Tobacco Use Types Packs/Day Years Used Date Smoking Tobacco: Never Assessed Depression Answer Date Recorded Patient Health Questionnaire-9 Score 19 10/08/2022 Depression Answer Date Recorded Patient Health Questionnaire-2 Score 4 10/08/2022 Comments Unknown Sex and Gender Information Value Date Recorded Sex Assigned at Female 05/31/2022 10:16 AM EDT Legal Sex Female 10:16 AM EDT Gender Identity Female 05/31/2022 10:16 AM EDT Sexual Orientation Straight 05/31/2022 10 :16 AM EDT documented as of this encounter Plan of Treatment Not on file documented as of this encounter Visit Diagnoses Diagnosis Disorder of skeletal muscle documented in this encounter Additional Health Concerns Assessment Noted Time PHQ-9 Depression Total Score: 19 023 9:50 AM EST documented as of this encounter Care Teams Candy Maker Relationship Specialty Start Date End Date Adrienne Villegas MD [address] [place], [place] [phone] PCP - General Family Medicine 08/01/18 documented as of this encounter
--- OUTSIDE RECORDS SUMMARY | 2025-04-16 17:27 | XMS_ITS | Encounter Summary ---
Author Organization [employer] Address [address] [facility] 7 [place] [address] Care Team Providers Care Glycerin Operator Name Role Phone Adrienne Villegas MD Primary Care Provider [phone] Reason for Visit * Reason Onset Date Comments Med Refill 03/25/2025 Encounter Details Date Type Department Care Team (Late st Contact Info) Description 03/25/2025 Telephone [facility] MEDICINE [address] [place] [address] Adrienne Villegas MD [address] [place], [place] [phone] Med Refill Social History Tobacco Use Types Packs/Day Years [...] encounter Miscellaneous Notes * Telephone Encounter - Cathie Arevalo LPN - 03/25/2025 9:40 AM EDT Medication was sent to [facility] on 03/12/25 #90 with 3 refills. * Telephone Encounter - Marko Bates - 03/25/2025 9:24 AM EDT TC from pt requesting medication refill. Medications needing refill: cholecalciferol (SM Vitamin D3) 50 MCG (1999 UT) capsule To be sent to: [facility] [place] - [address] [facility] documented in this encounter Plan of Treatment Not on file documented as of this encounter Visit Diagnoses Not on filedocumented in this encounter Additional Health Concerns Assessment Noted Time PHQ-9 Depression Total Score: 8 03/12/20 25 10:43 AM EDT documented as of this encounter Care Teams Glycerin Operator Relationship Specialty Start Date End Date Adrienne Villegas MD [address] [place] [address] PCP - General Family Medicine 08/01/18 documented as of this encounter
--- OUTSIDE RECORDS SUMMARY | 2025-04-16 17:27 | XMS_ITS | Encounter Summary ---
Author Organization [employer] Address [address] [place] [address] 7t [place] [address] Care Team Providers Care Charge Manager Name Role Phone Adrienne Villegas MD Primary Care Provider [phone] Reason for Visit * Reason Onset Date Comments appt/chart notes 03/02/2023 Encounter Details Date Type Department Care Team ([facility] st Contact Info) Description 03/02/2023 Telephone [facility] [address] [place] [address] Tila Crandall, DDS [address] [place] [address] appt/chart notes Social History Tobacco Use Types Packs/Day Years [...] suspected to have Coronavirus/COVID-19? No / Unsure 02/03/2023 3:37 PM EDT documented as of this encounter Miscellaneous Notes * Telephone Encounter - Katiuska Aplpe - 03/02/2023 12:32 PM EDT Patient called in staing that she was recommended in [facility] to get treatment in [place] due to the amount of work that had to be done and that they could no longer with her in [facility]. She explained that apparently treatment had not gone as planned but unless Im missing something I do not see notes concerning this. She is certain on what she was told to do but I cant schedule without clarity to go to [facility] if that is what [facility] wants her to do because nothing is documented as such. Pls advise documented in this encounter Plan of Treatment Not on file documented as of this encounter Visit Diagnoses Not on filedocumented in this encounter Additional Health Concerns Assessment Noted Time PHQ-9 Depression Total Score: 19 023 9:50 AM EST documented as of this encounter Care Teams Charge Manager Relationship Specialty Start Date End Date Adrienne Villegas MD [address] [place] [address] PCP - General Family Medicine 08/01/18 documented as of this encounter
--- OUTSIDE RECORDS SUMMARY | 2025-04-16 17:27 | XMS_ITS | Encounter Summary ---
Author Organization [employer] Address [address] [place] [address] [address] [address] Care Team Providers Care Jigmaker Name Role Phone Adrienne Villegas MD Primary Care Provider [phone] Reason for Visit * Reason Comments Med Refill Encounter Details Date Type Department Care Team (Late st Contact Info) Description 12/10/2022 Refill [facility] MEDICINE [address] [place], [place] [phone] Ashley Montiel MD [address] [place], [place] [phone] Social History Tobacco Use Types Packs/Day Years [...] documented as of this encounter Care Teams Jigmaker Relationship Specialty Start Date End Date Adrienne Villegas MD [address] [place], [place] [phone] PCP - General Family Medicine 08/01/18 documented as of this encounter
--- OUTSIDE RECORDS SUMMARY | 2025-04-16 17:27 | XMS_ITS | Encounter Summary ---
Author Organization [employer] Address [address] [place] [address] 7 [place] [address] Care Team Providers Care Toll Patrolman Name Role Phone Adrienne Villegas MD Primary Care Provider [phone] Reason for Visit * Reason Comments Med Refill Encounter Details Date Type Department Care Team ([facility] st Contact Info) Description 01/14/2023 Refill [facility] [address] [place] [address] Adrienne Villegas MD [address] [place] [address] Social History Tobacco Use Types Packs/Day Years [...] documented as of this encounter Care Teams Toll Patrolman Relationship Specialty Start Date End Date Adrienne Villegas MD [address] [place] [address] PCP - General Family Medicine 08/01/18 documented as of this encounter
--- OUTSIDE RECORDS SUMMARY | 2025-04-16 17:27 | XMS_ITS | Encounter Summary ---
Author Organization [employer] Address [address] [facility] [address] [place] [address] Care Team Providers Care Traffic Agent Name Role Phone Adrienne Villegas MD Primary Care Provider [phone] Encounter Details Date Type Department Care Team ([facility] st Contact Info) Description 05/10/2023 Orders Only [facility] [address] [place], [place] [phone] Adrienne Villegas MD [address] [place], [place] [phone] Social History Tobacco Use Types Packs/Day Years [...] Priority Date/Time Associated Diagnosis Comments US RENAL BI Routine 05/20/2023 3:28 PM EDT documented in this encounter Results * US RENAL BI (05/20/2023 3:28 PM EDT) Anatomical Region Laterality Modality Abdomen Ultrasound 05/20/2023 3:28 PM EDT Narrative 05/24/2023 5:21 AM EDT [place] [address] Ultrasound Report Signed Patient: Jess Gray MR#: [id number] : 1960 Acct:[id number] Age/Sex: 62 / F ADM Date: 05/20/23 Loc: HO.US Attending Dr: Usman Shrestha MD Ordering Physician: Usman Shrestha MD Date of Service: 05/20/23 Procedure(s): US renal BI Accession Number(s): [id number] cc: Usman Shrestha MD; Adrienne Villegsa MD EXAMINATION: US RETROPERITONEAL LIMITED (RENAL ONLY) CLINICAL INFORMATION: Calculus of kidney. COMPARISON: Renal ultrasound 04/29/2022 and 12/03/2021. CT abdomen and pelvis 10/03/2021. TECHNIQUE: Real-time imaging of the kidneys. Limited visualization due to bowel gas. FINDINGS: RIGHT KIDNEY: 10.2 x 4.9 x 5.2 cm (SAG x AP x TRV). No hydronephrosis. No renal calculi. Renal cortical thickness is normal. Limited visualization. Right lower pole 0.6 cm cyst difficult to fully characterize due to small size and limited visualization, but likely benign. LEFT KIDNEY: 11.8 x 4.6 x 4.4 cm (SAG x AP x TRV). Echogenic focus midpole left kidney, possibly a calcified vessel rather than renal calculus. No hydronephrosis. Renal cortical thickness is normal. Limited visualization. Lateral midpole 1.3 x 0.6 x 1.0 cm complex cyst with mural echogenicity suggestive of mural calcification or milk of calcium previously measured 1.3 x 1.6 x 1.1 cm on 04/30/2022 and not fully characterized on prior exams. US/US renal BI IMPRESSION: Left renal midpole likely calcified vessel rather than a nonobstructive calculus, approximately 5 mm. No hydronephrosis. Left renal 1.3 cm complex cyst is stable to decreased in size. Recommend attention on followup imaging. Dictated By: Damaris Morris MD Signed By: <Electronically signed by Damaris Morris MD in OV> 05/24/23 0518 DD/ 1528 TD/TT: Review Manager: Procedure Note Donotuseinterpreter, Image - 05/24/[address] [address] Ultrasound Report Signed Patient: Jess Gray DMR#: [id number] : 1960cct:[id number] Age/Sex: 62 / FADM Date: 05/20/23 Loc: HO.US Attending Dr: Usman Shrestha MD Ordering Physician: Usman Shrestha MD Date of Service: 05/20/23 Procedure(s): US renal BI Accession Number(s): [id number] cc: Usman Shrestha MD; Adrienne Villegas MD EXAMINATION: US RETROPERITONEAL LIMITED (RENAL ONLY) CLINICAL INFORMATION: Calculus of kidney. COMPARISON: Renal ultrasound 04/29/2022 and 12/03/2021. CT abdomen and pelvis 10/03/2021. TECHNIQUE: Real-time imaging of the kidneys. Limited visualization due to bowel gas. FINDINGS: RIGHT KIDNEY: 10.2 x 4.9 x 5.2 cm (SAG x AP x TRV). No hydronephrosis. No renal calculi. Renal cortical thickness is normal. Limited visualization. Right lower pole 0.6 cm cyst difficult to fully characterize due to small size and limited visualization, but likely benign. LEFT KIDNEY: 11.8 x 4.6 x 4.4 cm (SAG x AP x TRV). Echogenic focus midpole left kidney, possibly a calcified vessel rather than renal calculus. No hydronephrosis. Renal cortical thickness is normal. Limited visualization. Lateral midpole 1.3 x 0.6 x 1.0 cm complex cyst with mural echogenicity suggestive of mural calcification or milk of calcium previously measured 1.3 x 1.6 x 1.1 cm on 04/30/2022 and not fully characterized on prior exams. US/US renal BI IMPRESSION: Left renal midpole likely calcified vessel rather than a nonobstructive calculus, approximately 5 mm. No hydronephrosis. Left renal 1.3 cm complex cyst is stable to decreased in size. Recommend attention on followup imaging. Dictated By: Damaris Morris MD Signed By: <Electronically signed by Damaris Morris MD in OV> 05/24/23 0518 DD/ 1528 TD/TT: Review Manager: us [facility] External Provider IMG US PROCEDURES Edited Result - Final documented in this encounter Visit Diagnoses Not on filedocumented in this encounter Additional Health Concerns Assessment Noted Time PHQ-9 Depression Total Score: 19 023 9:50 AM EST documented as of this encounter Care Teams Traffic Agent Relationship Specialty Start Date End Date Adrienne Villegas MD [address] [place] [id number] PCP - General Family Medicine 08/01/18 documented as of this encounter
--- OUTSIDE RECORDS SUMMARY | 2025-04-16 17:27 | XMS_ITS | Encounter Summary ---
Author Organization [employer] Address [address] [facility] [address] [place] [address] Care Team Providers Care Nurse Wound Care Name Role Phone Adrienne Villegas MD Primary Care Provider [phone] Encounter Details Date Type Department Care Team ([facility] st Contact Info) Description 12/18/2024 Telephone [facility] MEDICINE [address] [place], [place] [phone] Adrienne Villegas MD [address] [facility] [address] [place], [place] [phone] Social History Tobacco Use Types Packs/Day Years Used Date Smoking Tobacco: Never Passive Smoke Exposure: Never Smokeless Tobacco: Never Depression Answer Date Recorded Patient Health Questionnaire-9 Score 19 10/08/2022 Housing Stability Answer Date Recorded What is your housing situation today? I have lindaalice rhodes 11/09/[address] you li ve. Do you have problems with any of the following? None of the above 11/09/2023 Food Insecurity Answer Date Recorded Within the past 12 months, y ou worried that your food would run out before you got money to buy more: Never True 11/09/2023 Within the past 12 months,th e food you bought just didn't last and you didn't have enough money to get more: Never True 05/2024 Transportation Answer Date Recorded In the past 12 months, has l ack of transportation kept you from medical appts, meetings, work or from getting things needed for daily living? No 11/09/2023 Utilities Answer Date Recorded In the past 12 months, has t he electric, gas, oil or water company threatened to shut off services in your home? Yes 11/09/2023 Depression Answer Date Recorded Patient Health Questionnaire-2 [...] documented as of this encounter Care Teams Nurse Wound Care Relationship Specialty Start Date End Date Adrienne Villegas MD [address] [place] [address] PCP - General Family Medicine 08/01/18 documented as of this encounter
--- OUTSIDE RECORDS SUMMARY | 2025-04-16 17:27 | XMS_ITS | Clinical Summary ---
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 04/16/20 19 Active clonazePAM (KlonoPIN) 0.5 mg tablet Take 0.5 mg by mouth 2 times daily as needed. Active cetirizine (ZyrTEC) 10 mg tablet 04/03/20 19 Active betamethasone dipropionate (DIPROSONE) 0.05 % cream 04/03/20 19 Active ketoconazole (NIZORAL) 2% cream apply topically once daily to affected area ON FEET 03/08/20 19 Active polyethylene glycol 3350 (MIRALAX) 17 gram packet Take 17 g by mouth daily. Active SENNA 8.6 mg tablet TAKE 2 TABLETS BY MOUTH ONCE DAILY IF NEEDED FOR CONSTIPATION 10/19/19 19 Active LINZESS 145 mcg capsule 11/09/19 19 Active dexlansoprazole (DEXILANT) 60 mg capsule Take 60 mg by mouth daily. Active FREESTYLE LITE METER meter use as directed twice a day 03/08/20 19 Active Freestyle Lite test strips 09/02/19 Active FLOVENT HFA 110 mcg/actuation inhaler 04/03/20 19 Active ARTIFICIAL TEARS,[id number] , 1-0.2-0.2 % drops instill 1 drop into both eyes four times a day 08/28/19 Active white petrolatum 42 % ointment 01/30/20 Active docusate sodium (COLACE) 100 mg capsule Take 100 mg by mouth 2 times a day. Active PARoxetine (PAXIL) 20 mg tablet Take 10 mg by mouth once a day. 12/14/19 Active atorvastatin (LIPITOR) 80 mg tablet Take 80 mg by mouth daily. 12/27/19 Active magnesium oxide (MAG-OX) 400 mg (241.3 mg magnesium) tablet Take 1 tablet by mouth daily. 12/27/19 Active CEROVITE SENIOR tablet Take 1 tablet by mouth daily. 12/27/19 Active cholecalciferol (VITAMIN D3) 2,000 unit capsule Take 1 capsule by mouth 2 times a day. 12/27/19 Active meclizine (ANTIVERT) 25 mg tablet Take 25 mg by mouth 3 times a day as needed for dizziness. Active ondansetron (ZOFRAN) 4 mg tablet Take 4 mg by mouth every 8 hours as needed for nausea or vomiting. Active beclomethasone (QVAR) 40 mcg inhaler Inhale 2 puffs by mouth 2 times a day. Rinse mouth with water after use. Do not swallow. Active Breo Ellipta 200-25 mcg/dose blister with device 03/16/20 Active diclofenac (VOLTAREN) 1% gel 03/16/20 21 Active azelastine (ASTELIN) 137 mcg (0.1 %) nasal spray INHALE TWO SPRAYS IN EACH NOSTRIL TWICE DAILY 09/01/19 22 Active Banophen 25 mg tablet TAKE TWO TABLETS AT BEDTIME NEEDED 06/05/20 21 Active furosemide (LASIX) 40 mg tablet TAKE ONE TABLET BY MOUTH DAILY FOR 10 DAYS 06/05/20 21 Active diclofenac (VOLTAREN) 50 mg EC tabletIndications: Fibromyalgia Take 1 tablet (50 mg total) by mouth 2 times a day. 60 tablet 2 10/01/19 22 Active tamsulosin (FLOMAX) 0.4 mg capsule Take 0.4 mg by mouth once a day. 09/27/19 Active ondansetron (ZOFRAN ODT) 4 mg disintegrating tablet DISSOLVE ONE TABLET ON TONGUE EVERY 8 HOURS NEEDED FOR NAUSEA AND VOMITING 10/09/19 Active methocarbamoL (ROBAXIN) 750 mg tablet TAKE TWO TABLETS BY MOUTH TWICE DAILY NEEDED FOR MUSCLE SPASMS 12/30/19 Active traMADoL (ULTRAM) 50 mg tablet Take 50 mg by mouth. Active hydrocortisone 2.5% cream Apply topically to the affected area 2 times a day. Apply to face and breasts twice daily for 2 weeks, once daily for 2 weeks, then twice weekly when clear.. 02/09/20 Active TRUEplus Lancets lancet 33 gauge TEST BLOOD SUGAR TWICE DAILY 02/09/20 Active metFORMIN (GLUCOPHAGE) 500 mg tablet TAKE TWO TABLETS TWICE DAILY 02/09/20 Active verapamil SR (CALAN SR) 120 mg tablet Take 120 mg by mouth once a day. 01/21/20 Active alclometasone (ACLOVATE) 0.05 % ointment APPLY TO THE FACE UP TO TWICE DAILY NEEDED FOR FOR ITCHING, DO NOT EXCEED MORE THAN TWO WEEKS PER MONTH 60 g 2 06/14/20 Active triamcinolone acetonide (KENALOG) 0.1% creamIndications:H yperpigmentation Apply to rash on body twice daily for 2 weeks, once daily for 2 weeks, then twice weekly when clear. AVOID FACE, GROIN, AXILLAE, BREASTS. 454 g 5 06/14/20 Active ketoconazole (NIZORAL) 2% shampoo Apply to damp scalp, lather, leave on 5minutes, and rinse. Use 2-3 times weekly. 120 mL 11 06/25/20 Active hydrOXYchloroQUINE (PLAQUENIL) 200 mg tabletIndications: MARCY positive Take 1 tablet (200 mg total) by mouth 2 times a day. 180 tablet 1 08/30/19 Active triamcinolone acetonide (KENALOG) 0.1% ointment APPLY TO THE AFFECTED AREA(S) FOR ITCHING TWICE DAILY, DO NOT EXCEED MORE THAN TWO WEEKS PER MONTH 180 g 3 01/15/20 23 Active Active Problems Problem Noted Date Diagnosed Date Cervical stenosis of spine 11/23/2021 Assessment & Plan (05/03/2022 3:19 PM EDT): Neck is the biggest issue reported today. MRI over the summer with cervical spondylosis and mild to moderate canal stenosis -continue pregabalin -we discussed that local intervention may be able to help distinguish which symptoms are being driven by the MRI findings and which are not and also provide some additional symptomatic relief --to make follow up with spine center ---she is additionally asking about a neck brace ----I have discussed that usually braces are for very specific indications e.g. 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 -----I do not have particular expertise but my sense is that a brace would not be indicated here, but she can also discuss this with the spine center during follow up Assessment & Plan (11/23/2021 10:06 AM EDT): More acute issue today, x-ray with some degenerative disease -will refer to spine center for any local intervention Oral phase dysphagia 10/29/2021 Assessment & Plan (11/23/2021 10:07 AM EDT): I am not clear what this represents especially the report of something moving at the front of her throat -will refer to ENT given direct visualization may be helpful here Primary osteoarthritis involving multiple joints 06/01/2021 Acute pain of right knee 05/13/2021 Assessment & Plan (05/13/2021 12:34 PM EDT): The acute onset makes one think of possible meniscal pathology -x-ray today -she is seeing Ortho tomorrow --will await their opinion --we have discussed that they may potentially discussed PT, steroid injection to surgery --may also require MRI -to let me know what they decide Rash 02/04/2021 Assessment & Plan (02/04/2021 12:25 PM EDT): She has ongoing hyperpigmentation over both forearms -we have discussed that based upon the review of the biopsy report and also how it looks right now, I do not suspect this to be active cutaneous lupus -we will plan to obtain an opinion on her skin findings from our Dermatologists here Monoclonal gammopathy of unknown significance (M BEN) 02/03/2021 Overview (02/22/2022): IgA lambda MGUS diagnosed based on SPEP in 09/2020. Assessment & Plan (05/02/2022 3:00 PM EDT): Evaluation Sep 2020 with faint IgA lambda on SPEP/SIFE, not on UPEP/UIFE and k/l light chain ratio wnl. Also, no anemia, no renal impairment, no hypercalcemia. -follow up per Heme/Onc Assessment & Plan (02/22/2022 3:26 PM EDT): Ms. Schmidt returns to clinic for follow up of her IgA lambda MGUS. She remains clinically stable from hematologic standpoint with no new constitutional symptoms. Her serologic workup remains stable with faint monoclonal band on immunofixation and minimal M-spike as of 08/2021. Serologic workup from today is still pending at this time. IgA and free lambda light chain levels are stable which is reassuring. -- Return to clinic in 6 months for routine monitoring. -- Attempts to have her get labs drawn at local [facility] was unsuccessful. They would prefer to get labs drawn at [facility] clinic at the time of appointment and to receive a phone call with results afterwards. -- Natural history of MGUS is again reviewed with the patient and all of her questions were answered. Assessment & Plan (11/23/2021 10:06 AM EDT): Evaluation Sep 2020 with faint IgA lambda on SPEP/SIFE, not on UPEP/UIFE and k/l light chain ratio wnl. Also, no anemia, no renal impairment, no hypercalcemia. -follow up per Heme/Onc Assessment & Plan (09/07/2021 1:27 PM EST): Ms. Schmidt had labs drawn at her local lab a week prior to her virtual visit with me. Those serologic workup shows stable faint IgA lambda monoclonal band without rise in IgA, lambda free light chain or M-spike values. No evidence of end organ damage either. We again discussed the natural history of MGUS and the potential to progress to multiple myeloma. She voiced her understanding. -- RTC in 6 months for surveillance. Labs to be drawn at a local [facility] a week prior to her visit. -- No indication for bone marrow biopsy at this time. Assessment & Plan (05/13/2021 12:34 PM EDT): Evaluation Sep 2020 with faint IgA lambda on SPEP/SIFE, not on UPEP/UIFE and k/l light chain ratio wnl. Also, no anemia, no renal impairment, no hypercalcemia. -follow up per Heme/Onc Assessment & Plan (04/09/2021 6:10 PM EDT): Ms. Schmidt is noted to have SPEP with M-spike of <0.2g/dL and immunofixation showing IgA lambda monoclonal band. Her lambda free light chain level as well as the kappa/lambda ratio are within normal limits. Immunoglobulin levels were not obtained prior to our visit, so was drawn today and is still pending at the time of writing this note. She has no evidence of end organ damage consistent with multiple myeloma. We discussed the typical course of MGUS including the potential to progress to multiple myeloma at a rate of 1% per year. We therefore tend to monitor these patients with serial serologic workup every ~6 months. Ms. Schmidt and her daughter are agreeable with this plan. All of their questions were answered to the best of my ability. -- Follow up on immunoglobulin levels and repeat SPEP drawn today. -- RTC in 6 months for surveillance. -- No indication for bone marrow biopsy at this time. Assessment & Plan (02/04/2021 12:27 PM EDT): Evaluation Sep 2020 with faint IgA lambda on SPEP/SIFE, not on UPEP/UIFE and k/l light chain ratio wnl. Also, no anemia, no renal impairment, no hypercalcemia. -will refer to Heme/Onc but have discussed that at present most likely it will just be monitoring at the present time Long-term use of high-risk medication 10/05/2020 Assessment & Plan (05/03/2022 3:16 PM EDT): On hydroxychloroquine -reports recent ophtho visit Assessment & Plan (11/22/2021 8:27 PM EDT): On hydroxychloroquine -to ascertain when seeing Ophtho next visit Assessment & Plan (05/13/2021 12:34 PM EDT): On hydroxychloroquine -to ascertain when seeing Ophtho next visit Assessment & Plan (02/03/2021 10:49 AM EDT): On hydroxychloroquine -ophtho scheduled for coming weeks Assessment & Plan (10/06/2020 3:47 PM EST): On hydroxychloroquine -ophtho scheduled for coming weeks TREE (obstructive sleep apnea) 01/15/2020 Assessment & Plan (05/02/2022 3:01 PM EDT): By testing summer 2019 - is adherent with CPAP -continue NIV --explained interaction between TREE and chronic pain and therefore need to persist Assessment & Plan (11/23/2021 10:08 AM EDT): By testing summer 2019 - is adherent with CPAP -continue NIV --explained interaction between TREE and chronic pain and therefore need to persist Assessment & Plan (05/12/2021 1:32 PM EDT): By testing summer 2019 - reports that despite trying different options with the CPAP, not benefiting -have asked her to discuss with Sleep Medicine what other options there may be (non-surgical and surgical) Assessment & Plan (02/04/2021 12:27 PM EDT): By testing summer 2019 - reports that despite trying different options with the CPAP, not benefiting -have asked her to discuss with Sleep Medicine what other options there may be (non-surgical and surgical) Assessment & Plan (05/05/2020 12:02 PM EDT): By testing summer 2019 -continue CPAP which seems to have been helping -follow up sleep medicine Fibromyalgia 10/09/2019 Assessment & Plan (05/03/2022 3:19 PM EDT): Numerous tender trigger points and also reporting poor sleep and snoring. 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 --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 titer MARCY, her additional serologies have been negative and symptoms have not been compelling for a systemic inflammatory condition ---will continue hydroxychloroquine for now -we did discuss increasing pregabalin (max dose being 450mg/day) --however, on discussion with pharmacy - they confirm [facility] that not prescribed since Mar 2020 ---will need to work out from PCP's office if there was a contra-indication ---will also message daughter ---if we can would restart Assessment & Plan (05/13/2021 12:38 PM EDT): Numerous tender trigger points and also reporting poor sleep and snoring. -continue pregabalin per PCP -continue diclofenac right now -will obtain TMJ x-rays as well given report from the dentist Assessment & Plan (02/04/2021 12:28 PM EDT): Numerous tender trigger points and also reporting poor sleep and snoring. -continue pregabalin per PCP -switch meloxicam to diclofenac as trial Assessment & Plan (10/06/2020 3:47 PM EST): On initial visit, numerous tender trigger points and also reporting poor sleep and snoring. -continue pregabalin per PCP Assessment & Plan (05/05/2020 12:02 PM EDT): On initial visit, numerous tender trigger points and also reporting poor sleep and snoring. Again pain in multiple areas both articular and non-articular -continue pregabalin per PCP Assessment & Plan (12/20/2019 9:46 AM EDT): On initial visit, numerous tender trigger points and also reporting poor sleep and snoring. -continue pregabalin per PCP -refer to sleep medicine for question of likely TREE given weight, snoring, fatigue MARCY positive 09/12/2019 Assessment & Plan (05/03/2022 3:20 PM EDT): MARCY between 1:40 to 1:160. -given report of esophageal dysmotility will repeat serologies to make sure there has not been evolution in the scleroderma related antibodies Assessment & Plan (11/22/2021 8:27 PM EDT): She continues to report a lot of symptoms including joint, skin, hair. MARCY between 1:40 to 1:160. Her joint symptoms overall do not sound inflammatory and there are no other positive antibodies. Inflammatory markers have been negative as well and most recently no cytopenias. 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 -we again discussed that I do not have much in the way of objective evidence for a systemic inflammatory disorder leading to her symptoms -therefore, I think it is worth involving other opinions about her complaints Assessment & Plan (05/12/2021 1:32 PM EDT): She continues to report a lot of symptoms including joint, skin, hair. MARCY between 1:40 to 1:160. Her joint symptoms overall do not sound inflammatory and there are no other positive antibodies. Inflammatory markers have been negative as well and most recently no cytopenias. 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 -we again discussed that I do not have much in the way of objective evidence for a systemic inflammatory disorder leading to her symptoms -therefore, I think it is worth involving other opinions about her complaints Assessment & Plan (02/04/2021 12:29 PM EDT): She continues to report a lot of symptoms including joint, skin, hair. MARCY between 1:40 to 1:160. Her joint symptoms overall do not sound inflammatory and there are no other positive antibodies. Inflammatory markers have been negative as well and most recently no cytopenias. 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 -we again discussed that I do not have much in the way of objective evidence for a systemic inflammatory disorder leading to her symptoms -therefore, I think it is worth involving other opinions about her complaints Assessment & Plan (10/06/2020 3:51 PM EST): She reports a lot of symptoms including joint, skin, hair. MARCY between 1:40 to 1:160. Her joint symptoms overall do not sound inflammatory and there are no other positive antibodies. Reported that skin biopsy Apr 2020 with evidence of lupus per her local international logistics analyst but by review of the report, this is not conclusive and now reports has been told does not think cutaneous lupus. Started hydroxychloroquine 200mg BID May 2020 - reporting helped with itching of head. -we again discussed that I do not have much in the way of objective evidence for a systemic inflammatory disorder leading to her symptoms -with the itching, which seems the predominant symptom in addition to the pain --potentially medications could be the cause --we will recheck eosinophils, liver tests as well as hepatitis serologies and for a monoclonal gammopathy --if unrevealing we will consider referral to our Dermatologists -can continue with hydroxychloroquine presently Assessment & Plan (05/05/2020 12:07 PM EDT): She reports a lot of symptoms including joint, skin, hair. MARCY between 1:40 to 1:160. Her joint symptoms overall do not sound inflammatory and there are no other positive antibodies. Reports recent biopsy (which we do not have access to) with cutaneous lupus -discussed how there are some patients who have cutaneous lupus only, some with lupus of other organs (bone, kidney) without skin disease and some with both -with last labs in Sep 2019, there did not seem to be a suggestion of systemic lupus -we will obtain biopsy results --again right now, it is not evident to me that there is systemic lupus in addition to cutaneous lupus ---repeat labs/serologies today to look for evidence of this -explained that topical steroids work quickly and work well, and should be directed by dermatology --in terms of hydroxychloroquine - this is a good medicine for both cutaneous lupus as well as systemic lupus ---oral medication with adverse effects including but not limited to GI irritation, changes in cell counts (very rare), muscle aches (note she is on a statin) and with assisted use retinal deposits (most important is regular ophthalmology follow up) ----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 MARCY between 1:80 to 1:160. Her joint symptoms overall do not sound inflammatory and there are no other positive antibodies. Given this and her negative inflammatory markers, although she has reportedly been diagnosed with seronegative RA, ankylosing spondylitis and discoid lupus, I have no verification of how these diagnoses were made and I do not suspect a systemic inflammatory disease causing her symptoms are the present time. -will need to monitor evolution in symptoms as although do not suspect inflammatory disease now, may develop something over time -have explained to patient and daughter that she is reporting a lot of symptoms right now which may be related or not and what we need to do is to try and dissect each symptoms slowly to identify what is being caused by what and then slowly fix what we can -given skin is her biggest issue right now and complains of rash in the ear itself (I really am unable to tell based on video visit) which is a well known place for cutaneous lupus and she has also been told she has psoriasis, we will refer to our dermatologists so we can get a fresh opinion on her skin disease -encouraged her to continue to follow with her PCP re: her other symptoms such as dizziness Assessment & Plan (09/14/2019 1:01 PM EST): She reports a lot of symptoms including joint, skin, hair and reportedly MARCY positive although we do not have documentation today. She also reports a history of fibromyalgia and depression. In addition, the story that she is able to give today is not the clearest and is unable to give a clear report of her med list - for example, there are multiple NSAIDs listed, multiple medications potentially for depression/mood and she reports she takes them all. However, review of [facility] seems to suggest no refills of controlled substances since May 2019. -will try to obtain records especially up to date med list from PCP -labs today --basic as well as MARCY serologies -x-rays of her most symptomatic areas on exam --feet and back -no changes to medications --will likely benefit from sleep study if not done previosuly -asked patient to bring in details of the physician who checked the MARCY in the first place (she cannot remember their name/office location today) -once we have all the above, we can start trying to make some progress towards attribution of symptoms Immunizations Immunization Administration Dates Next Due Tetanus Toxoid, Reduced Diph theria Toxoid, and Acellular Pertussis Vaccine, Adsorbed 07/16/2016 Family History Medical History Relation Name Comments Arthritis Father Dementia Father Fibromyalgia Father Heart disease Father Arthritis Mother Dementia Mother Fibromyalgia Mother Heart disease Mother Relation Name Status Comments Father Mother Social History Tobacco Use Types Packs/Day Years [...] Orientation Straight 05/13/2021 11 :29 AM EDT Last Filed Vital Signs Vital Sign Reading Time Taken Comments Blood Pressure 135/84 05/03/2022 2:26 PM EDT Pulse 77 05/03/2022 2:26 PM EDT Temperature 36.7 C (98 F) 05/03/2022 2:26 PM EDT Respiratory Rate 16 02/18/2022 10:36 AM EDT Oxygen Saturation 98% 02/18/2022 10:36 AM EDT Inhaled Oxygen Concentration - - Weight 81.2 kg (179 lb) 05/03/2022 2:26 PM EDT Height 160 cm (5' 2.99 ) 05/03/2022 2:26 PM EDT Body Mass Index 31.72 05/03/2022 2:26 PM EDT Plan of Treatment Health Maintenance Due Date Last Done Comments Cervical Cancer Screening 1960 Cologuard 1960 Colon Cancer Screening 1960 Colonoscopy 1960 FOBT / Fit Test 1960 HIV Screening 1960 HPV and Pap Smear 1960 Pap Smear 1960 Sigmoidoscopy 1960 Mammogram 2000 Pneumococcal Vaccine: 50+ Years (1 of 1 - PCV) 2010 Zoster Vaccines (1 of 2) 2010 Alcohol/Substance Use Screening 08/01/2024 Depression Screening and Follow-Up 08/01/2024 Social Drivers of Health Annual Screening 08/01/2024 COVID-19 Vaccine (4 - 2024-2 6 season) 2025 07/09/2021, 12/18/2020, 11/20/2020 Influenza Vaccine (#1) 2025 DTaP,Tdap,and Td Vaccines (2 - Td or Tdap) 07/16/2026 07/16/2016 RSV Vaccine (60+ years old a nd patients) (1 - 1-dose 75+ series) 11/05/2035 Hepatitis C Screening Completed 10/20/2020 Hepatitis B Vaccines Aged Out No long er eligible based on patient's age to complete this topic Procedures * Due to [place] state law, this organization might not be sharing negative HIV tests. Procedure Name Priority Date/Time Associated Diagnosis Comments HEPATITIS C ANTIBODY W/REFLEX TO HCV RNA, QUANTITATIVE PCR Routine 10/20/2020 1:15 PM EDT MARCY positive from Last 3 Months or Most Recently Relevant to Health Maintenance Results * Due to [place] state law, this organization might not be sharing negative HIV tests. * Hepatitis C Antibody w/Reflex to HCV RNA, Quantitative PCR (10/20/2020 1:15 PM EDT) Hepatitis C Antibody NON-REACT ELLIE NON-REACT ELLIE 10/20/2020 10:39 PM EDT [facility] Signal To Cut-Off 0.01 <1.00 10/20/2020 10:39 PM EDT [employer] [facility] Comment: HCV antibody was non-reactive. There is no laboratory evidence of HCV infection. In most cases, no further action is required. However, if recent HCV exposure is suspected, a test for HCV RNA (test code 58086) is suggested. For additional information please refer to http://education.mii/faq/BDP60h9 (This link is being provided for informational/ educational purposes only.) Blood Structure of peripheral vein / Unknown 10/20/2020 1:15 PM EDT 10/20/2020 6:28 PM EDT David Regalado MD LAB BLOOD ORDERABLES Final Result [facility] [address], [place] [address], [facility] [address] [place] [address] from Last 3 Months or Most Recently Relevant to Health Maintenance Insurance [facility] Advance Directives Documents on File Type Date Recorded 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
--- OUTSIDE RECORDS SUMMARY | 2025-04-16 17:27 | XMS_ITS | Clinical Summary ---
Author Organization [employer] Address [address] [place] [address] [address] [place] [address] Care Team Providers Care Blueprint Cutter Name Role Phone Adrienen Villegas MD Primary Care Provider [phone] Allergies Active Allergy Reactions Criticality Noted Date Comments Citalopram Unknown 08/10/2010 Loratadine Rash,Unknown Low 08/10/2010 Penicillins Rash Low 04/10/2013 Procaine 01/04/2014 Sulfamethoxazole 01/04/2014 Trimethoprim 01/04/2014 Other reaction(s): Unknown Venlafaxine Unknown 08/10/2010 Medications * This document contains information received from the source organization and may not represent a complete record from that organization. Misc. Devices (Fingertip Pulse Oximeter) miscIndications: COVID-19 To check the O2 sat every 4 hours. Call the office if O2 Sat falls below 90% 1 each 08/13/19 23 Active Ventolin HFA 108 (90 Base) MCG/ACT inhaler INHALE 2 PUFFS BY MOUTH EVERY 4-6 HOURS NEEDED FOR WHEEZING OR SHORTNESS OF BREATH 08/05/19 23 Active alclometasone (Aclovate) 0.05 % ointment APPLY TO THE FACE UP TO TWICE DAILY NEEDED FOR FOR ITCHING, DO NOT EXCEED MORE THAN TWO WEEKS PER MONTH 08/05/19 23 Active dexlansoprazole (Dexilant) [address] capsule take 1 capsule by oral route every day for 8 weeks 06/04/20 21 Active diclofenac (Voltaren) 50 MG EC tablet Take 50 mg by mouth 2 times daily. 12/11/19 22 Active Breo Ellipta 200-25 MCG/ACT aerosol powder INHALE 1 PUFF DAILY AT THE SAME TIME EACH DAY 08/05/19 23 Active Artificial Tears 0.2-0.2-1 % solution PLACE ONE DROP IN EACH EYE TWICE DAILY 08/05/19 23 Active hydrocortisone 2.5 % cream Apply topically to the affected area 2 times a day. Apply to face and breasts twice daily for 2 weeks, once daily for 2 weeks, then twice weekly when clear.. 03/29/20 22 Active ketorolac (Acular) 0.5 % ophthalmic solution INSERT ONE DROP IN EACH EYE TWICE DAILY FOR TWO WEEKS 06/22/20 22 Active meclizine (Antivert) 25 MG tablet TAKE ONE TABLET BY MOUTH THREE TIMES DAILY NEEDED FOR DIZZINESS 02/09/20 22 Active pyridoxine (Vitamin B-6) 50 MG tablet Take 50 mg by mouth Once daily. 10/07/19 22 Active triamcinolone (Kenalog) 0.1 % cream APPLY TO TO RASH ON BODY TWICE DAILY FOR TWO WEEKS THEN decrease TO ONCE DAILY FOR TWO WEEKS. THEN TWICE A WEEK UNTIL CLEAR AVOID FACE, BETWEEN LEGS, AXILLAE AND BREASTS 08/05/19 23 Active TRUEplus Lancets 33G miscIndications: Diabetes mellitus without complication (CMS/HCC) TEST BLOOD SUGAR TWICE DAILY 100 each 11 08/26/19 23 Active Azelastine HCl 137 MCG/SPRAY solutionIndicati ons:Allergy, subsequent encounter INHALE TWO SPRAYS IN EACH NOSTRIL TWICE DAILY 30 mL 5 10/15/19 23 Active Diclofenac Sodium 1 % gelIndications:P ostoperative pain APPLY TWO GRAM TO THE AFFECTED AREA(s) TWICE DAILY NEEDED 100 g 3 06/02/20 23 Active hydroxychloroqui ne (Plaquenil) 200 MG tablet TAKE ONE TABLET TWICE DAILY 60 tablet 10/14/19 24 Active methocarbamol (Robaxin) 750 MG tabletIndication s:Disorder of skeletal muscle TAKE ONE TABLET TWICE DAILY NEEDED FOR MUSCLE SPASMS 60 tablet 2 03/14/20 24 Active acetaminophen-co deine (Tylenol w/ Codeine #3) 300-30 MG tabletIndication s:Primary fibromyalgia syndrome Take 1 tablet by mouth every 6 (six) hours if needed for severe pain. 20 tablet 03/14/20 24 Active glucose blood (FREESTYLE LITE) test stripIndications :Diabetes mellitus without complication (CMS/HCC) TEST BLOOD SUGAR THREE TIMES A DAY 100 strip 11 04/06/20 24 Active cetirizine (ZyrTEC) 10 MG tablet TAKE ONE TABLET EVERY DAY 30 tablet 09/10/19 25 Active verapamil SR (Calan SR) 120 MG ER tablet TAKE ONE TABLET DAILY 30 tablet 11 11/08/19 25 Active hydroxychloroqui ne (Plaquenil) 200 MG tablet TAKE ONE TABLET BY MOUTH TWICE DAILY 60 tablet 1 02/05/20 25 Active Multiple Vitamins-Mineral s (Cerovite Senior) tablet TAKE ONE TABLET DAILY 30 tablet 1 03/01/20 25 Active cholecalciferol (SM Vitamin D3) 50 MCG (1999 UT) capsuleIndicatio ns:Osteopenia of hip, unspecified laterality Take 1 capsule orally daily 90 capsule 3 03/12/20 25 Active ketoconazole (NIZOral) 2 % shampoo Apply topically 2 (two) times a week. 120 mL 03/14/20 25 Active metFORMIN (Glucophage) 500 MG tablet Take 1/2 tab orally bid 30 tablet 03/12/20 25 Active magnesium oxide (Mag-Ox) 400 (240 Mg) MG tabletIndication s:Disorder of skeletal muscle TAKE 1 TABLET (400 MG) BY MOUTH IN THE MORNING 90 tablet 1 03/12/20 25 Active atorvastatin (Lipitor) 80 MG tabletIndication s:Benign essential hypertension TAKE ONE TABLET BY MOUTH EVERY DAY 30 tablet 03/12/20 25 Active clonazePAM (KlonoPIN) 0.5 MG tablet Take 1 tablet (0.5 mg) by mouth 2 times daily. 60 tablet 03/12/20 25 Active hydroxychloroqui ne (Plaquenil) 200 MG tablet TAKE ONE TABLET BY MOUTH TWICE DAILY 60 tablet 3 03/21/20 25 Active diclofenac (Cataflam) 50 MG tablet TAKE ONE TABLET TWICE DAILY 60 tablet 3 04/02/20 25 Active Lyrica 150 MG capsuleIndicatio ns:Primary fibromyalgia syndrome TAKE ONE CAPSULE TWICE DAILY 60 capsule 3 04/02/20 25 Active Lyrica 150 MG capsuleIndicatio ns:Primary fibromyalgia syndrome Take 1 capsule (150 mg) by mouth 2 times daily. 60 capsule 3 11/27/19 25 025 Discontinued diclofenac (Cataflam) 50 MG tablet Take 1 tablet (50 mg) by mouth 2 times daily. 60 tablet 3 11/27/19 25 025 Discontinued Active Problems Problem Noted Date Diagnosed Date Diabetes due to underlying condition w katelin freeman comp 03/14/2024 Numbness and tingling of foot 10/28/2023 Assessment & Plan (10/29/2023 3:03 PM EDT): The differential diagnosis includes Raynaud's phenomenon, given the symptoms of color changes in extremities and discomfort exacerbated by cold. The plans to conduct a thorough work-up to rule out connective tissue disorders, thyroid issues, and vitamin B12 deficiency. The patient has had it for more than a year. The patient is strongly recommended to follow up with her PCP to further elucidate the etiology of her symptoms. Labs have been ordered, and the patient is instructed to go to the lab before her next appointment. Labs: CBC, C- reactive, Sed Rate, MARCY, Systemic Sclerosis, Vitamin B12, TSH Lymphadenopathy, cervical 04/08/2023 Esophageal dysphagia 04/08/2023 Assessment & Plan (04/08/2023 3:54 PM EDT): Patient presented with complains of enlarged mobile mass likely on lymph node will be sent for an ultra sound and labs. Will be referred to ENT. Advised patient to follow up with PCP. Rash 02/04/2021 Overview (08/23/2022): Last Assessment & Plan: She has ongoing hyperpigmentation over both forearms -we have discussed that based upon the review of the biopsy report and also how it looks right now, I do not suspect this to be active cutaneous lupus -we will plan to obtain an opinion on her skin findings from our Dermatologists here Monoclonal gammopathy of unknown significance (M BEN) 02/03/2021 Overview (08/23/2022): IgA lambda MGUS diagnosed based on SPEP in 09/2020. Last Assessment & Plan: Evaluation Sep 2020 with faint IgA lambda on SPEP/SIFE, not on UPEP/UIFE and k/l light chain ratio wnl. Also, no anemia, no renal impairment, no hypercalcemia. -follow up per Heme/Onc Diabetes mellitus without complication Bilateral plantar fasciitis 06/29/2018 Chronic anxiety 01/12/2018 Asteatosis cutis 09/01/2016 Idiopathic hirsutism 10/14/2015 Benign essential hypertension 06/17/2015 Primary fibromyalgia syndrome 06/17/2015 Lung mass 11/08/2012 Arthropathy 2011 Mononeuritis 2011 Depressive disorder 2011 Postoperative pain 2011 Disorder of skeletal muscle 2011 Encounters * This document contains information received from the source organization and may not represent a complete record from that organization. Date Type Department Care Team Description 04/16/2025 Orders Only [facility] External Provider, [facility] 03/30/2025 Refill [facility] [address] [place] [address] Adrienne Villegas MD Primary fibromyalgia syndrome 03/25/2025 Telephone [facility] [address] [place] [address] Adrienne Villegas MD Medication Question 03/25/2025 Telephone [facility] [address] [place] [address] Adrienne Villegas MD Med Refill 03/21/2025 Refill [facility] [address] [place] [address] Adrienne Villegas MD 03/12/2025 10:30 AM EDT Office Visit [facility] [address] [place] [address] Adrienne Villegas MD Diabetes mellitus without complication (CMS/HCC) (Primary Dx); Osteopenia of hip, unspecified laterality; Disorder of skeletal muscle; Benign essential hypertension; Dietary counseling; Exercise counseling; Macromastia; Chronic breast pain; Dense breast tissue on mammogram, unspecified type 03/12/2025 Patient Outreach [facility] [address] [place] [address] Adrienne Villegas MD Care Coordination ([facility] outreach for SDOH food needs - LVM ) 03/12/2025 Travel 03/01/2025 Refill [facility] [address] [place] [address] Adrienne Villegas MD 02/01/2025 Refill [facility] [address] [facility] [place] [address] Adrienne Villegas MD 01/30/2025 Telephone [facility] [address] [place], [place] [phone] Adrienne Villegas MD Referral from Last 3 Months Immunizations Immunization Administration Dates Next Due Tdap 07/16/2016 Social History Tobacco Use Types Packs/Day Years Used Date Smoking Tobacco: Never Passive Smoke Exposure: Never Smokeless Tobacco: Never Tobacco Cessation:Counseling Given: Not Answered Depression Answer Date Recorded Patient Health Questionnaire-9 [...] Orientation Straight 05/31/2022 10 :16 AM EDT Last Filed Vital Signs Vital Sign Reading Time Taken Comments Blood Pressure 132/78 03/12/2025 10:42 AM EDT Pulse 76 03/12/2025 10:42 AM EDT Temperature 36.3 C (97.3 F) 03/12/2025 10:42 AM EDT Respiratory Rate 24 03/12/2025 10:42 AM EDT Oxygen Saturation 99% 11/09/2023 11:15 AM EDT Inhaled Oxygen Concentration - - Weight 81.6 kg (180 lb) 03/12/2025 10:42 AM EDT Height 157.5 cm (5' 2 ) 03/12/2025 10:42 AM EDT Body Mass Index 32.92 03/12/2025 10:42 AM EDT Plan of Treatment Health Maintenance Due Date Last Done Comments CT Colonography 1960 Colonoscopy 1960 Colorectal Cancer Screening 1960 FIT DNA/Cologuard 1960 FIT 1960 FOBT 1960 HIV Screening 1960 Sigmoidoscopy 1960 Eye Exam 1970 Hepatitis C Screening 1978 Pneumococcal Vaccine: 50+ Years (1 of 2 - PCV) 11/05/1979 Zoster Vaccines (1 of 2) 2010 Diabetes: Foot Exam 11/08/2024 11/09/2023, 11/09/2023, 11/09/2023, Additional history exists COVID-19 Vaccine ( season) 2025 07/09/2021, 12/18/2020, 11/20/2020 Influenza Vaccine (#1) 2025 Cervical Cancer Screening 08/26/2025 HPV/Cotest 08/26/2025 08/28/2019 Pap Smear 08/26/2025 08/26/2022 Diabetes: Hemoglobin A1C 09/12/2025 025, 07/03/2024, 03/14/2024, Additional history exists Mammogram 01/11/2026 01/12/2024, 03/02, 03/11/2021, Additional history exists Alcohol/Substance Use Screening 03/12/2026 03/12/2025 Depression Screening 03/12/2026 03/12/2025, 03/12/20 25 Diabetes: Urine Protein Screening 03/12/2026 03/12/2025 Disability Screening 03/12/2026 03/12/2025 Lipid Panel 03/12/2026 03/12/2025, 04, 03/17/2021 SDOH Screening 03/12/2026 03/12/2025 Tobacco Screening 03/12/2026 03/12/2025 DTaP/Tdap/Td Vaccines (2 - Td or Tdap) 07/16/2026 07/16/2016 RSV Patients and Patients Aged 60 years or older (1 - 1-dose 75+ series) 11/05/2035 HIB Vaccines Aged Out No longer eligi ble based on patient's age to complete this topic HPV Vaccines Aged Out No longer eligi ble based on patient's age to complete this topic Hepatitis A Vaccines Aged Out No long er eligible based on patient's age to complete this topic Hepatitis B Vaccines Aged Out No long er eligible based on patient's age to complete this topic IPV Vaccines Aged Out No longer eligi ble based on patient's age to complete this topic Meningococcal B Vaccine Aged Out No l onger eligible based on patient's age to complete this topic Meningococcal Vaccine Aged Out No ginger melissa eligible based on patient's age to complete this topic RSV under 20 months Aged Out No longe r eligible based on patient's age to complete this topic Rotavirus Vaccines Aged Out No longer eligible based on patient's age to complete this topic Procedures Procedure Name Priority Date/Time Associated Diagnosis Comments US RENAL COMPLETE Routine 04/16/2025 1:4 8 PM EDT POCT GLYCATED HEMOGLOBIN, TOTAL Routine 03/12/2025 11:08 AM EDT Diabetes mellitus without complication (CMS/HCC) POCT GLUCOSE Routine 03/12/2025 11:08 AM EDT Diabetes mellitus without complication (CMS/HCC) ALBUMIN, RANDOM URINE W/CREATININE Routine 03/12/2025 11:08 AM EDT Diabetes mellitus without complication (CMS/HCC) MAGNESIUM Routine 03/12/2025 11:07 AM EDT Osteopenia of hip, unspecified laterality Benign essential hypertension LIPID PANEL, STANDARD Routine 03/12/2025 11:07 AM EDT Osteopenia of hip, unspecified laterality Diabetes mellitus without complication (CMS/HCC) Disorder of skeletal muscle Benign essential hypertension TSH W/REFLEX TO FT4 Routine 03/12/2025 1 1:07 AM EDT Osteopenia of hip, unspecified laterality Diabetes mellitus without complication (CMS/HCC) Disorder of skeletal muscle Benign essential hypertension VITAMIN D,25-OH,TOTAL,IA Routine 03/12/2025 11:07 AM EDT Osteopenia of hip, unspecified laterality Diabetes mellitus without complication (CMS/HCC) Disorder of skeletal muscle Benign essential hypertension COMPREHENSIVE METABOLIC PANEL Routine 03/12/2025 11:07 AM EDT Osteopenia of hip, unspecified laterality Diabetes mellitus without complication (CMS/HCC) Disorder of skeletal muscle Benign essential hypertension CBC WITH AUTO DIFFERENTIAL Routine 03/12/2025 11:07 AM EDT Osteopenia of hip, unspecified laterality Diabetes mellitus without complication (CMS/HCC) Disorder of skeletal muscle Benign essential hypertension BI MAMMOGRAM SCREENING TOMOSYNTHESIS BILATERAL Routine 01/12/2024 4:00 PM EDT THINPREP IMAGING PAP WITH REFLEX TO HPV MRNA E6/E7 Routine 08/26/2022 12:00 AM EST ZZZ HISTORICAL HPV MRNA E6/E7 Routine 08/28/2019 3:55 PM EST from Last 3 Months or Most Recently Relevant to Health Maintenance Results * US Renal Complete (04/16/2025 1:48 PM EDT) Anatomical Region Laterality Modality Kidney Ultrasound 04/16/2025 1:48 PM EDT Narrative 04/16/2025 2:13 PM EDT [place] [address] Ultrasound Report Signed Patient: Jess Gray MR#: [id number] : 1960 Acct:[id number] Age/Sex: 64 / F ADM Date: 04/16/25 Loc: HO.US Attending Dr: Usman Shrestha MD Ordering Physician: Usman Shrestha MD Date of Service: 04/16/25 Procedure(s): US renal BI Accession Number(s): [id number] cc: Usman Shrestha MD; Adrienne Villegas MD [...] 04/16/25 1407 DD/ 1348 TD/TT: 04/16/25 1356 Loom Operator: Procedure Note Donotuseinterpreter, Image - 04/16/[address] [address] Ultrasound Report Signed Patient: Jess Gray DMR#: [id number] : 1960cct:[id number] Age/Sex: 64 / FADM Date: 04/16/25 Loc: HO.US Attending Dr: Usman Shrestha MD Ordering Physician: Usman Shrestha MD Date of Service: 04/16/25 Procedure(s): US renal BI Accession Number(s): [id number] cc: Usman Sherstha MD; Adrienne Villegas MD Reason for Exam: [...] Pablo Campos MD 04/16/2025 02:07 PM EDT Dictated By: Pablo Campos MD Signed By: <Electronically signed by Pablo Campos MD in OV> 04/16/25 1407 DD/ 1348 TD/TT: 04/16/25 1356 Loom Operator: [facility] External Provider IMG US PROCEDURES Edited Result - Final * Albumin, Random Urine W/Creatinine (03/12/2025 11:08 AM EDT) Creatinine, Urine 91.36 mg/dL [facility] Microalbumin Urine 6.0 mg/L [facility] Microalbum Creatinine Ratio Ur 6.5 <30 ug/mg cr [facility] Comment:Albumin/Creatinine R atio Reference Ranges: Normal: < 30 ug/mg creatinine Microalbuminuria: 30 - 300 ug/mg creatinineClinical Albuminuria: > 300 ug/mg creatinine Urine (Urine, Random) 03/12/2025 11:08 AM EDT 03/12/2025 1:50 PM EDT Adrienne Villegas MD LAB URINE ORDERABLES Final Re sult [facility] [address] [place] [phone] * (ABNORMAL) POCT HGB A1C (03/12/2025 11:08 AM EDT) Hemoglobin A1C 6.5(A) 4.0 - 5.7 % Blood 03/12/2025 11:0 8 AM EDT Adrienne Villegas MD POINT OF CARE TEST ENTER/EDIT ORDERABLES Final Result * POCT Glucose (03/12/2025 11:08 AM EDT) Glucose Blood, POC 106 60 - 200 mg/dL Blood Capillary blood specimen / Unknown 03/12/2025 11:08 AM EDT Adrienne Villegas MD POINT OF CARE TEST ENTER/EDIT ORDERABLES Final Result * Vitamin D, 25-Hydroxy, Total, Immunoassay (03/12/2025 11:07 AM EDT) Vitamin D 25-OH Total 49.6 >30 ng/mL [facility] Comment: Health Based Reference Values*< 20 ng/mL [id number] ng/mL Insufficient> 30 ng/mL Sufficient*Raya OCHOA. N Engl J Med. 2007;357:266-280There is no well-established upper level of normal vitamin Dlevels. Some laboratories use 50 ng/mL as an upper limit ofnormal. However, toxicity is patient-dependent and may occurat any level. Careful correlation with the patient'spresentation is necessary and, if there is concern forvitamin D toxicity, treatment should be consideredirrespective of the serum level.Care must be taken in interpreting Vitamin D results fromdifferent laboratories and methodologies. Published datademonstrated that results from patients undergoinghemodialysis may show a negative bias when tested withvarious automated 25-OH vitamin D assays when compared toLC-MS/MS.When testing samples from patients whose predominant form ofVitamin D is Vitamin D2, such as patients receiving VitaminD2 supplementation, results that are subtherapeutic shouldbe confirmed with another method such as LC-MS/MS. Blood Venous blood specimen / Unknown 03/12/2025 11:07 AM EDT 03/12/2025 2:01 PM EDT Adrienne Villegas MD LAB BLOOD ORDERABLES Final Re sult [facility] [address] [place] [phone] * TSH W/Reflex to FT4 (03/12/2025 11:07 AM EDT) TSH reflex Free T4 1.55 0.32 - 4.0 uIU/mL [facility] Blood Venous blood specimen / Unknown 03/12/2025 11:07 AM EDT 03/12/2025 2:01 PM EDT us Adrienne Villegas MD LAB BLOOD ORDERABLES Final Re sult [facility] [address] [place] [address] [phone] * (ABNORMAL) CBC auto differential (03/12/2025 11:07 AM EDT) White Blood Count 6.9 4.8 - 10.8 X10*3/uL [facility] Red Blood Count 4.30 4.20 - 5.50 X10*6/uL [facility] Hemoglobin 12.8 12.0 - 16.0 g/dl [facility] Hematocrit 41.0 37.0 - 47.0 % [facility] Mean Corpuscular Volume 95.3 80.0 - 98.0 fL [facility] Mean Corpuscular Hemoglobin 29.8 27.0 - 33.0 pg [facility] Mean Corpuscular HGB Conc 31.2 31.0 - 35.0 g/dl [facility] Red Cell Distribution Width 12.7 11.0 - 16.0 % [facility] Platelet Count 317 160 - 400 X10*3/uL [facility] Mean Platelet Volume 10.9 9.4 - 12.3 fL [facility] Neutrophils Percent Auto 67.3 45 - 73 % [facility] Imm Gran Pct Auto 0.1 0.0 - 0.4 % [facility] Lymphocytes Percent Auto 17.8(L) 20 - 40 % [facility] Monocytes Percent Auto 10.5 2 - 11 % [facility] Eosinophils Percent Auto 3.6 0 - 4 % [facility] Basophils Percent Auto 0.7 0 - 2 % [facility] NRBC Pct Auto 0.0 0.0 - 0.2 /100WBC [facility] Neutrophils Absolute Auto 4.6 2.0 - 8.3 x10*3/uL [facility] Imm Gran Abs Auto 0.01 0.00 - 0.03 X10*3/uL [facility] Lymphocytes Absolute Auto 1.2 1.2 - 4.9 X10*3/uL [facility] Monocytes Absolute Auto 0.7 0.1 - 1.2 X10*3/uL [facility] Eosinophils Absolute Auto 0.3 0.0 - 0.4 X10*3/uL [facility] Basophils Absolute Auto 0.1 0.0 - 0.2 X10*3/uL [facility] NRBC Abs Auto 0.000 0.0 - 0.012 X10*3/uL [facility] Blood Venous blood specimen / Unknown 03/12/2025 11:07 AM EDT 03/12/2025 2:01 PM EDT Adrienne Villegas MD LAB BLOOD ORDERABLES Final Re sult Performing Organization Address City/[facility]/ZIP Co de Phone Number [facility] [address] [place] [phone] * Magnesium (03/12/2025 11:07 AM EDT) Magnesium 2.3 1.6 - 2.6 mg/dL [facility] Blood Venous blood specimen / Unknown 03/12/2025 11:07 AM EDT 03/12/2025 2:01 PM EDT Adrienne Villegas MD LAB BLOOD ORDERABLES Final Re sult Performing Organization Address City/[facility]/ZIP Co de Phone Number [facility] [address] [place] [phone] * (ABNORMAL) Lipid Panel, Standard (03/12/2025 11:07 AM EDT) Triglycerides 117 <150 mg/dL [facility] Comment:Desirable Triglyceri de: less than 150 mg/dLBorderline High Triglyceride 150-199 mg/dLHigh Triglyceride: 200-499 mg/dLVery High Triglyceride: greater than or equal to 5OO mg/dL Cholesterol 182 <200 mg/dL [facility] Comment:Desirable Cholestero l: less than 200 mg/dLBorderline High Cholesterol: 200-239 mg/dLHigh Cholesterol: greater than 239 mg/dL LDL Cholesterol Calculated 110(H) <100 mg/dL [facility] Comment:Desirable LDL: less than 100 mg/dLNear Optimal/Above Optimal LDL: 110- 129 mg/dLBorderline High LDL: 130-159 mg/dLHigh LDL: 160-189 mg/dLVery High LDL: greater than or equal to 190 mg/dL HDL Cholesterol 49 >40 mg/dL [facility] Comment:Desirable HDL: great er than 40 mg/dL Note: This HDL assay may give artificially low results in patients with liver disease. Blood Venous blood specimen / Unknown 03/12/2025 11:07 AM EDT 03/12/2025 2:01 PM EDT us Adrienne Villegas MD LAB BLOOD ORDERABLES Final Re sult [facility] [address] [place] [phone] * (ABNORMAL) Comprehensive Metabolic Panel (03/12/2025 11:07 AM EDT) Sodium 143 135 - 145 mmol/L [facility] Potassium 4.3 3.3 - 5.1 mmol/L [facility] Chloride 107 96 - 108 mmol/L [facility] Carbon Dioxide 29 22 - 29 mmol/L [facility] Anion Gap 11(L) 12 - 20 [facility] Urea Nitrogen (BUN) 15 9 - 16 mg/dL [facility] Creatinine, Serum 0.60 0.5 - 1.4 mg/dL [facility] Estimated Glomerular Filt Rate >60 [facility] Comment:Chronic Kidney Disea se: Estimated GFR < 60 mL/min/[id number] Kidney Disease: Estimated GFR < 15 mL/min/1.73m2 Glucose 106 60 - 115 mg/dL [facility] Calcium 8.9 8.4 - 10.2 mg/dL [facility] Bilirubin, Total 0.3 0.0 - 1.0 mg/dL [facility] Aspartate Amino Transferase 29 5 - 31 U/L [facility] Alanine Aminotransferase 25 0 - 31 U/L [facility] Total Protein 7.0 6.5 - 8.0 g/dL [facility] Albumin Level 4.4 3.5 - 5.0 g/dL [facility] Alkaline Phosphatase 72 39 - 117 U/L [facility] Blood Venous blood specimen / Unknown 03/12/2025 11:07 AM EDT 03/12/2025 2:01 PM EDT us Adrienne Villegas MD LAB BLOOD ORDERABLES Final Re sult [facility] [address] [place] [phone] * BI Mammogram Screening Tomosynthesis Bilateral (01/12/2024 4:00 PM EDT) Anatomical Region Laterality Modality Breast Bilateral Mammography 01/12/2024 4:00 PM EDT Narrative 02/11/2024 8:46 AM EDT [facility] [address] [place] [address] Mammography Report Signed Patient: Jess Gray MR#: [id number] : 1960 Acct:[id number] Age/Sex: 63 / F ADM Date: 01/12/24 Loc: HO.MAMMO Attending Dr: Adrienne Villegas MD Ordering Physician: Adrienne Villegas MD Results: 2Be nign Findings Date of Service: 01/12/24 Follow Up: 1 Year From [facility] [facility] ina Mammogram Procedure(s): MM tomosynthesis screening BI Accession Number(s): [id number] cc: Adrienne Villegas MD EXAMINATION: MM SCREENING DIGITAL BREAST TOMOSYNTHESIS, BILATERAL CLINICAL INFORMATION: Screening. Asymptomatic. COMPARISON: Mammography: This study is compared with prior exams dating back to 2019. TECHNIQUE: Digital breast tomosynthesis is performed in both the craniocaudal and mediolateral oblique views along with computer-aided detection (CAD). Synthesized 2D images are generated from the tomosynthesis. FINDINGS: The breasts are heterogeneously dense, which may obscure small masses (ACR BI-RADS breast composition Category c). There are no significant masses, abnormal calcifications, or other abnormalities. Few, bilateral, benign calcifications are present. MM/MM tomosynthesis screening BI IMPRESSION: No mammographic evidence of malignancy. ASSESSMENT: BI-RADS BI-RADS 2 - Benign Findings RECOMMENDATION: Routine annual mammography screening. 1 year F/U This examination should not preclude the clinical evaluation of a suspicious palpable abnormality. This patient's information was entered into a reminder system with a target due date for their next mammogram. Dictated By: Chantal Espinoza MD Signed By: <Electronically signed by Chantal Espinoza MD in OV> 02/11/24 0842 DD/ 1600 TD/TT: Loom Operator: Procedure Note Donotuseinterpreter, Image - [facility]/11/[facility] [address] [place] [address] Mammography Report Signed Patient: Jess Gray DMR#: [id number] : 1Acct:[id number] Age/Sex: 63 / FADM Date: 01/12/24 Loc: HO.MAMMO Attending Dr: Adrienne Villegas MD Ordering Physician: Adrienne Villegas MDResults: 2Be nign Findings Date of Service: 01/12/24Follow Up: 1 Year From Orig ina Mammogram Procedure(s): MM tomosynthesis screening BI Accession Number(s): [id number] cc: Adrienne Villegas MD EXAMINATION: MM SCREENING DIGITAL BREAST TOMOSYNTHESIS, BILATERAL CLINICAL INFORMATION: Screening. Asymptomatic. COMPARISON: Mammography: This study is compared with prior exams dating back to 2019. TECHNIQUE: Digital breast tomosynthesis is performed in both the craniocaudal and mediolateral oblique views along with computer-aided detection (CAD). Synthesized 2D images are generated from the tomosynthesis. FINDINGS: The breasts are heterogeneously dense, which may obscure small masses (ACR BI-RADS breast composition Category c). There are no significant masses, abnormal calcifications, or other abnormalities. Few, bilateral, benign calcifications are present. MM/MM tomosynthesis screening BI IMPRESSION: No mammographic evidence of malignancy. ASSESSMENT: BI-RADS BI-RADS 2 - Benign Findings RECOMMENDATION: Routine annual mammography screening. 1 year F/U This examination should not preclude the clinical evaluation of a suspicious palpable abnormality. This patient's information was entered into a reminder system with a target due date for their next mammogram. Dictated By: Chantal Espinoza MD Signed By: <Electronically signed by Chantal Espinoza MD in OV> 02/11/24 0842 DD/ 1600 TD/TT: Loom Operator: us Adrienne Villegas MD IMG BI PROCEDURES Edited Resu lt - Final * Thinprep TIS PAP W/Refl HPV mRNA E6/E7 (08/26/2022 12:00 AM EST) Clinical Information: None given [facility] LMP: NONE GIVEN [facility] Prev. PAP: NONE GIVEN [facility] Prev. BX: NONE GIVEN [facility] SOURCE: None given [facility] Statement Of Adequacy: SATISFACTORY FOR EVALUATION [facility] Interpretation/Res ult: [facility] Comment: Negative for intraepithelial lesion or malignancy. Atrophic pattern; predominantly parabasal cells COMMENT: This Pap test has been evaluated with computer assisted technology. [facility] Meat Processor: [facility] Comment: NNO, CT(ASCP) CT screening location: [facility], [address] [place] [address], [place] [address] Slide preparation performed at: [address] [address] CLIA No. [id number] (Always Message) [facility] Comment: EXPLANATORY NOTE: The Pap is a screening test for cervical cancer. It is not a diagnostic test and is subject to false negative and false positive results. It is most reliable when a satisfactory sample, regularly obtained, is submitted with relevant clinical findings and history, and when the Pap result is evaluated along with historic and current clinical information. 08/26/2022 08/27/2022 10: 08 PM EST Narrative [facility] - 09/03/2022 12:14 PM EST FASTING: UNKNOWN us Adrienne Villegas MD LAB PATHOLOGY ORDERABLES Malini cuate Result STELLA [address], [place] [address] [facility] [address], [address] [place] [address] - [place] [address] * HPV mRNA E6/E7 (08/28/2019 3:55 PM EST) HPV mRNA E6/E7 Not Detected NOT DETECTED [facility] Comment: This test was performed using the APTIMA(R) HPV Assay ([employer] This assay detects E6/E7 viral messenger RNA (mRNA) from 14 high-risk HPV types (16,18,31,33,35,39,45,51, 52,56,58,59,66,68). For additional information please refer to: http://education.m-spatial/faq/BGM867r3 (This link is being provided for informational/ educational purposes only.) The analytical performance characteristics of this assay have been determined by [facility] [place], [place]. The modifications have not been cleared or approved by the FDA. This assay has been validated pursuant to the CLIA regulations and is used for clinical purposes. Test Performed by [facility], [facility] [place], [address] [place] [address] Timmy Mae M.D., Ph.D., Director of Laboratories , CLIA [id number] Please note: Effective 04/12/2016, HPV testing will be performed using [employer]'s APTIMA test which targets mRNA. Detecting mRNA instead of DNA, as in older methods, offers significant improvements in specificity. 08/28/2019 3:55 PM EST us Jenise Bullock CNImtiaz HISTORICAL/NON ORDERABLE LABS Final Result [facility] [address] from Last 3 Months or Most Recently Relevant to Health Maintenance Insurance SUZAN SCHWARTZ [id number] Care Teams Blueprint Cutter Relationship Specialty Start Date End Date Adrienne Villegas MD [address] [facility] TJ Meehan PCP - General Family Medicine 08/01/18
--- OUTSIDE RECORDS SUMMARY | 2025-04-16 17:27 | XMS_ITS | Encounter Summary ---
Author Organization [employer] Address [address] [facility] 7 [place] [address] Care Team Providers Care Oilseed Meat Presser Name Role Phone Adrienne Villegas MD Primary Care Provider [phone] Reason for Visit * Reason Onset Date Comments Med Refill 11/07/2024 Encounter Details Date Type Department Care Team ([facility] st Contact Info) Description 11/07/2024 Telephone [facility] [address] [place] [address] Adrienne Villegas MD [address] [place], [place] [id number] Med Refill Social History Tobacco Use Types Packs/Day Years Used Date Smoking Tobacco: Never Passive Smoke Exposure: Never Smokeless Tobacco: Never Depression Answer Date Recorded Patient Health Questionnaire-9 Score 19 10/08/2022 Housing Stability Answer Date Recorded What is your housing situation today? I have linda rhodes 11/09/[address] you [...] encounter Miscellaneous Notes * Telephone Encounter - Yuliet Rachel - 11/07/2024 3:25 PM EDT TC from pt requesting medication refill. Medications needing refill : Lyrica 150 MG capsule To be sent to: [facility] documented in this encounter Plan of Treatment Not on file documented as of this encounter Visit Diagnoses Not on filedocumented in this encounter Additional Health Concerns Assessment Noted Time PHQ-9 Depression Total Score: 19 023 9:50 AM EST documented as of this encounter Care Teams Oilseed Meat Presser Relationship Specialty Start Date End Date Adrienne Villegas MD [address] [place] [id number] PCP - General Family Medicine 08/01/18 documented as of this encounter
--- OUTSIDE RECORDS SUMMARY | 2025-04-16 17:27 | XMS_ITS | Encounter Summary ---
Author Organization [employer] Address [address] [facility] 7t [place] [address] Care Team Providers Care Pediatric Geneticist Name Role Phone Adrienne Villegas MD Primary Care Provider [phone] Encounter Details Date Type Department Care Team (Late st Contact Info) Description 07/16/2024 Orders Only [facility] [address] [place] [phone] ProviderToña MD Social History Tobacco Use Types Packs/Day Years [...] Procedure Name Priority Date/Time Associated Diagnosis Comments HM HEMOGLOBIN A1C Routine 07/03/2024 1:19 PM EST documented in this encounter Results * HM Hemoglobin A1c (07/03/2024 1:19 PM EST) us Historical Provider HEALTH MAINTENANCE Final Result documented in this encounter Visit Diagnoses Not on filedocumented in this encounter Additional Health Concerns Assessment Noted Time PHQ-9 Depression Total Score: 19 023 9:50 AM EST documented as of this encounter Care Teams Pediatric Geneticist Relationship Specialty Start Date End Date Adrienne Villegas MD [address] [place] [address] PCP - General Family Medicine 08/01/18 documented as of this encounter
--- OUTSIDE RECORDS SUMMARY | 2025-04-16 17:27 | XMS_ITS | Encounter Summary ---
Author Organization [employer] Address [address] [place] [address] 7 [place] [address] Care Team Providers Care Technician Terminal And Repeater Name Role Phone Adrienne Villegas MD Primary Care Provider [phone] Reason for Visit * Reason Onset Date Comments Lab Orders 01/24/2023 Encounter Details Date Type Department Care Team ([facility] Contact Info) Description 01/24/2023 Telephone [facility]EDS [address] [place], [place] [phone] Adrienne Villegas MD [address] [place], [place] [phone] Lab Orders Social History Tobacco Use Types Packs/Day Years [...] encounter Miscellaneous Notes * Telephone Encounter - Lauryn Reyez RN - 01/24/2023 3:49 PM EDT Call to Jess Schmidt, reports on back of left shoulder x 2 weeks. Per pt its a burning pain that radiates from left to right side. Per pt denies any rash. No fever. No blisters. Pt offered to have sooner appt with team provider. Pt declines wishes to have PCP order blood work to perform prior ot upcoming appt. Per pt her mother had internal shingles that never displayed rash. Pt advised will send to PCP to review and advise team nurses of POC prior to upcoming appt. Future Appointments Date Time Provider Department Center 01/27/2023 1:15 PM Adrienne Villegas MD [facility] Protocol Used: Back Pain (Adult) Protocol-Based Disposition: See in Office or Video Visit Today or Tomorrow Override (Final) Disposition: Discuss with PCP and Callback by Nurse Today Override Reason: Caller refused suggested disposition Positive Triage Question: * Age > 50 and no history of prior similar back pain * All higher-acuity triage questions were negative Care Advice Discussed: * Reassurance and Education - Back Pain * Pain Medicines * Reasons To Call Back - Fever occurs - Numbness or weakness occurs, or bowel/bladder problems - Pain becomes worse - You become worse * Telephone Encounter - Kaia Martel - 01/24/2023 2:05 PM EDT Tc from candy with N stating pt is requesting blood work done before upcoming appointment. States pt believes she has shingles. Please contact pt at [phone] documented in this encounter Plan of Treatment Not on file documented as of this encounter Visit Diagnoses Not on filedocumented in this encounter Additional Health Concerns Assessment Noted Time PHQ-9 Depression Total Score: 19 023 9:50 AM EST documented as of this encounter Care Teams Technician Terminal And Repeater Relationship Specialty Start Date End Date Adrienne Villegas MD [address] [place] [address] PCP - General Family Medicine 08/01/18 documented as of this encounter
--- OUTSIDE RECORDS SUMMARY | 2025-04-16 17:27 | XMS_ITS | Encounter Summary ---
Author Organization [employer] Address [address] [place] [address] 7 [place] [address] Care Team Providers Care Sword Swallower Name Role Phone Adrienne Villegas MD Primary Care Provider [phone] Reason for Visit * Reason Comments Med Refill Encounter Details Date Type Department Care Team ([facility] st Contact Info) Description 12/10/2022 Refill C [facility] [address] [place] [address] Adrienne Villegas MD [address] [place] [address] Social History Tobacco Use Types Packs/Day Years [...] documented as of this encounter Care Teams Sword Swallower Relationship Specialty Start Date End Date Adrienne Villegas MD [address] [place] [address] PCP - General Family Medicine 08/01/18 documented as of this encounter
== END 2025-04-16 13:33 | disposition home or self-care (01) ==
LOC: HO.US 13:32
PROVIDERS: PCP Pediatrics; Visit Provider Urology
DX: Z87.442 Personal history of urinary calculi (principal); N28.1 Cyst of kidney, acquired
CPT/HCPCS: 76775

== ENCOUNTER → 2025-04-16 13:34 | Outpatient (BNV) | payer OTHER, SELFPAY | PROVIDERS: PCP Pediatrics; Visit Provider Radiology Diagnostic Radiology | DX: N20.0 Calculus of kidney (principal); N28.1 Cyst of kidney, acquired | CPT/HCPCS: 76775 ==

== ENCOUNTER 2025-05-02 14:00 | Outpatient (REF) | payer OTHER, SELFPAY ==
--- NOTE | ~2025-05-02 | MM_ITS ---
EXAMINATION: DXA BONE DENSITY AXIAL HISTORY: osteopenia TECHNIQUE: [employer] Dual energy absorptiometry (DEXA) of the lumbar spine, total left hip, and femoral neck was performed. COMPARISON: There are no prior studies for comparison. FINDINGS: The bone mineral density of the lumbar spine is 1.028 g/cm2, corresponding to a T-score of -1.3, and a Z-score of -0.4. This is indicative of osteopenia. The bone mineral density of the left total hip is 0.920 g/cm2, corresponding to a T-score of -0.7, and a Z-score of 0.0. This is indicative of normal bone mineral density. The bone mineral density of the left femoral neck is 0.894 g/cm2, corresponding to a T-score of -1.0, and a Z-score of 0.0. This is indicative of normal bone mineral density. FRACTURE RISK: The FRAX index suggests a risk of major osteoporotic fracture of 8.2%, and of hip fracture 0.3%. MM/XR DEXA axial skeleton IMPRESSION: Based on bone mineral density, and according to World Health Organization (WHO) criteria, the diagnosis is consistent with osteopenia. Statistically, 68% of repeat scans fall within 1 SD (+/- 0.010 g/cm2 for AP spine L1-L4) and 1 SD (+/- 0.012 g/cm2 for femur total) FRAX is a trademark of the [employer] [place] for Metabolic Bone Disease, a World Health Organization (WHO) Collaborating Center. Electronically signed by: Pablo Campos MD 05/03/2025 07:06 AM EDT
--- OUTSIDE RECORDS SUMMARY | 2025-05-02 15:40 | XMS_ITS | Encounter Summary ---
Author Organization [employer] Address [address] [place] [address] 7 [place] [address] Care Team Providers Care Controls Designer Name Role Phone Adrienne Villegas MD Primary Care Provider [phone] Reason for Visit * Reason Comments Med Refill Encounter Details Date Type Department Care Team ([facility] st Contact Info) Description 01/14/2023 Refill C [facility] [address] [place] [address] Adrienne Villegas MD [address] [place] [address] Social History Tobacco Use Types Packs/Day Years [...] documented as of this encounter Care Teams Controls Designer Relationship Specialty Start Date End Date Adrienne Villegas MD [address] [place] [address] PCP - General Family Medicine 08/01/18 documented as of this encounter
--- OUTSIDE RECORDS SUMMARY | 2025-05-02 15:40 | XMS_ITS | Clinical Summary ---
Author Organization [employer] Address [address] [place] [address] 7t [place] [address] Care Team Providers Care Malt Loader Name Role Phone Adrienne Villegas MD Primary Care Provider [phone] Allergies Active Allergy Reactions Criticality Noted Date [...] Lancets 33G miscIndications: Diabetes mellitus without complication (HCC) TEST BLOOD SUGAR TWICE DAILY 100 each [...] LITE) test stripIndications :Diabetes mellitus without complication (HCC) TEST BLOOD SUGAR THREE TIMES A DAY 100 strip 11 04/06/20 24 Active cetirizine (ZyrTEC) 10 MG tablet TAKE ONE TABLET EVERY DAY 30 tablet 11 09/10/19 25 Active verapamil SR (Calan SR) 120 MG ER tablet TAKE ONE TABLET DAILY 30 tablet 11 11/08/19 25 Active hydroxychloroqui ne (Plaquenil) 200 MG tablet TAKE ONE TABLET BY MOUTH TWICE DAILY 60 tablet 1 02/05/20 25 Active cholecalciferol (SM Vitamin D3) 50 MCG (1999) capsuleIndicatio ns:Osteopenia of hip, unspecified laterality Take [...] TABLET BY MOUTH EVERY DAY 30 tablet 11 03/12/20 25 Active clonazePAM (KlonoPIN) 0.5 MG [...] DAILY 60 capsule 3 04/02/20 25 Active Multiple Vitamins-Mineral s (Cerovite Senior) tablet TAKE ONE TABLET DAILY 30 tablet 04/30/20 25 Active Multiple Vitamins-Mineral s (Cerovite Senior) tablet TAKE ONE TABLET DAILY 30 tablet 1 03/01/20 25 025 Discontinued Active Problems Problem Noted Date Diagnosed Date Diabetes due to underlying condition w oth circu latory comp 03/14/2024 Numbness and tingling of foot [...] up per Heme/Onc Diabetes mellitus without complication 9 Bilateral plantar fasciitis 06/29/2018 Chronic anxiety 01/12/2018 [...] organization. Date Type Department Care Team Description 04/30/2025 Refill [facility] [address] [place] [address] Ani Emanuel MD 04/16/2025 Orders Only [facility] External Provider, [facility] 03/30/2025 Refill [facility] [address] [place] [phone] Adrienne Villegas MD Primary fibromyalgia syndrome 03/25/[address] [address] Adrienne Villegas MD Medication Question 03/25/2025 Telephone [facility] [address] [place] [address] Adrienne Villegas MD Med Refill 03/21/2025 Refill [facility] [address] [place] [address] Adrienne Villegas MD 03/12/2025 10:30 AM EDT Office Visit [facility] [address] [place] [address] Adrienne Villegas MD Diabetes mellitus without complication (CMS/HCC) (Primary Dx); Osteopenia of hip, unspecified laterality; Disorder of skeletal muscle; Benign essential hypertension; Dietary counseling; Exercise counseling; Macromastia; Chronic breast pain; Dense breast tissue on mammogram, unspecified type 03/12/2025 Patient Outreach [facility] [address] [place] [phone] Adrienne Villegas MD Care Coordination (CHW outreach for SDOH food needs - LVM ) 03/12/2025 Travel 03/01/2025 Refill [facility] [address] [place] [phone] Adrienne Villegas MD 02/01/2025 Refill [facility] [address] [facility] [place] [phone] Adrienne Villegas MD 01/30/2025 Telephone [facility] [address] [place], [place] [phone] Adrienne Villegas MD Referral from Last 3 [...] Screening 03/12/2026 03/12/2025 Lipid Panel 03/12/2026 03/12/2025, 04/, 03/17/2021 SDOH Screening 03/12/2026 03/12/2025 Tobacco Screening [...] PM EDT Narrative 04/16/2025 2:13 PM EDT [place] [address] Ultrasound Report Signed Patient: Jess Gray MR#: [id number] : 1960 Acct:[id number] Age/Sex: 64 / F ADM Date: 04/16/25 Loc: .US Attending Dr: Usman Shrestha MD Ordering Physician: Usman Shrestha MD Date of Service: 04/16/25 Procedure(s): US renal BI Accession Number(s): [id number] cc: Usman Shrestha MD; Adrienne Villegas MD [...] 04/16/25 1407 DD/ 1348 TD/TT: 04/16/25 1356 Security Tester: Procedure Note Donotuseinterpreter, Image - 04/16/2025 [place] [address] Ultrasound Report Signed Patient: Jess Gray DMR#: [id number] : 1960cct:[id number] Age/Sex: 64 / FADM Date: 04/16/25 Loc: HO.US Attending Dr: Usman Shrestha MD Ordering Physician: Usman Shrestha MD Date of Service: 04/16/25 Procedure(s): US renal BI Accession Number(s): [id number] cc: Usman Shrestha MD; Adrienne Villegas MD [...] 04/16/25 1407 DD/ 1348 TD/TT: 04/16/25 1356 Security Tester: [facility] External Provider IMG US PROCEDURES Edited Result - Final * Albumin, Random Urine W/Creatinine (03/12/2025 11:08 AM EDT) Creatinine, Urine 91.36 mg/dL [facility] Microalbumin Urine 6.0 mg/L [facility] Microalbum Creatinine Ratio Ur 6.5 <30 ug/mg cr [facility] Comment:Albumin/Creatinine R atio Reference Ranges: Normal: < 30 ug/mg creatinine Microalbuminuria: 30 - 300 ug/mg creatinineClinical Albuminuria: > 300 ug/mg creatinine Urine (Urine, Random) 03/12/2025 11:08 AM EDT 03/12/2025 1:50 PM EDT Result [facility] Adrienne Villegas MD LAB URINE ORDERABLES Final Re sult [facility] [address] [place] [phone] * (ABNORMAL) POCT HGB A1C (03/12/2025 11:08 AM EDT) Hemoglobin A1C 6.5(A) 4.0 - 5.7 % Blood 03/12/2025 11:0 8 AM EDT Result [facility] Adrienne Villegas MD POINT OF CARE TEST ENTER/EDIT ORDERABLES Final Result * POCT Glucose (03/12/2025 11:08 AM EDT) Glucose Blood, POC 106 60 - 200 mg/dL Blood Capillary blood specimen / Unknown 03/12/2025 11:08 AM EDT Result [facility] Adrienne Villegas MD POINT OF CARE TEST ENTER/EDIT ORDERABLES Final Result * Vitamin D, 25-Hydroxy, Total, Immunoassay (03/12/2025 11:07 AM EDT) Vitamin D 25-OH Total 49.6 >30 ng/mL [facility] Comment: Health Based Reference Values*< 20 ng/mL Uogzqlpzw41-38 ng/mL Insufficient> 30 ng/mL Sufficient*Raya OCHOA. N [...] MD LAB BLOOD ORDERABLES Final Re sult [facility] [address] [place] [phone] * TSH W/Reflex to FT4 (03/12/2025 11:07 AM EDT) TSH reflex Free T4 1.55 0.32 - 4.0 uIU/mL [facility] Blood Venous blood specimen / Unknown 03/12/2025 11:07 AM EDT 03/12/2025 2:01 PM EDT us Adrienne Villegas MD LAB BLOOD ORDERABLES Final Re sult [facility] [address] [place], [place] [phone] * (ABNORMAL) CBC auto differential (03/12/2025 11:07 AM EDT) White Blood Count 6.9 4.8 - 10.8 X10*3/uL [facility] Red Blood Count 4.30 4.20 - 5.50 X10*6/uL [facility] Hemoglobin 12.8 12.0 - 16.0 g/dl [facility] Hematocrit 41.0 37.0 - 47.0 % [facility] Mean Corpuscular Volume 95.3 80.0 - 98.0 fL [facility] Mean Corpuscular Hemoglobin 29.8 27.0 - 33.0 pg [facility] Mean Corpuscular HGB Conc 31.2 31.0 - 35.0 g/dl [facility] Red Cell Distribution Width 12.7 11.0 - 16.0 % [facility] Platelet Count 317 160 - 400 X10*3/uL [facility] Mean Platelet Volume 10.9 9.4 - 12.3 fL [facility] Neutrophils Percent Auto 67.3 45 - 73 % [facility] Imm Gran Pct Auto 0.1 0.0 - 0.4 % [facility] Lymphocytes Percent Auto 17.8(L) 20 - 40 % [facility] Monocytes Percent Auto 10.5 2 - 11 % [facility] Eosinophils Percent Auto 3.6 0 - 4 % [facility] Basophils Percent Auto 0.7 0 - 2 % [facility] NRBC Pct Auto 0.0 0.0 - 0.2 /100WBC [facility] Neutrophils Absolute Auto 4.6 2.0 - 8.3 x10*3/uL [facility] Imm Gran Abs Auto 0.01 0.00 - 0.03 X10*3/uL [facility] Lymphocytes Absolute Auto 1.2 1.2 - 4.9 X10*3/uL [facility] Monocytes Absolute Auto 0.7 0.1 - 1.2 X10*3/uL [facility] Eosinophils Absolute Auto 0.3 0.0 - 0.4 X10*3/uL [facility] Basophils Absolute Auto 0.1 0.0 - 0.2 X10*3/uL [facility] NRBC Abs Auto 0.000 0.0 - 0.012 X10*3/uL [facility] Blood Venous blood specimen / Unknown 03/12/2025 11:07 AM EDT 03/12/2025 2:01 PM EDT Adrienne Villegas MD LAB BLOOD ORDERABLES Final Re sult Performing Organization Address [facility]/ZIP Co de Phone Number [facility] [address] [place] [phone] * Magnesium (03/12/2025 11:07 AM EDT) Magnesium 2.3 1.6 - 2.6 mg/dL [facility] Blood Venous blood specimen / Unknown 03/12/2025 11:07 AM EDT 03/12/2025 2:01 PM EDT Adrienne Villegas MD LAB BLOOD ORDERABLES Final Re sult Performing Organization Address [facility]/ZIP Co de Phone Number [facility] [address] [place] [phone] * (ABNORMAL) Lipid Panel, Standard (03/12/2025 11:07 AM EDT) Triglycerides 117 <150 mg/dL [facility] Comment:Desirable Triglyceri de: less than 150 mg/dLBorderline High Triglyceride 150-199 mg/dLHigh Triglyceride: 200-499 mg/dLVery High Triglyceride: greater than or equal to 5OO mg/dL Cholesterol 182 <200 mg/dL [facility] Comment:Desirable Cholestero l: less than 200 mg/dLBorderline High Cholesterol: 200-239 mg/dLHigh Cholesterol: greater than 239 mg/dL LDL Cholesterol Calculated 110(H) <100 mg/dL [facility] Comment:Desirable LDL: less than 100 mg/dLNear Optimal/Above Optimal LDL: 110- 129 mg/dLBorderline High LDL: 130-159 mg/dLHigh LDL: 160-189 mg/dLVery High LDL: greater than or equal to 190 mg/dL HDL Cholesterol 49 >40 mg/dL [facility] Comment:Desirable HDL: great er than 40 mg/dL Note: This HDL assay may give artificially low results in patients with liver disease. Blood Venous blood specimen / Unknown 03/12/2025 11:07 AM EDT 03/12/2025 2:01 PM EDT us Adrienne Villegas MD LAB BLOOD ORDERABLES Final Re sult [facility] [address] [place] [phone] * (ABNORMAL) Comprehensive Metabolic Panel (03/12/2025 11:07 AM EDT) Sodium 143 135 - 145 mmol/L [facility] Potassium 4.3 3.3 - 5.1 mmol/L [facility] Chloride 107 96 - 108 mmol/L [facility] Carbon Dioxide 29 22 - 29 mmol/L [facility] Anion Gap 11(L) 12 - 20 [facility] Urea Nitrogen (BUN) 15 9 - 16 mg/dL [facility] Creatinine, Serum 0.60 0.5 - 1.4 mg/dL [facility] Estimated Glomerular Filt Rate >60 [facility] Comment:Chronic Kidney Disea se: Estimated GFR < 60 mL/min/1.56j2Ihzyzz Kidney Disease: Estimated GFR < 15 mL/min/1.73m2 Glucose 106 60 - 115 mg/dL [facility] Calcium 8.9 8.4 - 10.2 mg/dL [facility] Bilirubin, Total 0.3 0.0 - 1.0 mg/dL [facility] Aspartate Amino Transferase 29 5 - 31 U/L [facility] Alanine Aminotransferase 25 0 - 31 U/L [facility] Total Protein 7.0 6.5 - 8.0 g/dL [facility] Albumin Level 4.4 3.5 - 5.0 g/dL [facility] Alkaline Phosphatase 72 39 - 117 U/L [facility] Blood Venous blood specimen / Unknown 03/12/2025 11:07 AM EDT 03/12/2025 2:01 PM EDT us Adrienne Villegas MD LAB BLOOD ORDERABLES Final Re sult [facility] [address] [place] [phone] * BI Mammogram Screening Tomosynthesis Bilateral (01/12/2024 4:00 PM EDT) Anatomical Region Laterality Modality Breast Bilateral Mammography 01/12/2024 4:00 PM EDT Narrative 02/11/2024 8:46 AM EDT [facility] [address] [place] [address] Mammography Report Signed Patient: Jess Gray MR#: [id number] : 1960 Acct:[id number] Age/Sex: 63 / F ADM Date: 01/12/24 Loc: HO.MAMMO Attending Dr: Adrienne Villegas MD Ordering Physician: Adrienne Villegas MD Results: 2Be nign Findings Date of Service: 01/12/24 Follow Up: 1 Year From Orig inal Mammogram Procedure(s): MM tomosynthesis screening BI Accession Number(s): [id number] cc: Adrienne Villegas MD EXAMINATION: MM SCREENING [...] in OV> 02/11/24 0842 DD/ 1600 TD/TT: Security Tester: Procedure Note Donotuseinterpreter, Image - 02/11/2024 [facility] [address] [place] [address] Mammography Report Signed Patient: Jess Gray DMR#: [id number] : 1960cct:[id number] Age/Sex: 63 / FADM Date: 01/12/24 Loc: HOAlejandroMAMMO Attending Dr: Adrienne Villegas MD Ordering Physician: Adrienne Villegas MDResults: 2Be nign Findings Date of Service: 01/12/24Follow Up: 1 Year From Orig ina Mammogram Procedure(s): MM tomosynthesis screening BI Accession Number(s): [id number] cc: Adrienne Villegas MD EXAMINATION: MM SCREENING [...] in OV> 02/11/24 0842 DD/ 1600 TD/TT: Security Tester: Adrienne Villegas MD IMG BI PROCEDURES Edited Resu lt - Final * Thinprep TIS PAP W/Refl HPV mRNA E6/E7 (08/26/2022 12:00 AM EST) Clinical Information: None given [facility] LMP: NONE GIVEN [facility] Prev. PAP: NONE GIVEN [facility] Prev. BX: NONE GIVEN [facility] SOURCE: None given [facility] Statement Of Adequacy: SATISFACTORY FOR EVALUATION [facility] Interpretation/Res ult: [facility] Comment: Negative for intraepithelial lesion or malignancy. Atrophic pattern; predominantly parabasal cells COMMENT: This Pap test has been evaluated with computer assisted technology. [facility] Package Crimper: [facility] Comment: NNO, CT(ASCP) CT screening location: [place] [address] Slide preparation performed at: [address] [address] CLIA No. [id number] (Always Message) [facility] Comment: EXPLANATORY NOTE: The Pap is [...] - 09/03/2022 12:14 PM EST FASTING: UNKNOWN Adrienne Villegas MD LAB PATHOLOGY ORDERABLES Malini cuello Result [facility] [address], [place] [address] [address], [address] [place] [address] - [place] [phone] * HPV mRNA E6/E7 (08/28/2019 3:55 PM EST) HPV mRNA E6/E7 Not Detected NOT DETECTED [facility] Comment: This test was performed using the APTIMA(R) HPV Assay ([employer] This assay detects E6/E7 viral messenger RNA (mRNA) from 14 high-risk HPV types (16,18,31,33,35,39,45,51, 52,56,58,59,66,68). For additional information please refer to: http://education.TUTORize/faq/GTC180q1 (This link is being provided for informational/ educational purposes only.) The analytical performance characteristics of this assay have been determined by [employer] [place], [place]. The modifications have not been cleared or approved by the FDA. This assay has been validated pursuant to the CLIA regulations and is used for clinical purposes. Test [facility]formed by [facility], [place], [address] [place] [address] Timmy Mae M.D., Ph.D., Director of Laboratories , CLIA [id number] Please note: Effective 04/12/2016, HPV testing will be performed using [employer]'s APTIMA test which targets mRNA. Detecting mRNA instead of DNA, as in older methods, offers significant improvements in specificity. 08/28/2019 3:55 PM EST Jenise Bullock CNM HISTORICAL/NON ORDERABLE LABS Final Result [facility] [address] [place] [address], from Last 3 Months or Most Recently Relevant to Health Maintenance Insurance [address] [facility] < 65 * Guarantor: Jess Schmidt Account Type Relation to Patient Date of Phone Billing Address Personal/Family Self [address] Care Teams Malt Loader Relationship Specialty Start Date End Date Adrienne Villegas MD [address] [facility] TJ Meehan PCP - General Family Medicine 08/01/18
--- OUTSIDE RECORDS SUMMARY | 2025-05-02 15:40 | XMS_ITS | Encounter Summary ---
Author Organization [employer] Address [address] [facility] 7[address] [place] [address] Care Team Providers Care Record Changer Assembler Name Role Phone Adrienne Villegas MD Primary Care Provider [phone] Encounter Details Date Type Department Care Team ([facility] st Contact Info) Description 05/10/2023 Orders Only [facility] [address] [place], [place] [phone] Adrienne Villegas MD [address] [place], [place] [phone] Social History Tobacco Use Types Packs/Day Years [...] PM EDT Narrative 05/24/2023 5:21 AM EDT [place] [address] Ultrasound Report Signed Patient: Jess Gray MR#: [id number] : 1960 Acct:[id number] Age/Sex: 62 / F ADM Date: 05/20/23 Loc: HO.US Attending Dr: Usman Shrestha MD Ordering Physician: Usman Shrestha MD Date of Service: 05/20/23 Procedure(s): US renal BI Accession Number(s): [id number] cc: Usman Shrestha MD; Adrienne Villegas MD [...] in OV> 05/24/23 0518 DD/ 1528 TD/TT: Camera Operator: Procedure Note Donotuseinterpreter, Image - 05/24/[address] [address] Ultrasound Report Signed Patient: Jess Gray DMR#: [id number] : 1960cct:[id number] Age/Sex: 62 / FADM Date: 05/20/23 Loc: HO.US Attending Dr: Usman Shrestha MD Ordering Physician: Usman Shrestha MD Date of Service: 05/20/23 Procedure(s): US renal BI Accession Number(s): [id number] cc: Usman Shrestha MD; Adrienne Villegas MD [...] in OV> 05/24/23 0518 DD/ 1528 TD/TT: Camera Operator: us [facility] External Provider IMG US PROCEDURES Edited Result - Final documented in this encounter Visit Diagnoses Not on filedocumented in this encounter Additional Health Concerns Assessment Noted Time PHQ-9 Depression Total Score: 19 023 9:50 AM EST documented as of this encounter Care Teams Record Changer Assembler Relationship Specialty Start Date End Date Adrienne Villegas MD [address] [place] [address] PCP - General Family Medicine 08/01/18 documented as of this encounter
--- OUTSIDE RECORDS SUMMARY | 2025-05-02 15:40 | XMS_ITS | Encounter Summary ---
Author Organization [employer] Address [address] [facility] 7t [place] [address] Care Team Providers Care Men'S Garment Fitter Name Role Phone Adrienne Villegas MD Primary Care Provider [phone] Reason for Visit * Reason Comments Med Refill Encounter Details Date Type Department Care Team ([facility] st Contact Info) Description 08/30/2022 Refill [facility] [address] [place] [address] Adrienne Villegas MD [address] [place], [place] [phone] Social History Tobacco Use Types Packs/Day Years [...] on filedocumented in this encounter Care Teams Men'S Garment Fitter Relationship Specialty Start Date End Date Adrienne Villegas MD [address] [place] [phone] PCP - General Family Medicine 08/01/18 documented as of this encounter
--- OUTSIDE RECORDS SUMMARY | 2025-05-02 15:40 | XMS_ITS | Encounter Summary ---
Author Organization [employer] Address [address] [place] [address] 7 [place] [address] Care Team Providers Care Post Production Assistant Name Role Phone Adrienne Villegas MD Primary Care Provider [phone] Reason for Visit * Reason Onset Date Comments Lab Orders 01/24/2023 Encounter Details Date Type Department Care Team ([facility] Contact Info) Description 01/24/2023 Telephone [facility] [address] [place], [place] [phone] Adrienne Villegas MD [address] [place], [place] [phone] Lab Orders Social History Tobacco Use Types [...] Center 01/27/2023 1:15 PM Adrienne Villegas MD [facility] Protocol Used: Back Pain (Adult) Protocol-Based Disposition: [...] she has shingles. Please contact pt at [phone] documented in this encounter Plan of Treatment Not on file documented as of this encounter Visit Diagnoses Not on filedocumented in this encounter Additional Health Concerns Assessment Noted Time PHQ-9 Depression Total Score: 19 023 9:50 AM EST documented as of this encounter Care Teams Post Production Assistant Relationship Specialty Start Date End Date Adrienne Villegas MD [address] [place] [phone] PCP - General Family Medicine 08/01/18 documented as of this encounter
--- OUTSIDE RECORDS SUMMARY | 2025-05-02 15:40 | XMS_ITS | Clinical Summary ---
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 --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 [...] 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 --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 [...] with evidence of lupus per her local operations research group manager (and so started on hydroxychloroquine) but by [...] with evidence of lupus per her local operations research group manager (and so started on hydroxychloroquine) but by [...] with evidence of lupus per her local operations research group manager (and so started on hydroxychloroquine) but by [...] with evidence of lupus per her local operations research group manager but by review of the report, this [...] she is on a statin) and with terminal block assembler use retinal deposits (most important is regular ophthalmology follow up) ----she 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 Procedure Name Priority Date/Time Associated Diagnosis Comments HEPATITIS C ANTIBODY W/REFLEX TO HCV RNA, QUANTITATIVE PCR Routine 10/20/2020 1:15 PM EDT MARCY positive from Last 3 Months or Most Recently Relevant to Health Maintenance Results * Due to [place] state law, this organization might not be sharing negative HIV tests. * Hepatitis C Antibody w/Reflex to HCV RNA, Quantitative PCR (10/20/2020 1:15 PM EDT) Hepatitis C Antibody NON-REACT ELLIE NON-REACT ELLIE 10/20/2020 10:39 PM EDT Thermalin Diabetes [facility] Signal To Cut-Off 0.01 <1.00 10/20/2020 10:39 PM EDT Yu Rong [facility] Comment: HCV antibody was non-reactive. There is no laboratory evidence of HCV infection. In most cases, no further action is required. However, if recent HCV exposure is suspected, a test for HCV RNA (test code 12970) is suggested. For additional information please refer to http://education.Krossover/faq/SDU20o1 (This link is being provided for informational/ educational purposes only.) Blood Structure of peripheral vein / Unknown 10/20/2020 1:15 PM EDT 10/20/2020 6:28 PM EDT David Regalado MD LAB BLOOD ORDERABLES Final Result [facility] [address] [facility] 3rd Floor, [place] [address], Thermalin Diabetes [facility] [address] [place] [address] from Last 3 Months or Most Recently Relevant to Health Maintenance Insurance [facility] [employer] Advance Directives Documents on File Type Date Recorded Patient Spark Plug Tester Expl anation Health Care Proxy 09/14/2019 1:13 PM myat care proxy Care Teams Vertical Borer Relationship Specialty Start Date End Date Adrienne Villegas [address] [place] [address] PCP - General Internal Medicine 09/12/19
--- OUTSIDE RECORDS SUMMARY | 2025-05-02 15:40 | XMS_ITS | Clinical Summary ---
Author Organization [facility] Address [address] [place] [address] Phone Care Team Providers Care Specimen Processor Name Role Phone Adrienne Villegas MD Primary Care Provider [phone] Medications pregabalin (LYRICA) 150 MG capsule Take [...] topic Medical Devices Not on file Insurance [facility] MEDICARE REPLACEMENT [place] [facility] MEDICARE REPLACEMENT [place] [facility] MEDICARE REPLACEMENT SUZAN SCHWARTZ [id number] [facility] MEDICARE REPLACEMENT SUZAN [place] [id number] [facility] MEDICARE [facility]PLACEMENT [facility] MEDICARE REPLACEMENT [place] [facility] MEDICARE REPLACEMENT [facility] MEDICARE [facility]PLACEMENT [place] MEDICARE REPLACEMENT [place] [id number] [place] [address] [facility] D[facility]AL Care Teams Specimen Processor Relationship Specialty Start Date End Date Adrienne Villegas MD [address] [place] [address] TJ Meehan [address] PCP - General Pediatrics 08/30/17 Additional Source Comments The information contained in this document represents components of the legal health record. It is not the complete legal health record.[facility]
--- OUTSIDE RECORDS SUMMARY | 2025-05-02 15:40 | XMS_ITS | Encounter Summary ---
Author Organization [employer] Address [address] [facility] 7t [place] [address] Care Team Providers Care Steam Gigger Name Role Phone Adrienne Villegas MD Primary Care Provider [phone] Reason for Visit * Reason Comments Med Refill Encounter Details Date Type Department Care Team (Late st Contact Info) Description 04/30/2025 Refill [facility] MEDICINE [address] [place] [address] Ani Emanuel MD [address] [place], [place] [phone] Social History Tobacco Use Types Packs/Day Years [...] documented as of this encounter Care Teams Steam Gigger Relationship Specialty Start Date End Date Adrienne Villegas MD [address] [place] [address] PCP - General Family Medicine 08/01/18 documented as of this encounter
--- OUTSIDE RECORDS SUMMARY | 2025-05-02 15:40 | XMS_ITS | Encounter Summary ---
Author Organization [facility] Address [address] [place] [address] Care Team Providers Care Wiener Packer Name Role Phone Adrienne Villegas Primary Care Provider [phone] Reason for Visit * Reason Onset Date Comments Telehealth video call 09/09/2021 Encounter Details Date Type Department Care Team (Late st Contact Info) Description 09/09/2021 Telephone [facility] Central Scheduling Department [address] [place] [address] Telephone Intake, Staff Telehealth video call Social [...] on filedocumented in this encounter Care Teams Wiener Packer Relationship Specialty Start Date End Date Adrienne Villegas [address] [place] [address] PCP - General Internal Medicine 09/12/19 documented as of this encounter
--- OUTSIDE RECORDS SUMMARY | 2025-05-02 15:40 | XMS_ITS | Encounter Summary ---
Author Organization [employer] Address [address] [place] [address] 7 [place] [address] Care Team Providers Care Architecture Intern Name Role Phone Adrienne Villegas MD Primary Care Provider [phone] Reason for Visit * Reason Comments Med Refill Encounter Details Date Type Department Care Team ([facility] st Contact Info) Description 12/10/2022 Refill [facility] [address] [place] [address] Adrienne Villegas MD [address] [place] [address] Social History Tobacco Use Types Packs/Day Years [...] documented as of this encounter Care Teams Architecture Intern Relationship Specialty Start Date End Date Adrienne Villegas MD [address] [place] [address] PCP - General Family Medicine 08/01/18 documented as of this encounter
--- OUTSIDE RECORDS SUMMARY | 2025-05-02 15:40 | XMS_ITS | Encounter Summary ---
Author Organization [employer] Address [address] [place] [address] 7 [place] [address] Care Team Providers Care German Teacher Name Role Phone Adrienne Villegas MD Primary Care Provider [phone] Reason for Visit * Reason Comments Med Refill Encounter Details Date Type Department Care Team (Late st Contact Info) Description 04/10/2023 Refill [facility] MEDICINE [address] [place], [place] [phone] Adrienne Villegas MD [address] [place], [place] [phone] Disorder of skeletal muscle Social History Tobacco [...] documented as of this encounter Care Teams German Teacher Relationship Specialty Start Date End Date Adrienne Villegas MD [address] [place], [place] [phone] PCP - General Family Medicine 08/01/18 documented as of this encounter
--- OUTSIDE RECORDS SUMMARY | 2025-05-02 15:40 | XMS_ITS | Encounter Summary ---
Author Organization [employer] Address [address] [facility] 7t [place] [address] Care Team Providers Care Business Systems Manager Name Role Phone Adrienne Villegas MD Primary Care Provider [phone] Encounter Details Date Type Department Care Team ([facility] st Contact Info) Description 12/18/2024 Telephone [facility] MEDICINE [address] [place], [place] [phone] Adrienne Villegas MD [address] [facility] [address] [place], [place] [phone] Social History Tobacco Use Types Packs/Day Years [...] documented as of this encounter Care Teams Business Systems Manager Relationship Specialty Start Date End Date Adrienne Villegas MD [address] [place] [address] PCP - General Family Medicine 08/01/18 documented as of this encounter
--- OUTSIDE RECORDS SUMMARY | 2025-05-02 15:40 | XMS_ITS | Encounter Summary ---
Author Organization [facility] Address [address] [facility] [address] [place] [address] Phone Care Team Providers Care Flat Sorter Processor Name Role Phone Adrienne Villegas MD Primary Care Provider Reason for Referral * Physical Therapy (Within 1 month) - Closed Specialty Diagnoses / Procedures Referred By Kayla rodriguez Referred To Contact Physical Therapy Diagnoses Physical therapy evaluation, initial Diego Perez DDS Phone: tel: [facility] [address] [place] [address] Phone: tel: Referral ID Status Reason Start Date Expiration Date Visits Re quested Visits Authorized [id number] Closed 10/25/2017 07/31/2018 99 99 Electronically signed by Diego Perez DDS, [facility] at 10/25/2017 2:33 PM EDT Encounter Details Date Type Department Care Team (Latest Contact Info) Description 10/25/2017 Transcribe Orders [facility] Physical and Occupational Therapy Services [address] [facility], 1st Floor, [address] [place] [address] Diego Perez DDS [address] [facility] [address] [place] [address] Physical therapy evaluation, initial (Primary Dx) Social [...] Associated Diagnoses Order Schedule Ambulatory referral to [facility] Physical Therapy Outpatient Referral Routine Physical therapy evaluation, initial Ordered: 10/25/2017 documented as of this encounter Visit Diagnoses Diagnosis Physical therapy evaluation, initial- Primary Other specified examination documented in this encounter Care Teams Flat Sorter Processor Relationship Specialty Start Date End Date Adrienne Villegas MD [address] [place] [address] PCP - General Pediatrics 08/30/17 documented as of this encounter Additional Source Comments The information contained in this document represents components of the legal health record. It is not the complete legal health record.[facility]
--- OUTSIDE RECORDS SUMMARY | 2025-05-02 15:40 | XMS_ITS | Encounter Summary ---
Author Organization [employer] Address [address] [facility] 7t [place] [address] Care Team Providers Care Lens Mounter Name Role Phone Adrienne Villegas MD Primary Care Provider [phone] Encounter Details Date Type Department Care Team (Late st Contact Info) Description 07/16/2024 Orders Only [facility] MED [facility]EDS [address] [place] [phone] ProviderToña MD Social History Tobacco Use Types [...] documented as of this encounter Care Teams Lens Mounter Relationship Specialty Start Date End Date Adrienne Villegas MD [address] [place] [address] PCP - General Family Medicine 08/01/18 documented as of this encounter
--- OUTSIDE RECORDS SUMMARY | 2025-05-02 15:40 | XMS_ITS | Encounter Summary ---
Author Organization [employer] Address [address] [place] [address] [address] [place] [address] Care Team Providers Care Sample Examiner Name Role Phone Adrienne Villegas MD Primary Care Provider [phone] Reason for Visit * Reason Comments Med Refill Encounter Details Date Type Department Care Team (Late st Contact Info) Description 12/10/2022 Refill [facility] MEDICINE [address] [place], [place] [phone] Ashley Montiel MD [address] [place], [place] [phone] Social History Tobacco Use Types Packs/Day Years [...] documented as of this encounter Care Teams Sample Examiner Relationship Specialty Start Date End Date Adrienne Villegas MD [address] [place], [place] [phone] PCP - General Family Medicine 08/01/18 documented as of this encounter
--- OUTSIDE RECORDS SUMMARY | 2025-05-02 15:40 | XMS_ITS | Encounter Summary ---
Author Organization [employer] Address [address] [facility] 7 [place] [address] Care Team Providers Care Lacing Operator Name Role Phone Adrienne Villegas MD Primary Care Provider [phone] Reason for Visit * Reason Onset Date Comments Medication Question 03/25/2025 Encounter Details Date Type Department Care Team ([facility] st Contact Info) Description 03/25/2025 Telephone [facility] MEDICINE [address] [place] [address] Adrienne Villegas MD [address] [place], [place] [phone] Medication Question Social History Tobacco Use Types [...] this medication is. TC to patient via intake manager. No answer. Message left to return call to office. * Telephone Encounter - Marko Bates - 03/25/2025 9:28 AM EDT Tc from pt requesting refill for medication Creo 80 MG, stating she las received it back on 02/04/25 but science writer does not see script in pt's chart. Please contact pt at [phone]. documented in this encounter Plan of Treatment Not on file documented as of this encounter Visit Diagnoses Not on filedocumented in this encounter Additional Health Concerns Assessment Noted Time PHQ-9 Depression Total Score: 8 03/12/20 10:43 AM EDT documented as of this encounter Care Teams Lacing Operator Relationship Specialty Start Date End Date Adrienne Villegas MD [address] [place] [address] PCP - General Family Medicine 08/01/18 documented as of this encounter
--- OUTSIDE RECORDS SUMMARY | 2025-05-02 15:40 | XMS_ITS | Encounter Summary ---
Author Organization [employer] Address [address] [facility] 7 [place] [address] Care Team Providers Care Decal Transferrer Name Role Phone Adrienne Villegas MD Primary Care Provider [phone] Reason for Visit * Reason Onset Date Comments Med Refill 03/25/2025 Encounter Details Date Type Department Care Team (Late st Contact Info) Description 03/25/2025 Telephone [facility] MEDICINE [address] [place] [address] Adrienne Villegas MD [address] [place], [place] [phone] Med Refill Social History Tobacco Use Types [...] 9:40 AM EDT Medication was sent to [facility] on 03/12/25 #90 with 3 refills. * Telephone Encounter - Marko Bates - 03/25/2025 9:24 AM EDT TC from pt requesting medication refill. Medications needing refill: cholecalciferol (SM Vitamin D3) 50 MCG (1999 UT) capsule To be sent to: [facility] [place] - [address] [facility] documented in this encounter Plan of Treatment Not on file documented as of this encounter Visit Diagnoses Not on filedocumented in this encounter Additional Health Concerns Assessment Noted Time PHQ-9 Depression Total Score: 8 03/12/20 25 10:43 AM EDT documented as of this encounter Care Teams Decal Transferrer Relationship Specialty Start Date End Date Adrienne Villegas MD [address] [place] [address] PCP - General Family Medicine 08/01/18 documented as of this encounter
--- OUTSIDE RECORDS SUMMARY | 2025-05-02 15:40 | XMS_ITS | Encounter Summary ---
Author Organization [employer] Address [address] [place] [address] 7t [place] [address] Care Team Providers Care Decorating Machine Operator Name Role Phone Adrienne Villegas MD Primary Care Provider [phone] Reason for Visit * Reason Onset Date Comments appt/chart notes 03/02/2023 Encounter Details Date Type Department Care Team ([facility] st Contact Info) Description 03/02/2023 Telephone [facility] [address] [place] [address] Tila Crandall, DDS [address] [place] [address] appt/chart notes Social History Tobacco Use Types [...] Miscellaneous Notes * Telephone Encounter - Katiuska Apple - 03/02/2023 12:32 PM EDT Patient called in staing that she was recommended in [facility] to get treatment in [place] due to the amount of work that had to be done and that they could no longer with her in [facility]. She explained that apparently treatment had not gone as planned but unless Im missing something I do not see notes concerning this. She is certain on what she was told to do but I cant schedule without clarity to go to [facility] if that is what [facility] wants her to do because nothing is documented as such. Pls advise documented in this encounter Plan of Treatment Not on file documented as of this encounter Visit Diagnoses Not on filedocumented in this encounter Additional Health Concerns Assessment Noted Time PHQ-9 Depression Total Score: 19 023 9:50 AM EST documented as of this encounter Care Teams Decorating Machine Operator Relationship Specialty Start Date End Date Adrienne Villegas MD [address] [place] [address] PCP - General Family Medicine 08/01/18 documented as of this encounter
--- OUTSIDE RECORDS SUMMARY | 2025-05-02 15:40 | XMS_ITS | Encounter Summary ---
Author Organization [employer] Address [address] [facility] 7 [place] [address] Care Team Providers Care Computer Compositor Name Role Phone Adrienne Villegas MD Primary Care Provider [phone] Reason for Visit * Reason Onset Date Comments Med Refill 11/07/2024 Encounter Details Date Type Department Care Team ([facility] st Contact Info) Description 11/07/2024 Telephone [facility] MEDICINE [address] [place] [address] Adrienne Villegas MD [address] [place], [place] [phone] Med Refill Social History Tobacco Use Types [...] 150 MG capsule To be sent to: [facility] documented in this encounter Plan of Treatment Not on file documented as of this encounter Visit Diagnoses Not on filedocumented in this encounter Additional Health Concerns Assessment Noted Time PHQ-9 Depression Total Score: 19 023 9:50 AM EST documented as of this encounter Care Teams Computer Compositor Relationship Specialty Start Date End Date Adrienne Villegas MD [address] [place] [address] PCP - General Family Medicine 08/01/18 documented as of this encounter
== END 2025-05-02 14:01 | disposition home or self-care (01) ==
LOC: HO.MAMMO 14:00
PROVIDERS: PCP Pediatrics; Visit Provider Pediatrics
DX: Z13.820 Encounter for screening for osteoporosis (principal); M85.88 Other specified disorders of bone density and structure, other site
CPT/HCPCS: 77080

== ENCOUNTER → 2025-05-02 14:00 | Outpatient (BNV) | payer OTHER, SELFPAY | PROVIDERS: PCP Pediatrics; Visit Provider Radiology Diagnostic Radiology | DX: E28.39 Other primary ovarian failure (principal) | CPT/HCPCS: 77080 ==

== ENCOUNTER 2025-05-07 13:32 | Outpatient (AMB) | payer OTHER, SELFPAY ==
--- NOTE | 2025-05-07 13:33 | MHC.OFFVIS ---
Vital Signs 05/07/25 13:34 Height 5 ft 3 in Weight 189 lb 2.506 oz BMI 33.5 BP 117/72 Blood Pressure Location Lt brachial Position Sitting Pulse 73 Pulse Source Pulse Oximeter Pulse Oximetry (%) 96 Intake Visit Reasons: Follow up medications Intake Note: Pt c/o; dry mouth, dysphagia at night time, bloating, reports epigastric pain. Band Top Maker Required: Yes Band Top Maker Language: Outside Installation Machinist Services: Band Top Maker Present Accompanied by: Self / Same As Patient Allergies aspirin (ASA) Allergy (Intermediate, Verified 05/07/25 13:39) Hives Penicillins (PENICILLINS) Allergy (Intermediate, Verified 05/07/25 13:39) RASH loratadine Allergy (Unknown, Verified 05/07/25 13:39) Unknown trimethoprim Allergy (Unknown, Verified 05/07/25 13:39) Unknown venlafaxine Allergy (Unknown, Verified 05/07/25 13:39) Unknown HPI HPI Follow up medications: Details: ssessment & Plan (1) Esophageal dysmotility: Comment: Causing dysphagia and had been treatment in the past with verapamil Code(s): K22.4 - Dyskinesia of esophagus Category: Medical (2) Presbyesophagus: Code(s): K22.89 - Other specified disease of esophagus Category: Medical (3) Dysphagia: Code(s): R13.10 - Dysphagia, unspecified Category: Medical (4) GERD (gastroesophageal reflux disease): Code(s): K21.9 - Gastro-esophageal reflux disease without esophagitis Category: Medical (5) Chronic idiopathic constipation: Code(s): K59.04 - Chronic idiopathic constipation Category: Medical Plan Pakistani #A NA Live Unfortunately, she did not have any relief with the dilation of the upper esophagus. She has a dysmotility on the barium swallow, but this has not responded in the past to verapamil which she is still on and this is rx'ed by her PCP. Since a manometry was recommended by the endoscopist, I will refer her to [facility] for this. HH repair was also discussed, but she does nto prefer this at this time. She has severe dry mouth and dry throat as well. This alone could be contributing to her swallowing issues. She has lupus so it is possible that there is a tissue disorder of autoimmune nature at play, she is also on multiple medications that may contribute to dry mouth including sertraline, furosemide, meclizine, methocarbamol, paroxetine, trazodone. She continues on her omeprazole in the morning and famotidine at night, Creon, Linzess 290, bisacodyl, rabeprazole 20 mg twice a day, simethicone, and Reglan. ROV 6 mos. Orders: Referrals Gastroenterology Referral K22.4 - Dyskinesia of esophagus, R13.10 - Dysphagia, unspecified Medications: New simethicone 360 mg (2 x 180 mg) PO TID 90 caps 6RF Refilled bisacodyl 10 mg (2 x 5 mg) PO BEDTIME 60 tabs 6RF K59.04 - Chronic idiopathic constipation famotidine 40 mg PO BEDTIME 30 tabs 6RF K21.9 - Gastro-esophageal reflux disease without esophagitis lrhfod-vodwowdn-slwaimw 36,000-114,000- 180,000 unit (Creon) 2 caps PO BID 120 caps 6RF K58.9 - Irritable bowel syndrome, unspecified rabeprazole 20 mg PO BID 60 tabs 6RF K21.9 - Gastro-esophageal reflux disease without esophagitis, R13.10 - Dysphagia, unspecified linaclotide (Linzess) 290 mcg PO QAM 30 caps 6RF 30 days K59.04 - Chronic idiopathic constipation, R14.0 - Abdominal distension (gaseous) metoclopramide HCl 5 mg PO QID 120 tabs 6RF K21.9 - Gastro-esophageal reflux disease without esophagitis TODAY'S VISIT Pakistani #Yuanira Live [facility] Medical History (Updated 05/07/25 @ 14:03 by JAY Hughes) Candidiasis of mouth and esophagus Dyspnea on exertion Environmental allergies Bilateral knee pain Cervical radiculopathy Cervical spondylosis Right calf pain Muscle spasm Renal cyst History of kidney stones Pre-op examination Sleep apnea Asthma Hx of renal calculi PONV (postoperative nausea and vomiting) Sweating abnormality Hirsutism MGUS (monoclonal gammopathy of unknown significance) Positive MARCY (antinuclear antibody) Idiopathic hirsutism Plantar fasciitis Mood disorder Xerosis of skin Chronic fatigue Myositis Myalgia Pulmonary nodule Depression Diabetes Age related osteoporosis Restless legs Spondylosis Arthritis Carpal tunnel syndrome Fibromyalgia Constipation High cholesterol Anxiety Hypertension SLE (systemic lupus erythematosus related syndrome) Surgical History Hx of bilateral cataract extraction History of surgery of head H/O colonoscopy H/O esophagogastroduodenoscopy H/O hemorrhoidectomy History of tubal ligation Family History Father Diabetes Hypertension Mother Hypertension Diabetes Asthma Maternal Grandfather Throat cancer Maternal Grandmother Throat cancer Paternal Uncle Prostate cancer Maternal Uncle Throat cancer Stomach cancer Maternal Aunt Stomach cancer Diabetes Social History Household Members: Family Are you a primary home health care case manager to a significant other at home: No Do you presently have visiting nurse or other home services: Yes (AUDIO ENGINEER and supportive Daughter) Alcohol intake: never Patient Tobacco Use Status: Never used Tobacco Current occupational status: retired Current occupation: rt handed Review of Systems Const Denies fatigue, Denies fever(s), Denies night sweats, Denies poor appetite and Denies weight loss Eyes Details: GLASSES Reports requires corrective lenses ENT Reports Normal hearing present, Denies dental pain, Reports dysphagia, Denies hearing loss, Denies mouth pain, Denies odynophagia, Denies throat swelling, Denies tongue swelling and Reports other (Dentition adequate) Card Reports no additional complaints Resp Reports no additional complaints GI Details: Denies abdominal pain, Denies melena, Reports bloating, Denies hematochezia, Reports constipation, Denies GI cramping, Reports dysphagia, Denies excessive flatus, Denies early satiety, Reports heartburn, Denies diarrhea, Reports nausea, Denies odynophagia, Reports vomiting and Denies hematemesis Skin/Breast Denies pruritus, Denies lesions, Denies rash and Denies jaundice Neuro Reports Normal hearing present and Denies Abnormal speech present Endo Denies fatigue Aller/Immun Denies throat swelling and Denies tongue swelling Physical Exam Vital Signs: Last Vital Signs Pulse 73 05/07/25 13:34 BP 117/72 05/07/25 13:34 Pulse Ox 96 05/07/25 13:34 BMI result Body Mass Index 33.5 Const General: cooperative, no acute distress, well developed and well groomed Nutritional Appearance: well nourished and obese Orientation/consciousness: oriented to person, oriented to place and oriented to time Limitations: language barrier HEENT Head: Yes normocephalic and Yes atraumatic Eyes General: appearance normal, both eyes and all related structures Pupils: Equal, round and reactive pupils present Neck Neck: Yes normal visual inspection and Yes no lymphadenopathy Thyroid: Thyroid normal Resp Effort & Inspection: normal respiratory effort and able to speak in complete sentences Auscultation: clear to auscultation bilaterally Cardio Rate: regular rate Rhythm: regular rhythm Heart sounds: Normal, physiologic split S2 sound present Peripheral pulses: radial pulses present and posterior tibial pulses present GI Inspection: No distended, Yes Abdominal panniculus present and Yes obesity Palpation (GI): Soft to palpation, nontender, no guarding, not rigid and No hepatosplenomegaly present Percussion: Yes normal to percussion Auscultation: normal bowel sounds Rectal Exam - Female: deferred Skin General skin exam: no rashes or lesions noted, turgor normal, skin not dry, no jaundice, No spider nevi and no striae Rashes: no rashes Nails: normal Neuro General: oriented to person, oriented to place and oriented to time Cranial nerves: Yes Equal, round and reactive pupils present and Yes Normal hearing present Speech: No Abnormal speech present Extrem General: Yes normal to inspection, No clubbing, No cyanosis and No edema Psych Appearance: grossly normal and well kempt Mental Status: mental status grossly normal Speech and movement: Normal speech and movement present Affect: normal affect Attitude: cooperative Thought process: Normal thought process present and not confabulating Thought content: Normal thought content present Insight: Fair insight present (Psych) Judgement: Fair judgement present (Psych) Assessment & Plan Assessment & Plan (1) Esophageal dysmotility: Comment: Causing dysphagia and had been treatment in the past with verapamil Code(s): K22.4 - Dyskinesia of esophagus Category: Medical (2) Dysphagia: Code(s): R13.10 - Dysphagia, unspecified Category: Medical (3) GERD (gastroesophageal reflux disease): Code(s): K21.9 - Gastro-esophageal reflux disease without esophagitis Category: Medical (4) Chronic idiopathic constipation: Code(s): K59.04 - Chronic idiopathic constipation Category: Medical (5) Candidiasis of mouth and esophagus: Code(s): B37.81 - Candidal esophagitis; B37.0 - Candidal stomatitis Category: Medical Plan Pakistani #Feliz Live She continues on her omeprazole in the morning and famotidine at night, Creon, Linzess 290, bisacodyl, rabeprazole 20 mg twice a day, simethicone, and Reglan. Jess continues to have some GI challenges. For 1, she was never contacted by [facility] to have an esophageal manometry for her dysphagia. She asks if I will try referring her to [facility] and I will. She continues to have this problem she is also complaining about a very dry mouth and throat and she finds that she has to drink a lot a water constantly to offset this. She is also complaining of a white tone. This makes me wonder if it could be esophageal Mica and I think a trial of nystatin would be prudent. With conversation I find out that she is using bisacodyl as a chronic medication and using the Linzess as a PRN. The reason that I explained to her it should be the opposite as she continues to have some difficulties with bloating and I think that this is related to poor GI motility. It also seems with conversation that she might not be getting her Reglan which of course would further complicate the situation. I ask why she is not taking the Linzess every day and she says it is because it gives her diarrhea. This means that doses clearly too high so will adjust it back to 145 micro g and even back to 72 if needed. ROV 6 WEEKS. Orders: Referrals Gastroenterology Referral K22.4 - Dyskinesia of esophagus, R13.10 - Dysphagia, unspecified Medications: New linaclotide (Linzess) Take first thing in the morning with a full glass of water. Discontinueing the 290mcg dose 145 mcg PO QAM 30 caps 6RF K58.1 - Irritable bowel syndrome with constipation nystatin swish and swallow 10 mL PO TID 473 mL 0RF B37.0 - Candidal stomatitis, B37.81 - Candidal esophagitis linaclotide (Linzess) Take first thing in the morning with a full glass of water. Discontinueing the 290mcg dose 145 mcg PO QAM 30 caps 6RF K58.1 - Irritable bowel syndrome with constipation Refilled rabeprazole 20 mg PO BID 60 tabs 6RF K21.9 - Gastro-esophageal reflux disease without esophagitis, R13.10 - Dysphagia, unspecified metoclopramide HCl 5 mg PO QID 120 tabs 6RF K21.9 - Gastro-esophageal reflux disease without esophagitis kdlgbq-hfoxjuex-sqgywmm 36,000-114,000- 180,000 unit (Creon) 2 caps PO BID 120 caps 6RF K58.9 - Irritable bowel syndrome, unspecified rabeprazole 20 mg PO BID 60 tabs 6RF K21.9 - Gastro-esophageal reflux disease without esophagitis, R13.10 - Dysphagia, unspecified simethicone 360 mg (2 x 180 mg) PO TID 90 ea 0RF simethicone 360 mg (2 x 180 mg) PO TID 90 ea 0RF famotidine 40 mg PO BEDTIME 30 tabs 6RF K21.9 - Gastro-esophageal reflux disease without esophagitis arvfdw-olivwvwc-hspffyw 36,000-114,000- 180,000 unit (Creon) 2 caps PO BID 120 caps 6RF K58.9 - Irritable bowel syndrome, unspecified bisacodyl 10 mg (2 x 5 mg) PO BEDTIME 60 tabs 6RF K59.04 - Chronic idiopathic constipation famotidine 40 mg PO BEDTIME 30 tabs 6RF K21.9 - Gastro-esophageal reflux disease without esophagitis Coding Level of Care Code Est Pt Level 4 (61184) Diagnoses Esophageal dysmotility K22.4 Dysphagia R13.10 GERD (gastroesophageal reflux disease) K21.9 Chronic idiopathic constipation K59.04 Candidiasis of mouth and esophagus B37.81; B37.0 Time Spent (min) 35
[2025-05-07 13:34] VITALS: BP 117/72; PULSE 73; O2SAT 96; BMI 33.5
--- OUTSIDE RECORDS SUMMARY | 2025-05-07 16:39 | XMS_ITS | Encounter Summary ---
Author Organization [employer] Address [address] [place] [address] [address] [place] [address] Care Team Providers Care Fuselage Framer Name Role Phone Adrienne Villegas MD Primary Care Provider [phone] Reason for Visit * Reason Comments Med Refill Encounter Details Date Type Department Care Team ([facility] st Contact Info) Description 01/14/2023 Refill [facility] [address] [facility] [place] [address] Adrienne Villegas MD [address] [place] [address] Social History Tobacco Use Types Packs/Day Years [...] documented as of this encounter Care Teams Fuselage Framer Relationship Specialty Start Date End Date Adrienne Villegas MD [address] [place] [address] PCP - General Family Medicine 08/01/18 documented as of this encounter
--- OUTSIDE RECORDS SUMMARY | 2025-05-07 16:39 | XMS_ITS | Encounter Summary ---
Author Organization [employer] Address [address] [place] [address] [address] [place] [address] Care Team Providers Care Mine Engineering Manager Name Role Phone Adrienne Villegas MD Primary Care Provider [phone] Reason for Visit * Reason Comments Med Refill Encounter Details Date Type Department Care Team (Late st Contact Info) Description 12/10/2022 Refill [facility] [address] [place], [place] [phone] Ashley Montiel MD [address] [place], [place] [phone] Social History Tobacco Use Types Packs/Day Years [...] documented as of this encounter Care Teams Mine Engineering Manager Relationship Specialty Start Date End Date Adrienne Villegas MD [address] [place], [place] [phone] PCP - General Family Medicine 08/01/18 documented as of this encounter
--- OUTSIDE RECORDS SUMMARY | 2025-05-07 16:39 | XMS_ITS | Encounter Summary ---
Author Organization [employer] Address [address] [facility] [address] [place] [address] Care Team Providers Care Earth Mover Name Role Phone Adrienne Villegas MD Primary Care Provider [phone] Reason for Visit * Reason Onset Date Comments Med Refill 03/25/2025 Encounter Details Date Type Department Care Team (Late st Contact Info) Description 03/25/2025 Telephone [facility] [address] [place] [address] Adrienne Villegas MD [address] [place], [place] [phone] Med Refill Social History Tobacco Use Types [...] 9:40 AM EDT Med[facility]25 #90 with 3 refills. * Telephone Encounter - Marko Bates - 03/25/2025 9:24 AM EDT TC from pt requesting medication refill. Medications needing refill: cholecalciferol (SM Vitamin D3) 50 MCG (1999 UT) capsule To be sent to: [facility] - [place] - [address] [facility] documented in this encounter Plan of Treatment Not on file documented as of this encounter Visit Diagnoses Not on filedocumented in this encounter Additional Health Concerns Assessment Noted Time PHQ-9 Depression Total Score: 8 03/12/20 25 10:43 AM EDT documented as of this encounter Care Teams Earth Mover Relationship Specialty Start Date End Date Adrienne Villegas MD [address] [place] [address] PCP - General Family Medicine 08/01/18 documented as of this encounter
--- OUTSIDE RECORDS SUMMARY | 2025-05-07 16:39 | XMS_ITS | Clinical Summary ---
Author Organization [employer] Address [address] [place] [address] 7[address] [place] [address] Care Team Providers Care Library Media Specialist Name Role Phone Adrienne Villegas MD Primary Care Provider [phone] Allergies Active Allergy Reactions Criticality Noted Date [...] Type Department Care Team Description 04/30/2025 Refill [facility] [address] [place] [address] nAi Emanuel MD 04/16/2025 Orders Only [facility] External Provider, [facility] 03/30/2025 Refill [facility] [address] [place] [phone] Adrienne Villegas MD Primary fibromyalgia syndrome 03/25/[address] [address] Adrienne Villegas MD Medication Question 03/25/2025 Telephone [facility] [address] [place] [address] Adrienne Villegas MD Med Refill 03/21/2025 Refill [facility] [address] [place] [phone] Adrienne Villegas MD 03/12/2025 10:30 AM EDT Office Visit [facility] [address] [place] [address] Adrienne Villegas MD Diabetes mellitus without complication (CMS/HCC) (Primary Dx); Osteopenia of hip, unspecified laterality; Disorder of skeletal muscle; Benign essential hypertension; Dietary counseling; Exercise counseling; Macromastia; Chronic breast pain; Dense breast tissue on mammogram, unspecified type 03/12/2025 Patient Outreach [facility] [address] [place] [phone] Adrienne Villegas MD Care Coordination (CHW outreach for SDOH food needs - LVM ) 03/12/2025 Travel 03/01/2025 Refill [facility] [address] [place] [phone] Adrienne Villegas MD from Last 3 Months Immunizations Immunization Administration [...] Screening 03/12/2026 03/12/2025 Lipid Panel 03/12/2026 03/12/2025, 10/30, 03/17/2021 SDOH Screening 03/12/2026 03/12/2025 Tobacco Screening [...] Procedure Name Priority Date/Time Associated Diagnosis Comments BD DEXA AXIAL Routine 05/02/2025 2:05 PM EDT Osteopenia of hip, unspecified laterality US RENAL COMPLETE Routine 04/16/2025 1:4 8 [...] MRNA E6/E7 Routine 08/26/2022 12:00 AM EST [facility] HISTORICAL HPV MRNA E6/E7 Routine 08/28/2019 3:55 PM EST from Last 3 Months or Most Recently Relevant to Health Maintenance Results * BD DEXA Axial (05/02/2025 2:05 PM EDT) Anatomical Region Laterality Modality Body Radiographic Heavenly ging 05/02/2025 2:05 PM EDT Narrative 05/03/2025 7:09 AM EDT [facility] [address] [place] [address] Mammography Report Signed Patient: Jess Gray MR#: [id number] : 1960 Acct:[id number] Age/Sex: 64 / F ADM Date: 05/02/25 Loc: KEVIN Attending Dr: Adrienne Villegas MD Ordering Physician: Adrienne Villegas MD Results: Date of Service: 05/02/25 Follow Up: Procedure(s): XR DEXA axial skeleton Accession Number(s): [id number] cc: Adrienne Villegas MD Reason For Exam: osteopenia EXAMINATION: DXA BONE DENSITY AXIAL HISTORY: osteopenia TECHNIQUE: [employer] Dual energy absorptiometry (DEXA) of the lumbar spine, total left hip, and femoral neck was performed. COMPARISON: There are no prior studies for comparison. FINDINGS: The bone mineral density of the lumbar spine is 1.028 g/cm2, corresponding to a T-score of -1.3, and a Z-score of -0.4. This is indicative of osteopenia. The bone mineral density of the left total hip is 0.920 g/cm2, corresponding to a T-score of -0.7, and a Z-score of 0.0. This is indicative of normal bone mineral density. The bone mineral density of the left femoral neck is 0.894 g/cm2, corresponding to a T-score of -1.0, and a Z-score of 0.0. This is indicative of normal bone mineral density. FRACTURE RISK: The FRAX index suggests a risk of major osteoporotic fracture of 8.2%, and of hip fracture 0.3%. MM/XR DEXA axial skeleton IMPRESSION: Based on bone mineral density, and according to World Health Organization (WHO) criteria, the diagnosis is consistent with osteopenia. Statistically, 68% of repeat scans fall within 1 SD (+/- 0.010 g/cm2 for AP spine L1-L4) and 1 SD (+/- 0.012 g/cm2 for femur total) FRAX is a trademark of the [employer] [place] for Metabolic Bone Disease, a World Health Organization (WHO) Collaborating Center. Electronically signed by: Pablo Campos MD 05/03/2025 07:06 AM EDT RP Dictated By: Pablo Campos MD Signed By: <Electronically signed by Pablo Campos MD in OV> 05/03/25 0706 DD/ 1405 TD/TT: 05/02/25 1427 Bun Icer: Procedure Note Donotuseinterpreter, Image - 05/03/[facility] [address] [place] [address] Mammography Report Signed Patient: Jess Gray DMR#: [id number] : 1960cct:[id number] Age/Sex: 64 / FADM Date: 05/02/25 Loc: HO.MAMMO Attending Dr: Adrienne Villegas MD Ordering Physician: Adrienne Villegasults: Date of Service: 05/02/25Follow Up: Procedure(s): XR DEXA axial skeleton Accession Number(s): [id number] cc: Adrienne Villegas MD Reason For Exam: osteopenia EXAMINATION: DXA BONE DENSITY AXIAL HISTORY: osteopenia TECHNIQUE: [employer] Dual energy absorptiometry (DEXA) of the lumbar spine, total left hip, and femoral neck was performed. COMPARISON: There are no prior studies for comparison. FINDINGS: The bone mineral density of the lumbar spine is 1.028 g/cm2, corresponding to a T-score of -1.3, and a Z-score of -0.4. This is indicative of osteopenia. The bone mineral density of the left total hip is 0.920 g/cm2, corresponding to a T-score of -0.7, and a Z-score of 0.0. This is indicative of normal bone mineral density. The bone mineral density of the left femoral neck is 0.894 g/cm2, corresponding to a T-score of -1.0, and a Z-score of 0.0. This is indicative of normal bone mineral density. FRACTURE RISK: The FRAX index suggests a risk of major osteoporotic fracture of 8.2%, and of hip fracture 0.3%. MM/XR DEXA axial skeleton IMPRESSION: Based on bone mineral density, and according to World Health Organization (WHO) criteria, the diagnosis is consistent with osteopenia. Statistically, 68% of repeat scans fall within 1 SD (+/- 0.010 g/cm2 for AP spine L1-L4) and 1 SD (+/- 0.012 g/cm2 for femur total) FRAX is a trademark of the [employer] [place] for Metabolic Bone Disease, a World Health Organization (WHO) Collaborating Center. Electronically signed by: Pablo Campos MD 05/03/2025 07:06 AM EDT Dictated By: Pablo Campos MD Signed By: <Electronically signed by Pablo Campos MD in OV> 05/03/25 0706 DD/ 1405 TD/TT: 05/02/25 1427 Bun Icer: us Adrienne Villegas MD IMG DXA PROCEDURES Final Resu lt * US Renal Complete (04/16/2025 1:48 PM EDT) Anatomical Region Laterality Modality Kidney Ultrasound 04/16/2025 1:48 PM EDT Narrative 04/16/2025 2:13 PM EDT [place] [address] Ultrasound Report Signed Patient: Jess Gray MR#: [id number] : 1960 Acct:[id number] Age/Sex: 64 / F ADM Date: 04/16/25 Loc: HO.US Attending Dr: Usman Shrestha MD Ordering Physician: Usman Shrestha MD Date of Service: 04/16/25 Procedure(s): US renal BI Accession Number(s): [id number] cc: Usman Shrestha MD; Adrienne Villegas MD [...] 04/16/25 1407 DD/ 1348 TD/TT: 04/16/25 1356 Bun Icer: Procedure Note Donotuseinterpreter, Image - 04/16/[address] [address] Ultrasound Report Signed Patient: Jess Gray DMR#: [id number] : 1960cct:[id number] Age/Sex: 64 / FADM Date: 04/16/25 Loc: HO.US Attending Dr: Usman Shrestha MD Ordering Physician: Usman Shrestha MD Date of Service: 04/16/25 Procedure(s): US renal BI Accession Number(s): [id number] cc: Usman Shrestha MD; Adrienne Villegas MD [...] 04/16/25 1407 DD/ 1348 TD/TT: 04/16/25 1356 Bun Icer: us [facility] External Provider IMG US PROCEDURES Edited Result - Final * Albumin, Random Urine W/Creatinine (03/12/2025 11:08 AM EDT) Creatinine, Urine 91.36 mg/dL [facility] Microalbumin Urine 6.0 mg/L [facility] Microalbum Creatinine Ratio Ur 6.5 <30 ug/mg cr [facility] Comment:Albumin/Creatinine R atio Reference Ranges: Normal: < 30 ug/mg creatinine Microalbuminuria: 30 - 300 ug/mg creatinineClinical Albuminuria: > 300 ug/mg creatinine Urine (Urine, Random) 03/12/2025 11:08 AM EDT 03/12/2025 1:50 PM EDT us Adrienne Villegas MD LAB URINE ORDERABLES Final Re sult [facility] [address] [place] [phone] * (ABNORMAL) POCT HGB A1C (03/12/2025 11:08 AM EDT) Hemoglobin A1C 6.5(A) 4.0 - 5.7 % Blood 03/12/2025 11:0 8 AM EDT us Adrienne Villegas MD POINT OF CARE TEST [...] Vitamin D 25-OH Total 49.6 >30 ng/mL [facility] Comment: Health Based Reference Values*< 20 ng/mL Esbrcewus11-27 ng/mL Insufficient> 30 ng/mL Sufficient*Raya OCHOA. N [...] ORDERABLES Final Re sult Performing Organization Address [facility] Co de Phone Number [facility] [address] [place] [phone] * TSH W/Reflex to FT4 (03/12/2025 11:07 AM EDT) TSH reflex Free T4 1.55 0.32 - 4.0 uIU/mL [facility] Blood Venous blood specimen / Unknown 03/12/2025 11:07 AM EDT 03/12/2025 2:01 PM EDT Adrienne Villegas MD LAB BLOOD ORDERABLES Final Re sult Performing Organization Address [facility]/ZIP Co de Phone Number [facility] [address] [place] [phone] * (ABNORMAL) CBC auto differential (03/12/2025 11:07 AM EDT) White Blood Count 6.9 4.8 - 10.8 X10*3/uL [facility] Red Blood Count 4.30 4.20 - 5.50 X10*6/uL [facility] Hemoglobin 12.8 12.0 - 16.0 g/dl [facility] Hematocrit 41.0 37.0 - 47.0 % [facility] Mean Corpuscular Volume 95.3 80.0 - 98.0 fL [facility] Mean Corpuscular Hemoglobin 29.8 27.0 - 33.0 pg [facility] Mean Corpuscular HGB Conc 31.2 31.0 - 35.0 g/dl [facility] Red Cell Distribution Width 12.7 11.0 - 16.0 % [facility] Platelet Count 317 160 - 400 X10*3/uL [facility] Mean Platelet Volume 10.9 9.4 - 12.3 fL [facility] Neutrophils Percent Auto 67.3 45 - 73 % [facility] Imm Gran Pct Auto 0.1 0.0 - 0.4 % [facility] Lymphocytes Percent Auto 17.8(L) 20 - 40 % [facility] Monocytes Percent Auto 10.5 2 - 11 % [facility] Eosinophils Percent Auto 3.6 0 - 4 % [facility] Basophils Percent Auto 0.7 0 - 2 % [facility] NRBC Pct Auto 0.0 0.0 - 0.2 /100WBC [facility] Neutrophils Absolute Auto 4.6 2.0 - 8.3 x10*3/uL [facility] Imm Gran Abs Auto 0.01 0.00 - 0.03 X10*3/uL [facility] Lymphocytes Absolute Auto 1.2 1.2 - 4.9 X10*3/uL [facility] Monocytes Absolute Auto 0.7 0.1 - 1.2 X10*3/uL [facility] Eosinophils Absolute Auto 0.3 0.0 - 0.4 X10*3/uL [facility] Basophils Absolute Auto 0.1 0.0 - 0.2 X10*3/uL [facility] NRBC Abs Auto 0.000 0.0 - 0.012 X10*3/uL [facility] Blood Venous blood specimen / Unknown 03/12/2025 11:07 AM EDT 03/12/2025 2:01 PM EDT us Adrienne Villegas MD LAB BLOOD ORDERABLES Final Re sult Performing Organization Address City/[facility]/ZIP Co de Phone Number [facility] [address] [place] [phone] * Magnesium (03/12/2025 11:07 AM EDT) Magnesium 2.3 1.6 - 2.6 mg/dL [facility] Blood Venous blood specimen / Unknown 03/12/2025 11:07 AM EDT 03/12/2025 2:01 PM EDT Adrienne Villegas MD LAB BLOOD ORDERABLES Final Re sult Performing Organization Address [facility] Co de Phone Number [facility] [address] [place] [phone] * (ABNORMAL) Lipid Panel, Standard (03/12/2025 11:07 AM EDT) Triglycerides 117 <150 mg/dL [facility] Comment:Desirable Triglyceri de: less than 150 mg/dLBorderline High Triglyceride 150-199 mg/dLHigh Triglyceride: 200-499 mg/dLVery High Triglyceride: greater than or equal to 5OO mg/dL Cholesterol 182 <200 mg/dL [facility] Comment:Desirable Cholestero l: less than 200 mg/dLBorderline High Cholesterol: 200-239 mg/dLHigh Cholesterol: greater than 239 mg/dL LDL Cholesterol Calculated 110(H) <100 mg/dL [facility] Comment:Desirable LDL: less than 100 mg/dLNear Optimal/Above Optimal LDL: 110- 129 mg/dLBorderline High LDL: 130-159 mg/dLHigh LDL: 160-189 mg/dLVery High LDL: greater than or equal to 190 mg/dL HDL Cholesterol 49 >40 mg/dL [facility] Comment:Desirable HDL: great er than 40 mg/dL Note: This HDL assay may give artificially low results in patients with liver disease. Blood Venous blood specimen / Unknown 03/12/2025 11:07 AM EDT 03/12/2025 2:01 PM EDT us Adrienne Villegas MD LAB BLOOD ORDERABLES Final Re sult [facility] [address] [place] [phone] [phone] * (ABNORMAL) Comprehensive Metabolic Panel (03/12/2025 11:07 AM EDT) Sodium 143 135 - 145 mmol/L [facility] Potassium 4.3 3.3 - 5.1 mmol/L [facility] Chloride 107 96 - 108 mmol/L [facility] Carbon Dioxide 29 22 - 29 mmol/L [facility] Anion Gap 11(L) 12 - 20 [facility] Urea Nitrogen (BUN) 15 9 - 16 mg/dL [facility] Creatinine, Serum 0.60 0.5 - 1.4 mg/dL [facility] Estimated Glomerular Filt Rate >60 [facility] Comment:Chronic Kidney Disea se: Estimated GFR < 60 mL/min/1.89w3Zcqnux Kidney Disease: Estimated GFR < 15 mL/min/1.73m2 Glucose 106 60 - 115 mg/dL [facility] Calcium 8.9 8.4 - 10.2 mg/dL [facility] Bilirubin, Total 0.3 0.0 - 1.0 mg/dL [facility] Aspartate Amino Transferase 29 5 - 31 U/L [facility] Alanine Aminotransferase 25 0 - 31 U/L [facility] Total Protein 7.0 6.5 - 8.0 g/dL [facility] Albumin Level 4.4 3.5 - 5.0 g/dL [facility] Alkaline Phosphatase 72 39 - 117 U/L [facility] Blood Venous blood specimen / Unknown 03/12/2025 11:07 AM EDT 03/12/2025 2:01 PM EDT us Adrienne Villegas MD LAB BLOOD ORDERABLES Final Re sult [facility] [address] [place] [phone] * BI Mammogram Screening Tomosynthesis Bilateral (01/12/2024 4:00 PM EDT) Anatomical Region Laterality Modality Breast Bilateral Mammography 01/12/2024 4:00 PM EDT Narrative 02/11/2024 8:46 AM EDT [facility] [address] [place] [address] Mammography Report Signed Patient: Jess Gray MR#: [id number] : 1960 Acct:[id number] Age/Sex: 63 / F ADM Date: 01/12/24 Loc: HO.MAMMO Attending Dr: Adrienne Villegas MD Ordering Physician: Adrienne Villegas MD Results: 2Be nign Findings Date of Service: 01/12/24 Follow Up: 1 Year From [facility] ina Mammogram Procedure(s): MM tomosynthesis screening BI Accession Number(s): [id number] cc: Adrienne Villegas MD EXAMINATION: MM SCREENING [...] in OV> 02/11/24 0842 DD/ 1600 TD/TT: Bun Icer: Procedure Note Donotuseinterpreter, Image - 02/11/20[facility] [address] [place] [address] Mammography Report Signed Patient: Jess Gray DMR#: [id number] : 1Acct:[id number] Age/Sex: 63 / FADM Date: 01/12/24 Loc: HO.MAMMO Attending Dr: Adrienne Villegas MD Ordering Physician: Adrienne Villegas MDResults: 2Be nign Findings Date of Service: 01/12/24Follow Up: 1 Year From Orig ina Mammogram Procedure(s): MM tomosynthesis screening BI Accession Number(s): [id number] cc: Adrienne Villegas MD EXAMINATION: MM SCREENING [...] in OV> 02/11/24 0842 DD/ 1600 TD/TT: Bun Icer: us Adrienne Villegas MD IMG BI PROCEDURES Edited Resu lt - Final * Thinprep TIS PAP W/Refl HPV mRNA E6/E7 (08/26/2022 12:00 AM EST) Clinical Information: None given [employer] [facility] LMP: NONE GIVEN [facility] Prev. PAP: NONE GIVEN [facility] Prev. BX: NONE GIVEN [facility] SOURCE: None given [facility] Statement Of Adequacy: SATISFACTORY FOR EVALUATION [facility] Interpretation/Res ult: [facility] Comment: Negative for intraepithelial lesion or malignancy. Atrophic pattern; predominantly parabasal cells COMMENT: This Pap test has been evaluated with computer assisted technology. [facility] Activity Aide: [facility] Comment: NNO, CT(ASCP) CT screening location: [place] [address] Slide preparation performed at: [employer] [address] CLIA No. [id number] (Always Message) [facility] Comment: EXPLANATORY NOTE: The Pap is [...] Adrienne Villegas MD LAB PATHOLOGY ORDERABLES Malini l Result [address], [place] [address], [address] [place] [address] [place] [address] * HPV mRNA E6/E7 (08/28/2019 3:55 PM EST) HPV mRNA E6/E7 Not Detected NOT DETECTED [facility] Comment: This test was performed using the APTIMA(R) HPV Assay ([employer] This assay detects E6/E7 viral messenger RNA (mRNA) from 14 high-risk HPV types (16,18,31,33,35,39,45,51, 52,56,58,59,66,68). For additional information please refer to: http://education.Adnexus/faq/LVB783h7 (This link is being provided for informational/ educational purposes only.) The analytical performance characteristics of this assay have been determined by [facility] [place], [place]. The modifications have not been cleared or approved by the FDA. This assay has been validated pursuant to the CLIA regulations and is used for clinical purposes. [facility], [facility] [place], [address] [place] [address] Timmy Mae M.D., Ph.D., Director of Laboratories , CLIA [id number] Please note: Effective 04/12/2016, HPV testing will be performed using [employer]'s APTIMA test which targets mRNA. Detecting mRNA instead of DNA, as in older methods, offers significant improvements in specificity. 08/28/2019 3:55 PM EST Jenise Bullock CNM HISTORICAL/NON ORDERABLE LABS Final Result [facility] [address] from Last 3 Months or Most Recently Relevant to Health Maintenance Insurance [facility] < 65 Care Teams Library Media Specialist Relationship Specialty Start Date End Date Adrienne Villegas MD [address] [facility] [place] [address] PCP - General Family Medicine 08/01/18
--- OUTSIDE RECORDS SUMMARY | 2025-05-07 16:39 | XMS_ITS | Encounter Summary ---
Author Organization [employer] Address [address] [facility] 7[address] [place] [address] Care Team Providers Care Cattle Alley Worker Name Role Phone Adrienne Villegas MD Primary Care Provider [phone] Encounter Details Date Type Department Care Team ([facility] st Contact Info) Description 12/18/2024 Telephone [facility] [address] [place], [place] [phone] Adrienne Villegas MD [address] [place], [place] [phone] Social History Tobacco Use Types Packs/Day Years [...] documented as of this encounter Care Teams Cattle Alley Worker Relationship Specialty Start Date End Date Adrienne Villegas MD [address] [place] [address] PCP - General Family Medicine 08/01/18 documented as of this encounter
--- OUTSIDE RECORDS SUMMARY | 2025-05-07 16:39 | XMS_ITS | Encounter Summary ---
Author Organization [facility] Address [address] [facility] [address] [place] [address] Phone Care Team Providers Care Manager Post Name Role Phone Adrienne Villegas MD Primary Care Provider [phone] Reason for Referral * Physical Therapy (Within 1 month) - Closed Specialty Diagnoses / Procedures Referred By Kayla rodriguez Referred To Contact Physical Therapy Diagnoses Physical therapy evaluation, initial Diego Perez DDS Phone: tel: [facility] [address] [place] [address] Phone: tel: Referral ID Status Reason Start Date Expiration Date Visits Re quested Visits Authorized [id number] Closed 10/25/2017 07/31/2018 99 99 Electronically signed by Diego Perez DDS, [facility] at 10/25/2017 2:33 PM EDT Encounter Details Date Type Department Care Team (Latest Contact Info) Description 10/25/2017 Transcribe Orders [facility] [address] [facility], 1st Floor, [address] [place] [address] Diego Perez DDS [address] [facility] [address] [place] [address] Physical therapy evaluation, initial (Primary Dx) Social [...] Associated Diagnoses Order Schedule Ambulatory referral to [facility] Therapy Outpatient Referral Routine Physical therapy evaluation, initial Ordered: 10/25/2017 documented as of this encounter Visit Diagnoses Diagnosis Physical therapy evaluation, initial- Primary Other specified examination documented in this encounter Care Teams Manager Post Relationship Specialty Start Date End Date Adrienne Villegas MD [address] [place] [address] PCP - General Pediatrics 08/30/17 documented as of this encounter Additional Source Comments The information contained in this document represents components of the legal health record. It is not the complete legal health record.[facility]
--- OUTSIDE RECORDS SUMMARY | 2025-05-07 16:39 | XMS_ITS | Clinical Summary ---
Author Organization [facility] Address [address] [place] [phone] Phone Care Team Providers Care Upset Operator Name Role Phone Adrienne Villegas MD Primary Care Provider [phone] Medications pregabalin (LYRICA) 150 MG capsule Take [...] topic Medical Devices Not on file Insurance [facility] ONE CARE MEDICARE REPLACEMENT [facility] MEDICARE REPLACEMENT [facility] MEDICARE REPLACEMENT [place] [id number] [facility] MEDICARE [facility]PLACEMENT [place] [id number] [facility] MEDICARE REPLACEMENT [facility] MEDICARE REPLACEMENT [facility] MEDICARE REPLAC[facility] MEDICARE REPLACEMENT [place] [id number] [place] [address] [facility] Care Teams Upset Operator Relationship Specialty Start Date End Date Adrienne Villegas MD [address] [place] [address] [place] [address] PCP - General Pediatrics 08/30/17 Additional Source Comments The information contained in this document represents components of the legal health record. It is not the complete legal health record.[facility]
--- OUTSIDE RECORDS SUMMARY | 2025-05-07 16:39 | XMS_ITS | Encounter Summary ---
Author Organization [employer] Address [address] [facility] 7t [place] [address] Care Team Providers Care Commercial Lease Administrator Name Role Phone Adrienne Villegas MD Primary Care Provider [phone] Encounter Details Date Type Department Care Team (Late st Contact Info) Description 07/16/2024 Orders Only [facility] CHC MED & PEDS [address] [place] [phone] ProviderToña MD Social History Tobacco Use Types [...] documented as of this encounter Care Teams Commercial Lease Administrator Relationship Specialty Start Date End Date Adrienne Villegas MD [address] [place] [address] PCP - General Family Medicine 08/01/18 documented as of this encounter
--- OUTSIDE RECORDS SUMMARY | 2025-05-07 16:39 | XMS_ITS | Encounter Summary ---
Author Organization [employer] Address [address] [facility] 7t [place] [address] Care Team Providers Care Sanitation Truck Cleaner Name Role Phone Adrienne Villegas MD Primary Care Provider [phone] Reason for Visit * Reason Comments Med Refill Encounter Details Date Type Department Care Team ([facility] st Contact Info) Description 08/30/2022 Refill [facility] MEDICINE [address] [place] [address] Adrienne Villegas MD [address] [place], [place] [phone] Social History Tobacco Use Types Packs/Day Years [...] on filedocumented in this encounter Care Teams Sanitation Truck Cleaner Relationship Specialty Start Date End Date Adrienne Villegas MD [address] [place] [address] PCP - General Family Medicine 08/01/18 documented as of this encounter
--- OUTSIDE RECORDS SUMMARY | 2025-05-07 16:39 | XMS_ITS | Encounter Summary ---
Author Organization [employer] Address [address] [facility] 7t [place] [address] Care Team Providers Care Manager Women Name Role Phone Adrienne Villegas MD Primary Care Provider [phone] Encounter Details Date Type Department Care Team ([facility] st Contact Info) Description 05/10/2023 Orders Only [facility] CHC MED & PEDS 505 [place], [place] [phone] Adrienne Villegas MD 505 [place], [place] [phone] Social History Tobacco Use Types Packs/Day Years [...] PM EDT Narrative 05/24/2023 5:21 AM EDT [place] [address] Ultrasound Report Signed Patient: Jess Gray MR#: [id number] : 1960 Acct:[id number] Age/Sex: 62 / F ADM Date: 05/20/23 Loc: HO.US Attending Dr: Usman Shrestha MD Ordering Physician: Usman Shrestha MD Date of Service: 05/20/23 Procedure(s): US renal BI Accession Number(s): [id number] cc: Usman Shrestha MD; Adrienne Villegas MD [...] in OV> 05/24/23 0518 DD/ 1528 TD/TT: Spray Cementer: Procedure Note Donotuseinterpreter, Image - 05/24/[address] [address] Ultrasound Report Signed Patient: Jess Gray DMR#: [id number] : 1960cct:[id number] Age/Sex: 62 / FADM Date: 05/20/23 Loc: HO.US Attending Dr: Umsan Shrestha MD Ordering Physician: Usman Shrestha MD Date of Service: 05/20/23 Procedure(s): US renal BI Accession Number(s): [id number] cc: Usman Shrestha MD; Adrienne Villegas MD [...] in OV> 05/24/23 0518 DD/ 1528 TD/TT: Spray Cementer: us [facility] External Provider IMG US PROCEDURES Edited Result - Final documented in this encounter Visit Diagnoses Not on filedocumented in this encounter Additional Health Concerns Assessment Noted Time PHQ-9 Depression Total Score: 19 023 9:50 AM EST documented as of this encounter Care Teams Manager Women Relationship Specialty Start Date End Date Adrienne Villegas MD [address] [place] [address] PCP - General Family Medicine 08/01/18 documented as of this encounter
--- OUTSIDE RECORDS SUMMARY | 2025-05-07 16:39 | XMS_ITS | Clinical Summary ---
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 Procedure Name Priority Date/Time Associated Diagnosis Comments HEPATITIS C ANTIBODY W/REFLEX TO HCV RNA, QUANTITATIVE PCR Routine 10/20/2020 1:15 PM EDT MARCY positive from Last 3 Months or Most Recently Relevant to Health Maintenance Results * Due to [place] state law, this organization might not be sharing negative HIV tests. * Hepatitis C Antibody w/Reflex to HCV RNA, Quantitative PCR (10/20/2020 1:15 PM EDT) Hepatitis C Antibody NON-REACT ELLIE NON-REACT ELLIE 10/20/2020 10:39 PM EDT [employer] [facility] Signal To Cut-Off 0.01 <1.00 10/20/2020 10:39 PM EDT [facility] Comment: HCV antibody was non-reactive. There is no laboratory evidence of HCV infection. In most cases, no further action is required. However, if recent HCV exposure is suspected, a test for HCV RNA (test code 03776) is suggested. For additional information please refer to http://education.Chobani/faq/XIH15t9 (This link is being provided for informational/ educational purposes only.) Blood Structure of peripheral vein / Unknown 10/20/2020 1:15 PM EDT 10/20/2020 6:28 PM EDT David Regalado MD LAB BLOOD ORDERABLES Final Result [facility] [address] [facility] 3rd Floor, [place] [address], [employer] [facility] [address] [place] [address] from Last 3 Months or Most Recently Relevant to Health Maintenance Insurance [facility] Advance Directives Documents on File Type Date Recorded Patient Manager Pulmonary Expl anation Health Care Proxy 09/14/2019 1:13 PM myat care proxy Care Teams Size Roller Operator Relationship Specialty Start Date End Date Adrienne Villegas 505 [place] [address] PCP - General Internal Medicine 09/12/19
--- OUTSIDE RECORDS SUMMARY | 2025-05-07 16:39 | XMS_ITS | Encounter Summary ---
Author Organization [employer] Address [address] [facility] 7 [place] [address] Care Team Providers Care Superintendent Production Name Role Phone Adrienne Villegas MD Primary Care Provider [phone] Reason for Visit * Reason Onset Date Comments Med Refill 11/07/2024 Encounter Details Date Type Department Care Team ([facility] st Contact Info) Description 11/07/2024 Telephone [facility] MEDICINE [address] [place] [address] Adrienne Villegas MD [address] [place], [place] [phone] Med Refill Social History Tobacco Use Types [...] 150 MG capsule To be sent to: [facility] documented in this encounter Plan of Treatment Not on file documented as of this encounter Visit Diagnoses Not on filedocumented in this encounter Additional Health Concerns Assessment Noted Time PHQ-9 Depression Total Score: 19 023 9:50 AM EST documented as of this encounter Care Teams Superintendent Production Relationship Specialty Start Date End Date Adrienne Villegas MD [address] [place] [address] PCP - General Family Medicine 08/01/18 documented as of this encounter
--- OUTSIDE RECORDS SUMMARY | 2025-05-07 16:39 | XMS_ITS | Encounter Summary ---
Author Organization [facility] Address [address] [place] [address] Care Team Providers Care Disability Services Coordinator Name Role Phone Adrienne Villegas Primary Care Provider [phone] Reason for Visit * Reason Onset Date Comments Telehealth video call 09/09/2021 Encounter Details Date Type Department Care Team (Late st Contact Info) Description 09/09/2021 Telephone [facility] Central Scheduling Department [address] [place] [address] Telephone Intake, Staff Telehealth video call Social [...] should have already started with Dr. Sil Chadnler 15 minutes prior I did explain to daughter that sometimes the provider runs a bit late While I was speaking with daughter, the provider, Dr. Chandler, did join the meeting documented in this encounter Plan of Treatment Not on file documented as of this encounter Visit Diagnoses Not on filedocumented in this encounter Care Teams Disability Services Coordinator Relationship Specialty Start Date End Date Adrienne Villegas [address] [place] [address] PCP - General Internal Medicine 09/12/19 documented as of this encounter
--- OUTSIDE RECORDS SUMMARY | 2025-05-07 16:39 | XMS_ITS | Encounter Summary ---
Author Organization [employer] Address [address] [place] [address] 7 [place] [address] Care Team Providers Care Merchandise Distributor Name Role Phone Adrienne Villegas MD Primary Care Provider [phone] Reason for Visit * Reason Onset Date Comments Lab Orders 01/24/2023 Encounter Details Date Type Department Care Team ([facility] Contact Info) Description 01/24/2023 Telephone [facility] CHC MED & PEDS [address] [place], [place] [phone] Adrienne Villegas MD [address] [place], [place] [phone] Lab Orders Social History Tobacco Use Types [...] Center 01/27/2023 1:15 PM Adrienne Villegas MD [facility] Protocol Used: Back Pain (Adult) Protocol-Based [...] she has shingles. Please contact pt at [phone] documented in this encounter Plan of Treatment Not on file documented as of this encounter Visit Diagnoses Not on filedocumented in this encounter Additional Health Concerns Assessment Noted Time PHQ-9 Depression Total Score: 19 023 9:50 AM EST documented as of this encounter Care Teams Merchandise Distributor Relationship Specialty Start Date End Date Adrienne Villegas MD [address] [place] [address] PCP - General Family Medicine 08/01/18 documented as of this encounter
--- OUTSIDE RECORDS SUMMARY | 2025-05-07 16:39 | XMS_ITS | Encounter Summary ---
Author Organization [employer] Address [address] [facility] 7 [place] [address] Care Team Providers Care Director Treasurer Name Role Phone Adrienne Villegas MD Primary Care Provider [phone] Reason for Visit * Reason Onset Date Comments Medication Question 03/25/2025 Encounter Details Date Type Department Care Team ([facility] st Contact Info) Description 03/25/2025 Telephone [facility] MEDICINE [address] [place] [address] Adrienne Villegas MD [address] [place], [place] [phone] Medication Question Social History Tobacco Use Types [...] this medication is. TC to patient via accounting advisory services manager. No answer. Message left to return call to office. * Telephone Encounter - Marko Bates - 03/25/2025 9:28 AM EDT Tc from pt requesting refill for medication Creo 80 MG, stating she las received it back on 02/04/25 but show card writer does not see script in pt's chart. Please contact pt at [phone]. documented in this encounter Plan of Treatment Not on file documented as of this encounter Visit Diagnoses Not on filedocumented in this encounter Additional Health Concerns Assessment Noted Time PHQ-9 Depression Total Score: 8 03/12/20 10:43 AM EDT documented as of this encounter Care Teams Director Treasurer Relationship Specialty Start Date End Date Adrienne Villegas MD [address] [place] [address] PCP - General Family Medicine 08/01/18 documented as of this encounter
--- OUTSIDE RECORDS SUMMARY | 2025-05-07 16:40 | XMS_ITS | Encounter Summary ---
Author Organization [employer] Address [address] [place] [address] 7 [place] [address] Care Team Providers Care Handcrew Foreman Name Role Phone Adrienne Villegas MD Primary Care Provider [phone] Reason for Visit * Reason Comments Med Refill Encounter Details Date Type Department Care Team ([facility] st Contact Info) Description 12/10/2022 Refill C CHC MED & PEDS [address] [place] [address] Adrienne Villegas MD [address] [place] [address] Social History Tobacco Use Types Packs/Day Years [...] documented as of this encounter Care Teams Handcrew Foreman Relationship Specialty Start Date End Date Adrienne Villegas MD [address] [place] [address] PCP - General Family Medicine 08/01/18 documented as of this encounter
--- OUTSIDE RECORDS SUMMARY | 2025-05-07 16:40 | XMS_ITS | Encounter Summary ---
Author Organization [employer] Address [address] [place] [address] 7 [place] [address] Care Team Providers Care Element Burner Name Role Phone Adrienne Villegas MD Primary Care Provider [phone] Reason for Visit * Reason Comments Med Refill Encounter Details Date Type Department Care Team (Late st Contact Info) Description 04/10/2023 Refill [facility] MEDICINE [address] [place], [place] [phone] Adrienne Villegas MD [address] [place], [place] [phone] Disorder of skeletal muscle Social History Tobacco [...] documented as of this encounter Care Teams Element Burner Relationship Specialty Start Date End Date Adrienne Villegas MD [address] [place], [place] [phone] PCP - General Family Medicine 08/01/18 documented as of this encounter
--- OUTSIDE RECORDS SUMMARY | 2025-05-07 16:40 | XMS_ITS | Encounter Summary ---
Author Organization [employer] Address [address] [place] [address] 7t [place] [address] Care Team Providers Care Lead Net Software Developer Name Role Phone Adrienne Villegas MD Primary Care Provider [phone] Reason for Visit * Reason Onset Date Comments appt/chart notes 03/02/2023 Encounter Details Date Type Department Care Team ([facility] st Contact Info) Description 03/02/2023 Telephone C [facility] ADULT DENTAL [address] [place] [address] Tila Crandall, DDS [address] [place] [address] appt/chart notes Social History Tobacco Use Types [...] in staing that she was recommended in [facility] to get treatment in [place] due to the amount of work that had to be done and that they could no longer with her in [facility]. She explained that apparently treatment had not gone as planned but unless Im missing something I do not see notes concerning this. She is certain on what she was told to do but I cant schedule without clarity to go to [facility] if that is what [facility] wants her to do because nothing is documented as such. Pls advise documented in this encounter Plan of Treatment Not on file documented as of this encounter Visit Diagnoses Not on filedocumented in this encounter Additional Health Concerns Assessment Noted Time PHQ-9 Depression Total Score: 19 023 9:50 AM EST documented as of this encounter Care Teams Lead Net Software Developer Relationship Specialty Start Date End Date Adrienne Villegas MD [address] [place] [address] PCP - General Family Medicine 08/01/18 documented as of this encounter
== END 2025-05-07 14:18 | disposition home or self-care (01) ==
PROVIDERS: PCP Pediatrics; Visit Provider Nurse Practitioner
DX: K22.4 Dyskinesia of esophagus (principal); R13.10 Dysphagia, unspecified; K21.9 Gastro-esophageal reflux disease without esophagitis; K59.04 Chronic idiopathic constipation; B37.81 Candidal esophagitis; B37.0 Candidal stomatitis
CPT/HCPCS: 99214

== ENCOUNTER → 2025-05-07 13:32 | Outpatient (BNVA) | payer OTHER, SELFPAY | PROVIDERS: PCP Pediatrics; Visit Provider Nurse Practitioner | DX: K22.4 Dyskinesia of esophagus (principal); K22.89 Other specified disease of esophagus; R13.10 Dysphagia, unspecified; K21.9 Gastro-esophageal reflux disease without esophagitis; K59.04 Chronic idiopathic constipation | CPT/HCPCS: 99212 ==

== ENCOUNTER 2025-05-16 13:01 | Outpatient (REF) | payer OTHER, SELFPAY ==
--- OUTSIDE RECORDS SUMMARY | 2025-05-16 16:14 | XMS_ITS | Encounter Summary ---
Author Organization [facility] Address [address] [facility] [address] [place] [address] Phone Care Team Providers Care Music Manager Name Role Phone Adrienne Villegas MD Primary Care Provider [phone] Reason for Referral * Physical Therapy (Within 1 month) - Closed Specialty Diagnoses / Procedures Referred By Kayla rodriguez Referred To Contact Physical Therapy Diagnoses Physical therapy evaluation, initial Diego Perez DDS Phone: tel: [facility] [address] [place] [address] Phone: tel: Referral ID Status Reason Start Date Expiration Date Visits Re quested Visits Authorized [id number] Closed 10/25/2017 07/31/2018 99 99 Encounter Details Date Type Department Care Team (Latest Contact Info) Description 10/25/2017 Transcribe Orders [facility] Occupational [facility] Services [address] [facility], 1st Floor, [address] [place] [address] Diego Perez DDS 1 [facility] [address] [place] [address] Physical therapy evaluation, initial (Primary Dx) Social [...] examination documented in this encounter Care Teams Music Manager Relationship Specialty Start Date End Date Adrienne Villegas MD [address] [place] [address] PCP - General Pediatrics 08/30/17 documented as of this encounter Additional Source Comments The information contained in this document represents components of the legal health record. It is not the complete legal health record.[facility]
--- OUTSIDE RECORDS SUMMARY | 2025-05-16 16:14 | XMS_ITS | Clinical Summary ---
Author Organization [facility] Address [address] [place] [address] Phone Care Team Providers Care Miller Helper Distillery Name Role Phone Adreinne Villegas MD Primary Care Provider [phone] Medications pregabalin (LYRICA) 150 MG capsule Take [...] topic Medical Devices Not on file Insurance [facility] ONE CARE MEDICARE REPLACEMENT [facility] MEDICARE [facility]PLACEMENT [facility] MEDICARE REPLACEMENT SUZAN SCHWARTZ [id number] [facility] MEDICARE REPLACEMENT SUZAN SCHWARTZ [id number] [facility] MEDICARE REPLACEMENT [facility] MEDICARE [facility]PLACEMENT [facility] MEDICARE [facility]PL[facility] MEDICARE [facility]PLACEMENT [facility] MEDICARE REPLACEMENT [place] [id number] [place] [address] [facility] DENTAL Care Teams Miller Helper Distillery Relationship Specialty Start Date End Date Adrienne Villegas MD [address] [place] [address] TJ Meehan [address] PCP - General Pediatrics 08/30/17 Additional Source Comments The information contained in this document represents components of the legal health record. It is not the complete legal health record.[facility]
--- OUTSIDE RECORDS SUMMARY | 2025-05-16 16:14 | XMS_ITS | Encounter Summary ---
Author Organization [employer] Address [address] [facility] 7t [place] [address] Care Team Providers Care Tank Truck Loader Name Role Phone Adrienne Villegas MD Primary Care Provider [phone] Reason for Visit * Reason Comments Med Refill Encounter Details Date Type Department Care Team (Late st Contact Info) Description 05/16/2025 Refill [facility] MEDICINE [address] [place] [address] Adrienne Villegas MD [address] [place], [place] [phone] Diabetes mellitus without complication (HCC) Social History Tobacco Use Types Packs/Day Years [...] as of this encounter Visit Diagnoses Diagnosis Diabetes mellitus without complication (HCC) Type II or unspecified type diabetes mellitus without mention of complication, not stated as uncontrolled documented in this encounter Additional Health Concerns Assessment Noted Time PHQ-9 Depression Total Score: 8 03/12/20 25 10:43 AM EDT documented as of this encounter Care Teams Tank Truck Loader Relationship Specialty Start Date End Date Adrienne Villegas MD [address] [place] [address] PCP - General Family Medicine 08/01/18 documented as of this encounter
--- OUTSIDE RECORDS SUMMARY | 2025-05-16 16:14 | XMS_ITS | Encounter Summary ---
Author Organization [employer] Address [address] [facility] 7 [place] [address] Care Team Providers Care Drum Sprayer Name Role Phone Adrienne Villegas MD Primary Care Provider [phone] Reason for Visit * Reason Onset Date Comments Medication Question 03/25/2025 Encounter Details Date Type Department Care Team ([facility] st Contact Info) Description 03/25/2025 Telephone [facility] MEDICINE [address] [place] [address] Adrienne Villegas MD [address] [place], [place] [phone] Medication Question Social History Tobacco Use Types [...] this medication is. TC to patient via induction coordination power engineer. No answer. Message left to return call to office. * Telephone Encounter - Marko Bates - 03/25/2025 9:28 AM EDT Tc from pt requesting refill for medication Creo 80 MG, stating she las received it back on 02/04/25 but instructional writer does not see script in pt's chart. Please contact pt at [phone]. documented in this encounter Plan of Treatment Not on file documented as of this encounter Visit Diagnoses Not on filedocumented in this encounter Additional Health Concerns Assessment Noted Time PHQ-9 Depression Total Score: 8 03/12/20 10:43 AM EDT documented as of this encounter Care Teams Drum Sprayer Relationship Specialty Start Date End Date Adrienne Villegas MD [address] [place] [address] PCP - General Family Medicine 08/01/18 documented as of this encounter
--- OUTSIDE RECORDS SUMMARY | 2025-05-16 16:15 | XMS_ITS | Encounter Summary ---
Author Organization [facility] [employer] Address [address] [facility] 7t [place] [address] Care Team Providers Care Manufacturing Quality Technician Name Role Phone Adrienne Villegas MD Primary Care Provider [phone] Encounter Details Date Type Department Care Team ([facility] st Contact Info) Description 12/18/2024 Telephone [facility] MEDICINE [address] [place], [place] [phone] Adrienne Villegas MD [address] [facility] [address] [place], [place] [phone] Social History Tobacco Use Types Packs/Day Years [...] documented as of this encounter Care Teams Manufacturing Quality Technician Relationship Specialty Start Date End Date Adrienne Villegas MD 505 [place] [address] PCP - General Family Medicine 08/01/18 documented as of this encounter
--- OUTSIDE RECORDS SUMMARY | 2025-05-16 16:15 | XMS_ITS | Encounter Summary ---
Author Organization [employer] Address [address] [place] [address] 7 [place] [address] Care Team Providers Care Batterboard Setter Name Role Phone Adrienne Villegas MD Primary Care Provider [phone] Reason for Visit * Reason Comments Med Refill Encounter Details Date Type Department Care Team (Late st Contact Info) Description 04/10/2023 Refill [facility] [address] [place], [place] [phone] Adrienne Villegas MD [address] [place], [place] [phone] Disorder of skeletal muscle Social History Tobacco [...] documented as of this encounter Care Teams Batterboard Setter Relationship Specialty Start Date End Date Adrienne Villegas MD [address] [place], [place] [phone] PCP - General Family Medicine 08/01/18 documented as of this encounter
--- OUTSIDE RECORDS SUMMARY | 2025-05-16 16:15 | XMS_ITS | Clinical Summary ---
Author Organization [employer] Address [address] [place] [address] 7t [place] [address] Care Team Providers Care Java Sybase Developer Name Role Phone Adrienne Villegas MD Primary Care Provider [phone] Allergies Active Allergy Reactions Criticality Noted Date [...] organization. Date Type Department Care Team Description 05/16/2025 Refill [facility] [address] [place] [address] Adrienne Villegas MD Diabetes mellitus without complication (HCC) 04/30/2025 Refill [facility] [address] [place] [address] Ani Emanuel MD 04/16/2025 Orders Only [facility] External Provider, [facility] 03/30/2025 Refill [facility] [address] [place] [address] Adrienne Villegas MD Primary fibromyalgia syndrome 03/25/2025 Telephone [facility] [address] [place] [phone] Adrienne Villegas MD Medication Question 03/25/2025 Telephone [facility] [address] [place] [phone] Adrienne Villegas MD Med Refill 03/21/2025 Refill [facility] [address] [place] [address] Adrienne Villegas MD 03/12/2025 10:30 AM EDT Office Visit [facility] [address] [place] [address] Adrienne Villegas MD Diabetes mellitus without complication (CMS/HCC) (Primary Dx); Osteopenia of hip, unspecified laterality; Disorder of skeletal muscle; Benign essential hypertension; Dietary counseling; Exercise counseling; Macromastia; Chronic breast pain; Dense breast tissue on mammogram, unspecified type 03/12/2025 Patient Outreach [facility] [address] [place] [phone] Adrienne Villegas MD Care Coordination (CH[facility] outreach for SDOH food needs - LVM ) 03/12/2025 Travel 03/01/2025 Refill [facility] [address] [place] [address] Adrienne Villegas MD from Last 3 Months [...] housing situation today? I have lindaalice rhodes 03/12/[address] you [...] Screening 03/12/2026 03/12/2025 Depression Screening 03/12/2026 03/12/2025, 08/12/20 25 Diabetes: Urine Protein Screening 03/12/2026 03/12/2025 [...] PM EDT Narrative 05/03/2025 7:09 AM EDT [facility] [address] [place] [address] [place] [address] Mammography Report Signed Patient: Jess Gray MR#: [id number] : 1960 Acct:[id number] Age/Sex: 64 / F ADM Date: 05/02/25 Loc: HO.MAMMO Attending Dr: Adrienne Villegas MD Ordering Physician: Adrienne Villegas MD Results: Date of Service: 05/02/25 Follow Up: Procedure(s): XR DEXA axial skeleton Accession Number(s): [id number] cc: Adrienne Villegas MD Reason For Exam: osteopenia EXAMINATION: DXA BONE DENSITY AXIAL HISTORY: osteopenia TECHNIQUE: Plunify Dual energy absorptiometry (DEXA) of the lumbar [...] is a trademark of the [employer]'s [employer] Metabolic Bone Disease, a World Health Organization (WHO) Collaborating Center. Electronically signed by: Pablo Campos MD 05/03/2025 07:06 AM EDT RP Dictated By: Pablo Campos MD Signed By: <Electronically signed by Pablo Campos MD in OV> 05/03/25 0706 DD/ 1405 TD/TT: 05/02/25 1427 Sales And Service Consultant: Procedure Note Donotuseinterpreter, Image - 05/03/2025 [facility]'[address] [place] [address] Mammography Report Signed Patient: Jess Gray DMR#: [id number] : 1960cct:[id number] Age/Sex: 64 / FADM Date: 05/02/25 Loc: KEVIN Attending Dr: Adrienne Villegas MD Ordering Physician: Adrienne Villegas MDResults: Date of Service: 05/02/25Follow Up: Procedure(s): XR DEXA axial skeleton Accession Number(s): [id number] cc: Adrienne Villegas MD Reason For Exam: osteopenia EXAMINATION: DXA BONE DENSITY AXIAL HISTORY: osteopenia TECHNIQUE: Plunify Dual energy absorptiometry (DEXA) of the lumbar [...] is a trademark of the [employer]'s [employer] Metabolic [employer] Disease, a World Health Organization (WHO) Collaborating Center. Electronically signed by: Pablo Campos MD 05/03/2025 07:06 AM EDT RP Dictated By: Pablo Campos MD Signed By: <Electronically signed by Pablo Campos MD in OV> 05/03/25 0706 DD/ 1405 TD/TT: 05/02/25 1427 Sales And Service Consultant: us Adrienne Villegas MD IMG DXA PROCEDURES Final Resu lt * US Renal Complete (04/16/2025 1:48 PM EDT) Anatomical Region Laterality Modality Kidney Ultrasound 04/16/2025 1:48 PM EDT Narrative 04/16/2025 2:13 PM EDT [address] [address] Ultrasound Report Signed Patient: Jess Gray MR#: [id number] : 1960 Acct:[id number] Age/Sex: 64 / F ADM Date: 04/16/25 Loc: HO.US Attending Dr: Usman Shrestha MD Ordering Physician: Usman Shrestha MD Date of Service: 04/16/25 Procedure(s): US renal BI Accession Number(s): [id number] cc: Usman Shrestha MD; Adrienne Villegas MD [...] 04/16/25 1407 DD/ 1348 TD/TT: 04/16/25 1356 Sales And Service Consultant: Procedure Note Donotuseinterpreter, Image - 04/16/[address] [address] Ultrasound Report Signed Patient: Jess Gray [facility]#: [id number] : 1Acct:[id number] Age/Sex: 64 / FADM Date: 04/16/25 Loc: HO.US Attending Dr: Usman Shrestha MD Ordering Physician: Usman Shrestha MD Date of Service: 04/16/25 Procedure(s): US renal BI Accession Number(s): [id number] cc: Usman Shrestha MD; Adrienne Villegas MD [...] 04/16/25 1407 DD/ 1348 TD/TT: 04/16/25 1356 Sales And Service Consultant: [facility] External Provider IMG US PROCEDURES Edited Result - Final * Albumin, Random Urine W/Creatinine (03/12/2025 11:08 AM EDT) Creatinine, Urine 91.36 mg/dL [facility] Microalbumin Urine 6.0 mg/L [facility] Microalbum Creatinine Ratio Ur 6.5 <30 ug/mg cr [facility] Comment:Albumin/Creatinine R atio Reference Ranges: Normal: < 30 ug/mg creatinine Microalbuminuria: 30 - 300 ug/mg creatinineClinical Albuminuria: > 300 ug/mg creatinine Urine (Urine, Random) 03/12/2025 11:08 AM EDT 03/12/2025 1:50 PM EDT Adrienne Villegas MD LAB URINE ORDERABLES Final Re sult [facility] [address] [place] [phone] * (ABNORMAL) POCT HGB A1C (03/12/2025 [...] Vitamin D 25-OH Total 49.6 >30 ng/mL [facility] Comment: Health Based Reference Values*< 20 ng/mL [id number] ng/mL Insufficient> 30 ng/mL Sufficient*Raya OCHOA. N [...] ORDERABLES Final Re sult Performing Organization Address [facility]/ZIP Co de Phone Number [facility] [address] [place] [phone] * TSH W/Reflex to FT4 (03/12/2025 11:07 AM EDT) TSH reflex Free T4 1.55 0.32 - 4.0 uIU/mL [facility] Blood Venous blood specimen / Unknown 03/12/2025 11:07 AM EDT 03/12/2025 2:01 PM EDT us Adrienne Villegas MD LAB BLOOD ORDERABLES Final Re sult Performing Organization Address [facility] Co de Phone Number [facility] [address] [place] [phone] * (ABNORMAL) CBC auto differential (03/12/2025 11:07 AM EDT) White Blood Count 6.9 4.8 - 10.8 X10*3/uL [facility] Red Blood Count 4.30 4.20 - 5.50 X10*6/uL [facility] Hemoglobin 12.8 12.0 - 16.0 g/dl [facility] Hematocrit 41.0 37.0 - 47.0 % [facility] Mean Corpuscular Volume 95.3 80.0 - 98.0 fL [facility] Mean Corpuscular Hemoglobin 29.8 27.0 - 33.0 pg [facility] Mean Corpuscular HGB Conc 31.2 31.0 - 35.0 g/dl [facility] Red Cell Distribution Width 12.7 11.0 - 16.0 % [facility] Platelet Count 317 160 - 400 X10*3/uL [facility] Mean Platelet Volume 10.9 9.4 - 12.3 fL [facility] Neutrophils Percent Auto 67.3 45 - 73 % [facility] Imm Gran Pct Auto 0.1 0.0 - 0.4 % [facility] Lymphocytes Percent Auto 17.8(L) 20 - 40 % [facility] Monocytes Percent Auto 10.5 2 - 11 % [facility] Eosinophils Percent Auto 3.6 0 - 4 % [facility] Basophils Percent Auto 0.7 0 - 2 % [facility] NRBC Pct Auto 0.0 0.0 - 0.2 /100WBC [facility] Neutrophils Absolute Auto 4.6 2.0 - 8.3 x10*3/uL [facility] Imm Gran Abs Auto 0.01 0.00 - 0.03 X10*3/uL [facility] Lymphocytes Absolute Auto 1.2 1.2 - 4.9 X10*3/uL [facility] Monocytes Absolute Auto 0.7 0.1 - 1.2 X10*3/uL [facility] Eosinophils Absolute Auto 0.3 0.0 - 0.4 X10*3/uL [facility] Basophils Absolute Auto 0.1 0.0 - 0.2 X10*3/uL [facility] NRBC Abs Auto 0.000 0.0 - 0.012 X10*3/uL [facility] Blood Venous blood specimen / Unknown 03/12/2025 11:07 AM EDT 03/12/2025 2:01 PM EDT Adrienne Villegas MD LAB BLOOD ORDERABLES Final Re sult Performing Organization Address [facility]/ZIP Co de Phone Number [facility] [address] [place] [phone] * Magnesium (03/12/2025 11:07 AM EDT) Magnesium 2.3 1.6 - 2.6 mg/dL [facility] Blood Venous blood specimen / Unknown 03/12/2025 11:07 AM EDT 03/12/2025 2:01 PM EDT us Adrienne Villegas MD LAB BLOOD ORDERABLES Final Re sult Performing Organization Address [facility] Co de Phone Number [facility] [address] [place] [phone] * (ABNORMAL) Lipid Panel, Standard (03/12/2025 11:07 AM EDT) Triglycerides 117 <150 mg/dL [facility] Comment:Desirable Triglyceri de: less than 150 mg/dLBorderline High Triglyceride 150-199 mg/dLHigh Triglyceride: 200-499 mg/dLVery High Triglyceride: greater than or equal to 5OO mg/dL Cholesterol 182 <200 mg/dL [facility] Comment:Desirable Cholestero l: less than 200 mg/dLBorderline High Cholesterol: 200-239 mg/dLHigh Cholesterol: greater than 239 mg/dL LDL Cholesterol Calculated 110(H) <100 mg/dL [facility] Comment:Desirable LDL: less than 100 mg/dLNear Optimal/Above Optimal LDL: 110- 129 mg/dLBorderline High LDL: 130-159 mg/dLHigh LDL: 160-189 mg/dLVery High LDL: greater than or equal to 190 mg/dL HDL Cholesterol 49 >40 mg/dL [facility] Comment:Desirable HDL: great er than 40 mg/dL Note: This HDL assay may give artificially low results in patients with liver disease. Blood Venous blood specimen / Unknown 03/12/2025 11:07 AM EDT 03/12/2025 2:01 PM EDT us Adrienne Villegas MD LAB BLOOD ORDERABLES Final Re sult [facility] [address] [place] [phone] * (ABNORMAL) Comprehensive Metabolic Panel (03/12/2025 11:07 AM EDT) Sodium 143 135 - 145 mmol/L [facility] Potassium 4.3 3.3 - 5.1 mmol/L [facility] Chloride 107 96 - 108 mmol/L [facility] Carbon Dioxide 29 22 - 29 mmol/L [facility] Anion Gap 11(L) 12 - 20 [facility] Urea Nitrogen (BUN) 15 9 - 16 mg/dL [facility] Creatinine, Serum 0.60 0.5 - 1.4 mg/dL [facility] Estimated Glomerular Filt Rate >60 [facility] Comment:Chronic Kidney Disea se: Estimated GFR < 60 mL/min/1.25r8Vjcydn Kidney Disease: Estimated GFR < 15 mL/min/1.73m2 Glucose 106 60 - 115 mg/dL [facility] Calcium 8.9 8.4 - 10.2 mg/dL [facility] Bilirubin, Total 0.3 0.0 - 1.0 mg/dL [facility] Aspartate Amino Transferase 29 5 - 31 U/L [facility] Alanine Aminotransferase 25 0 - 31 U/L [facility] Total Protein 7.0 6.5 - 8.0 g/dL [facility] Albumin Level 4.4 3.5 - 5.0 g/dL [facility] Alkaline Phosphatase 72 39 - 117 U/L [facility] Blood Venous blood specimen / Unknown 03/12/2025 11:07 AM EDT 03/12/2025 2:01 PM EDT us Adrienne Villegas MD LAB BLOOD ORDERABLES Final Re sult [facility] [address] [place] [address] [phone] * BI Mammogram Screening Tomosynthesis Bilateral (01/12/2024 4:00 PM EDT) Anatomical Region Laterality Modality Breast Bilateral Mammography 01/12/2024 4:00 PM EDT Narrative 02/11/2024 8:46 AM EDT [address] [place] [address] Mammography Report Signed Patient: Jess Gray MR#: [id number] : 1960 Acct:[id number] Age/Sex: 63 / F ADM Date: 01/12/24 Loc: HO.MAMMO Attending Dr: Adrienne Villegas MD Ordering Physician: Adrienne Villegas MD Results: 2Be nign Findings Date of Service: 01/12/24 Follow Up: 1 Year From [facility] Mammogram Procedure(s): MM tomosynthesis screening BI Accession Number(s): [id number] cc: Adrienne Villegas MD EXAMINATION: MM SCREENING [...] in OV> 02/11/24 0842 DD/ 1600 TD/TT: Sales And Service Consultant: Procedure Note Donotuseinterpreter, Image - 02/11/2024 [facility] [address] [place] [address] Mammography Report Signed Patient: Jess Gray DMR#: [id number] : 1Acct:[id number] Age/Sex: 63 / FADM Date: 01/12/24 Loc: MAMMO Attending Dr: Adrienne Villegas MD Ordering Physician: Adrienne Villegas MDResults: 2Be nign Findings Date of Service: 01/12/24Follow Up: 1 Year From Orig inal Mammogram Procedure(s): MM tomosynthesis screening BI Accession Number(s): [id number] cc: Adrienne Villegas MD EXAMINATION: MM SCREENING [...] in OV> 02/11/24 0842 DD/ 1600 TD/TT: Sales And Service Consultant: us Adrienne Villegas MD IMG BI PROCEDURES Edited Resu lt - Final * Thinprep TIS PAP W/Refl HPV mRNA E6/E7 (08/26/2022 12:00 AM EST) Clinical Information: None given [facility] LMP: NONE GIVEN [facility] Prev. PAP: NONE GIVEN [facility] Prev. BX: NONE GIVEN [facility] SOURCE: None given [facility] Statement Of Adequacy: SATISFACTORY FOR EVALUATION [facility] Interpretation/Res ult: [facility] Comment: Negative for intraepithelial lesion or malignancy. Atrophic pattern; predominantly parabasal cells COMMENT: This Pap test has been evaluated with computer assisted technology. [facility] [employer] Sales Representative: Qu [facility] Comment: NNO, CT(ASCP) CT screening location: [place] [address] Slide preparation performed at: [facility] [address] CLIA No. [id number] (Always Message) [facility] Comment: EXPLANATORY NOTE: The Pap is [...] MD LAB PATHOLOGY ORDERABLES Malini cuello Result [address], [place] [phone], [address] [place] [phone] * HPV mRNA E6/E7 (08/28/2019 3:55 PM EST) HPV mRNA E6/E7 Not Detected NOT DETECTED [facility] Comment: This test was performed using the APTIMA(R) HPV Assay ([employer] This assay detects E6/E7 viral messenger RNA (mRNA) from 14 high-risk HPV types (16,18,31,33,35,39,45,51, 52,56,58,59,66,68). For additional information please refer to: http://education.[employer]ps/faq/YJW707a5 (This link is being provided for informational/ educational purposes only.) The analytical performance characteristics of this assay have been determined by [facility] [place], [place]. The modifications have not been cleared or approved by the FDA. This assay has been validated pursuant to the CLIA regulations and is used for clinical purposes. Test Performed by Health: [facility], [facility], [address] [place] [address] Timmy Mae M.D., Ph.D., Director of Laboratories , CLIA [id number] Please note: Effective 04/12/2016, HPV testing will be performed using [employer]'s APTIMA test which targets mRNA. Detecting mRNA instead of DNA, as in older methods, offers significant improvements in specificity. 08/28/2019 3:55 PM EST us Jenise Bullock CNM HISTORICAL/NON ORDERABLE LABS Final Result [facility] [address] from Last 3 Months or Most Recently Relevant to Health Maintenance Insurance [facility] < 65 * Guarantor: Jess Schmidt Account Type Relation to Patient Date of Phone Billing Address Personal/Family Self [address] Care Teams Java Sybase Developer Relationship Specialty Start Date End Date Adrienne Villegas MD [address] [place] [address] TJ Meehan PCP - General Family Medicine 08/01/18
--- OUTSIDE RECORDS SUMMARY | 2025-05-16 16:15 | XMS_ITS | Encounter Summary ---
Author Organization [employer] Address [address] [facility] 7t [place] [address] Care Team Providers Care Sales/Marketing Name Role Phone Adrienne Villegas MD Primary Care Provider [phone] Reason for Visit * Reason Comments Med Refill Encounter Details Date Type Department Care Team ([facility] st Contact Info) Description 08/30/2022 Refill [facility] [address] [place] [address] Adrienne Villegas MD [address] [place], [place] [phone] Social History Tobacco Use Types Packs/Day Years [...] on filedocumented in this encounter Care Teams Sales/Marketing Relationship Specialty Start Date End Date Adrienne Villegas MD [address] [place] [phone] PCP - General Family Medicine 08/01/18 documented as of this encounter
--- OUTSIDE RECORDS SUMMARY | 2025-05-16 16:15 | XMS_ITS | Encounter Summary ---
Author Organization [employer] Address [address] [place] [address] 7t [place] [address] Care Team Providers Care Tire Groover Name Role Phone Adrienne Villegas MD Primary Care Provider [phone] Reason for Visit * Reason Onset Date Comments appt/chart notes 03/02/2023 Encounter Details Date Type Department Care Team ([facility] st Contact Info) Description 03/02/2023 Telephone [facility] [address] [place] [address] Tila Crandall, DDS [address] [place] [address] appt/chart notes Social History Tobacco Use Types [...] in staing that she was recommended in [facility] to get treatment in [place] due to the amount of work that had to be done and that they could no longer with her in [facility]. She explained that apparently treatment had not gone as planned but unless Im missing something I do not see notes concerning this. She is certain on what she was told to do but I cant schedule without clarity to go to [facility] if that is what [facility] wants her to do because nothing is documented as such. Pls advise documented in this encounter Plan of Treatment Not on file documented as of this encounter Visit Diagnoses Not on filedocumented in this encounter Additional Health Concerns Assessment Noted Time PHQ-9 Depression Total Score: 19 023 9:50 AM EST documented as of this encounter Care Teams Tire Groover Relationship Specialty Start Date End Date Adrienne Villegas MD [address] [place] [phone] PCP - General Family Medicine 08/01/18 documented as of this encounter
--- OUTSIDE RECORDS SUMMARY | 2025-05-16 16:15 | XMS_ITS | Encounter Summary ---
Author Organization [employer] Address [address] [facility] 7t [place] [address] Care Team Providers Care Piece Dyer Name Role Phone Adrienne Villegas MD Primary Care Provider [phone] Encounter Details Date Type Department Care Team ([facility] st Contact Info) Description 05/10/2023 Orders Only [facility] [address] [place], [place] [phone] Adrienne Villegas MD [address] [place], [place] [phone] Social History Tobacco Use Types Packs/Day Years [...] PM EDT Narrative 05/24/2023 5:21 AM EDT [place] [address] Ultrasound Report Signed Patient: Jess Gray MR#: [id number] : 1960 Acct:[id number] Age/Sex: 62 / F ADM Date: 05/20/23 Loc: HO.US Attending Dr: Usman Shrestha MD Ordering Physician: Usman Shrestha MD Date of Service: 05/20/23 Procedure(s): US renal BI Accession Number(s): [id number] cc: Usman Shrestha MD; Adrienne Villegas MD [...] in OV> 05/24/23 0518 DD/ 1528 TD/TT: Training And Development Director: Procedure Note Donotuseinterpreter, Image - 05/24/[address] [address] Ultrasound Report Signed Patient: Jess Gray DMR#: [id number] : 1960cct:[id number] Age/Sex: 62 / FADM Date: 05/20/23 Loc: HO.US Attending Dr: Usman Shrestha MD Ordering Physician: Usman Shrestha MD Date of Service: 05/20/23 Procedure(s): US renal BI Accession Number(s): [id number] cc: Usman Shrestha MD; Adrienne Villegas MD [...] in OV> 05/24/23 0518 DD/ 1528 TD/TT: Training And Development Director: us [facility] External Provider IMG US PROCEDURES Edited Result - Final documented in this encounter Visit Diagnoses Not on filedocumented in this encounter Additional Health Concerns Assessment Noted Time PHQ-9 Depression Total Score: 19 023 9:50 AM EST documented as of this encounter Care Teams Piece Dyer Relationship Specialty Start Date End Date Adrienne Villegas MD [address] [place] [phone] PCP - General Family Medicine 08/01/18 documented as of this encounter
--- OUTSIDE RECORDS SUMMARY | 2025-05-16 16:15 | XMS_ITS | Encounter Summary ---
Author Organization [employer] Address [address] [place] [address] [address] [address] Care Team Providers Care Cargo Worker Name Role Phone Adrienne Villegas MD Primary Care Provider [phone] Reason for Visit * Reason Comments Med Refill Encounter Details Date Type Department Care Team (Late st Contact Info) Description 12/10/2022 Refill [facility] MEDICINE [address] [place], [place] [phone] Ashley Montiel MD [address] [place], [place] [phone] Social History Tobacco Use Types Packs/Day Years [...] documented as of this encounter Care Teams Cargo Worker Relationship Specialty Start Date End Date Adrienne Villegas MD [address] [place], [place] [id number] PCP - General Family Medicine 08/01/18 documented as of this encounter
--- OUTSIDE RECORDS SUMMARY | 2025-05-16 16:15 | XMS_ITS | Encounter Summary ---
Author Organization [email or web address] Address [address] [facility] 7 [place] [address] Care Team Providers Care Stone Breaker Name Role Phone Adrienne Villegas MD Primary Care Provider [phone] Reason for Visit * Reason Onset Date Comments Med Refill 03/25/2025 Encounter Details Date Type Department Care Team (Late st Contact Info) Description 03/25/2025 Telephone [facility] MEDICINE [address] [place] [address] Adrienne Villegas MD [address] [place], [place] [phone] Med Refill Social History Tobacco Use Types [...] 9:40 AM EDT Medication was sent to [facility] on 03/12/25 #90 with 3 refills. * Telephone Encounter - Marko Bates - 03/25/2025 9:24 AM EDT TC from pt requesting medication refill. Medications needing refill: cholecalciferol (SM Vitamin D3) 50 MCG (1999 [place]) capsule To be sent to: [facility] [place] - [address] [facility] documented in this encounter Plan of Treatment Not on file documented as of this encounter Visit Diagnoses Not on filedocumented in this encounter Additional Health Concerns Assessment Noted Time PHQ-9 Depression Total Score: 8 03/12/20 25 10:43 AM EDT documented as of this encounter Care Teams Stone Breaker Relationship Specialty Start Date End Date Adrienne Villegas MD [address] [place] [address] PCP - General Family Medicine 08/01/18 documented as of this encounter
--- OUTSIDE RECORDS SUMMARY | 2025-05-16 16:15 | XMS_ITS | Encounter Summary ---
Author Organization [employer] Address [address] [facility] 7t [place] [address] Care Team Providers Care Supervisor Cap And Hat Production Name Role Phone Adrienne Villegas MD Primary Care Provider [phone] Encounter Details Date Type Department Care Team (Late st Contact Info) Description 07/16/2024 Orders Only [facility] MED & PEDS [address] [place] [id number] ProvideroTña MD Social History Tobacco Use Types Packs/Day [...] documented as of this encounter Care Teams Supervisor Cap And Hat Production Relationship Specialty Start Date End Date Adrienne Villegas MD [address] [place] [address] PCP - General Family Medicine 08/01/18 documented as of this encounter
--- OUTSIDE RECORDS SUMMARY | 2025-05-16 16:15 | XMS_ITS | Clinical Summary ---
Author Organization [facility] Address [address] [place] [address] Care Team Providers Care Six Color Press Operator Name Role Phone Adrienne Villegas Primary Care Provider [phone] Allergies Active Allergy Reactions Criticality Noted Date [...] 110 mcg/actuation inhaler 04/03/20 19 Active ARTIFICIAL TEARS,KC-EAOA-DGUO , 1-0.2-0.2 % drops instill 1 drop [...] about fracture and there is concern about [place] [facility] use -----I do not have particular expertise [...] would prefer to get labs drawn at [facility] clinic at the time of appointment and [...] 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 [...] 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 [...] with evidence of lupus per her local otolaryngology rep (and so started on hydroxychloroquine) but by [...] with evidence of lupus per her local otolaryngology rep (and so started on hydroxychloroquine) but by [...] with evidence of lupus per her local otolaryngology rep (and so started on hydroxychloroquine) but by [...] with evidence of lupus per her local otolaryngology rep but by review of the report, this [...] she is on a statin) and with [place] [facility] use retinal deposits (most important is regular ophthalmology follow up) ----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 Procedure Name Priority Date/Time Associated Diagnosis Comments HEPATITIS C ANTIBODY W/REFLEX TO HCV RNA, QUANTITATIVE PCR Routine 10/20/2020 1:15 PM EDT MARCY positive from Last 3 Months or Most Recently Relevant to Health Maintenance Results * Due to [place] state law, this organization might not be sharing negative HIV tests. * Hepatitis C Antibody w/Reflex to HCV RNA, Quantitative PCR (10/20/2020 1:15 PM EDT) Hepatitis C Antibody NON-REACT ELLIE NON-REACT ELLIE 10/20/2020 10:39 PM EDT [employer] [facility] Signal To Cut-Off 0.01 <1.00 10/20/2020 10:[address] [facility] Comment: HCV antibody was non-reactive. There is no laboratory evidence of HCV infection. In most cases, no further action is required. However, if recent HCV exposure is suspected, a test for HCV RNA (test code 52075) is suggested. For additional information please refer to http://education.[employer]/faq/SJB70k5 (This link is being provided for informational/ educational purposes only.) Blood Structure of peripheral vein / Unknown 10/20/2020 1:15 PM EDT 10/20/2020 6:28 PM EDT David Regalado MD LAB BLOOD ORDERABLES Final Result [facility] [address] [facility] 3rd Floor, [place] [address], [employer] [facility] [address] [place] [address] from Last 3 Months or Most Recently Relevant to Health Maintenance Insurance [facility] Advance Directives Documents on File Type Date Recorded Patient Client Engagement Specialist Expl anation Health Care Proxy 09/14/2019 1:13 PM myat care proxy Care Teams Six Color Press Operator Relationship Specialty Start Date End Date Adrienne Villegas [address] [place] [address] PCP - General Internal Medicine 09/12/19
--- OUTSIDE RECORDS SUMMARY | 2025-05-16 16:15 | XMS_ITS | Encounter Summary ---
Author Organization [employer] Address [address] [place] [address] 7 [place] [address] Care Team Providers Care Senior Packaging Engineer Name Role Phone Adrienne Villegas MD Primary Care Provider Reason for Visit * Reason Comments Med Refill Encounter Details Date Type Department Care Team ([facility] st Contact Info) Description 12/10/2022 Refill [facility] [address] [place] [address] Adrienne Villegas MD [address] [place] [address] Social History Tobacco Use Types Packs/Day Years [...] documented as of this encounter Care Teams Senior Packaging Engineer Relationship Specialty Start Date End Date Adrienne Villegas MD [address] [place] [address] PCP - General Family Medicine 08/01/18 documented as of this encounter
--- OUTSIDE RECORDS SUMMARY | 2025-05-16 16:15 | XMS_ITS | Encounter Summary ---
Author Organization [employer] Address [address] [place] [address] 7 [place] [address] Care Team Providers Care Inspector Dials Name Role Phone Adrienne Villegas MD Primary Care Provider [phone] Reason for Visit * Reason Onset Date Comments Lab Orders 01/24/2023 Encounter Details Date Type Department Care Team ([facility] Contact Info) Description 01/24/2023 Telephone [facility] CHC MED & PEDS [address] [place], [place] [phone] Adrienne Villegas MD [address] [place], [place] [phone] Lab Orders Social History Tobacco Use Types [...] Time Provider Department Center 01/27/2023 1:15 PM Adrienen Villegas MD [facility] Protocol Used: Back Pain (Adult) Protocol-Based [...] she has shingles. Please contact pt at [phone] documented in this encounter Plan of Treatment Not on file documented as of this encounter Visit Diagnoses Not on filedocumented in this encounter Additional Health Concerns Assessment Noted Time PHQ-9 Depression Total Score: 19 023 9:50 AM EST documented as of this encounter Care Teams Inspector Dials Relationship Specialty Start Date End Date Adrinene Villegas MD [address] [place] [address] PCP - General Family Medicine 08/01/18 documented as of this encounter
--- OUTSIDE RECORDS SUMMARY | 2025-05-16 16:15 | XMS_ITS | Encounter Summary ---
Author Organization [employer] Address [address] [place] [address] 7 [place] [address] Care Team Providers Care Motor Equipment Lieutenant Name Role Phone Adrienne Villegas MD Primary Care Provider [phone] Reason for Visit * Reason Comments Med Refill Encounter Details Date Type Department Care Team ([facility] st Contact Info) Description 01/14/2023 Refill [facility] [address] [place] [address] Adrienne Villegas MD [address] [place] [address] Social History Tobacco Use Types Packs/Day Years [...] documented as of this encounter Care Teams Motor Equipment Lieutenant Relationship Specialty Start Date End Date Adrienne Villegas MD [address] [place] [address] PCP - General Family Medicine 08/01/18 documented as of this encounter
--- OUTSIDE RECORDS SUMMARY | 2025-05-16 16:15 | XMS_ITS | Encounter Summary ---
Author Organization [facility] Address [address] [place] [address] Care Team Providers Care Children'S Court Magistrate Name Role Phone Adrienne Villegas Primary Care Provider [phone] Reason for Visit * Reason Onset Date Comments Telehealth video call 09/09/2021 Encounter Details Date Type Department Care Team (Late st Contact Info) Description 09/09/2021 Telephone [facility] Central Scheduling Department [address] [place] [address] Telephone Intake, Staff Telehealth video call Social [...] on filedocumented in this encounter Care Teams Children'S Court Magistrate Relationship Specialty Start Date End Date Adrienne Villegas [address] [place] [address] PCP - General Internal Medicine 09/12/19 documented as of this encounter
--- OUTSIDE RECORDS SUMMARY | 2025-05-16 16:15 | XMS_ITS | Encounter Summary ---
Author Organization [employer] Address [address] [facility] 7 [place] [address] Care Team Providers Care Equal Opportunity Counselor Name Role Phone Adrienne Villegas MD Primary Care Provider Reason for Visit * Reason Onset Date Comments Med Refill 11/07/2024 Encounter Details Date Type Department Care Team ([facility] st Contact Info) Description 11/07/2024 Telephone [facility] MEDICINE [address] [place] [address] Adrienne Villegas MD [address] [place], [place] [phone] Med Refill Social History Tobacco Use Types [...] 150 MG capsule To be sent to: [facility] documented in this encounter Plan of Treatment Not on file documented as of this encounter Visit Diagnoses Not on filedocumented in this encounter Additional Health Concerns Assessment Noted Time PHQ-9 Depression Total Score: 19 023 9:50 AM EST documented as of this encounter Care Teams Equal Opportunity Counselor Relationship Specialty Start Date End Date Adrienne Villegas MD [address] [place] [address] PCP - General Family Medicine 08/01/18 documented as of this encounter
== END 2025-05-16 13:02 | disposition home or self-care (01) ==
LOC: HO.MRI 13:01
PROVIDERS: PCP Pediatrics; Visit Provider Pediatrics
DX: Z13.89 Encounter for screening for other disorder (principal)

== ENCOUNTER 2025-05-28 12:21 | Outpatient (AMB) | payer OTHER, SELFPAY ==
--- NOTE | 2025-05-28 12:32 | MHC.OFFVIS ---
Vital Signs 05/28/25 12:41 Height 5 ft 2 in Weight 189 lb BMI 34.6 Intake Visit Reasons: tingling and numbness on hand and feet Intake Note: Jess is a 64 year old female who presents to the office today as a new patient visit for numbness and tingling in her feet. Pt has a hx of diabetes mellitus. Pt states her sugars last night was 116 and her last reported A1c was unknown. she mentions along with the tingling and numbness she experiences a burning sensation, discoloration in the foot, and stiffness. patient confirms she has fallen previously and had hurt her back and there is belief of possible osteoporosis in the back and she is diagnosed with osteoarthritis. she denies any history of wounds to her fut but she did fracrue her right pinky toe. Health Information Systems Technician Required: Yes Health Information Systems Technician Services: Health Information Systems Technician Present Health Information Systems Technician Name: [id number] Allergies aspirin (ASA) Allergy (Intermediate, Verified 05/28/25 12:40) Hives Penicillins (PENICILLINS) Allergy (Intermediate, Verified 05/28/25 12:40) RASH loratadine Allergy (Unknown, Verified 05/28/25 12:40) Unknown trimethoprim Allergy (Unknown, Verified 05/28/25 12:40) Unknown venlafaxine Allergy (Unknown, Verified 05/28/25 12:40) Unknown Medication List - Last Reconciled 05/28/25 by Deyanira Platt DPM acetaminophen-codeine 300-30 mg 1 tab PO Q6H PRN albuterol sulfate 90 mcg/actuation 2 puffs PO Q4-6H PRN alclometasone 0.05% topical atorvastatin 80 mg PO DAILY azelaic acid 15% 1 appl topical BID betamethasone dipropionate 0.05% appl topical BID bisacodyl 10 mg (2 x 5 mg) PO BEDTIME cetirizine 10 mg PO DAILY cholecalciferol (vitamin D3) 50 mcg PO clonazepam 0.5 mg PO BID PRN diclofenac sodium 1% (Voltaren) 2 grams topical QID doxycycline hyclate 100 mg PO BID econazole nitrate 1% appl topical famotidine 40 mg PO BEDTIME zlaxhizayrs-ybmvetdqh-ucxgtqix 200-62.5-25 mcg (Trelegy Ellipta) 1 inh inhalation DAILY 30 days furosemide 20 mg PO QAM 30 days hydrocortisone 2.5% appl topical hydroxychloroquine 200 mg PO BID ipratropium-albuterol 0.5 mg-3 mg(2.5 mg base)/3 mL 3 mL inhalation Q4-6H PRN 30 days ketoconazole 2% topical lancets (TRUEplus Lancets) As directed linaclotide (Linzess) 145 mcg PO QAM nskztp-zirzgbsf-czmwcso (pork) 36,000-114,000- 180,000 unit (Creon) 2 caps PO BID magnesium oxide 400 mg PO DAILY meclizine 25 mg PO DAILY PRN meloxicam 15 mg PO DAILY metformin 250 mg PO BID methocarbamol 1,500 mg (2 x 750 mg) PO BID PRN 30 days metoclopramide HCl 5 mg PO QID mvcinptm-umb-WI-lycopen-lutein 0.4 mg-300 mcg- 250 mcg (Cerovite Senior) 1 tab PO nystatin 10 mL PO TID paroxetine HCl 20 mg PO DAILY PRN polyethylene glycol 3350 (Miralax) 17 grams PO DAILY pregabalin (Lyrica) 150 mg PO DAILY rabeprazole 20 mg PO BID simethicone 360 mg (2 x 180 mg) PO TID trazodone 50 mg PO BEDTIME PRN triamcinolone acetonide 0.1% topical BID verapamil ER 240 mg PO DAILY HPI Comments Details: The patient is a 64-year-old female with a past medical history as seen below presenting with foot cramps, numbness, and discoloration. She reports experiencing cramps starting from the feet upwards, occurring daily. The numbness and tingling are persistent, especially at night, preventing sleep until 4:00 a.m. The patient has a history of diabetes mellitus with a current blood sugar level of 123 mg/dL. She is unsure of her current A1c level. She experiences burning sensations in her feet and legs, which are exacerbated at night. The patient reports discoloration of her feet, which appear blue and black at night or when cold but not during the examination. She also reports blanching of skin when hot. She has been advised to wear compression stockings, but they cause pain due to tightness. She denies any recent pedal injuries. She denies any other pedal concerns. [facility] Medical History (Updated 05/28/25 @ 13:07 by Deyanira Platt DPM) Asymptomatic telangiectasia Raynauds syndrome Diabetic neuropathy Candidiasis of mouth and esophagus Dyspnea on exertion Environmental allergies Bilateral knee pain Cervical radiculopathy Cervical spondylosis Right calf pain Muscle spasm Renal cyst History of kidney stones Pre-op examination Sleep apnea Asthma Hx of renal calculi PONV (postoperative nausea and vomiting) Sweating abnormality Hirsutism MGUS (monoclonal gammopathy of unknown significance) Positive MARCY (antinuclear antibody) Idiopathic hirsutism Plantar fasciitis Mood disorder Xerosis of skin Chronic fatigue Myositis Myalgia Pulmonary nodule Depression Diabetes Age related osteoporosis Restless legs Spondylosis Arthritis Carpal tunnel syndrome Fibromyalgia Constipation High cholesterol Anxiety Hypertension SLE (systemic lupus erythematosus related syndrome) Surgical History Hx of bilateral cataract extraction History of surgery of head H/O colonoscopy H/O esophagogastroduodenoscopy H/O hemorrhoidectomy History of tubal ligation Family History Father Diabetes Hypertension Mother Hypertension Diabetes Asthma Maternal Grandfather Throat cancer Maternal Grandmother Throat cancer Paternal Uncle Prostate cancer Maternal Uncle Throat cancer Stomach cancer Maternal Aunt Stomach cancer Diabetes Social History Household Members: Family Are you a primary child care to a significant other at home: No Do you presently have visiting nurse or other home services: Yes (UTILITY SPECIALIST and supportive Daughter) Alcohol intake: never Patient Tobacco Use Status: Never used Tobacco Current occupational status: retired Current occupation: rt handed Review of Systems Const Details: - Neurological: Reports cramps from feet upwards, numbness, tingling, and burning in feet and legs, especially at night. - Vascular: Reports discoloration of feet, appearing blue and black at night. Reports blanching of skin when hot. All systems reviewed & are unremarkable except as noted in HPI and below Physical Exam Vital Signs: BMI result Body Mass Index 34.6 Extrem Other: Bilateral lower extremity focused physical exam: Derm: Minimal mottling of skin noted. Skin supple and turgor within normal limits. No ecchymosis noted. No maceration noted. No clinical signs of infection. Toenails times 10 within normal limits. Vascular: DP/PT pulses palpable. Capillary refill time less than 3 seconds. Varicosities noted. Pedal hair absent. No edema noted. Temperature gradient warm to warm. Neuro: Protective sensation is slightly diminished to light touch and monofilament testing. MSK: Minimal pain on palpation to the forefoot hindfoot and ankles. Range of motion of the forefoot hindfoot and ankles within normal limits. Sensitivity to touch noted. No crepitus or fluctuance noted. Mildly antalgic, slow gait noted unassisted. Minimal pain with calf squeeze. Office Procedures Diabetic Foot Exam G9226 - Diabetic Foot Exam Results Reviewed Results Reviewed: Laboratory Tests 03/12/25 11:07 Random Glucose 106 Assessment & Plan Assessment & Plan (1) Diabetes mellitus: Code(s): E11.9 - Type 2 diabetes mellitus without complications Category: Medical (2) Diabetic neuropathy: Code(s): E11.40 - Type 2 diabetes mellitus with diabetic neuropathy, unspecified Category: Medical (3) Raynauds syndrome: Code(s): I73.00 - Raynaud's syndrome without gangrene Category: Medical (4) Asymptomatic telangiectasia: Code(s): I78.1 - Nevus, non-neoplastic Category: Medical Plan Patient was informed and verbally consented to the use of an ambient scribe for clinic note documentation during this visit. Educated patient on diabetes and the relation to the lower extremities. I discussed with the patient the potential diagnoses of Raynaud syndrome and peripheral vascular disease, explaining the importance of vascular evaluation. We talked about the prescription of gabapentin to help manage her nerve pain and improve her sleep. I also explained the use of compression stockings and the need for a vascular referral. - Planned to prescribe gabapentin to manage nerve pain and improve sleep quality, but patient recently refilled pregabalin medication May 17. - Will not start Gabapentin until Pregabalin is completed. - Referral to vascular to evaluate and manage suspected Raynaud syndrome or peripheral vascular disease. - Advised wearing compression stockings with appropriate tightness to aid venous return. - Advised patient to monitor her feet daily, avoid barefoot walking, and to wear supportive shoe gear. RTC in 1 month. Orders: Orders AMB Diabetic Foot Exam 05/28/25 E11.40 - Type 2 diabetes mellitus with diabetic neuropathy, unspecified, E11.9 - Type 2 diabetes mellitus without complications Referrals Vascular Surgery Referral E11.9 - Type 2 diabetes mellitus without complications, I73.00 - Raynaud's syndrome without gangrene, I78.1 - Nevus, non-neoplastic Coding Level of Care Code Tele New Pt Level 4 (96286) Diagnoses Diabetes mellitus E11.9 Diabetic neuropathy E11.40 Raynauds syndrome I73.00 Asymptomatic telangiectasia I78.1 CPT Codes Diabetic Foot Exam - CPT: G9226 - Diabetic Foot Exam ([id number]) Time Spent (min) 50
[2025-05-28 12:41] VITALS: BMI 34.6
--- OUTSIDE RECORDS SUMMARY | 2025-05-28 15:37 | XMS_ITS | Encounter Summary ---
Author Organization [facility] Address [address] [place] [address] Care Team Providers Care Dice Table Person Name Role Phone Adrienne Villegas Primary Care Provider [phone] Reason for Visit * Reason Onset Date Comments Telehealth video call 09/09/2021 Encounter Details Date Type Department Care Team (Late st Contact Info) Description 09/09/2021 Telephone [facility] Central Scheduling Department [address] [place] [address] Telephone Intake, Staff Telehealth video call Social [...] on filedocumented in this encounter Care Teams Dice Table Person Relationship Specialty Start Date End Date Adrienne Villegas [address] [place] [address] PCP - General Internal Medicine 09/12/19 documented as of this encounter
--- OUTSIDE RECORDS SUMMARY | 2025-05-28 15:37 | XMS_ITS | Encounter Summary ---
Author Organization [facility] Address [address] [facility] [address] [place] [address] Phone Care Team Providers Care Ambulatory Analyst Name Role Phone Adrienne Villegas MD Primary Care Provider [phone] Reason for Referral * Physical Therapy (Within 1 month) - Closed Specialty Diagnoses / Procedures Referred By Kayla rodriguez Referred To Contact Physical Therapy Diagnoses Physical therapy evaluation, initial Diego Perez DDS Phone: tel: [facility] [address] [place] [address] Phone: tel: Referral ID Status Reason Start Date Expiration Date Visits Re quested Visits Authorized [id number] Closed 10/25/2017 07/31/2018 99 99 Encounter Details Date Type Department Care Team (Latest Contact Info) Description 10/25/2017 Transcribe Orders [facility] [address] [facility], 1st Floor, [address] [place] [address] Diego Peerz DDS [address] [facility] [address] [place] [address] Physical therapy evaluation, initial (Primary Dx) Social [...] Associated Diagnoses Order Schedule Ambulatory referral to [facility] Physical Therapy Outpatient Referral Routine Physical therapy evaluation, initial Ordered: 10/25/2017 documented as of this encounter Visit Diagnoses Diagnosis Physical therapy evaluation, initial- Primary Other specified examination documented in this encounter Care Teams Ambulatory Analyst Relationship Specialty Start Date End Date Adrienne Villegas MD [address] [place] [address] PCP - General Pediatrics 08/30/17 documented as of this encounter Additional Source Comments The information contained in this document represents components of the legal health record. It is not the complete legal health record.[facility]
--- OUTSIDE RECORDS SUMMARY | 2025-05-28 15:37 | XMS_ITS | Clinical Summary ---
Author Organization [facility] Address [address] [place] [phone] Phone Care Team Providers Care Home Advisor Name Role Phone Adrienne Villegas MD Primary Care Provider [phone] Medications pregabalin (LYRICA) 150 MG capsule Take [...] topic Medical Devices Not on file Insurance [facility] MEDICARE REPLACEMENT [facility] MEDICARE REPLACEMENT [facility] MEDICARE REPLACEMENT SUZAN SCHWARTZ [id number] [facility] MEDICARE REPLACEMENT SUZAN SCHWARTZ [id number] [facility] MEDICARE REPLACEMENT [facility] MEDICARE [facility]PLACEMENT [facility] MEDICARE REPLACEMENT [facility] REPLAC[facility] MEDICARE REPLACEMENT [place] [id number] [place] [id number] [facility] Care Teams Home Advisor Relationship Specialty Start Date End Date Adrienne Villegas MD [address] [place] [address] TJ Meehan [id number] PCP - General Pediatrics 08/30/17 Additional Source Comments The information contained in this document represents components of the legal health record. It is not the complete legal health record.[facility]
--- OUTSIDE RECORDS SUMMARY | 2025-05-28 15:37 | XMS_ITS | Clinical Summary ---
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 [...] 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 [...] with evidence of lupus 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 her local registered sales assistant (and so started on hydroxychloroquine) but by [...] with evidence of lupus per her local registered sales assistant (and so started on hydroxychloroquine) but by [...] with evidence of lupus per her local registered sales assistant (and so started on hydroxychloroquine) but by [...] with evidence of lupus per her local registered sales assistant but by review of the report, this [...] she is on a statin) and with half-way use retinal deposits (most important is regular ophthalmology follow up) ----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 -----asked [...] of 2) 2010 Alcohol/Substance Use Screening 08/01/2024 COVID-19 Vaccine (4 - 2024-2 6 season) 2025 07/09/2021, 12/18/2020, 11/20/2020 Influenza Vaccine (#1) 2025 DTaP,Tdap,and Td Vaccines (2 - Td or Tdap) 07/16/2026 07/16/2016 RSV Vaccine (60+ years old a nd patients) (1 - 1-dose 75+ series) 11/05/2035 Hepatitis B Vaccines Aged Out No long er eligible based on patient's age to complete this topic Insurance [facility] Advance Directives Documents on File Type Date Recorded Patient Coal Hauler Expl anation Health Care Proxy 09/14/2019 1:13 PM healt care proxy Care Teams Commercial Singer Relationship Specialty Start Date End Date Adrienne Villegas [address] [place] [address] PCP - General Internal Medicine 09/12/19
== END 2025-05-28 13:05 | disposition home or self-care (01) ==
LOC: HO.HPODS 12:22
PROVIDERS: PCP Pediatrics; Visit Provider Student in an Organized Health Care Education/Training Program
DX: E11.40 Type 2 diabetes mellitus with diabetic neuropathy, unspecified (principal); I73.00 Raynaud's syndrome without gangrene; I78.1 Nevus, non-neoplastic
CPT/HCPCS: 99204; G9226

== ENCOUNTER → 2025-05-28 12:21 | Outpatient (BNVA) | payer OTHER, SELFPAY | PROVIDERS: PCP Pediatrics; Visit Provider Student in an Organized Health Care Education/Training Program | DX: E11.40 Type 2 diabetes mellitus with diabetic neuropathy, unspecified (principal); I73.00 Raynaud's syndrome without gangrene; I78.1 Nevus, non-neoplastic | CPT/HCPCS: 99202 ==

== ENCOUNTER 2025-06-13 16:04 | Outpatient (AMB) | payer OTHER, SELFPAY ==
--- OUTSIDE RECORDS SUMMARY | 2025-06-13 11:00 | XMS_ITS | Encounter Summary ---
Author Organization [employer] Address [address] [place] [address] 7 [place] [address] Care Team Providers Care Cable Hooker Name Role Phone Adrienne Villegas MD Primary Care Provider [phone] Reason for Referral * Medications - Closed Specialty Diagnoses / Procedures Referred By Contac t Referred To Contact Diagnoses Osteopenia of hip, unspecified laterality Primary fibromyalgia syndrome Adrienne Villegas MD [address] [place] [address] Phone: tel: fax: Referral ID Status Reason Start Date Expiration Date Visits Re quested Visits Authorized [id number] Closed 1 1 Encounter Details Date Type Department Care Team ([facility] Contact Info) Description 06/13/2025 11:00 AM EST Office Visit [facility] [address] [place] [address] Adrienne Villegas MD [address] [place] [address] Osteopenia of hip, unspecified laterality (Primary Dx); Primary fibromyalgia syndrome; Benign essential hypertension; Esophageal dysphagia Social History Tobacco Use Types Packs/Day Years [...] AM EDT documented as of this encounter Last Filed Vital Signs Vital Sign Reading Time Taken Comments Blood Pressure 120/70 06/13/2025 11:13 AM EST Pulse 72 06/13/2025 11:13 AM EST Temperature 36.8 C (98.2 F) 06/13/2025 11:13 AM EST Respiratory Rate 20 06/13/2025 11:13 AM EST Oxygen Saturation - - Inhaled Oxygen Concentration - - Weight 84.4 kg (186 lb) 06/13/2025 11:13 AM EST Height - - Body Mass Index 34.02 03/12/2025 10:42 AM EDT documented in this encounter Progress Notes * Adrienne Villegas MD - 06/13/2025 11:00 AM EST Subjective Patient ID: Jess Schmidt is a 64 y.o. female who presents for follow up labs. Jess Schmidt, age 64 years Constipation History of constipation, currently using Linzess. Reports increased dose led to diarrhea, now takesmedication only when at home. Asthma Under care of policy and planning manager for asthma. Uses Trilogy inhaler for asthma management. Sleep disturbance Has trazodone for sleep but rarely uses it. Difficulty swallowing Reports ongoing difficulty swallowing, especially with rice and vitamin C, with episodes of choking.[place] [facility], recently referred for manometry at another facility due to not improving with upperesophagus dilation procedure. Breast evaluation Mammogram was ordered in March 2025 but was not performed; instead, an ultrasound of the breast was recommended and is pending. Osteopenia Diagnosed with osteopenia following osteoporosis screening.Takes Vitamin d plus calcium. Kidney stone Ultrasound revealed a small (3 mm) left kidney stone, present since last year, with intermittent pain radiating to the leg.Has urology follow up. Dermatologic issues Under care of nursing assoc, recently prescribed a Gel and topical cream for facial skin. [facility] Reports exposure to cigarette smoke from neighbor, resulting in dry mouth upon waking. Review of Systems Constitutional: Negative for activity change, chills, fever and unexpected weight change. HENT: Positive for trouble swallowing. Respiratory: Negative for cough, shortness of breath and wheezing. Cardiovascular: Negative for chest pain, palpitations and leg swelling. Gastrointestinal: Negative for abdominal pain and blood in stool. Endocrine: Negative for polydipsia and polyuria. Genitourinary: Negative for decreased urine volume, difficulty urinating, dysuria and hematuria. Musculoskeletal: Negative for arthralgias and gait problem. Skin: Negative for color change and rash. Neurological: Negative for dizziness, light-headedness and headaches. Hematological: Negative for adenopathy. Psychiatric/Behavioral: Negative for dysphoric mood, hallucinations, sleep disturbance and suicidal ideas. The patient is not nervous/anxious. Objective BP 120/70 (BP Location: Left arm, Patient Position: Sitting, BP Cuff Size: Adult) Pulse72 Temp 98.2 ??F (36.8 ??C) (Oral) Resp 20 Wt 186 lb (84.4 kg) BMI 34.02 kg/m?? ' Physical Exam Constitutional: General: She is not in acute distress. Appearance: Normal appearance. She is not ill-appearing. HENT: Head: Normocephalic. Right Ear: Tympanic membrane and ear canal normal. Left Ear: Tympanic membrane and ear canal normal. Nose: Nose normal. Mouth/Throat: Mouth: Mucous membranes are moist. Pharynx: No oropharyngeal exudate or posterior oropharyngeal erythema. Eyes: Extraocular Movements: Extraocular movements intact. Conjunctiva/sclera: Conjunctivae normal. Pupils: Pupils are equal, round, and reactive to light. Cardiovascular: Rate and Rhythm: Normal rate and regular rhythm. Pulses: Normal pulses. Heart sounds: Normal heart sounds. No murmur heard. Pulmonary: Effort: Pulmonary effort is normal. No respiratory distress. Breath sounds: Normal breath sounds. Abdominal: Palpations: Abdomen is soft. Musculoskeletal: General: Normal range of motion. Cervical back: Normal range of motion. Right lower leg: No edema. Left lower leg: No edema. Skin: General: Skin is warm. Capillary Refill: Capillary refill takes less than 2 seconds. Findings: No rash. Neurological: General: No focal deficit present. Mental Status: She is alert and oriented to person, place, and time. Psychiatric: Mood and Affect: Mood normal. Behavior: Behavior normal. Thought Content: Thought content normal. Judgment: Judgment normal. Assessment/Plan Diagnoses and all orders for this visit: Dysphagia: - Will secure referral and schedule appointment with gastroenterology for evaluation. Will request prior procedure records to clarify prior endoscopy and colonoscopy and to define next steps. Advisedto obtain appointment; office to assist with scheduling. Nephrolithiasis, left: - 3 mm left renal calculus noted; anticipated to pass spontaneously. - Follow up with nephrology/urology as arranged; phone follow-up expected today per patient report. Hyperlipidemia: - Improved lipid profile on current statin therapy. - Continue current lipid-lowering medication. Osteopenia: - Osteopenia confirmed on recent bone density testing. Immunizations: - Influenza vaccine not yet administered for current season. - Recommended influenza vaccination. Osteopenia of hip, unspecified laterality - lidocaine (Lidoderm) 5 % patch; Apply 1 patch topically Once per day. Remove & discard patch within 12 hours or as directed by . Primary fibromyalgia syndrome - lidocaine (Lidoderm) 5 % patch; Apply 1 patch topically Once per day. Remove & discard patch within 12 hours or as directed by . Benign essential hypertension Esophageal dysphagia documented in this encounter Plan of Treatment Not on file documented as of this encounter Visit Diagnoses Diagnosis Osteopenia of hip, unspecified laterality- Primary Primary fibromyalgia syndrome Unspecified myalgia and myositis Benign essential hypertension Essential hypertension, benign Esophageal dysphagia Dysphagia, pharyngoesophageal phase documented in this encounter Additional Health Concerns Assessment Noted Time PHQ-9 Depression Total Score: 8 03/12/20 25 10:43 AM EDT documented as of this encounter Care Teams Cable Hooker Relationship Specialty Start Date End Date Adrienne Villegas MD [address] [place] [id number] PCP - General Family Medicine 08/01/18 documented as of this encounter
--- NOTE | 2025-06-13 16:05 | A.OFFVIS_ITS ---
Intake Visit Reasons: 1y/US Intake Note: Patient presents today via telehealth for 1yr follow up on US * 04/16 Renal US Urology Meds-NONE Allergies to Antibiotic- No Known Allergies Blood Thinner- None Accompanied by: Self / Same As Patient Allergies aspirin (ASA) Allergy (Intermediate, Verified 06/20/25 13:40) Hives Penicillins (PENICILLINS) Allergy (Intermediate, Verified 06/20/25 13:40) RASH loratadine Allergy (Unknown, Verified 06/20/25 13:40) Unknown trimethoprim Allergy (Unknown, Verified 06/20/25 13:40) Unknown venlafaxine Allergy (Unknown, Verified 06/20/25 13:40) Unknown HPI Comments Details: 06/13/25--kianna is a 64-year-old female who is followed for kidney stones she had a renal ultrasound done on 04/16 25 noting a 3 mm right kidney stone with a left renal cyst with calcifications. History of Present Illness The patient is a 64-year-old female presenting with nephrolithiasis. She has been followed for kidney stones and had a renal ultrasound on April 16, 2025, which noted a 3 mm stone in the right kidney. The ultrasound also revealed a left renal cyst with calcifications. In review of her chart, a prior CT scan of the abdomen and pelvis on May 04, 2024, showed a left kidney cyst with punctate calcifications. The patient experiences pain on the left side, where the kidney stone is located. Management includes increasing fluid intake to facilitate the natural passage of the stone Results - Renal ultrasound (04/16/25): 3 mm right kidney stone, left renal cyst with calcifications - CT scan of abdomen and pelvis (05/04/24): Left kidney cyst with punctate calcifications Plan 1. Nephrolithiasis - Increase fluid intake to facilitate natural passage of the stone. 2. Renal Cyst With Calcifications - Monitor the cyst with a follow-up CT scan in six months. Kianna is a 62-year-old female who presents today to the office for a follow-up kidney stones. She has had intermittent flank pain in May, CT imaging noted punctate stones left kidney. Cont Vit B6 100 mg, Follow-up in 1 year renal US prior.Will continue to monitor. 30 minutes spent in review of records pertaining to this visit and including [id number] discussion with the patient and documentation of this visit. 05/04/24--CTAP-kidneys are normal in size, shape, and attenuation. Two punctate calculi are seen in the left kidney , the largest measuring 2 mm. /09/2022? She is followed today for renal US results. The patient has a past medical history significant for diabetes. Patient states she passed a left ureteral stone in 09/2021. She has seen Perez COVARRUBIAS Sherry on 12/08/2021 for nephrolithiasis. The patient was encouraged to continue with adequate daily water intake, and continue Vitamin B6 during that time. I reviewed the renal US results from 05/20/2023 revealed no nephrolithiasis noted. Left renal 1.3 cm complex cyst. I have encouraged her to increase the fluid intake as well as adding lemon juice to water. Advised the patient on low sodium and low oxalate diet. [facility] Medical History Asymptomatic telangiectasia Raynauds syndrome Diabetic neuropathy Candidiasis of mouth and esophagus Dyspnea on exertion Environmental allergies Bilateral knee pain Cervical radiculopathy Cervical spondylosis Right calf pain Muscle spasm Renal cyst History of kidney stones Pre-op examination Sleep apnea Asthma Hx of renal calculi PONV (postoperative nausea and vomiting) Sweating abnormality Hirsutism MGUS (monoclonal gammopathy of unknown significance) Positive MARCY (antinuclear antibody) Idiopathic hirsutism Plantar fasciitis Mood disorder Xerosis of skin Chronic fatigue Myositis Myalgia Pulmonary nodule Depression Diabetes Age related osteoporosis Restless legs Spondylosis Arthritis Carpal tunnel syndrome Fibromyalgia Constipation High cholesterol Anxiety Hypertension SLE (systemic lupus erythematosus related syndrome) Surgical History Hx of bilateral cataract extraction History of surgery of head H/O colonoscopy H/O esophagogastroduodenoscopy H/O hemorrhoidectomy History of tubal ligation Family History Father Diabetes Hypertension Mother Hypertension Diabetes Asthma Maternal Grandfather Throat cancer Maternal Grandmother Throat cancer Paternal Uncle Prostate cancer Maternal Uncle Throat cancer Stomach cancer Maternal Aunt Stomach cancer Diabetes Social History Household Members: Family Are you a primary managed care director to a significant other at home: No Do you presently have visiting nurse or other home services: Yes (BLOCK TRADER and supportive Daughter) Alcohol intake: never Patient Tobacco Use Status: Never used Tobacco Current occupational status: retired Current occupation: rt handed Telehealth Telehealth Telehealth Platform: Telephone Location of provider rendering services: practice address Location of patient: address on file Patient Identification confirmed using: Name, : Yes Telehealth method: voice only Patient verbally consented to treatment: Yes Patient verbally consented to billing insurance company: Yes Patient informed of any privacy concerns related to visit: Yes Minutes spent on Phone/Video with Pt.: 16 Results Reviewed Results Reviewed: Date of Service: 04/16/25 Procedure(s): US renal BI Accession Number(s): [id number] cc: Usman Shrestha MD; Adrienne Villegas MD~ Reason for Exam: Z87.442 - Personal history of urinary calculi EXAMINATION: US KIDNEY BILATERAL HISTORY: Z87.442 - Personal history of urinary calculi TECHNIQUE: Real-time grayscale ultrasound imaging of the kidneys was performed and images were reviewed. COMPARISON: Comparison is made with the prior examination dated 04/04/2024. FINDINGS: Right kidney: The right kidney measures 10.4 x 4.5 x 5.4 cm. Renal parenchymal echotexture and thickness are normal. There is an upper pole cyst measuring 8 x 5 x 7 mm. There is no hydronephrosis or renal calculi. Left Kidney: The left kidney measures 11.6 x 5.2 x 5.2 cm. Renal parenchymal echotexture and thickness are normal. There is a cyst in the interpolar region measuring 1.3 x 0.8 x 1.3 cm which demonstrates calcified fisher. There is a nonobstructing calculus at the lower pole measuring 3 mm. No hydronephrosis. IMPRESSION: 1. 3 mm nonobstructing calculus at the lower pole of the left kidney. 2. 1.3 cm left renal cyst demonstrating calcified fisher. Follow-up is recommended. Date of Service: 05/04/24 CT ABDOMEN AND PELVIS WITHOUT CONTRAST CLINICAL INFORMATION: Flank pain. COMPARISON: Renal ultrasound 04/04/2024: A 0.4 cm nonobstructing left renal stone, new from prior. Another previously seen mid pole echogenic focus was not identified. CT abdomen/pelvis 10/03/2021. TECHNIQUE: Multidetector volumetric imaging was performed from the superior aspect of the liver through the pubic symphysis. Sagittal and coronal reformatted images were obtained on the technologist's workstation. This CT examination was performed using dose optimization techniques as appropriate, variously including the following: *Automated exposure control *Adjustment of mA and/or kV according to patient size (this includes techniques or standardized protocols for targeted exams where dose is matched to indication/reason for exam; i.e. extremities or head) *Use of iterative reconstruction technique DLP: 644 mGy-cm. FINDINGS: LUNG BASES: The visualized lung bases are unremarkable. 4 mm pleural-based left lower lobe pulmonary nodule, unchanged (4:83 compare prior 4:71). LIVER, GALLBLADDER, AND BILIARY TREE: The liver is normal in size, shape, and attenuation. No focal hepatic lesion or biliary ductal dilatation is present. The gallbladder is unremarkable with no evidence of radiopaque gallstones, gallbladder wall thickening, or obvious pericholecystic inflammatory changes. PANCREAS: Unremarkable. SPLEEN: Unremarkable. ADRENAL GLANDS: Unremarkable. KIDNEYS AND URETERS: The kidneys are normal in size, shape, and attenuation. Two punctate calculi are seen in the left kidney (see saved vega images), the largest measuring 2 mm. No hydronephrosis, hydroureter, or right-sided/ureteral calculi seen. No perinephric stranding. A benign posterior left upper pole 0.8 cm Bosniak class I renal cyst is noted which requires no additional imaging or follow up. No solid renal masses are seen. BLADDER: Unremarkable. GASTROINTESTINAL TRACT: The small and large bowel are unremarkable. The appendix is not identified, but there is no evidence of appendicitis. ABDOMINAL WALL: No significant hernia is appreciated. LYMPH NODES: No retroperitoneal lymphadenopathy. VASCULAR: Unremarkable. PELVIC VISCERA: There is a large 4 cm fundal broad-based pedunculated fibroid again noted. Other smaller fibroids are seen. An abnormal adnexal mass or free fluid is not detected. OSSEOUS STRUCTURES: Unremarkable. n IMPRESSION: 1. A cause for the patient's flank pain has not been found. 2. Incidental note made of 2 punctate nonobstructing left renal calculi, unchanged 4 mm left lower lobe pulmonary nodule, and uterine fibroids. Date of Service: 05/20/23 EXAMINATION: US RETROPERITONEAL LIMITED (RENAL ONLY) CLINICAL INFORMATION: Calculus of kidney. COMPARISON: Renal ultrasound 04/29/2022 and 12/03/2021. CT abdomen and pelvis 10/03/2021. FINDINGS: RIGHT KIDNEY: 10.2 x 4.9 x 5.2 cm (SAG x AP x TRV). No hydronephrosis. No renal calculi. Renal cortical thickness is normal. Limited visualization. Right lower pole 0.6 cm cyst difficult to fully characterize due to small size and limited visualization, but likely benign. LEFT KIDNEY: 11.8 x 4.6 x 4.4 cm (SAG x AP x TRV). Echogenic focus midpole left kidney, possibly a calcified vessel rather than renal calculus. No hydronephrosis. Renal cortical thickness is normal. Limited visualization. Lateral midpole 1.3 x 0.6 x 1.0 cm complex cyst with mural echogenicity suggestive of mural calcification or milk of calcium previously measured 1.3 x 1.6 x 1.1 cm on 04/30/2022 and not fully characterized on prior exams. IMPRESSION: Left renal midpole likely calcified vessel rather than a nonobstructive calculus, approximately 5 mm. No hydronephrosis. Left renal 1.3 cm complex cyst is stable to decreased in size. Recommend attention on followup imaging. Assessment & Plan Assessment & Plan (1) Complex renal cyst: Code(s): N28.1 - Cyst of kidney, acquired Category: Medical Plan Plan 1. Nephrolithiasis - Increase fluid intake to facilitate natural passage of the stone. 2. Renal Cyst With Calcifications - Monitor the cyst with a follow-up CT scan in six months. Patient Instructions: The patient had an opportunity to ask questions regarding treatment plan. The patient expressed understanding and agreement with the above treatment plan. The patient is aware they should contact our office by phone for worsening of their current condition or the appearance of new symptoms. Compliance is encouraged with any medications and followup testing that is ordered. It is a privilege to be allowed the opportunity to participate in the urologic care of your patient. If you have any questions or concerns regarding treatment for the above conditions please do not hesitate to contact me. The office telephone contact is [phone]. This note is constructed in part using voice recognition software. While every effort has been made to ensure accuracy senior electrical design engineer errors may have been included. Yours sincerely, Usman Shrestha MD Scribe Plan - Not visible on output: Patient was informed and verbally consented to the use of an ambient scribe for clinic note documentation during this visit. Coding Level of Care Code Tele Est Pt Level 4 (83341) Diagnoses Complex renal cyst N28.1
--- OUTSIDE RECORDS SUMMARY | 2025-06-13 18:44 | XMS_ITS | Encounter Summary ---
Author Organization [employer] Address [address] [facility] 7 [place] [address] Care Team Providers Care Necktie Turner Name Role Phone Adrienne Villegas MD Primary Care Provider [phone] Reason for Visit * Reason Onset Date Comments Medication Question 03/25/2025 Encounter Details Date Type Department Care Team ([facility] st Contact Info) Description 03/25/2025 Telephone [facility] MEDICINE [address] [place] [address] Adrienne Villegas MD 505 [place], [place] [phone] Medication Question Social History Tobacco Use Types [...] this medication is. TC to patient via engineer remote control diesel. No answer. Message left to return call to office. * Telephone Encounter - Marko Bates - 03/25/2025 9:28 AM EDT Tc from pt requesting refill for medication Creo 80 MG, stating she las received it back on 02/04/25 but director underwriter sales does not see script in pt's chart. Please contact pt at [phone]. documented in this encounter Plan of Treatment Not on file documented as of this encounter Visit Diagnoses Not on filedocumented in this encounter Additional Health Concerns Assessment Noted Time PHQ-9 Depression Total Score: 8 03/12/20 10:43 AM EDT documented as of this encounter Care Teams Necktie Turner Relationship Specialty Start Date End Date Adrienne Villegas MD [address] [place] [address] PCP - General Family Medicine 08/01/18 documented as of this encounter
--- OUTSIDE RECORDS SUMMARY | 2025-06-13 18:44 | XMS_ITS | Encounter Summary ---
Author Organization [employer] Address 75 [facility] 7 [place] [address] Care Team Providers Care Registered Nursing Professor Name Role Phone Adrienne Villegas MD Primary Care Provider [phone] Reason for Visit * Reason Onset Date Comments Med Refill 03/25/2025 Encounter Details Date Type Department Care Team (Late st Contact Info) Description 03/25/2025 Telephone [facility] MEDICINE [address] [place] [address] Adrienne Villegas MD 505 [place], [place] [phone] Med Refill Social History Tobacco Use Types [...] 9:40 AM EDT Medication was sent to [facility] on 03/12/25 #90 with 3 refills. * Telephone Encounter - Marko Bates - 03/25/2025 9:24 AM EDT TC from pt requesting medication refill. Medications needing refill: cholecalciferol (SM Vitamin D3) 50 MCG (1999 UT) capsule To be sent to: [facility] [place] - [address] [facility] documented in this encounter Plan of Treatment Not on file documented as of this encounter Visit Diagnoses Not on filedocumented in this encounter Additional Health Concerns Assessment Noted Time PHQ-9 Depression Total Score: 8 03/12/20 25 10:43 AM EDT documented as of this encounter Care Teams Registered Nursing Professor Relationship Specialty Start Date End Date Adrienne Villegas MD [address] [place] [address] PCP - General Family Medicine 08/01/18 documented as of this encounter
--- OUTSIDE RECORDS SUMMARY | 2025-06-13 18:44 | XMS_ITS | Encounter Summary ---
Author Organization [facility] Address [address] [place] [address] Care Team Providers Care Redipper Name Role Phone Adrienne Villegas Primary Care Provider [phone] Reason for Visit * Reason Onset Date Comments Telehealth video call 09/09/2021 Encounter Details Date Type Department Care Team (Late st Contact Info) Description 09/09/2021 Telephone [facility] Central Scheduling Department [address] [place] [address] Telephone Intake, Staff Telehealth video call Social [...] on filedocumented in this encounter Care Teams Redipper Relationship Specialty Start Date End Date Adrienne Villegas 505 [place] [address] PCP - General Internal Medicine 09/12/19 documented as of this encounter
--- OUTSIDE RECORDS SUMMARY | 2025-06-13 18:44 | XMS_ITS | Encounter Summary ---
Author Organization [employer] Address 75 [facility] 7t [place] [address] Care Team Providers Care Universal Branch Consultant Name Role Phone Adrienne Villegas MD Primary Care Provider [phone] Encounter Details Date Type Department Care Team ([facility] st Contact Info) Description 05/10/2023 Orders Only [facility] CHC MED & PEDS [address] [place], [place] [phone] Adrienne Villegas MD 505 [place], [place] [phone] Social History Tobacco Use Types Packs/Day Years [...] PM EDT Narrative 05/24/2023 5:21 AM EDT [place] [address] Ultrasound Report Signed Patient: Jess Gray MR#: [id number] : 1960 Acct:[id number] Age/Sex: 62 / F ADM Date: 05/20/23 Loc: HO.US Attending Dr: Usman Shrestha MD Ordering Physician: Usman Shrestha MD Date of Service: 05/20/23 Procedure(s): US renal BI Accession Number(s): [id number] cc: Usman Shrestha MD; Adrienne Villegas MD [...] in OV> 05/24/23 0518 DD/ 1528 TD/TT: Retort Furnace Helper: Procedure Note Donotuseinterpreter, Image - 05/24/[address] [address] Ultrasound Report Signed Patient: Jess Gray DMR#: [id number] : 1960cct:[id number] Age/Sex: 62 / FADM Date: 05/20/23 Loc: HO.US Attending Dr: Usman Shrestha MD Ordering Physician: Usman Shrestha MD Date of Service: 05/20/23 Procedure(s): US renal BI Accession Number(s): [id number] cc: Usman Shrestha MD; Adrienne Villegas MD [...] in OV> 05/24/23 0518 DD/ 1528 TD/TT: Retort Furnace Helper: us [facility] External Provider IMG US PROCEDURES Edited Result - Final documented in this encounter Visit Diagnoses Not on filedocumented in this encounter Additional Health Concerns Assessment Noted Time PHQ-9 Depression Total Score: 19 023 9:50 AM EST documented as of this encounter Care Teams Universal Branch Consultant Relationship Specialty Start Date End Date Adrienne Villegas MD [address] [place] [address] PCP - General Family Medicine 08/01/18 documented as of this encounter
--- OUTSIDE RECORDS SUMMARY | 2025-06-13 18:44 | XMS_ITS | Encounter Summary ---
Author Organization [employer] Address 75 [facility] 7 [place] [address] Care Team Providers Care Flaring Machine Operator Name Role Phone Adrienne Villegas MD Primary Care Provider [phone] Reason for Visit * Reason Onset Date Comments Med Refill 11/07/2024 Encounter Details Date Type Department Care Team ([facility] st Contact Info) Description 11/07/2024 Telephone [facility] MEDICINE [address] [place] [address] Adrienne Villegas MD 505 [place], [place] [phone] Med Refill Social History Tobacco Use Types [...] documented as of this encounter Care Teams Flaring Machine Operator Relationship Specialty Start Date End Date Adrienne Villegas MD [address] [place] [address] PCP - General Family Medicine 08/01/18 documented as of this encounter
--- OUTSIDE RECORDS SUMMARY | 2025-06-13 18:44 | XMS_ITS | Encounter Summary ---
Author Organization [employer] Address 75 [facility] 7t [place] [address] Care Team Providers Care Greenhouse Instructor Name Role Phone Adrienne Villegas MD Primary Care Provider [phone] Reason for Visit * Reason Comments Med Refill Encounter Details Date Type Department Care Team ([facility] st Contact Info) Description 08/30/2022 Refill [facility] MEDICINE [address] [place] [address] Adrienne Villegas MD 505 [place], [place] [phone] Social History Tobacco Use Types Packs/Day Years [...] on filedocumented in this encounter Care Teams Greenhouse Instructor Relationship Specialty Start Date End Date Adrienne Villegas MD [address] [place] [address] PCP - General Family Medicine 08/01/18 documented as of this encounter
--- OUTSIDE RECORDS SUMMARY | 2025-06-13 18:44 | XMS_ITS | Encounter Summary ---
Author Organization [employer] Address 75 [facility] 7t [place] [address] Care Team Providers Care Net Developer Software Engineer C Name Role Phone Adrienne Villegas MD Primary Care Provider [phone] Encounter Details Date Type Department Care Team ([facility] st Contact Info) Description 12/18/2024 Telephone [facility] MEDICINE 230 [place], [place] [phone] Adrienne Villegas MD [address] [facility] [address] [place], [place] [phone] Social History Tobacco Use Types Packs/Day Years [...] documented as of this encounter Care Teams Net Developer Software Engineer C Relationship Specialty Start Date End Date Adrienne Villegas MD 505 [place] [address] PCP - General Family Medicine 08/01/18 documented as of this encounter
--- OUTSIDE RECORDS SUMMARY | 2025-06-13 18:44 | XMS_ITS | Encounter Summary ---
Author Organization [employer] Address [address] [place] [address] 7 [place] [address] Care Team Providers Care Roof Painter Name Role Phone Adrienne Villegas MD Primary Care Provider [phone] Reason for Visit * Reason Comments Med Refill Encounter Details Date Type Department Care Team ([facility] st Contact Info) Description 01/14/2023 Refill [facility] MED [facility]EDS 505 [facility] [place] [facility] [place] [address] Adrienne Villegas MD 505 [place] [address] Social History Tobacco Use Types Packs/Day Years [...] documented as of this encounter Care Teams Roof Painter Relationship Specialty Start Date End Date Adrienne Villegas MD 505 [place] [address] PCP - General Family Medicine 08/01/18 documented as of this encounter
--- OUTSIDE RECORDS SUMMARY | 2025-06-13 18:44 | XMS_ITS | Encounter Summary ---
Author Organization [employer] Address [address] [place] [address] 7 [place] [address] Care Team Providers Care Hand Shoe Cutter Name Role Phone Adrienne Villegas MD Primary Care Provider [phone] Reason for Visit * Reason Onset Date Comments Lab Orders 01/24/2023 Encounter Details Date Type Department Care Team ([facility] Contact Info) Description 01/24/2023 Telephone [facility] CHC MED & PEDS 505 [place], [place] [phone] Adrienne Villegas MD 505 [place], [place] [phone] Lab Orders Social History Tobacco Use Types [...] Center 01/27/2023 1:15 PM Adrienne Villegas MD [facility] Protocol Used: Back Pain (Adult) Protocol-Based [...] she has shingles. Please contact pt at [phone] documented in this encounter Plan of Treatment Not on file documented as of this encounter Visit Diagnoses Not on filedocumented in this encounter Additional Health Concerns Assessment Noted Time PHQ-9 Depression Total Score: 19 023 9:50 AM EST documented as of this encounter Care Teams Hand Shoe Cutter Relationship Specialty Start Date End Date Adrienne Villegas MD [address] [place] [address] PCP - General Family Medicine 08/01/18 documented as of this encounter
--- OUTSIDE RECORDS SUMMARY | 2025-06-13 18:44 | XMS_ITS | Encounter Summary ---
Author Organization [employer] Address [address] [place] [address] 7t [place] [address] Care Team Providers Care Shrimp Cleaner Name Role Phone Adrienne Villegas MD Primary Care Provider [phone] Reason for Visit * Reason Onset Date Comments appt/chart notes 03/02/2023 Encounter Details Date Type Department Care Team ([facility] st Contact Info) Description 03/02/2023 Telephone [facility] ADULT DENTAL [address] [place] [address] Tila Crandall, DDS 505 [place] [address] appt/chart notes Social History Tobacco Use Types [...] in staing that she was recommended in [facility] to get treatment in [place] due to the amount of work that had to be done and that they could no longer with her in [facility]. She explained that apparently treatment had not gone as planned but unless Im missing something I do not see notes concerning this. She is certain on what she was told to do but I cant schedule without clarity to go to [facility] if that is what [facility] wants her to do because nothing is documented as such. Pls advise documented in this encounter Plan of Treatment Not on file documented as of this encounter Visit Diagnoses Not on filedocumented in this encounter Additional Health Concerns Assessment Noted Time PHQ-9 Depression Total Score: 19 023 9:50 AM EST documented as of this encounter Care Teams Shrimp Cleaner Relationship Specialty Start Date End Date Adrienne Villegas MD [address] [place] [address] PCP - General Family Medicine 08/01/18 documented as of this encounter
--- OUTSIDE RECORDS SUMMARY | 2025-06-13 18:44 | XMS_ITS | Clinical Summary ---
Author Organization [facility] Address [address] [place] [phone] Phone Care Team Providers Care Rock Worker Name Role Phone Adrienne Villegas MD Primary Care Provider [phone] Medications pregabalin (LYRICA) 150 MG capsule Take [...] patient's age to complete this topic IPV VACCINES Aged Out No longer eligi ble based on patient's age to complete this topic MENINGOCOCCAL VACCINES (ACWY) Aged Out No longer eligible based on patient's age to complete this topic MENINGOCOCCAL VACCINES (B) Aged Out N o longer eligible based on patient's age to complete this topic Medical Devices Not on file Insurance [facility] ONE CARE MEDICARE REPLACEMENT [facility] MEDIC[facility]PLACEMENT [facility] MEDICARE REPLACEMENT [place] [facility] [facility]PLAC[place] [facility] MEDICARE [facility]PLACEMENT [facility] MEDICARE [facility]PLACEMENT [facility] MEDICARE REPLACEMENT [place] [facility] MEDICARE REPLACEMENT [facility] MEDICARE REPLACEMENT SUZAN [place] [id number] [facility] DENTAL Care Teams Rock Worker Relationship Specialty Start Date End Date Adrienne Villegas MD 505 [facility] [place] [address] PCP - General Pediatrics 08/30/17 Additional Source Comments The information contained in this document represents components of the legal health record. It is not the complete legal health record.[facility]
--- OUTSIDE RECORDS SUMMARY | 2025-06-13 18:44 | XMS_ITS | Encounter Summary ---
Author Organization [employer] Address [address] [place] [address] [address] [place] [address] Care Team Providers Care Hvac R Tech Name Role Phone Adrienne Villegas MD Primary Care Provider [phone] Reason for Visit * Reason Comments Med Refill Encounter Details Date Type Department Care Team (Late st Contact Info) Description 12/10/2022 Refill [facility] MEDICINE 230 [place], [place] [phone] Ashley Montiel MD 505 [place], [place] [phone] Social History Tobacco Use Types Packs/Day Years [...] documented as of this encounter Care Teams Hvac R Tech Relationship Specialty Start Date End Date Adrienne Villegas MD 505 [place], [place] [phone] PCP - General Family Medicine 08/01/18 documented as of this encounter
--- OUTSIDE RECORDS SUMMARY | 2025-06-13 18:44 | XMS_ITS | Clinical Summary ---
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 --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 titer [...] 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 --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 titer [...] with evidence of lupus per her local seo engineer (and so started on hydroxychloroquine) but by [...] with evidence of lupus per her local seo engineer (and so started on hydroxychloroquine) but by [...] with evidence of lupus per her local seo engineer (and so started on hydroxychloroquine) but by [...] with evidence of lupus per her local seo engineer but by review of the report, this [...] she is on a statin) and with longterm use retinal deposits (most important is regular ophthalmology follow up) ----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 Advance Directives Documents on File Type Date Recorded Patient Support Team Member Expl anation Health Care Proxy 09/14/2019 1:13 PM healt care proxy Care Teams Cemetery Manager Relationship Specialty Start Date End Date Adrienne Villegas 505 [place] [address] PCP - General Internal Medicine 09/12/19
--- OUTSIDE RECORDS SUMMARY | 2025-06-13 18:44 | XMS_ITS | Encounter Summary ---
Author Organization [facility] Address [address] [facility] [address] [place] [address] Phone Care Team Providers Care Boring Machine Operator Helper Name Role Phone Adrienne Villegas MD Primary Care Provider [phone] Reason for Referral * Physical Therapy (Within 1 month) - Closed Specialty Diagnoses / Procedures Referred By Kayla rodriguez Referred To Contact Physical Therapy Diagnoses Physical therapy evaluation, initial Diego Perez DDS Phone: tel: [facility] [address] [place] [address] Phone: tel: Referral ID Status Reason Start Date Expiration Date Visits Re quested Visits Authorized [id number] Closed 10/25/2017 07/31/2018 99 99 Encounter Details Date Type Department Care Team (Latest Contact Info) Description 10/25/2017 Transcribe Orders [facility] [address] [facility], 1st Floor, [address] [place] [address] Diego Perez DDS 1 [facility] [address] [place] [address] Physical therapy evaluation, initial (Primary Dx) Social [...] Associated Diagnoses Order Schedule Ambulatory referral to [facility] Physical Therapy Outpatient Referral Routine Physical therapy evaluation, initial Ordered: 10/25/2017 documented as of this encounter Visit Diagnoses Diagnosis Physical therapy evaluation, initial- Primary Other specified examination documented in this encounter Care Teams Boring Machine Operator Helper Relationship Specialty Start Date End Date Adrienne Villegas MD [address] [place] [address] PCP - General Pediatrics 08/30/17 documented as of this encounter Additional Source Comments The information contained in this document represents components of the legal health record. It is not the complete legal health record.[facility]
--- OUTSIDE RECORDS SUMMARY | 2025-06-13 18:44 | XMS_ITS | Encounter Summary ---
Author Organization [employer] Address [address] [facility] 7t [place] [address] Care Team Providers Care Moth Proofer Name Role Phone Adrienne Villegas MD Primary Care Provider [phone] Encounter Details Date Type Department Care Team (Late st Contact Info) Description 07/16/2024 Orders Only [facility] CHC MED & PEDS [address] [place] [phone] ProviderToña MD Social History Tobacco Use Types [...] documented as of this encounter Care Teams Moth Proofer Relationship Specialty Start Date End Date Adrienne Villegas MD [address] [place] [address] PCP - General Family Medicine 08/01/18 documented as of this encounter
--- OUTSIDE RECORDS SUMMARY | 2025-06-13 18:44 | XMS_ITS | Clinical Summary ---
Author Organization [employer] Address [address] [place] [address] 7[address] [place] [address] Care Team Providers Care Career Technical Counselor Name Role Phone Adrienne Villegas MD Primary Care Provider [phone] Allergies Active Allergy Reactions Criticality Noted Date [...] severe pain. 20 tablet 03/14/20 24 Active cetirizine (ZyrTEC) 10 MG tablet TAKE ONE TABLET EVERY DAY 30 tablet 11 09/10/19 25 Active verapamil SR (Calan SR) 120 MG ER tablet TAKE ONE TABLET DAILY 30 tablet 11 11/08/19 25 Active hydroxychloroqui ne (Plaquenil) 200 MG tablet TAKE ONE TABLET BY MOUTH TWICE DAILY 60 tablet 1 02/05/20 25 Active cholecalciferol (SM Vitamin D3) 50 MCG (2000 UT) capsuleIndicatio ns:Osteopenia of hip, unspecified laterality [...] TAKE ONE TABLET DAILY 30 tablet 11 04/30/20 25 Active glucose blood (FREESTYLE LITE) test stripIndications :Diabetes mellitus without complication (HCC) TEST BLOOD SUGAR THREE TIMES DAILY 100 strip 05/17/20 25 Active azelaic acid (Finacea) 15 % gel APPLY TO THE FACE ONCE DAILY NIGHTLY 06/25/20 24 Active Trelegy Ellipta 200-62.5-25 MCG/ACT aerosol powder INHALE 1 PUFF DAILY AT THE SAME TIME EACH DAY 01/09/20 25 Active Linzess 145 MCG capsule TAKE ONE CAPSULE BY MOUTH EVERY MORNING WITH GLASS OF WATER 05/07/20 25 Active lidocaine (Lidoderm) 5 % patchIndications :Osteopenia of hip, unspecified laterality,Prima ry fibromyalgia syndrome Apply 1 patch topically Once per day. Remove & discard patch within 12 hours or as directed by MD. 30 patch 5 06/13/20 25 Active glucose blood (FREESTYLE LITE) test stripIndications :Diabetes mellitus without complication (HCC) TEST BLOOD SUGAR THREE TIMES A DAY 100 strip 11 04/06/20 24 025 Discontinued Active Problems Problem Noted Date [...] 2011 Disorder of skeletal muscle 2011 Encounters Date Type Department Care Team Description 06/13/2025 11:00 AM EST Office Visit [facility] [address] [place] [address] Adrienne Villegas MD Osteopenia of hip, unspecified laterality (Primary Dx); Primary fibromyalgia syndrome; Benign essential hypertension; Esophageal dysphagia 06/13/2025 Travel 06/06/2025 Patient Outreach [facility] [address] [place] [address] Adrienne Villegas MD Pre-visit Planning (SDOH screening completed on 03/12/25 ) 05/16/2025 Refill [facility] [address] [place] [address] Adrienne Villegas MD Diabetes mellitus without complication (HCC) 04/30/2025 Refill [facility] [address] [place] [address] Ani Emanuel MD 04/16/2025 Orders Only [facility] External Provider, [facility] 03/30/2025 Refill [facility] [address] [place] [address] Adrienne Villegas MD Primary fibromyalgia syndrome 03/25/2025 Telephone [facility] [address] [place] [address] Adrienne Villegas MD Medication Question 03/25/2025 Telephone [facility] [address] [place] [address] Adrienne Villegas MD Med Refill 03/21/2025 Refill [facility] [address] [place] [address] Adrienne Villegas MD from Last 3 Months [...] 20 06/13/2025 11:13 AM EST Oxygen Saturation 99% 11/09/2023 11:15 AM EDT Inhaled Oxygen Concentration - - Weight 84.4 kg (186 lb) 06/13/2025 11:13 AM EST Height 157.5 cm (5' 2 ) 03/12/2025 10:42 AM EDT Body Mass Index 34.02 03/12/2025 10:42 AM EDT Plan of Treatment [...] 03/17/2021 SDOH Screening 03/12/2026 03/12/2025 Tobacco Screening 06/13/2026 06/13/2025 DTaP/Tdap/Td Vaccines (2 - Td or Tdap) [...] COMPLETE Routine 04/16/2025 1:4 8 PM EDT ALBUMIN, RANDOM URINE W/CREATININE Routine 03/12/2025 11:08 AM EDT Diabetes mellitus without complication (CMS/HCC) POCT GLYCATED HEMOGLOBIN, TOTAL Routine 03/12/2025 11:08 AM EDT Diabetes mellitus without complication (CMS/HCC) LIPID PANEL, STANDARD Routine 03/12/2025 11:07 AM [...] PM EDT Narrative 05/03/2025 7:09 AM EDT [facility] [address] [place] [address] Mammography Report Signed Patient: Jess Gray MR#: [id number] : 1960 Acct:[id number] Age/Sex: 64 / F ADM Date: 05/02/25 Loc: MAMMO Attending Dr: Adrienne Villegas MD Ordering Physician: Adrienne Villegas MD Results: Date of Service: 05/02/25 Follow Up: Procedure(s): XR DEXA axial skeleton Accession Number(s): [id number] cc: Adrienne Villegas MD Reason For Exam: osteopenia EXAMINATION: DXA BONE DENSITY AXIAL HISTORY: osteopenia TECHNIQUE: [facility] Dual energy absorptiometry (DEXA) of the lumbar [...] of the [employer] [place] for Metabolic Bone Disease, a World Health Organization (WHO) Collaborating Center. Electronically signed by: Pablo Campos MD 05/03/2025 07:06 AM EDT Dictated By: Pablo Campos MD Signed By: <Electronically signed by Pablo Campos MD in OV> 05/03/25 0706 DD/ 1405 TD/TT: 05/02/25 1427 Dye Mixer: Procedure Note Donotuseinterpreter, Image - 05/03/2025 [facility] [address] [place] [address] [place] [address] Mammography Report Signed Patient: Jess Gray [facility]#: [id number] : 1960cct:[id number] Age/Sex: 64 / FADM Date: 05/02/25 Loc: HO.MAMMO Attending Dr: Adrienne Villegas MD Ordering Physician: Adrienne Villegas MDResults: Date of Service: 05/02/25Follow Up: Procedure(s): XR DEXA axial skeleton Accession Number(s): [id number] cc: Adrienne Villegas MD Reason For Exam: osteopenia EXAMINATION: DXA BONE DENSITY AXIAL HISTORY: osteopenia TECHNIQUE: [facility] Dual energy absorptiometry (DEXA) of the lumbar [...] is a trademark of the [employer]'s [place] for Metabolic Bone Disease, a World Health Organization (WHO) Collaborating Center. Electronically signed by: Pablo Campos MD 05/03/2025 07:06 AM EDT Dictated By: Pablo Campos MD Signed By: <Electronically signed by Pablo Campos MD in OV> 05/03/25 0706 DD/ 1405 TD/TT: 05/02/25 1427 Dye Mixer: us Adrienne Villegas MD IMG DXA PROCEDURES Final Resu lt * US Renal Complete (04/16/2025 1:48 PM EDT) Anatomical Region Laterality Modality Kidney Ultrasound 04/16/2025 1:48 PM EDT Narrative 04/16/2025 2:13 PM EDT [address] [address] Ultrasound Report Signed Patient: Jess Gray MR#: [id number] : 1960 Acct:[id number] Age/Sex: 64 / F ADM Date: 04/16/25 Loc: HO.US Attending Dr: Usman Shrestha MD Ordering Physician: Usman Shrestha MD Date of Service: 04/16/25 Procedure(s): US renal BI Accession Number(s): [id number] cc: Usman Shrestha MD; Adrienne Villegas MD [...] 04/16/25 1407 DD/ 1348 TD/TT: 04/16/25 1356 Dye Mixer: Procedure Note Donotuseinterpreter, Image - 04/16/2025 [place] [address] Ultrasound Report Signed Patient: Jess Gray DMR#: [id number] : 1960cct:[id number] Age/Sex: 64 / FADM Date: 04/16/25 Loc: HO.US Attending Dr: Usman Shrestha MD Ordering Physician: Usman Shrestha MD Date of Service: 04/16/25 Procedure(s): US renal BI Accession Number(s): [id number] cc: Usman Shrestha MD; Adrienne Villegas MD [...] 04/16/25 1407 DD/ 1348 TD/TT: 04/16/25 1356 Dye Mixer: [facility] External Provider IMG US PROCEDURES Edited Result - Final * Albumin, Random Urine W/Creatinine (03/12/2025 11:08 AM EDT) Creatinine, Urine 91.36 mg/dL [facility] Microalbumin Urine 6.0 mg/L [facility] Microalbum Creatinine Ratio Ur 6.5 <30 ug/mg cr [facility] Comment:Albumin/Creatinine R atio Reference Ranges: Normal: < 30 ug/mg creatinine Microalbuminuria: 30 - 300 ug/mg creatinineClinical Albuminuria: > 300 ug/mg creatinine Urine (Urine, Random) 03/12/2025 11:08 AM EDT 03/12/2025 1:50 PM EDT Adrienne Villegas MD LAB URINE ORDERABLES Final Re sult [facility] [address] [place] [phone] * (ABNORMAL) POCT HGB A1C (03/12/2025 11:08 AM EDT) Hemoglobin A1C 6.5(A) 4.0 - 5.7 % Blood 03/12/2025 11:0 8 AM EDT Adrienne Villegas MD POINT OF CARE TEST ENTER/EDIT ORDERABLES Final Result * (ABNORMAL) Lipid Panel, Standard (03/12/2025 11:07 AM EDT) Triglycerides 117 <150 mg/dL [facility] Comment:Desirable Triglyceri de: less than 150 mg/dLBorderline High Triglyceride 150-199 mg/dLHigh Triglyceride: 200-499 mg/dLVery High Triglyceride: greater than or equal to 5OO mg/dL Cholesterol 182 <200 mg/dL [facility] Comment:Desirable Cholestero l: less than 200 mg/dLBorderline High Cholesterol: 200-239 mg/dLHigh Cholesterol: greater than 239 mg/dL LDL Cholesterol Calculated 110(H) <100 mg/dL [facility] Comment:Desirable LDL: less than 100 mg/dLNear Optimal/Above Optimal LDL: 110- 129 mg/dLBorderline High LDL: 130-159 mg/dLHigh LDL: 160-189 mg/dLVery High LDL: greater than or equal to 190 mg/dL HDL Cholesterol 49 >40 mg/dL [facility] Comment:Desirable HDL: great er than 40 mg/dL Note: This HDL assay may give artificially low results in patients with liver disease. Blood Venous blood specimen / Unknown 03/12/2025 11:07 AM EDT 03/12/2025 2:01 PM EDT Adrienne Villegas MD LAB BLOOD ORDERABLES Final Re sult [facility] [address] [place] [phone] * BI Mammogram Screening Tomosynthesis Bilateral (01/12/2024 4:00 PM EDT) Anatomical Region Laterality Modality Breast Bilateral Mammography 01/12/2024 4:00 PM EDT Narrative 02/11/2024 8:46 AM EDT [facility] [address] [place] [address] Mammography Report Signed Patient: Jess Gray MR#: [id number] : 1960 Acct:[id number] Age/Sex: 63 / F ADM Date: 01/12/24 Loc: HO.MAMMO Attending Dr: Adrienne Villegas MD Ordering Physician: Adrienne Villegas MD Results: 2Be nign Findings Date of Service: 01/12/24 Follow Up: 1 Year From Orig ina Mammogram Procedure(s): MM tomosynthesis screening BI Accession Number(s): [id number] cc: Adrienne Villegas MD EXAMINATION: MM SCREENING [...] in OV> 02/11/24 0842 DD/ 1600 TD/TT: Dye Mixer: Procedure Note Donotuseinterpreter, Image - [facility]/11/[facility] [address] [place] [address] Mammography Report Signed Patient: Jess Gray DMR#: [id number] : 1960cct:[id number] Age/Sex: 63 / FADM Date: 01/12/24 Loc: HO.MAMMO Attending Dr: Adrienne Villegas MD Ordering Physician: Adrienne Villegas MDResults: 2Be nign Findings Date of Service: 01/12/24Follow Up: 1 Year From [facility] ina Mammogram Procedure(s): MM tomosynthesis screening BI Accession Number(s): [id number] cc: Adrienne Villegas MD EXAMINATION: MM SCREENING [...] in OV> 02/11/24 0842 DD/ 1600 TD/TT: Dye Mixer: us Adrienne Villegas MD IMG BI PROCEDURES Edited Resu lt - Final * Thinprep TIS PAP W/Refl HPV mRNA E6/E7 (08/26/2022 12:00 AM EST) Clinical Information: None given [facility] LMP: NONE GIVEN [facility] Prev. PAP: NONE GIVEN [facility] Prev. BX: NONE GIVEN [facility] SOURCE: None given [facility] Statement Of Adequacy: SATISFACTORY FOR EVALUATION [facility] Interpretation/Res ult: [facility] Comment: Negative for intraepithelial lesion or malignancy. Atrophic pattern; predominantly parabasal cells COMMENT: This Pap test has been evaluated with computer assisted technology. [facility] Harness Brusher: [facility] Comment: NNO, CT(ASCP) CT screening location: [address], [place] [address] Slide preparation performed at: [facility], [address] [place] [id number] CLIA No. [id number] (Always Message) [facility] Comment: EXPLANATORY NOTE: The Pap is a [...] MD LAB PATHOLOGY ORDERABLES Malini cuello Result [address], [place] [address], [address] [place] [address] - [place] [address] * HPV mRNA E6/E7 (08/28/2019 3:55 PM EST) HPV mRNA E6/E7 Not Detected NOT DETECTED [facility] Comment: This test was performed using the APTIMA(R) HPV Assay ([employer] This assay detects E6/E7 viral messenger RNA (mRNA) from 14 high-risk HPV types (16,18,31,33,35,39,45,51, 52,56,58,59,66,68). For additional information please refer to: http://education.[employer]/faq/ZMR770k0 (This link is being provided for informational/ educational purposes only.) The analytical performance characteristics of this assay have been determined by [facility] [place], [place]. The modifications have not been cleared or approved by the FDA. This assay has been validated pursuant to the CLIA regulations and is used for clinical purposes. Test Performed by [facility], [facility] [place], [address] [place] [address] Timmy Mae M.D., Ph.D., Director of Laboratories , CLIA [id number] Please note: Effective 04/12/2016, HPV testing will be performed using [employer]'s APTIMA test which targets mRNA. Detecting mRNA instead of DNA, as in older methods, offers significant improvements in specificity. 08/28/2019 3:55 PM EST Jenise Bullock CNM HISTORICAL/NON ORDERABLE LABS Final Result [facility] [address] from Last 3 Months or Most Recently Relevant to Health Maintenance Insurance [facility] < 65 [place] [place]Z [id number] Care Teams Career Technical Counselor Relationship Specialty Start Date End Date Adrienne Villegas MD [address] [facility] [place] [address] PCP - General Family Medicine 08/01/18
--- OUTSIDE RECORDS SUMMARY | 2025-06-13 18:45 | XMS_ITS | Encounter Summary ---
Author Organization [employer] Address [address] [facility] [address] [place] [address] Care Team Providers Care Store Associate Name Role Phone Adrienne Villegas MD Primary Care Provider [phone] Encounter Details Date Type Department Care Team (Latest Contact Info) Description 06/13/2025 Travel Social History Tobacco Use Types Packs/Day Years Used Date Smoking Tobacco: Never Passive Smoke Exposure: Never Smokeless Tobacco: Never Depression Answer Date Recorded Patient Health Questionnaire-9 Score 8 03/12/2025 Patient Health Questionnaire-9 Score 8 03/12/2025 Last PHQ-9: Questionnaire Data Not on file 0 03/12/2025 Housing Stability Answer Date Recorded What is your housing situation today? I have linad rhodes 03/12/[address] you [...] documented as of this encounter Care Teams Store Associate Relationship Specialty Start Date End Date Adrienne Villegas MD [address] [place] [address] PCP - General Family Medicine 08/01/18 documented as of this encounter
--- OUTSIDE RECORDS SUMMARY | 2025-06-13 18:45 | XMS_ITS | Encounter Summary ---
Author Organization [employer] Address [address] [place] [address] 7 [place] [address] Care Team Providers Care Looping Machine Operator Name Role Phone Adrienne Villegas MD Primary Care Provider [phone] Reason for Visit * Reason Comments Med Refill Encounter Details Date Type Department Care Team (Late st Contact Info) Description 04/10/2023 Refill [facility] [address] [place], [place] [phone] Adrienne Villegas MD [address] [place], [place] [phone] Disorder of skeletal muscle Social History Tobacco [...] documented as of this encounter Care Teams Looping Machine Operator Relationship Specialty Start Date End Date Adrienne Villegas MD [address] [place], [place] [phone] PCP - General Family Medicine 08/01/18 documented as of this encounter
--- OUTSIDE RECORDS SUMMARY | 2025-06-13 18:45 | XMS_ITS | Encounter Summary ---
Author Organization [employer] Address [address] [place] [address] [address] [place] [address] Care Team Providers Care Marketing Communication Manager Name Role Phone Adrienne Villegas MD Primary Care Provider [phone] Reason for Visit * Reason Comments Med Refill Encounter Details Date Type Department Care Team ([facility] st Contact Info) Description 12/10/2022 Refill [facility] [address] [place] [address] Adrienne Villegas MD [address] [place] [address] Social History Tobacco Use Types Packs/Day Years [...] documented as of this encounter Care Teams Marketing Communication Manager Relationship Specialty Start Date End Date Adrienne Villegas MD [address] [place] [address] PCP - General Family Medicine 08/01/18 documented as of this encounter
== END 2025-06-13 16:54 | disposition home or self-care (01) ==
LOC: HO.HUSH 16:04
PROVIDERS: PCP Pediatrics; Visit Provider Urology
DX: N28.1 Cyst of kidney, acquired (principal)
CPT/HCPCS: 99214

== ENCOUNTER 2025-06-20 13:25 | Outpatient (AMB) | payer OTHER, SELFPAY ==
[2025-06-20 13:29] VITALS: BP 111/71; PULSE 78; BMI 34.6
--- NOTE | 2025-06-20 13:29 | MHC.OFFVIS ---
Vital Signs 06/20/25 13:29 Height 5 ft 2 in Weight 189 lb BMI 34.6 BP 111/71 Blood Pressure Location Rt brachial Position Sitting Pulse 78 Intake Visit Reasons: 6w Intake Note: Patient in office today in 6 weeks follow up of dysphagia and constipation. CC: Patient reports that she would like to obtain more Nystatin as it helped her with her mouth dryness. Pt is asking if it's necessary for her to take Creon d/t her pancreas problems because she is having a lot of epigastric pain, and bilateral lower abdominal pain at night. Crayon Molding Machine Operator Required: Yes Crayon Molding Machine Operator Language: Labor Relations Analyst Services: Crayon Molding Machine Operator Present Accompanied by: Self / Same As Patient Allergies aspirin (ASA) Allergy (Intermediate, Verified 06/20/25 13:40) Hives Penicillins (PENICILLINS) Allergy (Intermediate, Verified 06/20/25 13:40) RASH loratadine Allergy (Unknown, Verified 06/20/25 13:40) Unknown trimethoprim Allergy (Unknown, Verified 06/20/25 13:40) Unknown venlafaxine Allergy (Unknown, Verified 06/20/25 13:40) Unknown HPI HPI 6w: Details: Assessment & Plan (1) Esophageal dysmotility: Comment: Causing dysphagia and had been treatment in the past with verapamil Code(s): K22.4 - Dyskinesia of esophagus Category: Medical (2) Dysphagia: Code(s): R13.10 - Dysphagia, unspecified Category: Medical (3) GERD (gastroesophageal reflux disease): Code(s): K21.9 - Gastro-esophageal reflux disease without esophagitis Category: Medical (4) Chronic idiopathic constipation: Code(s): K59.04 - Chronic idiopathic constipation Category: Medical (5) Candidiasis of mouth and esophagus: Code(s): B37.81 - Candidal esophagitis; B37.0 - Candidal stomatitis Category: Medical Plan [place] #[employer] She continues on her omeprazole in the morning and famotidine at night, Creon, Linzess 290, bisacodyl, rabeprazole 20 mg twice a day, simethicone, and Reglan. Jess continues to have some GI challenges. For 1, she was never contacted by [facility] to have an esophageal manometry for her dysphagia. She asks if I will try referring her to [facility] and I will. She continues to have this problem she is also complaining about a very dry mouth and throat and she finds that she has to drink a lot a water constantly to offset this. She is also complaining of a white tone. This makes me wonder if it could be esophageal Ki and I think a trial of nystatin would be prudent. With conversation I find out that she is using bisacodyl as a chronic medication and using the Linzess as a PRN. The reason that I explained to her it should be the opposite as she continues to have some difficulties with bloating and I think that this is related to poor GI motility. It also seems with conversation that she might not be getting her Reglan which of course would further complicate the situation. I ask why she is not taking the Linzess every day and she says it is because it gives her diarrhea. This means that doses clearly too high so will adjust it back to 145 micro g and even back to 72 if needed. ROV 6 WEEKS. Orders: Referrals Gastroenterology Referral K22.4 - Dyskinesia of esophagus, R13.10 - Dysphagia, unspecified Medications: New linaclotide (Linzess) Take first thing in the morning with a full glass of water. Discontinueing the 290mcg dose 145 mcg PO QAM 30 caps 6RF K58.1 - Irritable bowel syndrome with constipation nystatin swish and swallow 10 mL PO TID 473 mL 0RF B37.0 - Candidal stomatitis, B37.81 - Candidal esophagitis linaclotide (Linzess) Take first thing in the morning with a full glass of water. Discontinueing the 290mcg dose 145 mcg PO QAM 30 caps 6RF K58.1 - Irritable bowel syndrome with constipation Refilled rabeprazole 20 mg PO BID 60 tabs 6RF K21.9 - Gastro-esophageal reflux disease without esophagitis, R13.10 - Dysphagia, unspecified metoclopramide HCl 5 mg PO QID 120 tabs 6RF K21.9 - Gastro-esophageal reflux disease without esophagitis ttejee-dcldlerc-tdwgffg 36,000-114,000- 180,000 unit (Creon) 2 caps PO BID 120 caps 6RF K58.9 - Irritable bowel syndrome, unspecified rabeprazole 20 mg PO BID 60 tabs 6RF K21.9 - Gastro-esophageal reflux disease without esophagitis, R13.10 - Dysphagia, unspecified simethicone 360 mg (2 x 180 mg) PO TID 90 ea 0RF simethicone 360 mg (2 x 180 mg) PO TID 90 ea 0RF famotidine 40 mg PO BEDTIME 30 tabs 6RF K21.9 - Gastro-esophageal reflux disease without esophagitis owqeck-qkdzmgpf-yuaertt 36,000-114,000- 180,000 unit (Creon) 2 caps PO BID 120 caps 6RF K58.9 - Irritable bowel syndrome, unspecified bisacodyl 10 mg (2 x 5 mg) PO BEDTIME 60 tabs 6RF K59.04 - Chronic idiopathic constipation famotidine 40 mg PO BEDTIME 30 tabs 6RF K21.9 - Gastro-esophageal reflux disease without esophagitis Today's visit [place] # [facility] Medical History Asymptomatic telangiectasia Raynauds syndrome Diabetic neuropathy Candidiasis of mouth and esophagus Dyspnea on exertion Environmental allergies Bilateral knee pain Cervical radiculopathy Cervical spondylosis Right calf pain Muscle spasm Renal cyst History of kidney stones Pre-op examination Sleep apnea Asthma Hx of renal calculi PONV (postoperative nausea and vomiting) Sweating abnormality Hirsutism MGUS (monoclonal gammopathy of unknown significance) Positive MARCY (antinuclear antibody) Idiopathic hirsutism Plantar fasciitis Mood disorder Xerosis of skin Chronic fatigue Myositis Myalgia Pulmonary nodule Depression Diabetes Age related osteoporosis Restless legs Spondylosis Arthritis Carpal tunnel syndrome Fibromyalgia Constipation High cholesterol Anxiety Hypertension SLE (systemic lupus erythematosus related syndrome) Surgical History Hx of bilateral cataract extraction History of surgery of head H/O colonoscopy H/O esophagogastroduodenoscopy H/O hemorrhoidectomy History of tubal ligation Family History Father Diabetes Hypertension Mother Hypertension Diabetes Asthma Maternal Grandfather Throat cancer Maternal Grandmother Throat cancer Paternal Uncle Prostate cancer Maternal Uncle Throat cancer Stomach cancer Maternal Aunt Stomach cancer Diabetes Social History Household Members: Family Are you a primary home health care provider to a significant other at home: No Do you presently have visiting nurse or other home services: Yes ([employer] and supportive Daughter) Alcohol intake: never Patient Tobacco Use Status: Never used Tobacco Current occupational status: retired Current occupation: rt handed Review of Systems Const Denies fatigue, Denies fever(s), Denies night sweats, Denies poor appetite and Denies weight loss ENT Reports Normal hearing present, Denies dental pain, Denies dysphagia, Reports dry mouth, Denies hearing loss, Denies mouth pain, Reports odynophagia, Denies throat swelling, Denies tongue swelling and Reports other (Dentition adequate) Card Reports no additional complaints Resp Reports no additional complaints GI Details: Denies abdominal pain, Denies melena, Reports bloating, Denies hematochezia, Reports constipation, Denies GI cramping, Denies dysphagia, Denies excessive flatus, Denies early satiety, Reports heartburn, Denies diarrhea, Denies nausea, Reports odynophagia, Denies vomiting and Denies hematemesis Skin/Breast Denies pruritus, Denies lesions, Denies rash and Denies jaundice Neuro Reports Normal hearing present and Denies Abnormal speech present Endo Denies fatigue Aller/Immun Denies throat swelling and Denies tongue swelling Physical Exam Vital Signs: Last Vital Signs Pulse 78 06/20/25 13:29 BP 111/71 06/20/25 13:29 BMI result Body Mass Index 34.6 Const General: cooperative, no acute distress, well developed and well groomed Nutritional Appearance: well nourished and obese Orientation/consciousness: oriented to person, oriented to place and oriented to time Limitations: language barrier HEENT Head: Yes normocephalic and Yes atraumatic Eyes General: appearance normal, both eyes and all related structures Pupils: Equal, round and reactive pupils present Neck Neck: Yes normal visual inspection and Yes no lymphadenopathy Thyroid: Thyroid normal Resp Effort & Inspection: normal respiratory effort and able to speak in complete sentences Auscultation: clear to auscultation bilaterally Cardio Rate: regular rate Rhythm: regular rhythm Heart sounds: Normal, physiologic split S2 sound present Peripheral pulses: radial pulses present and posterior tibial pulses present GI Inspection: No distended, No Abdominal panniculus present and Yes obesity Palpation (GI): Soft to palpation, nontender, no guarding, not rigid and No hepatosplenomegaly present Percussion: Yes normal to percussion Auscultation: normal bowel sounds Rectal Exam - Female: deferred Skin General skin exam: no rashes or lesions noted, turgor normal, skin not dry, no jaundice, No spider nevi and no striae Rashes: no rashes Nails: normal Neuro General: oriented to person, oriented to place and oriented to time Cranial nerves: Yes Equal, round and reactive pupils present and Yes Normal hearing present Speech: No Abnormal speech present Extrem General: Yes normal to inspection, No clubbing, No cyanosis and No edema Psych Appearance: grossly normal and well kempt Mental Status: mental status grossly normal Speech and movement: Normal speech and movement present Affect: normal affect Attitude: cooperative Thought process: Normal thought process present and not confabulating Thought content: Normal thought content present Insight: Good insight present (Psych) Judgement: Good judgement present (Psych) Assessment & Plan Assessment & Plan (1) Oral ki: Code(s): B37.0 - Candidal stomatitis Category: Medical (2) GERD (gastroesophageal reflux disease): Code(s): K21.9 - Gastro-esophageal reflux disease without esophagitis Category: Medical (3) Esophageal dysmotility: Comment: Causing dysphagia and had been treatment in the past with verapamil Code(s): K22.4 - Dyskinesia of esophagus Category: Medical (4) Presbyesophagus: Code(s): K22.89 - Other specified disease of esophagus Category: Medical (5) Chronic idiopathic constipation: Code(s): K59.04 - Chronic idiopathic constipation Category: Medical Plan [place] # She continues on her Creon, Linzess 290, bisacodyl, rabeprazole 20 mg twice a day, simethicone, and Reglan. She was using her Linzess PRN and taking the bisacodyl daily and I urged her to reverse this to give her better results. Subjective Follow-up for constipation management, oral symptoms, and medication refills. Previously advised to take Linzess daily and reserve bisacodyl as needed; patient reports improvement overall but continues to experience diarrhea with Linzess. Requests refill of the oral liquid that helped oral thrush and dryness; reports very dry mouth and lips, difficulty swallowing at times, and nocturnal dryness prompting awakening to drink water and a sensation of breath catching when turning her head. Notes abdominal bloating if Creon is not taken and requests renewal. Denies recent need for hemorrhoid cream. Relevant Past Medical, Social, and Family History - Uses a daily inhaler (Trilogy); not used every day consistently. Previously had doxycycline prescribed last July but is not taking it now. Primary care with [facility]. She was previously seen by endocrinology; requests cortisol testing and states prior referral lapsed. I explained to her that this is not my area of expertise in it would not be appropriate for me to order this test. I suggest she speak to her primary care provider. Objective Assessment & Plan Chronic constipation with diarrhea on Linzess: Persistent diarrhea despite prior dose reduction of Linzess 145 mcg. - Decrease Linzess dose further to 72 micro g for daily use. - Use small-dose bisacodyl only as needed if daily Linzess is insufficient. Oral candidiasis associated with inhaled steroid use and xerostomia: Recurrent thrush symptoms responsive to prior therapy; contributing factor likely steroid inhaler deposition. - Nystatin oral suspension swish and swallow 10 mL three times daily; provide refills. - Instruct to rinse mouth and spit after each use of the daily inhaler to reduce recurrence. Bloating responsive to pancreatic enzymes: Reports increased bloating without Creon; wishes to continue. - Renew Creon. - Continue simethicone as needed for gas. Xerostomia and nocturnal throat dryness with intermittent dysphagia sensation: Likely multifactorial, potentially medication-related (e.g., verapamil, trazodone, methocarbamol, meclizine, furosemide). Patient education provided. - Supportive measures: keep water at bedside; consider sugar-free lozenges/candy for salivary stimulation. - Continue current medications given overall benefit; monitor symptoms. -GERD well controlled with rabeprazole twice a day. - Advise patient to request a new endocrinology referral from PCP; [facility] likely to have availability. - Follow-up in 6 months, or sooner as needed. Medications: New nystatin swish and swallow 10 mL PO TID 473 mL 3RF B37.0 - Candidal stomatitis linaclotide (Linzess) Take 1st thing in the morning with a full glass of water 72 mcg PO QAM 30 caps 6RF Refilled dewcvt-iqdycifa-wqizeiq (pork) 36,000-114,000- 180,000 unit (Creon) 2 caps PO BID 120 caps 6RF K58.9 - Irritable bowel syndrome, unspecified famotidine 40 mg PO BEDTIME 30 tabs 6RF K21.9 - Gastro-esophageal reflux disease without esophagitis metoclopramide HCl 5 mg PO QID 120 tabs 6RF K21.9 - Gastro-esophageal reflux disease without esophagitis rabeprazole 20 mg PO BID 60 tabs 6RF K21.9 - Gastro-esophageal reflux disease without esophagitis, R13.10 - Dysphagia, unspecified simethicone 360 mg (2 x 180 mg) PO TID 90 ea 0RF Discontinued linaclotide (Linzess) Take first thing in the morning with a full glass of water. Discontinueing the 290mcg dose Discontinued Reason: Doctor's Order 145 mcg PO QAM 30 caps 6RF K58.1 - Irritable bowel syndrome with constipation nystatin swish and swallow Discontinued Reason: Duplicate 10 mL PO TID 473 mL 0RF B37.0 - Candidal stomatitis, B37.81 - Candidal esophagitis Coding Level of Care Code Est Pt Level 3 (42842) Diagnoses Oral ki B37.0 GERD (gastroesophageal reflux disease) K21.9 Esophageal dysmotility K22.4 Presbyesophagus K22.89 Chronic idiopathic constipation K59.04
--- OUTSIDE RECORDS SUMMARY | 2025-06-20 18:53 | XMS_ITS | Encounter Summary ---
Author Organization [employer] Address [address] [place] [address] [address] [place] [address] Care Team Providers Care Needle Punch Machine Operator Name Role Phone Adrienne Villegas MD Primary Care Provider [phone] Reason for Visit * Reason Comments Med Refill Encounter Details Date Type Department Care Team (Late st Contact Info) Description 12/10/2022 Refill [facility] [address] [place], [place] [phone] Ashley Montiel MD [address] [place], [place] [id number] Social History Tobacco Use Types Packs/Day Years [...] documented as of this encounter Care Teams Needle Punch Machine Operator Relationship Specialty Start Date End Date Adrienne Villegas MD [address] [place], [place] [phone] PCP - General Family Medicine 08/01/18 documented as of this encounter
--- OUTSIDE RECORDS SUMMARY | 2025-06-20 18:53 | XMS_ITS | Clinical Summary ---
Author Organization [employer] Address [address] [place] [address] 7t [place] [address] Care Team Providers Care Exhibit Artist Name Role Phone Adrienne Villegas MD Primary Care Provider [phone] Allergies Active Allergy Reactions Criticality Noted Date Comments Citalopram Unknown 08/10/2010 Loratadine Rash,Unknown Low 08/10/2010 Penicillins Rash Low 04/10/2013 Procaine 01/04/2014 Sulfamethoxazole 01/04/2014 Trimethoprim 01/04/2014 Other reaction(s): Unknown Venlafaxine Unknown 08/10/2010 Medications * This document contains information received from the source organization and may not represent a complete record from that organization. Misc. Devices (Fingertip Pulse Oximeter) miscIndications:C OVID-19 To check the O2 sat every 4 hours. Call the office if O2 Sat falls below 90% 1 each 3 Active Ventolin HFA 108 (90 Base) MCG/ACT inhaler INHALE 2 PUFFS BY MOUTH EVERY 4-6 HOURS NEEDED FOR WHEEZING OR SHORTNESS OF BREATH 3 Active alclometasone (Aclovate) 0.05 % ointment APPLY TO THE FACE UP TO TWICE DAILY NEEDED FOR FOR ITCHING, DO NOT EXCEED MORE THAN TWO WEEKS PER MONTH 3 Active dexlansoprazole (Dexilant) [address] capsule take 1 capsule by oral route every day for 8 weeks 1 Active diclofenac (Voltaren) 50 MG EC tablet Take 50 mg by mouth 2 times daily. 2 Active Breo Ellipta 200-25 MCG/ACT aerosol powder INHALE 1 PUFF DAILY AT THE SAME TIME EACH DAY 3 Active Artificial Tears 0.2-0.2-1 % solution PLACE ONE DROP IN EACH EYE TWICE DAILY 3 Active hydrocortisone 2.5 % cream Apply topically to the affected area 2 times a day. Apply to face and breasts twice daily for 2 weeks, once daily for 2 weeks, then twice weekly when clear.. 2 Active ketorolac (Acular) 0.5 % ophthalmic solution INSERT ONE DROP IN EACH EYE TWICE DAILY FOR TWO WEEKS 2 Active meclizine (Antivert) 25 MG tablet TAKE ONE TABLET BY MOUTH THREE TIMES DAILY NEEDED FOR DIZZINESS 2 Active pyridoxine (Vitamin B-6) 50 MG tablet Take 50 mg by mouth Once daily. 2 Active triamcinolone (Kenalog) 0.1 % cream APPLY TO TO RASH ON BODY TWICE DAILY FOR TWO WEEKS THEN decrease TO ONCE DAILY FOR TWO WEEKS. THEN TWICE A WEEK UNTIL CLEAR AVOID FACE, BETWEEN LEGS, AXILLAE AND BREASTS 3 Active TRUEplus Lancets 33G miscIndications:D iabetes mellitus without complication (HCC) TEST BLOOD SUGAR TWICE DAILY 100 each 11 3 Active Azelastine HCl 137 MCG/SPRAY solutionIndicatio ns:Allergy, subsequent encounter INHALE TWO SPRAYS IN EACH NOSTRIL TWICE DAILY 30 mL 5 3 Active Diclofenac Sodium 1 % gelIndications:Po stoperative pain APPLY TWO GRAM TO THE AFFECTED AREA(s) TWICE DAILY NEEDED 100 g 3 3 Active hydroxychloroquin e (Plaquenil) 200 MG tablet TAKE ONE TABLET TWICE DAILY 60 tablet 4 Active methocarbamol (Robaxin) 750 MG tabletIndications :Disorder of skeletal muscle TAKE ONE TABLET TWICE DAILY NEEDED FOR MUSCLE SPASMS 60 tablet 2 4 Active acetaminophen-cod eine (Tylenol w/ Codeine #3) 300-30 MG tabletIndications :Primary fibromyalgia syndrome Take 1 tablet by mouth every 6 (six) hours if needed for severe pain. 20 tablet 4 Active cetirizine (ZyrTEC) 10 MG tablet TAKE ONE TABLET EVERY DAY 30 tablet 11 5 Active verapamil SR (Calan SR) 120 MG ER tablet TAKE ONE TABLET DAILY 30 tablet 11 06/19/2025 11:45 AM EST 5 Active hydroxychloroquin e (Plaquenil) 200 MG tablet TAKE ONE TABLET BY MOUTH TWICE DAILY 60 tablet 1 5 Active cholecalciferol (SM Vitamin D3) 50 MCG (1999 UT) capsuleIndication s:Osteopenia of hip, unspecified laterality Take 1 capsule orally daily 90 capsule 3 5 Active ketoconazole (NIZOral) 2 % shampoo Apply topically 2 (two) times a week. 120 mL 11 06/19/2025 11:45 AM EST 5 Active metFORMIN (Glucophage) 500 MG tablet Take 1/2 tab orally bid 30 tablet 06/19/2025 11:45 AM EST 5 Active magnesium oxide (Mag-Ox) 400 (240 Mg) MG tabletIndications :Disorder of skeletal muscle TAKE 1 TABLET (400 MG) BY MOUTH IN THE MORNING 90 tablet 1 5 Active atorvastatin (Lipitor) 80 MG tabletIndications :Benign essential hypertension TAKE ONE TABLET BY MOUTH EVERY DAY 30 tablet 11 06/19/2025 11:45 AM EST 5 Active clonazePAM (KlonoPIN) 0.5 MG tablet Take 1 tablet (0.5 mg) by mouth 2 times daily. 60 tablet 5 Active hydroxychloroquin e (Plaquenil) 200 MG tablet TAKE ONE TABLET BY MOUTH TWICE DAILY 60 tablet 3 5 Active diclofenac (Cataflam) 50 MG tablet TAKE ONE TABLET TWICE DAILY 60 tablet 3 06/19/2025 11:45 AM EST 5 Active Lyrica 150 MG capsuleIndication s:Primary fibromyalgia syndrome TAKE ONE CAPSULE TWICE DAILY 60 capsule 3 06/19/2025 11:45 AM EST 5 Active Multiple Vitamins-Minerals (Cerovite Senior) tablet TAKE ONE TABLET DAILY 30 tablet 11 5 Active glucose blood (FREESTYLE LITE) test stripIndications: Diabetes mellitus without complication (HCC) TEST BLOOD SUGAR THREE TIMES DAILY 100 strip 11 5 Active azelaic acid (Finacea) 15 % gel APPLY TO THE FACE ONCE DAILY NIGHTLY 11/25/202 4 Active Trelegy Ellipta 200-62.5-25 MCG/ACT aerosol powder INHALE 1 PUFF DAILY AT THE SAME TIME EACH DAY 5 Active Linzess 145 MCG capsule TAKE ONE CAPSULE BY MOUTH EVERY MORNING WITH GLASS OF WATER 5 Active lidocaine (Lidoderm) 5 % patchIndications: Osteopenia of hip, unspecified laterality,Primar y fibromyalgia syndrome Apply 1 patch topically Once per day. Remove & discard patch within 12 hours or as directed by . 30 patch 5 5 Active lidocaine-priloca ine (Emla) 2.5-2.5 % cream Apply bid to affected areas 60 g 3 06/20/2025 11:53 AM EST 5 Active Active Problems Problem Noted Date Diagnosed [...] Encounters Date Type Department Care Team Description 06/18/2025 Orders Only [facility] [address] [place] [address] Adrienne Villegas MD 06/13/2025 11:00 AM EST Office Visit [facility] [address] [place] [address] Adrienne Villegas MD Osteopenia of hip, unspecified laterality (Primary Dx); Primary fibromyalgia syndrome; Benign essential hypertension; Esophageal dysphagia 06/13/2025 Travel 06/06/2025 Patient Outreach [address] [address] Adrienne Villegas MD Pre-visit Planning (SDOH screening completed on 03/12/25 ) 05/16/[address] [address] Adrienne Villegas MD Diabetes mellitus without complication (HCC) 04/30/2025 Refill [facility] [address] [place] [address] Ani Emanuel MD 04/16/2025 Orders Only [facility] External Provider, [facility] 03/30/2025 Refill [facility] [address] [place] [address] Adrienne Villegas MD Primary fibromyalgia syndrome 03/25/2025 Telephone [facility] [address] [place] [address] Adrienne Villegas MD Medication Question 03/25/2025 Telephone [facility] [address] [place] [address] Adrienne Villegas MD Med Refill 03/21/2025 Refill [facility] [address] [place] [address] Adrienne Villegas MD from Last 3 Months [...] 03/12/2026 03/12/2025 Depression Screening 03/12/2026 03/12/2025, 03/12/20 Diabetes: Urine Protein Screening 03/12/2026 03/12/2025 Disability Screening 03/12/2026 03/12/2025 Lipid Panel 03/12/2026 03/12/2025, 041 , 03/17/2021 SDOH Screening 03/12/2026 03/12/2025 Tobacco Screening [...] PM EDT Narrative 05/03/2025 7:09 AM EDT [facility] [address] [place] [address] Mammography Report Signed Patient: Jess Gray MR#: [id number] : 1960 Acct:[id number] Age/Sex: 64 / F ADM Date: 05/02/25 Loc: HO.MAMMO Attending Dr: Adrienne Villegas MD Ordering Physician: Adrienne Villegas MD Results: Date of Service: 05/02/25 Follow Up: Procedure(s): XR DEXA axial skeleton Accession Number(s): [id number] cc: Adrienne Villegas MD Reason For Exam: osteopenia EXAMINATION: DXA BONE DENSITY AXIAL HISTORY: osteopenia TECHNIQUE: Pronota Dual energy absorptiometry (DEXA) of the lumbar [...] is a trademark of the [employer] [place] for Metabolic Bone Disease, a World Health Organization (WHO) Collaborating Center. Electronically signed by: Pablo Campos MD 05/03/2025 07:06 AM EDT Dictated By: Pablo Campos MD Signed By: <Electronically signed by Pablo Campos MD in OV> 05/03/25 0706 DD/ 1405 TD/TT: 05/02/25 1427 Sheriffs Detective: Procedure Note Donotuseinterpreter, Image - 05/03/2025 [place] [facility] [address] [place] [address] Mammography Report Signed Patient: Jses Gray [facility]#: [id number] : 1Acct:[id number] Age/Sex: 64 / FADM Date: 05/02/25 Loc: KEVIN Attending Dr: Adrienne Villegas MD Ordering Physician: Adrienne Villegasults: Date of Service: 05/02/25Follow Up: Procedure(s): XR DEXA axial skeleton Accession Number(s): [id number] cc: Adrienne Villegas MD Reason For Exam: osteopenia EXAMINATION: DXA BONE DENSITY AXIAL HISTORY: osteopenia TECHNIQUE: Pronota Dual energy absorptiometry (DEXA) of the lumbar [...] is a trademark of the [employer] [place] for Metabolic Bone Disease, a World Health Organization (WHO) Collaborating Center. Electronically signed by: Pablo Campos MD 05/03/2025 07:06 AM EDT RP Dictated By: Pablo Campos MD Signed By: <Electronically signed by Pablo Campos MD in OV> 05/03/25 0706 DD/ 1405 TD/TT: 05/02/25 1427 Sheriffs Detective: us Adrienne Villegas MD IMG DXA PROCEDURES Final Resu lt * US Renal Complete (04/16/2025 1:48 PM EDT) Anatomical Region Laterality Modality Kidney Ultrasound 04/16/2025 1:48 PM EDT Narrative 04/16/2025 2:13 PM EDT [place] [address] Ultrasound Report Signed Patient: Jess Gray MR#: [id number] : 1960 Acct:[id number] Age/Sex: 64 / F ADM Date: 04/16/25 Loc: HO.US Attending Dr: Usman Shrestha MD Ordering Physician: Usman Shrestha MD Date of Service: 04/16/25 Procedure(s): US renal BI Accession Number(s): [id number] cc: Usman Shrestha MD; Adrienne Villegas MD [...] 04/16/25 1407 DD/ 1348 TD/TT: 04/16/25 1356 Sheriffs Detective: Procedure Note Donotuseinterpreter, Image - 04/16/2025 [place] [address] Ultrasound Report Signed Patient: Jess Gray DMR#: [id number] : 1960cct:[id number] Age/Sex: 64 / FADM Date: 04/16/25 Loc: HO.US Attending Dr: Usman Shrestha MD Ordering Physician: Usman Shrestha MD Date of Service: 04/16/25 Procedure(s): US renal BI Accession Number(s): [id number] cc: Usman Shrestha MD; Adrienne Villegas MD [...] 04/16/25 1407 DD/ 1348 TD/TT: 04/16/25 1356 Sheriffs Detective: us [facility] External Provider IMG US PROCEDURES Edited Result - Final * Albumin, Random Urine W/Creatinine (03/12/2025 11:08 AM EDT) Creatinine, Urine 91.36 mg/dL [facility] Microalbumin Urine 6.0 mg/L [facility] Microalbum Creatinine Ratio Ur 6.5 <30 ug/mg cr [facility] Comment:Albumin/Creatinine R atio Reference Ranges: Normal: < 30 ug/mg creatinine Microalbuminuria: 30 - 300 ug/mg creatinineClinical Albuminuria: > 300 ug/mg creatinine Urine (Urine, Random) 03/12/2025 11:08 AM EDT 03/12/2025 1:50 PM EDT Adrienne Villegas MD LAB URINE ORDERABLES Final Re sult [facility] [address] [place] [address] [phone] * (ABNORMAL) POCT HGB A1C (03/12/2025 11:08 AM EDT) Hemoglobin A1C 6.5(A) 4.0 - 5.7 % Blood 03/12/2025 11:0 8 AM EDT us Adrienne Villegas MD POINT OF CARE TEST ENTER/EDIT ORDERABLES Final Result * (ABNORMAL) Lipid Panel, Standard (03/12/2025 11:07 AM EDT) Triglycerides 117 <150 mg/dL [facility] Comment:Desirable Triglyceri de: less than 150 mg/dLBorderline High Triglyceride 150-199 mg/dLHigh Triglyceride: 200-499 mg/dLVery High Triglyceride: greater than or equal to 5OO mg/dL Cholesterol 182 <200 mg/dL [facility] Comment:Desirable Cholestero l: less than 200 mg/dLBorderline High Cholesterol: 200-239 mg/dLHigh Cholesterol: greater than 239 mg/dL LDL Cholesterol Calculated 110(H) <100 mg/dL [facility] Comment:Desirable LDL: less than 100 mg/dLNear Optimal/Above Optimal LDL: 110- 129 mg/dLBorderline High LDL: 130-159 mg/dLHigh LDL: 160-189 mg/dLVery High LDL: greater than or equal to 190 mg/dL HDL Cholesterol 49 >40 mg/dL [facility] Comment:Desirable HDL: great er than 40 mg/dL Note: This HDL assay may give artificially low results in patients with liver disease. Blood Venous blood specimen / Unknown 03/12/2025 11:07 AM EDT 03/12/2025 2:01 PM EDT us Adrienne Villegas MD LAB BLOOD ORDERABLES Final Re sult [facility] [address] [place] [address] [phone] * BI Mammogram Screening Tomosynthesis Bilateral (01/12/2024 4:00 PM EDT) Anatomical Region Laterality Modality Breast Bilateral Mammography 01/12/2024 4:00 PM EDT Narrative 02/11/2024 8:46 AM EDT [facility] [place] [address] Mammography Report Signed Patient: Jess Gray MR#: [id number] : 1960 Acct:[id number] Age/Sex: 63 / F ADM Date: 01/12/24 Loc: HO.MAMMO Attending Dr: Adrienne Villegas MD Ordering Physician: Adrienne Villegas MD Results: 2Be nign Findings Date of Service: 01/12/24 Follow Up: 1 Year From Orig ina Mammogram Procedure(s): MM tomosynthesis screening BI Accession Number(s): [id number] cc: Adrienne Villegas MD EXAMINATION: MM SCREENING [...] in OV> 02/11/24 0842 DD/ 1600 TD/TT: Sheriffs Detective: Procedure Note Donotuseinterpreter, Image - 02/11/2024 [place] [facility] [address] [place] [address] Mammography Report Signed Patient: Jess Gray DMR#: [id number] : 1Acct:[id number] Age/Sex: 63 / FADM Date: 01/12/24 Loc: HO.MAMMO Attending Dr: Adrienne Villegas MD Ordering Physician: Adrienne Villegas MDResults: 2Be nign Findings Date of Service: 01/12/24Follow Up: 1 Year From Orig inal Mammogram Procedure(s): MM tomosynthesis screening BI Accession Number(s): [id number] cc: Adrienne Villegas MD EXAMINATION: MM SCREENING [...] in OV> 02/11/24 0842 DD/ 1600 TD/TT: Sheriffs Detective: us Adrienne Villegas MD IMG BI PROCEDURES Edited Resu lt - Final * Thinprep TIS PAP W/Refl HPV mRNA E6/E7 (08/26/2022 12:00 AM EST) Clinical Information: None given [facility] LMP: NONE GIVEN [facility] Prev. PAP: NONE GIVEN [facility] Prev. BX: NONE GIVEN [facility] SOURCE: None given [facility] Statement Of Adequacy: SATISFACTORY FOR EVALUATION [facility] Interpretation/Res ult: [facility] Comment: Negative for intraepithelial lesion or malignancy. Atrophic pattern; predominantly parabasal cells COMMENT: This Pap test has been evaluated with computer assisted technology. [facility] Spool Tender: [facility] Comment: NNO, CT(ASCP) CT screening location: [facility], [address] [place] [address] Slide preparation performed at: [facility] [address] [address] CLIA No. [id number] (Always Message) [facility] Comment: EXPLANATORY NOTE: The Pap is [...] MD LAB PATHOLOGY ORDERABLES Malini cuello Result [address], [facility], [place] [address] [place] [address] * HPV mRNA E6/E7 (08/28/2019 3:55 PM EST) HPV mRNA E6/E7 Not Detected NOT DETECTED [facility] Comment: This test was performed using the APTIMA(R) HPV Assay ([employer] This assay detects E6/E7 viral messenger RNA (mRNA) from 14 high-risk HPV types (16,18,31,33,35,39,45,51, 52,56,58,59,66,68). For additional information please refer to: http://Moya Okruga.Wisegate/faq/EAZ726f7 (This link is being provided for informational/ educational purposes only.) The analytical performance characteristics of this assay have been determined by [employer] [place], [place]. The modifications have not been cleared or approved by the FDA. This assay has been validated pursuant to the CLIA regulations and is used for clinical purposes. Test Performed by [facility], [facility], [address] [place] [address] Timmy Mae M.D., Ph.D., Director of Laboratories , CLIA [id number] Please note: Effective 04/12/2016, HPV testing will be performed using [facility]'s APTIMA test which targets mRNA. Detecting mRNA instead of DNA, as in older methods, offers significant improvements in specificity. 08/28/2019 3:55 PM EST Jenise Bullock CNM HISTORICAL/NON ORDERABLE LABS Final Result [facility] Anywhere [address] from Last 3 Months or Most Recently Relevant to Health Maintenance Insurance [facility] < 65 [place] [place]Z [id number] Care Teams Exhibit Artist Relationship Specialty Start Date End Date Adrienne Villegas MD [address] [place] [address] TJ Meehan [address] PCP - General Family Medicine 08/01/18
--- OUTSIDE RECORDS SUMMARY | 2025-06-20 18:53 | XMS_ITS | Encounter Summary ---
Author Organization [employer] Address [address] [facility] 7 [place] [address] Care Team Providers Care Muffler Installer Name Role Phone Adrienne Villegas MD Primary Care Provider [phone] Reason for Visit * Reason Onset Date Comments Med Refill 11/07/2024 Encounter Details Date Type Department Care Team ([facility] st Contact Info) Description 11/07/2024 Telephone [facility] [address] [place] [address] Adrienne Villegas MD [address] [place], [place] [phone] Med Refill Social History Tobacco Use Types [...] capsule To be sent to: [facility] documented in this encounter Plan of Treatment Not on file documented as of this encounter Visit Diagnoses Not on filedocumented in this encounter Additional Health Concerns Assessment Noted Time PHQ-9 Depression Total Score: 19 023 9:50 AM EST documented as of this encounter Care Teams Muffler Installer Relationship Specialty Start Date End Date Adrienne Villegas MD [address] [place] [address] PCP - General Family Medicine 08/01/18 documented as of this encounter
--- OUTSIDE RECORDS SUMMARY | 2025-06-20 18:53 | XMS_ITS | Encounter Summary ---
Author Organization [employer] Address [address] [place] [address] 7 [place] [address] Care Team Providers Care Shotblaster Name Role Phone Adrienne Villegas MD Primary Care Provider [phone] Reason for Visit * Reason Comments Med Refill Encounter Details Date Type Department Care Team ([facility] st Contact Info) Description 01/14/2023 Refill [facility] [address] [facility] [place] [address] Adrienne Villegas MD [address] [place] [address] Social History Tobacco Use Types Packs/Day Years [...] documented as of this encounter Care Teams Shotblaster Relationship Specialty Start Date End Date Adrienne Villegas MD [address] [place] [address] PCP - General Family Medicine 08/01/18 documented as of this encounter
--- OUTSIDE RECORDS SUMMARY | 2025-06-20 18:53 | XMS_ITS | Encounter Summary ---
Author Organization [employer] Address [address] [place] [address] 7 [place] [address] Care Team Providers Care Asbestos Abatement Worker Name Role Phone Adrienne Villegas MD Primary Care Provider [phone] Reason for Visit * Reason Comments Med Refill Encounter Details Date Type Department Care Team (Late st Contact Info) Description 04/10/2023 Refill [facility] [address] [place], [place] [phone] Adrienne Villegas MD [address] [place], [place] [phone] Disorder of skeletal muscle Social History Tobacco [...] documented as of this encounter Care Teams Asbestos Abatement Worker Relationship Specialty Start Date End Date Adrienne Villegas MD [address] [place], [place] [phone] PCP - General Family Medicine 08/01/18 documented as of this encounter
--- OUTSIDE RECORDS SUMMARY | 2025-06-20 18:53 | XMS_ITS | Encounter Summary ---
Author Organization [employer] Address [address] [facility] 7 [place] [address] Care Team Providers Care Title I Coordinator Name Role Phone Adrienne Villegas MD Primary Care Provider [phone] Reason for Visit * Reason Onset Date Comments Medication Question 03/25/2025 Encounter Details Date Type Department Care Team ([facility] st Contact Info) Description 03/25/2025 Telephone [facility] [address] [place] [address] Adrienne Villegas MD [address] [place], [place] [phone] Medication Question Social History Tobacco Use Types [...] this medication is. TC to patient via reinforced steel placing supervisor. No answer. Message left to return call to office. * Telephone Encounter - Marko Bates - 03/25/2025 9:28 AM EDT Tc from pt requesting refill for medication Creo 80 MG, stating she las received it back on 02/04/25 but insurance writer does not see script in pt's chart. Please contact pt at [phone]. documented in this encounter Plan of Treatment Not on file documented as of this encounter Visit Diagnoses Not on filedocumented in this encounter Additional Health Concerns Assessment Noted Time PHQ-9 Depression Total Score: 8 03/12/20 10:43 AM EDT documented as of this encounter Care Teams Title I Coordinator Relationship Specialty Start Date End Date Adrienne Villegas MD [address] [place] [address] PCP - General Family Medicine 08/01/18 documented as of this encounter
--- OUTSIDE RECORDS SUMMARY | 2025-06-20 18:53 | XMS_ITS | Encounter Summary ---
Author Organization [employer] Address [address] [facility] 7t [place] [address] Care Team Providers Care Loss Mitigation Specialist Name Role Phone Adrienne Villegas MD Primary Care Provider [phone] Encounter Details Date Type Department Care Team (Late st Contact Info) Description 07/16/2024 Orders Only [facility] [address] [place] [phone] ProviderToña MD Social History Tobacco Use Types [...] documented as of this encounter Care Teams Loss Mitigation Specialist Relationship Specialty Start Date End Date Adrienne Villegas MD [address] [place] [address] PCP - General Family Medicine 08/01/18 documented as of this encounter
--- OUTSIDE RECORDS SUMMARY | 2025-06-20 18:53 | XMS_ITS | Encounter Summary ---
Author Organization [employer] Address [address] [facility] 7t [place] [address] Care Team Providers Care Laborer Adjustable Steel Joist Name Role Phone Adrienne Villegas MD Primary Care Provider [phone] Encounter Details Date Type Department Care Team ([facility] st Contact Info) Description 06/18/2025 Orders Only [facility] [address] [place], [place] [phone] Adrienne Villegas MD [address] [place] [address] Social History Tobacco Use Types Packs/Day Years [...] documented as of this encounter Care Teams Laborer Adjustable Steel Joist Relationship Specialty Start Date End Date Adrienne Villegas MD [address] [place] [address] PCP - General Family Medicine 08/01/18 documented as of this encounter
--- OUTSIDE RECORDS SUMMARY | 2025-06-20 18:53 | XMS_ITS | Encounter Summary ---
Author Organization [employer] Address [address] [facility] 7 [place] [address] Care Team Providers Care Bulldozer Engineer Name Role Phone Adrienne Villegas MD Primary Care Provider [phone] Reason for Visit * Reason Onset Date Comments Med Refill 03/25/2025 Encounter Details Date Type Department Care Team (Late st Contact Info) Description 03/25/2025 Telephone [facility] MEDICINE [address] [place] [address] Adrienne Villegas MD [address] [place], [place] [phone] Med Refill Social History Tobacco Use Types [...] 9:40 AM EDT Medication was sent to [facility] on 03/12/25 #90 with 3 refills. * Telephone Encounter - Marko Bates - 03/25/2025 9:24 AM EDT TC from pt requesting medication refill. Medications needing refill: cholecalciferol (SM Vitamin D3) 50 MCG (1999 UT) capsule To be sent to: [facility] - [place] - [address] [facility] documented in this encounter Plan of Treatment Not on file documented as of this encounter Visit Diagnoses Not on filedocumented in this encounter Additional Health Concerns Assessment Noted Time PHQ-9 Depression Total Score: 8 03/12/20 25 10:43 AM EDT documented as of this encounter Care Teams Bulldozer Engineer Relationship Specialty Start Date End Date Adrienne Villegas MD [address] [place] [address] PCP - General Family Medicine 08/01/18 documented as of this encounter
--- OUTSIDE RECORDS SUMMARY | 2025-06-20 18:53 | XMS_ITS | Encounter Summary ---
Author Organization [employer] Address [address] [place] [address] 7t [place] [address] Care Team Providers Care Macerator Operator Name Role Phone Adrienne Villegas MD Primary Care Provider [phone] Reason for Visit * Reason Onset Date Comments appt/chart notes 03/02/2023 Encounter Details Date Type Department Care Team ([facility] st Contact Info) Description 03/02/2023 Telephone [facility] [address] [place] [address] Tila Crandall, DDS [address] [place] [address] appt/chart notes Social History Tobacco Use Types [...] in staing that she was recommended in [facility] to get treatment in [place] due to the amount of work that had to be done and that they could no longer with her in [facility]. She explained that apparently treatment had not gone as planned but unless Im missing something I do not see notes concerning this. She is certain on what she was told to do but I cant schedule without clarity to go to [facility] if that is what [facility] wants her to do because nothing is documented as such. Pls advise documented in this encounter Plan of Treatment Not on file documented as of this encounter Visit Diagnoses Not on filedocumented in this encounter Additional Health Concerns Assessment Noted Time PHQ-9 Depression Total Score: 19 023 9:50 AM EST documented as of this encounter Care Teams Macerator Operator Relationship Specialty Start Date End Date Adrienne Villegas MD [address] [place] [address] PCP - General Family Medicine 08/01/18 documented as of this encounter
--- OUTSIDE RECORDS SUMMARY | 2025-06-20 18:53 | XMS_ITS | Encounter Summary ---
Author Organization [employer] Address [address] [facility] 7t [place] [address] Care Team Providers Care Rescue Instructor Name Role Phone Adrienne Villegas MD Primary Care Provider [phone] Encounter Details Date Type Department Care Team ([facility] st Contact Info) Description 05/10/2023 Orders Only [facility] [address] [place], [place] [phone] Adrienne Villegas MD [address] [place], [place] [phone] Social History Tobacco Use Types Packs/Day Years [...] PM EDT Narrative 05/24/2023 5:21 AM EDT [place] [address] Ultrasound Report Signed Patient: Jess Gray MR#: [id number] : 1960 Acct:[id number] Age/Sex: 62 / F ADM Date: 05/20/23 Loc: HO.US Attending Dr: Usman Shrestha MD Ordering Physician: Usman Shrestha MD Date of Service: 05/20/23 Procedure(s): US renal BI Accession Number(s): [id number] cc: Usman Shrestha MD; Adrienne Villegas MD [...] in OV> 05/24/23 0518 DD/ 1528 TD/TT: Clerk Television Production: Procedure Note Donotuseinterpreter, Image - 05/24/[address] [address] Ultrasound Report Signed Patient: Jess Gray DMR#: [id number] : 1960cct:[id number] Age/Sex: 62 / FADM Date: 05/20/23 Loc: HO.US Attending Dr: Usman Shrestha MD Ordering Physician: Usman Shrestha MD Date of Service: 05/20/23 Procedure(s): US renal BI Accession Number(s): [id number] cc: Usman Shrestha MD; Adrienne Villegas MD [...] in OV> 05/24/23 0518 DD/ 1528 TD/TT: Clerk Television Production: us [facility] External Provider IMG US PROCEDURES Edited Result - Final documented in this encounter Visit Diagnoses Not on filedocumented in this encounter Additional Health Concerns Assessment Noted Time PHQ-9 Depression Total Score: 19 023 9:50 AM EST documented as of this encounter Care Teams Rescue Instructor Relationship Specialty Start Date End Date Adrienne Villegas MD [address] [place] [address] PCP - General Family Medicine 08/01/18 documented as of this encounter
--- OUTSIDE RECORDS SUMMARY | 2025-06-20 18:53 | XMS_ITS | Encounter Summary ---
Author Organization [employer] Address [address] [facility] 7t [place] [address] Care Team Providers Care Cover Mat Machine Operator Name Role Phone Adrienne Villegas MD Primary Care Provider [phone] Reason for Visit * Reason Comments Med Refill Encounter Details Date Type Department Care Team ([facility] st Contact Info) Description 08/30/2022 Refill [facility] MEDICINE [address] [place] [address] Adrienne Villegas MD [address] [place], [place] [phone] Social History Tobacco Use Types Packs/Day Years [...] on filedocumented in this encounter Care Teams Cover Mat Machine Operator Relationship Specialty Start Date End Date Adrienne Villegas MD [address] [place] [address] PCP - General Family Medicine 08/01/18 documented as of this encounter
--- OUTSIDE RECORDS SUMMARY | 2025-06-20 18:53 | XMS_ITS | Encounter Summary ---
Author Organization [employer] Address [address] [facility] 7t [place] [address] Care Team Providers Care Blacksmith Helper Name Role Phone Adrienne Villegas MD Primary Care Provider [phone] Encounter Details Date Type Department Care Team ([facility] st Contact Info) Description 12/18/2024 Telephone [facility] MEDICINE [address] [place], [place] [phone] Adrienne Villegas MD [address] [facility] [address] [place], [place] [phone] Social History Tobacco Use Types Packs/Day Years [...] documented as of this encounter Care Teams Blacksmith Helper Relationship Specialty Start Date End Date Adrienne Villegas MD [address] [place] [address] PCP - General Family Medicine 08/01/18 documented as of this encounter
--- OUTSIDE RECORDS SUMMARY | 2025-06-20 18:53 | XMS_ITS | Encounter Summary ---
Author Organization [employer] Address [address] [place] [address] 7 [place] [address] Care Team Providers Care Cushion Cover Inspector Name Role Phone Adrienne Villegas MD Primary Care Provider [phone] Reason for Visit * Reason Comments Med Refill Encounter Details Date Type Department Care Team ([facility] st Contact Info) Description 12/10/2022 Refill [facility] [address] [place] [address] Adrienne Villegas MD [address] [place] [address] Social History Tobacco Use Types Packs/Day Years [...] documented as of this encounter Care Teams Cushion Cover Inspector Relationship Specialty Start Date End Date Adrienne Villegas MD [address] [place] [address] PCP - General Family Medicine 08/01/18 documented as of this encounter
--- OUTSIDE RECORDS SUMMARY | 2025-06-20 18:53 | XMS_ITS | Encounter Summary ---
Author Organization [employer] Address [address] [place] [address] 7 [place] [address] Care Team Providers Care Rodeo Clown Name Role Phone Adrienne Villegas MD Primary Care Provider [phone] Reason for Visit * Reason Onset Date Comments Lab Orders 01/24/2023 Encounter Details Date Type Department Care Team ([facility] Contact Info) Description 01/24/2023 Telephone [facility] MED & PEDS [address] [place], [place] [phone] Adrienne Villegas MD [address] [place], [place] [phone] Lab Orders Social History Tobacco Use Types [...] Center 01/27/2023 1:15 PM Adrienne Villegas [address] [facility] Protocol Used: Back Pain (Adult) Protocol-Based [...] she has shingles. Please contact pt at [phone] documented in this encounter Plan of Treatment Not on file documented as of this encounter Visit Diagnoses Not on filedocumented in this encounter Additional Health Concerns Assessment Noted Time PHQ-9 Depression Total Score: 19 023 9:50 AM EST documented as of this encounter Care Teams Rodeo Clown Relationship Specialty Start Date End Date Adrienne Villegas MD [address] [place] [address] PCP - General Family Medicine 08/01/18 documented as of this encounter
== END 2025-06-20 14:26 | disposition home or self-care (01) ==
LOC: HO.HGI 13:25
PROVIDERS: PCP Pediatrics; Visit Provider Nurse Practitioner
DX: B37.0 Candidal stomatitis (principal); K21.9 Gastro-esophageal reflux disease without esophagitis; K22.4 Dyskinesia of esophagus; K22.89 Other specified disease of esophagus; K59.04 Chronic idiopathic constipation
CPT/HCPCS: 99213

== ENCOUNTER → 2025-06-20 13:25 | Outpatient (BNVA) | payer OTHER, SELFPAY | PROVIDERS: PCP Pediatrics; Visit Provider Nurse Practitioner | DX: K22.4 Dyskinesia of esophagus (principal); R13.10 Dysphagia, unspecified; K21.9 Gastro-esophageal reflux disease without esophagitis; K59.04 Chronic idiopathic constipation; B37.81 Candidal esophagitis; B37.0 Candidal stomatitis | CPT/HCPCS: 99212 ==